=== PATIENT | female | born 1950 | race Caucasian/White ===

== ENCOUNTER → 2016-07-01 | Outpatient (CLI) | payer BC ==
[~2016-07-01] MED LIST: ADD/10 PO; ALBINS/ NEB; ALBU1AER9 INH; AMIT25TA9 PO; AMPH20TA2 PO; BUPRTAB51 PO; CALCTAB7 PO; CHOL100010 PO; CHOL100027 PO; FISHOIL PO; FLNIN NAE; FLUT0.15 NAE; FLUT110A INH; FLUV100T2 PO; FLVHFA44 INH; HYDC25 PO; HYDR12.55 PO; LANS30CA41 PO; LORA-741 PO; LORA10TA5 PO; LOSA50TA54 PO; MONT1TAB3 PO; MULT-506 PO; NAPR1TAB9 PO; OMEG10007 PO; PROAIR INH; RISP0.5T9 PO; SENN-61 PO; TEMA15CA4 PO; TRAM-10 PO
--- NOTE | 2016-07-01 12:17 | DIAGNOSTIC IMAGING REPORT ---
THORACIC SPINE 3 VIEWS ROUTINE CLINICAL HISTORY: Dorsalgia. COMPARISON STUDY: Thoracic spine CT July 14, 2011. FINDINGS: There is an old moderate compression fracture of T12. Mild shaped scoliosis of the thoracic spine is unchanged. Minimal multilevel degenerative disc disease is present. A hiatal hernia is again noted. IMPRESSION: 1. Old moderate T12 compression fracture. No acute thoracic spine fracture. 2. No change in mild S-shaped scoliosis of the thoracic spine. 3. Minimal multilevel degenerative disc disease. Electronically signed by: Pepe Montoya M.D. 07/01/2016 12:15 PM Dictated Date/Time: 07/01/2016 12:07 PM
--- NOTE | 2016-07-01 12:19 | DIAGNOSTIC IMAGING REPORT ---
L-SPINE MIN 4 VIEWS ROUTINE CLINICAL HISTORY: Back pain. COMPARISON: Lumbar spine CT July 14, 2011. FINDINGS: Alignment of the lumbar spine is anatomic. No acute lumbar spine fracture is present. There is an old moderate T12 compression fracture. Mild multilevel degenerative disc disease and facet arthrosis is present. IMPRESSION: 1. No acute lumbar spine fracture or subluxation. 2. Old moderate T12 compression fracture. 3. Mild degenerative disc disease and mild to moderate multilevel facet arthrosis. Electronically signed by: Pepe Montoya M.D. 07/01/2016 12:17 PM Dictated Date/Time: 07/01/2016 12:16 PM
== END | disposition home or self-care (01) ==
LOC: C.RAD1850 11:05
PROVIDERS: ATTEND Family Medicine
DX: M54.6 Pain in thoracic spine (principal); M54.5 Low back pain

== ENCOUNTER → 2016-07-01 | Outpatient (CLI) | payer BC ==
[~2016-07-01] MED LIST changes: +OPTIRAY 320 IV PRN
--- NOTE | 2016-07-01 16:19 | DIAGNOSTIC IMAGING REPORT ---
CT ANGIOGRAM OF THE CHEST CLINICAL HISTORY: Chest pain, shortness of breath, positive d-dimer COMPARISON STUDY: Chest x-ray dated 06/26/2012, CT scan dated 03/18/2011 TECHNIQUE: Following the IV administration of 88 mL of Optiray-320, CT angiogram of the thorax was performed from the thoracic inlet to the lung bases utilizing the pulmonary embolus protocol. Images are reviewed in the axial, sagittal, and coronal planes. IV contrast was administered without complication. MIP imaging was performed. CT DOSE: 406.88 mGycm FINDINGS: There is a moderate hiatal hernia. This has a para esophageal component. There is a small fat-containing right-sided Bochdalek hernia. No pathologically enlarged axillary mediastinal or hilar lymph nodes were visualized. There was no evidence of thoracic aortic dilatation. There were no pulmonary artery filling defects to indicate acute pulmonary embolism. No pleural effusions are visualized. There is mild respiratory motion artifact. There is no focal pulmonary consolidation. There is evidence for pulmonary emphysema. There is scattered tiny calcified granulomas. IMPRESSION: 1. No CT evidence of acute pulmonary embolism 2. Moderate hiatal hernia with a para esophageal component 3. No evidence of focal pulmonary consolidation 4. Mild emphysema. Electronically signed by: Bryan Ambrocio M.D. 07/01/2016 4:17 PM Dictated Date/Time: 07/01/2016 4:12 PM
== END | disposition home or self-care (01) ==
LOC: C.CTS 15:09
PROVIDERS: ATTEND Family Medicine
DX: M54.9 Dorsalgia, unspecified (principal); K44.9 Diaphragmatic hernia without obstruction or gangrene; J43.9 Emphysema, unspecified; M54.6 Pain in thoracic spine; M54.5 Low back pain

== ENCOUNTER → 2016-08-19 | Outpatient (CLI) | payer BC ==
[~2016-08-19] MED LIST changes: -OPTIRAY 320 IV PRN
--- NOTE | 2016-08-19 12:03 | DIAGNOSTIC IMAGING REPORT ---
CHEST 2 VIEWS ROUTINE CLINICAL HISTORY: Cough and shortness of breath COMPARISON STUDY: Chest CT July 01, 2016. FINDINGS: Lung volumes are mildly diminished. There is no pneumothorax or pleural effusion. A hiatal hernia is again noted. Cardiomediastinal silhouette is stable. There is no evidence for pulmonary edema. Mild bibasilar opacities are noted, including right infrahilar opacity IMPRESSION: 1. Diminished lung lungs with bibasilar opacities, including right infrahilar opacity. This may reflect pneumonia or atelectasis. Radiographic follow up is recommended. 2. No evidence of pulmonary edema. Electronically signed by: Pepe Montoya M.D. 08/19/2016 12:02 PM Dictated Date/Time: 08/19/2016 11:58 AM
== END | disposition home or self-care (01) ==
LOC: C.RAD1850 11:30
PROVIDERS: ATTEND Family Medicine
DX: J45.901 Unspecified asthma with (acute) exacerbation (principal); R91.8 Other nonspecific abnormal finding of lung field

== ENCOUNTER → 2016-11-25 | Outpatient (CLI) | payer BC ==
--- NOTE | 2016-11-25 15:05 | DIAGNOSTIC IMAGING REPORT ---
CHEST 2 VIEWS ROUTINE CLINICAL HISTORY: R93.8 ABNORMAL CHEST X-RAY COMPARISON STUDY: No previous studies for comparison. FINDINGS: The cardiac and mediastinal contours remain stable. There is decreased prominence of the previously described right infrahilar opacity. There is no lobar consolidation. There are no pleural effusions.[ IMPRESSION: Minimal decrease in the prominence the nonspecific right infrahilar opacity. No evidence of lobar consolidation. No evidence of failure. Electronically signed by: Bryan Ambrocio M.D. 11/25/2016 3:04 PM Dictated Date/Time: 11/25/2016 3:01 PM
== END | disposition home or self-care (01) ==
LOC: C.RAD1850 14:48
PROVIDERS: ATTEND Family Medicine
DX: R93.8 Abnormal findings on diagnostic imaging of other specified body structures (principal)

== ENCOUNTER 2017-03-11 14:58 | Emergency (ER) | payer BC ==
[~2017-03-11] VITALS: Ht 160 cm; Wt 73.8 kg
[~2017-03-11 14:58] MED LIST changes: -ALBINS/ NEB; -AMIT25TA9 PO; -AMPH20TA2 PO; -BUPRTAB51 PO; -CALCTAB7 PO; -CHOL100027 PO; -FLUT0.15 NAE; -FLUV100T2 PO; -FLVHFA44 INH; -HYDR12.55 PO; -LANS30CA41 PO; -LORA-741 PO; -LORA10TA5 PO; -LOSA50TA54 PO; -MONT1TAB3 PO; -MULT-506 PO; -NAPR1TAB9 PO; -OMEG10007 PO; -PROAIR INH; -SENN-61 PO; -TEMA15CA4 PO; -TRAM-10 PO
--- NOTE | 2017-03-11 14:58 | EMERGENCY ROOM VISIT NOTE ---
History Report prepared by Rika: Myke Red Under the Supervision of: Dr. Antwan Jewell D.O. First contact with patient: 14:56 Stated Complaint: CHEST PAIN History of Present Illness The patient is a 66 year old female who presents to the Emergency Room per EMS with complaints of persistent chest pain that started a couple days ago. The patient was in her doctor's office prior to arrival. She says that her chest pain has been a tightness, and radiates into her back. The patient says that the pain is worsened with movement and breathing. She adds that she has been feeling short of breath. Per EMS, the patient was given Nitro and 325 mg Aspirin. She was tachycardic prior to arrival. The patient has also had episodes of diaphoresis with the chest tightness. The patient denies any fevers , cough, abdominal pain, or swelling or pain in her legs. The patient notes that she takes a nebulizer, Advair, albuterol, as well as hypertension medications. She says that she has not been taking her inhalers as much as she should. The patient is an ex-smoker. She notes no history of blood clots in her legs or lungs. The patient adds that she has never had a stress test. Source of History: patient, EMS Onset: A couple days ago Position: chest Quality: other (tightness) Timing: other (persistent) Modifying Factors (Worsening): breathing, movement Associated Symptoms: + diaphoresis, + SOB, No fevers, No cough, No abdominal pain Note: Associated symptoms: Denies leg pain or leg swelling. Review of Systems See HPI for pertinent positives & negatives. A total of 10 systems reviewed and were otherwise negative. Past Medical & Surgical Medical Problems: (1) Adenomatous polyp of colon (2) Adjustment disorder with depressed mood (3) Allergic rhinitis (4) Anemia (5) ATTN DEFIC NONHYPERACT (6) Benign hypertension (7) s/p colonic polypectomies (8) s/p D&C (9) s/p nasal surgery- excision chondroma (10) s/p shoulder surgery Family History Cancer Diabetes mellitus Heart disease Hypertension Kidney disease Social History Smoking Status: Former Smoker Marital Status: Housing Status: lives with family Occupation Status: retired Current/Historical Medications Scheduled Albuterol Sulf (Proventil 0.083% 2.5MG/3ML), 1 DOSE NEB BID Amitriptyline Hcl (Elavil), 25 MG PO HS Amphetamine-Dextroamphetamine 20MG (Adderall 20MG), 20 MG PO DAILY Bupropion (Wellbutrin-Xl), 300 MG PO QAM Calcium Carbonate-Vitamin D W/ (Caltrate 600 Plus), 1 TAB PO DAILY Cholecalciferol (Vitamin D 1000 Unit), 1,000 INTER.UNIT PO DAILY Fluticasone Propionate (Flovent Hfa), 2 PUFFS INH BID Fluvoxamine Maleate (Luvox), 200 MG PO HS Hydrochlorothiazide (Hydrochlorothiazide), 1 TAB PO DAILY Lansoprazole (Prevacid), 30 MG PO DAILY Loratadine (Claritin), 10 MG PO DAILY Losartan Potassium (Cozaar), 50 MG PO DAILY Montelukast Sodium (Singulair), 10 MG PO DAILY Multivitamin (Multivitamin), 1 TAB PO DAILY Senna (Senokot), 1 TAB PO HS Temazepam (Restoril), 15-30 MG PO HS [Proair], 2 PUFF INH Q4 Scheduled PRN Lorazepam (Ativan), 0.5-1 MG PO HS PRN for Sleep Naproxen (Aleve), 440 MG PO DAILY PRN for Pain or Fever Allergies Coded Allergies: Penicillins (Verified Allergy, Unknown, 07/25/09) Physical Exam Vital Signs Date Time Temp Pulse Resp B/P (MAP) Pulse Ox O2 Delivery O2 Flow Rate FiO2 03/11/17 17:00 106 20 188/108 93 Room Air 03/11/17 15:13 104 03/11/17 15:10 98 Room Air 03/11/17 15:10 36.7 106 26 185/99 95 Room Air 03/11/17 15:10 95 Room Air 03/11/17 15:10 95 Physical Exam GENERAL: Patient is awake, alert, very anxious and uncomfortable appearing. EYES: The conjunctivae are clear. The pupils are round and reactive. EARS, NOSE, MOUTH AND THROAT: The nose is without any evidence of any deformity. Mucous membranes are moist tongue is midline NECK: The neck is nontender and supple. RESPIRATORY: Splinting and shallow respirations noted. There was no tachypnea appreciated. CARDIOVASCULAR: Regular rate and rhythm noted there no murmurs rubs or gallops normal S1 normal S2 GASTROINTESTINAL: The abdomen is soft. Bowel sounds are present in all quadrants. Abdomen is nontender MUSCULOSKELETAL/EXTREMITIES: There is no evidence of gross deformity full range of motion is noted in the hips and shoulders SKIN: Skin was cool and diaphoretic. There was no calf tenderness or pedal edema noted. NEUROLOGIC: Patient is awake alert and oriented x3. Medical Decision & Procedures ER Provider Diagnostic Interpretation: X-ray results as stated below per interpretation by me and the radiologist. CHEST ONE VIEW PORTABLE CLINICAL HISTORY: Respiratory distress COMPARISON STUDY: 11/25/2016 FINDINGS: The heart is normal in size. There is no failure. There is no focal pulmonary consolidation. There are no pleural effusions.[ IMPRESSION: AP portable study. No active disease in the chest. Electronically signed by: Bryan Ambrocio M.D. 03/11/2017 3:32 PM Dictated Date/Time: 03/11/2017 3:31 PM Laboratory Results 03/11/17 15:15 Red Blood Count 3.75, Mean Corpuscular Volume 86.9, Mean Corpuscular Hemoglobin 29.6, Mean Corpuscular Hemoglobin Concent 34.0, Mean Platelet Volume 9.8, Neutrophils (%) (Auto) 69.9, Lymphocytes (%) (Auto) 17.8, Monocytes (%) (Auto) 10.0, Eosinophils (%) (Auto) 1.5, Basophils (%) (Auto) 0.6, Neutrophils # (Auto ) 6.03, Lymphocytes # (Auto) 1.54, Monocytes # (Auto) 0.86, Eosinophils # (Auto ) 0.13, Basophils # (Auto) 0.05 03/11/17 15:15 Test 03/11/17 15:15 03/11/17 15:25 White Blood Count 8.63 K/uL (4.8-10.8) Red Blood Count 3.75 M/uL (4.2-5.4) Hemoglobin 11.1 g/dL (12.0-16.0) Hematocrit 32.6 % (37-47) Mean Corpuscular Volume 86.9 fL (80-100) Mean Corpuscular Hemoglobin 29.6 pg (25-34) Mean Corpuscular Hemoglobin Concent 34.0 g/dl (32-36) Platelet Count 333 K/uL (130-400) Mean Platelet Volume 9.8 fL (7.4-10.4) Neutrophils (%) (Auto) 69.9 % Lymphocytes (%) (Auto) 17.8 % Monocytes (%) (Auto) 10.0 % Eosinophils (%) (Auto) 1.5 % Basophils (%) (Auto) 0.6 % Neutrophils # (Auto) 6.03 K/uL (1.4-6.5) Lymphocytes # (Auto) 1.54 K/uL (1.2-3.4) Monocytes # (Auto) 0.86 K/uL (0.11-0.59) Eosinophils # (Auto) 0.13 K/uL (0-0.5) Basophils # (Auto) 0.05 K/uL (0-0.2) RDW Standard Deviation 45.0 fL (36.4-46.3) RDW Coefficient of Variation 14.3 % (11.5-14.5) Immature Granulocyte % (Auto) 0.2 % Immature Granulocyte # (Auto) 0.02 K/uL (0.00-0.02) Prothrombin Time 10.0 SECONDS (9.0-12.0) Prothromb Time International Ratio 0.9 (0.9-1.1) Activated Partial Thromboplast Time 25.0 SECONDS (21.0-31.0) Partial Thromboplastin Ratio 1.0 Anion Gap 12.0 mmol/L (3-11) Est Creatinine Clear Calc Drug Dose 57.9 ml/min Estimated GFR () 75.2 Estimated GFR (Non- 64.9 BUN/Creatinine Ratio 14.7 (10-20) Calcium Level 9.6 mg/dl (8.5-10.1) Total Bilirubin 0.2 mg/dl (0.2-1) Aspartate Amino Transf (AST/SGOT) 26 U/L (15-37) Alanine Aminotransferase (ALT/SGPT) 30 U/L (12-78) Alkaline Phosphatase 74 U/L (45-117) Total Creatine Kinase 102 U/L (26-192) Creatine Kinase MB 1.3 ng/ml (0.5-3.6) Creatine Kinase MB Ratio 1.3 (0-3.0) Troponin I < 0.015 ng/ml (0-0.045) Total Protein 7.4 gm/dl (6.4-8.2) Albumin 3.5 gm/dl (3.4-5.0) Globulin 3.9 gm/dl (2.5-4.0) Albumin/Globulin Ratio 0.9 (0.9-2) Bedside D-Dimer 315 ng/mlFEU (0-450) Laboratory results per my review. Medications Administered Medications (Trade) Dose Ordered Sig/Sofiya Route Start Time Stop Time Status Last Admin Dose Admin Sodium Chloride 1,000 ml @ 999 mls/hr Q1H1M STAT IV 03/11/17 15:03 03/11/17 16:03 DC 03/11/17 15:03 999 MLS/HR Ondansetron HCl (Zofran Odt) 4 mg ONE ONCE PO 03/11/17 15:15 03/11/17 15:16 DC 03/11/17 15:23 4 MG Morphine Sulfate (MoRPHine SULFATE INJ) 4 mg Q15M PRN IV 03/11/17 15:15 03/25/17 15:14 03/11/17 15:23 4 MG ECG Indication: chest pain Rate (beats per minute): 104 Rhythm: sinus tachycardia Findings: no ectopy, other (no acute ST segment abnormalities) Change: no significant change (from earlier tracing and 06/26/12) ED Course 1458: The patient was evaluated in room A10. A complete history and physical examination were performed. 1503: Ordered NSS 1000 ml @ 999 mls/hr IV. 1515: Ordered Morphine Sulfate Inj 4 mg IV PRN, Zofran ODT 4 mg PO. 1645: I reevaluated the patient and she is resting. The patient verbally expressed understanding and agreement with the treatment plan. The patient will be evaluated for further treatment. 1648: I discussed the patient with Dr. Gaudencio Brooks [facility] cement tile maker. He will evaluate the patient for further treatment. 1800: I was notified that the patient will be discharged. The patient verbally expressed understanding and agreement of the treatment plan. Medical Decision Differential diagnosis: Etiologies such as cardiac ischemia, aortic dissection, pulmonary embolism, pneumonia, pneumothorax, musculoskeletal, infections, pericarditis, myocarditis , esophageal rupture, gastrointestinal, as well as others were entertained. Nursing notes reviewed. Additional history is obtained from the prehospital personnel. The patient's office visit notes were also reviewed. The patient is a 66-year-old female who presented to the emergency department for an evaluation of chest pain. The patient's pain was mostly lower chest and was worsened with deep inspiration and palpation. The patient arrived at the emergency department for a cardiac evaluation after being seen by her primary care physician's office. The patient was diaphoretic but she was given aspirin and nitroglycerin prior to arrival. The patient was reevaluated multiple times. She was treated with IV fluids in the emergency department. She was also given IV pain medication and IV antiemetics. On subsequent reevaluation she was feeling much better. I discussed the patient's laboratory and radiographic studies with her. I also discussed her case with the on-call [facility] hospitalist. They've agreed to evaluate the patient in emergency apartment for further management and disposition. I discussed the limitations of the emergency department workup for chest pain with the patient. Medication Reconcilliation Current Medication List: was personally reviewed by me Blood Pressure Screening Patient's blood pressure: Elevated blood pressure Blood pressure disposition: Elevated BP felt to be situational Consults Time Called: 1644 Consulting Physician: Dr. Gaudencio TORRES cement tile maker Returned Call: 1648 I discussed the patient with Dr. Gaudencio TORRES cement tile maker. He will evaluate the patient for further treatment. Impression Primary Impression: Chest pain Scribe Attestation The scribe's documentation has been prepared under my direction and personally reviewed by me in its entirety. I confirm that the note above accurately reflects all work, treatment, procedures, and medical decision making performed by me. Departure Information Dispostion Home / Self-Care Referrals Mitchell Maza M.D. Forms Call Back Authorization, HOME CARE DOCUMENTATION FORM, IMPORTANT VISIT INFORMATION, Work Instructions Patient Instructions ED Chest Pain Atypical Unkn Cause, [facility] Additional Instructions Rest and avoid any strenuous activity. Continue all medications as prescribed. Follow-up with your family doctor soon as possible. I would recommend a stress test or other testing to further evaluate the cause her chest pain. Return to the emergency department immediately if symptoms change worsen or the need arises.
[2017-03-11] MEDS ORDERED: SODIUM CHLORIDE 0.9% 1000ML 1,000 ML IV STA (15:03)
[2017-03-11 15:10] VITALS: TEMP 36.7; O2SAT 95; Ht 160 cm; Wt 73.8 kg
[2017-03-11] MEDS ORDERED: ONDANSETRON 4MG OD TAB PO ONE (15:15)
[2017-03-11] MEDS ORDERED: MoRPHine SULFATE 4 MG/ML 1 ML CARP\\VIAL IV PRN (15:15)
--- NOTE | 2017-03-11 15:34 | DIAGNOSTIC IMAGING REPORT ---
CHEST ONE VIEW PORTABLE CLINICAL HISTORY: Respiratory distress COMPARISON STUDY: 11/25/2016 FINDINGS: The heart is normal in size. There is no failure. There is no focal pulmonary consolidation. There are no pleural effusions.[ IMPRESSION: AP portable study. No active disease in the chest. Electronically signed by: Bryan Ambrocio M.D. 03/11/2017 3:32 PM Dictated Date/Time: 03/11/2017 3:31 PM
[2017-03-11 15:35] LABS: BASO % 0.6 %; BASO ABS # 0.05 K/uL (0-0.2); COMPLETE YES; EOS % 1.5 %; HEMATOCRIT 32.6 % (37-47); IG% 0.2 %; LYMPH % 17.8 %; LYMPH ABS # 1.54 K/uL (1.2-3.4); MEAN CELL VOLUME 86.9 fL (80-100); MEAN CORPUSCULAR HEMOGLOBIN 29.6 pg (25-34); MEAN PLATELET VOLUME 9.8 fL (7.4-10.4); NEUT % 69.9 %; PLATELET COUNT 333 K/uL (130-400); RED BLOOD COUNT 3.75 M/uL (4.2-5.4); WHITE BLOOD COUNT 8.63 K/uL (4.8-10.8)
[2017-03-11 15:44] LABS: INR 0.9 (0.9-1.1)
[2017-03-11 15:54] LABS: ALT/SGPT 30 U/L (12-78); BLOOD UREA NITROGEN 14 mg/dl (7-18); BUN/CREATININE RATIO 14.7 (10-20); CALCIUM 9.6 mg/dl (8.5-10.1); CARBON DIOXIDE 25 mmol/L (21-32); CHLORIDE 103 mmol/L (98-107); CREATININE 0.92 mg/dl (0.60-1.20); GLUCOSE 92 mg/dl (70-99); POTASSIUM 3.9 mmol/L (3.5-5.1); SODIUM 140 mmol/L (136-145)
[2017-03-11 15:59] LABS: ALB/GLOB RATIO 0.9 (0.9-2); ALKALINE PHOSPHATASE 74 U/L (45-117); AST/SGOT 26 U/L (15-37); CKMB/CK RATIO 1.3 (0-3.0)
[2017-03-11] MEDS ORDERED: CHOL100027 PO (16:07)
[2017-03-11] MEDS ORDERED: FLUT0.15 NAE (16:07)
[2017-03-11] MEDS ORDERED: HYDR12.55 PO (16:07)
[2017-03-11] MEDS ORDERED: AMIT25TA9 PO (16:07)
[2017-03-11] MEDS ORDERED: TRAM-10 PO (16:07)
[2017-03-11] MEDS ORDERED: PROAIR INH (16:07)
[2017-03-11] MEDS ORDERED: SENN-61 PO (16:07)
[2017-03-11] MEDS ORDERED: FLVHFA44 INH (16:07)
[2017-03-11] MEDS ORDERED: OMEG10007 PO (16:07)
[2017-03-11] MEDS ORDERED: NAPR1TAB9 PO (16:23)
[2017-03-11] MEDS ORDERED: AMPH20TA2 PO (16:23)
[2017-03-11] MEDS ORDERED: ALBINS/ NEB (16:25)
--- NOTE | 2017-03-11 17:31 | History and Physical ---
History & Physical Date & Time of Service: Mar 11, 2017 at 17:16 Chief Complaint: Chest Pain Primary Care Physician: Mitchell Maza M.D. Past Medical/Surgical History Medical Problems: (1) Adenomatous polyp of colon Permanent Comment: s/p polypectomies Status: Chronic (2) Adjustment disorder with depressed mood Status: Chronic (3) Allergic rhinitis Status: Chronic (4) Anemia Status: Chronic (5) ATTN DEFIC NONHYPERACT Status: Chronic (6) Benign hypertension Status: Chronic (7) s/p colonic polypectomies Status: Chronic (8) s/p D&C Status: Chronic (9) s/p nasal surgery- excision chondroma Status: Chronic (10) s/p shoulder surgery Status: Chronic Family History Cancer Diabetes mellitus Heart disease Hypertension Kidney disease Father of CT at 63 Brother had CABG Mother had CAD, at 62 CT Social History Smoking Status: Former Smoker Marital Status: Occupational Status: retired Immunizations History of Influenza Vaccine: Yes Influenza Vaccine Date: Mar 14, 2011 History of Tetanus Vaccine?: Yes Tetanus Immunization Date: Jun 20, 2006 History of Pneumococcal: Unknown History of Hepatitis B Vaccine: Unknown Multi-Drug Resistant Organisms History of MDRO: No Allergies Coded Allergies: Penicillins (Verified Allergy, Unknown, 07/25/09) Home Medications Scheduled Albuterol Sulf (Proventil 0.083% 2.5MG/3ML), 1 DOSE NEB BID Amitriptyline Hcl (Elavil), 25 MG PO HS Amphetamine-Dextroamphetamine 20MG (Adderall 20MG), 20 MG PO DAILY Bupropion (Wellbutrin-Xl), 300 MG PO QAM Calcium Carbonate-Vitamin D W/ (Caltrate 600 Plus), 1 TAB PO DAILY Cholecalciferol (Vitamin D 1000 Unit), 1,000 INTER.UNIT PO DAILY Fluticasone Propionate (Flovent Hfa), 2 PUFFS INH BID Fluvoxamine Maleate (Luvox), 200 MG PO HS Hydrochlorothiazide (Hydrochlorothiazide), 1 TAB PO DAILY Lansoprazole (Prevacid), 30 MG PO DAILY Loratadine (Claritin), 10 MG PO DAILY Losartan Potassium (Cozaar), 50 MG PO DAILY Montelukast Sodium (Singulair), 10 MG PO DAILY Multivitamin (Multivitamin), 1 TAB PO DAILY Senna (Senokot), 1 TAB PO HS Temazepam (Restoril), 15-30 MG PO HS [Proair], 2 PUFF INH Q4 Scheduled PRN Lorazepam (Ativan), 0.5-1 MG PO HS PRN for Sleep Naproxen (Aleve), 440 MG PO DAILY PRN for Pain or Fever Review of Systems A 10 point review of systems was negative unless stated above. Physical Exam Vital Signs Date Time Temp Pulse Resp B/P (MAP) Pulse Ox O2 Delivery O2 Flow Rate FiO2 03/11/17 15:13 104 03/11/17 15:10 98 Room Air 03/11/17 15:10 36.7 106 26 185/99 95 Room Air 03/11/17 15:10 95 Room Air 03/11/17 15:10 95 Diagnostics Laboratory Results Results Past 24 Hours Test 03/11/17 15:15 03/11/17 15:25 Range/Units White Blood Count 8.63 4.8-10.8 K/uL Red Blood Count 3.75 4.2-5.4 M/uL Hemoglobin 11.1 12.0-16.0 g/dL Hematocrit 32.6 37-47 % Mean Corpuscular Volume 86.9 80-100 fL Mean Corpuscular Hemoglobin 29.6 25-34 pg Mean Corpuscular Hemoglobin Concent 34.0 32-36 g/dl Platelet Count 333 130-400 K/uL Mean Platelet Volume 9.8 7.4-10.4 fL Neutrophils (%) (Auto) 69.9 % Lymphocytes (%) (Auto) 17.8 % Monocytes (%) (Auto) 10.0 % Eosinophils (%) (Auto) 1.5 % Basophils (%) (Auto) 0.6 % Neutrophils # (Auto) 6.03 1.4-6.5 K/uL Lymphocytes # (Auto) 1.54 1.2-3.4 K/uL Monocytes # (Auto) 0.86 0.11-0.59 K/uL Eosinophils # (Auto) 0.13 0-0.5 K/uL Basophils # (Auto) 0.05 0-0.2 K/uL RDW Standard Deviation 45.0 36.4-46.3 fL RDW Coefficient of Variation 14.3 11.5-14.5 % Immature Granulocyte % (Auto) 0.2 % Immature Granulocyte # (Auto) 0.02 0.00-0.02 K/uL Prothrombin Time 10.0 9.0-12.0 SECONDS Prothromb Time International Ratio 0.9 0.9-1.1 Activated Partial Thromboplast Time 25.0 21.0-31.0 SECONDS Partial Thromboplastin Ratio 1.0 Sodium Level 140 136-145 mmol/L Potassium Level 3.9 3.5-5.1 mmol/L Chloride Level 103 98-107 mmol/L Carbon Dioxide Level 25 21-32 mmol/L Anion Gap 12.0 3-11 mmol/L Blood Urea Nitrogen 14 7-18 mg/dl Creatinine 0.92 0.60-1.20 mg/dl Est Creatinine Clear Calc Drug Dose 57.9 ml/min Estimated GFR () 75.2 Estimated GFR (Non- 64.9 BUN/Creatinine Ratio 14.7 10-20 Random Glucose 92 70-99 mg/dl Calcium Level 9.6 8.5-10.1 mg/dl Total Bilirubin 0.2 0.2-1 mg/dl Aspartate Amino Transf (AST/SGOT) 26 15-37 U/L Alanine Aminotransferase (ALT/SGPT) 30 12-78 U/L Alkaline Phosphatase 74 45-117 U/L Total Creatine Kinase 102 26-192 U/L Creatine Kinase MB 1.3 0.5-3.6 ng/ml Creatine Kinase MB Ratio 1.3 0-3.0 Troponin I < 0.015 0-0.045 ng/ml Total Protein 7.4 6.4-8.2 gm/dl Albumin 3.5 3.4-5.0 gm/dl Globulin 3.9 2.5-4.0 gm/dl Albumin/Globulin Ratio 0.9 0.9-2 Bedside D-Dimer 315 0-450 ng/mlFEU
[2017-03-11] MEDS ORDERED: MONT1TAB3 PO (18:05)
[2017-03-11] MEDS ORDERED: LORA10TA5 PO (18:05)
[2017-03-11] MEDS ORDERED: CALCTAB7 PO (18:05)
--- NOTE | 2017-03-11 18:10 | Medical Consult ---
Consultation Date of Consultation: Mar 11, 2017. Attending Physician: Dr. Jorge Ratliff Reason for Consultation: Chest pain History of Present Illness The patient presents with chest tightness. The pain has been "off and on" for the past 2 days. The pain localizes to under the ribcages bilaterally. The pain radiates to the jaw and shoulders though she notes having chronic shoulder pain. The pain is described as tightness / "grabbing" pain rated 7/10 under the ribcage. The pain worsens with movement, particularly going from lying to sitting. The pain is stated to be worse with walking and improves with rest after immediately. She notes shortness of breath with exertion for the past 6 months. She states she is unable to do housework now without getting short of breath. She has a history of COPD but is not O2 dependent. She denies wheezing at night. No fevers, chills. She states that she gets diaphoretic intermittently for many years, she cannot time with anything. Appetite has been poor for the past 2 days. No nausea, vomiting or abdominal pain. No diarrhea. She has a history of constipation at baseline which is unchanged. Given pain, seen in [facility] today and was referred to the ED for further evaluation. EKG showed sinus tachycardia. Lying in bed she denies having chest pain currently. She wants to go home. She state "I thought this was more of a chest cold" She is an ex-smoker. Currently drinks alcohol 1 unit per evening (glass of wine) Lives with , who helps with home ADLs No previous history of cardiac disease. Past Medical/Surgical History Past Medical History - HTN - ?COPD? patient unclear - History of Tobacco abuse - Depression - Anxiety Past Surgical History - Hysterectomy - Right wrist surgery - B/L shoulder surgery Family History Cancer Diabetes mellitus Heart disease Hypertension Kidney disease Father of SD at 63 Brother had CABG Mother had CAD, at 62 SD Social History Smoking Status: Former Smoker Smokeless Tobacco Use: No Alcohol Use: occasionally Drug Use: none Marital Status: Housing Status: lives with family Occupation Status: retired Allergies Coded Allergies: Penicillins (Verified Allergy, Unknown, 07/25/09) Home Medications Reported Home Medications Medications Dose Route/Sig Max Daily Dose Days Date Category Proventil 0.083% 2.5MG/3ML (Albuterol Sulf) 2.5 Mg/3 Ml Nebu 1 Dose NEB BID 03/11/17 Reported Aleve (Naproxen) 220 Mg Tab 440 Mg PO DAILY PRN 03/11/17 Reported Adderall 20MG (Amphetamine-Dextroamphetamine 20MG) 1 Tab Tab 20 Mg PO DAILY 03/11/17 Reported Vitamin D 1000 Unit (Cholecalciferol) 1,000 Unit Cap 1,000 Inter.unit PO DAILY 03/11/17 Reported [Proair] 2 Puff INH Q4 03/11/17 Reported Senokot (Senna) 8.6 Mg Tab 1 Tab PO HS 03/11/17 Reported Elavil (Amitriptyline Hcl) 25 Mg Tab 25 Mg PO HS 03/11/17 Reported Flovent Hfa (Fluticasone Propionate) 120 Puffs/5280 Mcg Aero 2 Puffs INH BID 30 03/11/17 Reported Hydrochlorothiazide 12.5 Mg Tab 1 Tab PO DAILY 90 03/11/17 Reported Prevacid (Lansoprazole) 30 Mg Cap 30 Mg PO DAILY 09/03/13 Reported Cozaar (Losartan Potassium) 50 Mg Tab 50 Mg PO DAILY 09/03/13 Reported Ativan (Lorazepam) 0.5 Mg Tab 0.5-1 Mg PO HS PRN 09/03/13 Reported Luvox (Fluvoxamine Maleate) 100 Mg Tab 200 Mg PO HS 09/03/13 Reported Restoril (Temazepam) 15 Mg Cap 15-30 Mg PO HS 09/03/13 Reported Claritin (Loratadine) 10 Mg Tab 10 Mg PO DAILY 06/26/12 Reported Singulair (Montelukast Sodium) 10 Mg Tab 10 Mg PO DAILY 06/26/12 Reported Caltrate 600 Plus (Calcium Carbonate-Vitamin D W/) 1 Tab Tab 1 Tab PO DAILY 06/26/12 Reported Multivitamin (Multivitamins) Tab 1 Tab PO DAILY 03/18/11 Reported Wellbutrin-Xl (Bupropion HCl) 300 Mg Tabcr 300 Mg PO QAM 03/18/11 Reported Current Inpatient Medications Current Inpatient Medications Medications (Trade) Dose Ordered Sig/Sofiya Route Start Time Stop Time Status Last Admin Dose Admin Morphine Sulfate (MoRPHine SULFATE INJ) 4 mg Q15M PRN IV 03/11/17 15:15 03/25/17 15:14 03/11/17 15:23 4 MG Review of Systems A 10 point review of systems was negative unless stated above in the HPI Eyes: No worsening of vision, No redness, No discharge ENT: No nasal symptoms, No sore throat, No tinnitus Respiratory: No hemoptysis Cardiovascular: No orthopnea, No claudication, No palpitations Abdomen: + constipation (baseline), No pain, No nausea, No vomiting, No diarrhea Genitourinary - Female: No dysuria, No urinary frequency, No urinary urgency Neurologic: No weakness, No numbness/tingling, No vertigo Hematologic / Lymphatic: No abnormal bleeding/bruising, No clotting problems, No swollen lymph nodes Integumentary: No rash, No new/changing skin lesions, No color change Physical Exam Date Time Temp Pulse Resp B/P (MAP) Pulse Ox O2 Delivery O2 Flow Rate FiO2 03/11/17 17:00 106 20 188/108 93 Room Air 03/11/17 15:13 104 03/11/17 15:10 98 Room Air 03/11/17 15:10 36.7 106 26 185/99 95 Room Air 03/11/17 15:10 95 Room Air 03/11/17 15:10 95 General Appearance: WD/WN, no apparent distress, + mild distress, + pertinent finding (diaphoretic) Head: normocephalic, atraumatic Eyes: normal inspection, EOMI ENT: hearing grossly normal, pharynx normal Neck: supple, no adenopathy, no JVD Respiratory/Chest: + wheezing (mild bilateral expiratory wheezing), + pertinent finding (chest wall tenderness bilaterally in lower rib cage; patient states it is the pain she presents with; patient notes pain when going to seated position; no pain at rest) Cardiovascular: regular rate, rhythm, no gallop, no murmur Abdomen/GI: normal bowel sounds, non tender, soft Back: no CVA tenderness, no muscle spasm Extremities/Musculoskelatal: no calf tenderness, no pedal edema Neurologic/Psych: alert, normal mood/affect, oriented x 3 Skin: normal color, warm/dry, no rash Laboratory Results Last 24 Hours Test 03/11/17 15:15 03/11/17 15:25 White Blood Count 8.63 K/uL Red Blood Count 3.75 M/uL Hemoglobin 11.1 g/dL Hematocrit 32.6 % Mean Corpuscular Volume 86.9 fL Mean Corpuscular Hemoglobin 29.6 pg Mean Corpuscular Hemoglobin Concent 34.0 g/dl Platelet Count 333 K/uL Mean Platelet Volume 9.8 fL Neutrophils (%) (Auto) 69.9 % Lymphocytes (%) (Auto) 17.8 % Monocytes (%) (Auto) 10.0 % Eosinophils (%) (Auto) 1.5 % Basophils (%) (Auto) 0.6 % Neutrophils # (Auto) 6.03 K/uL Lymphocytes # (Auto) 1.54 K/uL Monocytes # (Auto) 0.86 K/uL Eosinophils # (Auto) 0.13 K/uL Basophils # (Auto) 0.05 K/uL RDW Standard Deviation 45.0 fL RDW Coefficient of Variation 14.3 % Immature Granulocyte % (Auto) 0.2 % Immature Granulocyte # (Auto) 0.02 K/uL Prothrombin Time 10.0 SECONDS Prothromb Time International Ratio 0.9 Activated Partial Thromboplast Time 25.0 SECONDS Partial Thromboplastin Ratio 1.0 Sodium Level 140 mmol/L Potassium Level 3.9 mmol/L Chloride Level 103 mmol/L Carbon Dioxide Level 25 mmol/L Anion Gap 12.0 mmol/L Blood Urea Nitrogen 14 mg/dl Creatinine 0.92 mg/dl Est Creatinine Clear Calc Drug Dose 57.9 ml/min Estimated GFR () 75.2 Estimated GFR (Non- 64.9 BUN/Creatinine Ratio 14.7 Random Glucose 92 mg/dl Calcium Level 9.6 mg/dl Total Bilirubin 0.2 mg/dl Aspartate Amino Transf (AST/SGOT) 26 U/L Alanine Aminotransferase (ALT/SGPT) 30 U/L Alkaline Phosphatase 74 U/L Total Creatine Kinase 102 U/L Creatine Kinase MB 1.3 ng/ml Creatine Kinase MB Ratio 1.3 Troponin I < 0.015 ng/ml Total Protein 7.4 gm/dl Albumin 3.5 gm/dl Globulin 3.9 gm/dl Albumin/Globulin Ratio 0.9 Bedside D-Dimer 315 ng/mlFEU Assessment & Plan 66 year old female with history of 2 days chest pain. Troponin was negative in the ED and there were no acute changes on EKG. History does suggest this is exertional but primarily musculoskeletal rather than cardiac, particular as her pain is reproduced when she goes to seated position, and engaging abdominal/intercostal muscles Based on clinical examination, the patient has clearly reproducible chest wall tenderness as well as mild bilateral wheezing. Fortunately, she is not oxygen dependent at this time. Based on findings, this appears to be a bronchitis, rather on the spectrum of acute coronary syndrome. Certainly she does have risk factors for CAD would benefit from outpatient evaluation. Our recommendations are as follows: - Discharge home, follow-up with PCP early next week (patient states she already has appointment) - Tylenol and/or Motrin PRN for pain - Mucinex for improved airway clearance - Robitussin as needed - Advised patient to use home inhalers, nebulizers more frequently as bronchitis resolves to prevent exacerbation of reactive airway disease. - Outpatient stress testing per primary care provider The patient is agreeable to this plan and verbalized understanding. I agree with resident assessment and plan and have seen and examined pt myself resting comfortably in bed tachycardia on monitor labs reviewed trops WNL ekg no ischemic changes noted pain is on both flanks, likely musculoskeletal can DC home, take nebulizer PRN will need stress ECHO as outpatient
[2017-03-11 18:30] VITALS: BP 176/103; PULSE 110; O2SAT 97
[2017-03-11] MEDS ORDERED: MULT-506 PO (19:31)
[2017-03-11] MEDS ORDERED: BUPRTAB51 PO (19:31)
[2017-03-11] MEDS ORDERED: FLUV100T2 PO (20:56)
[2017-03-11] MEDS ORDERED: LORA-741 PO (20:56)
[2017-03-11] MEDS ORDERED: LOSA50TA54 PO (20:56)
[2017-03-11] MEDS ORDERED: LANS30CA41 PO (20:56)
[2017-03-11] MEDS ORDERED: TEMA15CA4 PO (20:56)
== END 2017-03-11 18:33 | disposition home or self-care (01) ==
LOC: EDBD 14:58 → C.EDA 14:59
DX: R07.9 Chest pain, unspecified (principal); I10 Essential (primary) hypertension; F98.8 Other specified behavioral and emotional disorders with onset usually occurring in childhood and adolescence; Z87.891 Personal history of nicotine dependence; Z98.890 Other specified postprocedural states; Z83.3 Family history of diabetes mellitus; Z82.49 Family history of ischemic heart disease and other diseases of the circulatory system; Z79.899 Other long term (current) drug therapy; F32.9 Major depressive disorder, single episode, unspecified; Z90.710 Acquired absence of both cervix and uterus

== ENCOUNTER → 2017-05-14 | Outpatient (CLI) | payer BC ==
[~2017-05-14] MED LIST changes: -ADD/10 PO; +ALBINS/ NEB; -ALBU1AER9 INH; +AMIT25TA9 PO; +AMPH20TA2 PO; +BUPRTAB51 PO; +CALCTAB7 PO; -CHOL100010 PO; +CHOL100027 PO; -FISHOIL PO; -FLNIN NAE; -FLUT110A INH; +FLUV100T2 PO; +FLVHFA44 INH; -HYDC25 PO; +HYDR12.55 PO; +LANS30CA41 PO; +LORA-741 PO; +LORA10TA5 PO; +LOSA50TA54 PO; +MONT1TAB3 PO; +MULT-506 PO; +NAPR1TAB9 PO; +PROAIR INH; -RISP0.5T9 PO; +SENN-61 PO; +TEMA15CA4 PO
--- NOTE | 2017-05-14 12:13 | DIAGNOSTIC IMAGING REPORT ---
CHEST 2 VIEWS ROUTINE CLINICAL HISTORY: ASTHMA EXACERBATION COMPARISON STUDY: Chest radiograph March 11, 2017. FINDINGS: Lung volumes are normal. No pneumothorax or pleural effusion is present. There is no evidence of pulmonary edema. Cardiac size is normal. Note is made of a moderate sized hiatal hernia. Compression deformity at the thoracolumbar junction is incidentally noted. IMPRESSION: No acute cardiopulmonary findings. Electronically signed by: Pepe Montoya M.D. 05/14/2017 12:11 PM Dictated Date/Time: 05/14/2017 12:10 PM
== END | disposition home or self-care (01) ==
LOC: C.RAD 10:35
PROVIDERS: ATTEND Family Medicine
DX: J45.901 Unspecified asthma with (acute) exacerbation (principal)

== ENCOUNTER → 2017-06-15 | Outpatient (CLI) | payer BC ==
[~2017-06-15] MED LIST changes: +ALBU18002 INH; +CALCTAB5 PO; +FERR1TAB23 PO; +FLUT1INH INH; +FLUV100T12 PO; +GABA-113 PO; +HYDR-5688 PO; +LANS30CA12 PO; -LORA10TA5 PO; +LORA10TA51 PO; +LORA10TA6 PO; +LOSA50TA6 PO; +MISCTAB78 PO; +TRAZ100T29 PO
--- NOTE | 2017-06-15 16:47 | DIAGNOSTIC IMAGING REPORT ---
CHEST 2 VIEWS ROUTINE CLINICAL HISTORY: COUGH COMPARISON STUDY: Chest radiograph May 14, 2017. FINDINGS: Lung volumes are at the upper limits of normal. A compression deformity at the thoracolumbar junction is unchanged. There is no consolidation to suggest pneumonia. Cardiomediastinal silhouette is stable. IMPRESSION: No acute cardiopulmonary findings. Electronically signed by: Pepe Montoya M.D. 06/15/2017 4:46 PM Dictated Date/Time: 06/15/2017 4:45 PM
--- NOTE | 2017-06-15 16:49 | DIAGNOSTIC IMAGING REPORT ---
PARANASAL SINUSES 4 VIEWS CLINICAL HISTORY: Cough. FINDINGS: 4 views of the paranasal sinuses are obtained. No prior studies are available for comparison at the time of dictation. There is no radiographic evidence of paranasal sinus disease. The bony orbits are intact as visualized. The imaged calvarium appears maintained. The mastoid air cells appear clear. IMPRESSION: There is no radiographic evidence of paranasal sinus disease. Electronically signed by: Raul Carter M.D. 06/15/2017 4:48 PM Dictated Date/Time: 06/15/2017 4:47 PM
== END | disposition home or self-care (01) ==
LOC: C.RAD1850 16:15
PROVIDERS: ATTEND Physician Assistant
DX: R05 Cough (principal)

== ENCOUNTER → 2017-07-08 | Outpatient (CLI) | payer BC | END | disposition home or self-care (01) | LOC: C.CTS 13:40 | DX: J32.9 Chronic sinusitis, unspecified (principal) ==

== ENCOUNTER → 2017-07-14 | Day surgery (SDC) | payer BC ==
--- NOTE | 2017-07-13 11:58 | History and Physical: Surg Cnt ---
History & Physical Date Jul 13, 2017. Chief Complaint sinus headaches History of Present Illness The patient is a 66 year old female with complaints of persistent pain left cheek, chronic sinusitis Past Medical/Surgical History Medical Problems: (1) Adenomatous polyp of colon (2) Adjustment disorder with depressed mood (3) Allergic rhinitis (4) Anemia (5) ATTN DEFIC NONHYPERACT (6) Benign hypertension (7) s/p colonic polypectomies (8) s/p D&C (9) s/p nasal surgery- excision chondroma (10) s/p shoulder surgery Additional History Hepatic Disease: No Endocrine Disorder: No Kidney Disease: No Hypertension: Yes Heart Disease: No Bleeding Tendencies: No Infectious Diseases: No Allergies Coded Allergies: Penicillins (Verified Allergy, Unknown, 07/25/09) Home Medications Scheduled Albuterol Sulf (Proventil 0.083% 2.5MG/3ML), 1 DOSE NEB BID Amitriptyline Hcl (Elavil), 25 MG PO HS Amphetamine-Dextroamphetamine 20MG (Adderall 20MG), 20 MG PO DAILY Bupropion (Wellbutrin-Xl), 300 MG PO QAM Calcium Carbonate-Vitamin D W/ (Caltrate 600 Plus), 1 TAB PO DAILY Cholecalciferol (Vitamin D 1000 Unit), 1,000 INTER.UNIT PO DAILY Fluticasone Propionate (Flovent Hfa), 2 PUFFS INH BID Fluvoxamine Maleate (Luvox), 200 MG PO HS Hydrochlorothiazide (Hydrochlorothiazide), 1 TAB PO DAILY Lansoprazole (Prevacid), 30 MG PO DAILY Loratadine (Claritin), 10 MG PO DAILY Losartan Potassium (Cozaar), 50 MG PO DAILY Montelukast Sodium (Singulair), 10 MG PO DAILY Multivitamin (Multivitamin), 1 TAB PO DAILY Senna (Senokot), 1 TAB PO HS Temazepam (Restoril), 15-30 MG PO HS [Proair], 2 PUFF INH Q4 Scheduled PRN Lorazepam (Ativan), 0.5-1 MG PO HS PRN for Sleep Naproxen (Aleve), 440 MG PO DAILY PRN for Pain or Fever Physical Examination Skin: warm/dry, no rash Eyes: normal inspection, EOMI, sclerae normal ENT: normal ENT inspection, pharynx normal Head: normocephalic, atraumatic Neck: supple, no adenopathy, trachea midline Respiratory/Chest: lungs clear, normal breath sounds, no respiratory distress Cardiovascular: regular rate, rhythm, no edema, no murmur Abdomen / GI: normal bowel sounds, non tender Back: normal inspection Extremities: normal inspection, normal range of motion Neurologic/Psych: no motor/sensory deficits, alert, normal reflexes, oriented x 3 Diagnosis chronic sinusitis Plan of Treatment endoscopic sinus surgery
[2017-07-13 13:41] VITALS: Ht 158.8 cm; Wt 63.6 kg
[~2017-07-14] VITALS: Ht 158.8 cm; Wt 63.6 kg
[~2017-07-14] MED LIST changes: -AMIT25TA9 PO; +ATROPINE SULFATE 0.1 MG/ML 5ML SYR IV PRN; +BACITRACIN OINT 15 GM TUBE ONE; -BUPRTAB51 PO; -CALCTAB7 PO; +CEFAZOLIN 1000MG IV PUSH 5 ML IV SCH; -CHOL100027 PO; +DEXAMETHASONE SOD INJ 4 MG/ML VIAL ONE; +EpHEDrine SULFATE INJ 50 MG/ML AMP IV PRN; +EpHEDrine SULFATE INJ 50 MG/ML AMP ONE; +EpINEphrine INJ 1MG/ML AMP 1 MG/ML AMP ONE; +FENTANYL CITRATE INJ 50 MCG/1 ML 2 ML VIAL IV PRN; +FENTANYL CITRATE INJ 50 MCG/1 ML 2 ML VIAL ONE; -FLUV100T2 PO; -FLVHFA44 INH; +GELATIN SPONGE 12-7MM ONE; +HYDROCODONE/ACETAMOPHEN 5/325MG TAB PO PRN; +HYDROmorphone INJ 0.5 MG/0.5 ML SYR IV PRN; +LACTATED RINGER'S 1000ML 1,000 ML IV SCH; -LANS30CA41 PO; +LIDO 2%/EPINEPHRINE 1:100000 20 ML VIAL INFIL ONE; +LIDOCAINE 4% MPF SOAK 5 ML = 1 DOSE TOP ONE; +LIDOCAINE HCL 2% 2 ML VIAL (20MG/ML) ONE; -LORA-741 PO; -LORA10TA6 PO; -LOSA50TA54 PO; +MIDAZOLAM HCL 1 MG/ML 2ML VIAL ONE; -MULT-506 PO; -NAPR1TAB9 PO; +ONDANSETRON INJ 2 MG/ML 2 ML VIAL IV PRN; +ONDANSETRON INJ 2 MG/ML 2 ML VIAL ONE; -PROAIR INH; +PROMETHAZINE HCL INJ 12.5 MG in SODIUM CHLORIDE 0.9% 50ML 50 ML IV PRN; +PROPOFOL IV EMULSION 10 MG/ML 20 ML VIAL IV ONE; -SENN-61 PO; +SODIUM CHLORIDE 0.9% 1000ML 1,000 ML IV SCH; +SODIUM CHLORIDE 0.9% INJ 10 ML VIAL ONE; -TEMA15CA4 PO
--- NOTE | 2017-07-14 06:47 | History & Physical Bridge Note ---
H&P Re-Evaluation Bridge Note: I have examined the patient, reviewed the History & Physical and in the interval since the performance of the History & Physical I have noted the following changes of clinical significance: No changes noted
--- NOTE | 2017-07-14 08:02 | Discharge Instructions-SurgCtr ---
Discharge Instructions Date of Service Jul 14, 2017. Visit Reason for Visit: Chronic Sinusitis Discharge Discharge Diagnosis / Problem: same Discharge Goals Goal(s): Improve disease control Activity Recommendations Activity Limitations: resume your previous activity Anesthesia . Post Anesthesia Instructions: If you have had General Anesthesia or IV Sedation: * Do not drive today. * Resume driving when surgeon permits. * Do not make important decisions or sign legal documents today. * Call surgeon for: 1. Temperature elevations greater than 101 degrees F. 2. Uncontrollable pain. 3. Excessive bleeding. 4. Persistent nausea and vomiting. 5. Medication intolerance (nausea, vomiting or rash). * For nausea and vomiting use only clear liquids such as: tea, soda, bouillon until nausea subsides, then gradually increase diet as tolerated. * If you have any concerns or questions, call your surgeon's office. If physician is unavailable and it is an emergency, call 911 or go to the nearest emergency room. . Instructions / Follow-Up Instructions / Follow-Up ACTIVITY RECOMMENDATIONS: * Being up and around is good, but no strenuous activity, heavy lifting or physical exertion for one week. * Keep your head elevated 30 degrees when lying down or sleeping. * Do not blow your nose for 48 hours, sniff back instead. * Avoid hot showers. OVER THE COUNTER MEDICATIONS: * You may use Tylenol * Avoid aspirin or aspirin containing products, e.g. as they may increase bleeding. SPECIAL CARE INSTRUCTIONS: * Expect to have bloody drainage from your nose and/or down your throat for one to three days. Change drip pad as needed. * Begin irrigating your nose with saline solution today, at least six to ten times per day and sniff back to help remove old clots or crust. * You may experience nasal and facial congestion, pain and pressure, this is normal. * Please call with any significant and/or progressive pain, redness, swelling around the eyes, visual changes, fever of 101.5 degrees F, active bleeding or any problems or concerns. * If active bleeding occurs, spray the nose three times at one minute intervals with Afrin spray and call or cell phone: . If unable to reach the doctor, go to the nearest Emergency Department. Special Diet: * Avoid extremely hot fluids. FOLLOW UP VISIT: Follow-up Visit with Dr. Keita If not already scheduled, please call to schedule. Diet Recommendations Home Diet: no limitations Pending Studies Studies pending at discharge: no Medical Emergencies . Who to Call and When: Medical Emergencies: If at any time you feel your situation is an emergency, please call 911 immediately. . Non-Emergent Contact Non-Emergency issues call your: Primary Care Provider . . "Provider Documentation" section prepared by Jada Keita. . [place] Drug Monitoring Program Search Results: no issues identified
--- NOTE | 2017-07-14 09:38 | [facility] Post Operative Brief Note ---
Immediate Operative Summary Operative Date Jul 14, 2017. Pre-Operative Diagnosis Chronic Sinusitis Post-Operative Diagnosis same as preop Procedure(s) Performed Endoscopic Sinus Surgery, Right and Left Frontal, Right and Left Maxillary, Total Ethmoidectomies Surgeon Dr. Keita Portable Router Operator Surgeon(s) none Estimated Blood Loss 25ML Findings Consistent with Post-Op Diagnosis Specimens NONE PER SURGEON Drains None Anesthesia Type General Complication(s) none Disposition Accompanied Pt To Recover: no Disposition: Recovery Room / PACU
[2017-07-14 10:37] VITALS: TEMP 37
--- NOTE | 2017-07-14 10:37 | OPERATIVE REPORT ---
DATE OF OPERATION: 07/14/2017 PREOPERATIVE DIAGNOSIS: Chronic sinusitis. POSTOPERATIVE DIAGNOSIS: Same. PROCEDURES: Right and left frontal, right and left total ethmoid and right and left maxillary sinus antrostomy. SURGEON: Dr. Keita. ANESTHESIA: General LMA. COMPLICATIONS: None. BLOOD LOSS: 25 mL. HISTORY OF PRESENT ILLNESS: A 66-year-old lady with significant recurrent chronic sinusitis, persistent bilateral frontal, bilateral ethmoid and left maxillary pain and desires definitive treatment. DESCRIPTION OF PROCEDURE: The patient was brought to the operating room and placed in the supine position. General anesthesia was induced using LMA, prepped and draped and the nose was decongested using topical cottonoids with a solution of 4 mL of 4% Xylocaine mixed with 1 mL of epinephrine. Injection of 2% Xylocaine with 1:100,000 strength epinephrine was also used. The 248 SolidState device was calibrated and used for the entire procedure. The left maxillary sinus was cannulated with guidewire and dilated using the 6-mm balloon and irrigated clean with 40 mL of saline. The right maxillary sinus could not be cannulated initially. The left frontal sinus was cannulated with guidewire with Brain[employer] computer guidance and dilated using the 6-mm balloon. The guidewire was left in place as a marker. The frontal sinusotomy was performed using the shaver coupled with BrainLAB device, removing the anterior wall and then the posterior wall of the agger nasi cell following the guidewire superiorly, leaving the mucosa and the nasofrontal duct intact. At this point, total ethmoidectomy was performed opening up the bullae ethmoidalis, going through the ground lamella into the posterior ethmoid air cells, delineating the posterior most ethmoid air cell and the skull base superiorly and the lamina papyracea laterally and then following these structures anteriorly, exonerating all the posterior and then all the anterior ethmoid air cells, which were filled with polypoid mucosa and then exonerating these air cells up to the previously dilated nasofrontal duct. The nasofrontal duct was then redilated with the 6-mm balloon and the balloon was withdrawn. The right frontal sinusotomy, total ethmoidectomy and maxillary sinus antrostomy were performed in a similar manner. However, the right maxillary sinus had to be found using the seeker and then dilated using the 6-mm balloon and then further opened up using the shaver to a natural maxillary antrostomy opening by removing the portion of the uncinate process and then the posterior border at the anterior wall of the bullae ethmoidalis. Polypoid mucosa blocked both nasofrontal ducts requiring to be opened with the 6 mm. balloon.The left nasofrontal duct was very angulated laterally and then superiorly and was also dilated with the 6 mm. balloon to open the tight opening. Contour stents were placed. The patient tolerated the procedure well and was taken to the recovery area in satisfactory condition. I attest to the content of the Intraoperative Record and any orders documented therein. Any exceptions are noted below. MTDD
[2017-07-14 10:42] VITALS: BP 117/60; PULSE 75; O2SAT 94
--- NOTE | 2017-07-14 11:14 | Anesthesia Progress Nt - [facility] ---
Anesthesia Post Op Note Date & Time Jul 14, 2017 at 11:13 Vital Signs Pain Intensity: 5.0 Vital Signs Past 12 Hours Date Time Temp Pulse Resp B/P (MAP) Pulse Ox O2 Delivery O2 Flow Rate FiO2 07/14/17 10:42 75 16 117/60 (79) 94 Room Air 07/14/17 10:37 37 07/14/17 10:36 109/59 (80) 07/14/17 10:35 74 18 93 07/14/17 10:35 74 18 07/14/17 10:31 113/58 (81) 07/14/17 10:30 73 16 07/14/17 10:30 72 16 93 07/14/17 10:26 116/75 (80) 07/14/17 10:25 73 15 92 07/14/17 10:25 74 15 07/14/17 10:21 120/66 (99) 07/14/17 10:20 72 20 99 07/14/17 10:20 72 20 07/14/17 10:16 116/53 (87) 07/14/17 10:15 74 15 98 07/14/17 10:15 74 15 07/14/17 10:11 122/62 (92) 07/14/17 10:10 76 14 96 07/14/17 10:10 Room Air 07/14/17 10:10 76 14 07/14/17 10:06 123/55 (85) 07/14/17 10:05 75 20 07/14/17 10:05 75 20 95 07/14/17 09:39 36 72 16 125/72 100 Diffusion Mask 4 07/14/17 06:45 36.4 71 18 113/74 (87) 94 Room Air Notes Mental Status: alert / awake / arousable, participated in evaluation Pt Amnestic to Procedure: Yes Nausea / Vomiting: adequately controlled Pain: adequately controlled Airway Patency, RR, SpO2: stable & adequate BP & HR: stable & adequate Hydration State: stable & adequate Anesthetic Complications: no major complications apparent
== END | disposition home or self-care (01) ==
LOC: X.SURG 06:38
PROVIDERS: ATTEND Otolaryngology
DX: J32.9 Chronic sinusitis, unspecified (principal); J44.9 Chronic obstructive pulmonary disease, unspecified; J45.909 Unspecified asthma, uncomplicated; I10 Essential (primary) hypertension; F41.9 Anxiety disorder, unspecified; Z88.0 Allergy status to penicillin; M19.90 Unspecified osteoarthritis, unspecified site; Z98.890 Other specified postprocedural states; Z79.899 Other long term (current) drug therapy; Z90.710 Acquired absence of both cervix and uterus; Z87.891 Personal history of nicotine dependence

== ENCOUNTER → 2017-08-22 | Outpatient (CLI) | payer BC ==
[~2017-08-22] MED LIST changes: -ATROPINE SULFATE 0.1 MG/ML 5ML SYR IV PRN; -BACITRACIN OINT 15 GM TUBE ONE; -CEFAZOLIN 1000MG IV PUSH 5 ML IV SCH; -DEXAMETHASONE SOD INJ 4 MG/ML VIAL ONE; -EpHEDrine SULFATE INJ 50 MG/ML AMP IV PRN; -EpHEDrine SULFATE INJ 50 MG/ML AMP ONE; -EpINEphrine INJ 1MG/ML AMP 1 MG/ML AMP ONE; -FENTANYL CITRATE INJ 50 MCG/1 ML 2 ML VIAL IV PRN; -FENTANYL CITRATE INJ 50 MCG/1 ML 2 ML VIAL ONE; -GELATIN SPONGE 12-7MM ONE; -HYDROCODONE/ACETAMOPHEN 5/325MG TAB PO PRN; -HYDROmorphone INJ 0.5 MG/0.5 ML SYR IV PRN; -LACTATED RINGER'S 1000ML 1,000 ML IV SCH; -LIDO 2%/EPINEPHRINE 1:100000 20 ML VIAL INFIL ONE; -LIDOCAINE 4% MPF SOAK 5 ML = 1 DOSE TOP ONE; -LIDOCAINE HCL 2% 2 ML VIAL (20MG/ML) ONE; -MIDAZOLAM HCL 1 MG/ML 2ML VIAL ONE; -ONDANSETRON INJ 2 MG/ML 2 ML VIAL IV PRN; -ONDANSETRON INJ 2 MG/ML 2 ML VIAL ONE; -PROMETHAZINE HCL INJ 12.5 MG in SODIUM CHLORIDE 0.9% 50ML 50 ML IV PRN; -PROPOFOL IV EMULSION 10 MG/ML 20 ML VIAL IV ONE; -SODIUM CHLORIDE 0.9% 1000ML 1,000 ML IV SCH; -SODIUM CHLORIDE 0.9% INJ 10 ML VIAL ONE
--- NOTE | 2017-08-22 15:06 | DIAGNOSTIC IMAGING REPORT ---
CT LUNG SCREENING, LOW DOSE WITH COMPUTER-AIDED DETECTION (CAD) CLINICAL HISTORY: 67 years-old Female presenting with lung cancer screening, smoker, smoking cessation and 2007. CT DOSE (mGy.cm): The estimated cumulative dose is 74.44 mGy.cm. TECHNIQUE: Low-dose helical CT was acquired without intravenous contrast from lung apices to bases and reconstructed at 2.5 mm every 2 mm. Computer-Aided detection (CAD) was utilized for this study. A dose lowering technique was used consistent with the principles of ALARA (as low as reasonably achievable). COMPARISON: CTA from 07/01/2016. FINDINGS: Service Aide topogram: Unremarkable. On soft tissue windows, normal thyroid and thoracic inlet. Scattered subcentimeter mediastinal lymph nodes, nonspecific. Evaluation of the hector limited without intravenous contrast. Atherosclerosis of the aorta. Normal heart size. Minimal coronary artery calcification. No pericardial or pleural effusion. Moderate hiatal hernia. Fat-containing right Bochdalek hernia. On lung windows, trace apical emphysema. Dependent changes likely atelectasis. No other focal infiltrate or nodule. Central airways patent. On bone windows, mild osteopenia. Anterior wedging deformity of T12. CAD FINDINGS: Overall Lung RADS Category: 1 Lung RADS Management Recommendation: Continue annual lung cancer screening. Lung RADS Follow Up Date: 2018-08-22 Lung RADS Nodule ID: IMPRESSION: 1. No focal nodule or infiltrate. No acute intrathoracic pathology. Continue annual lung cancer screening. 2. Mild osteopenia with anterior wedging deformity of T12, consistent with age-indeterminate compression fracture. Electronically signed by: Dima Benavidez M.D. 08/22/2017 3:05 PM Dictated Date/Time: 08/22/2017 2:40 PM
== END | disposition home or self-care (01) ==
LOC: C.CTS 13:44
PROVIDERS: ATTEND Family Medicine
DX: Z12.2 Encounter for screening for malignant neoplasm of respiratory organs (principal)

== ENCOUNTER 2022-03-19 11:39 | Inpatient (IN) ==
[2022-03-19] MEDS ORDERED: dexAMETHasone**PF** 10 MG/ML VIAL IV ONE (12:32)
[2022-03-19] MEDS ORDERED: ALBUTEROL HFA 8 GM INHALER INH ONE (12:34)
--- NOTE | 2022-03-19 12:36 | Emergency Department Note ---
History of Present Illness General Chief complaint: Flu Like Symptoms Stated complaint: COVID POSITIVE Time Seen by Provider: 03/19/22 12:21 Source: patient History of Present Illness Provider complaint: Flulike symptoms Onset (ago): day(s) 9 Location: chest Pain Consistency: + constant Maximum Pain Intensity: 5 Quality: + other (Productive cough with yellow sputum) Relieved By: + none Associated symptoms: + cough, + malaise and + shortness of breath; no chest pain, no fever/chills or no nausea/vomiting This is a 71-year-old female with history of COPD sent here from [facility] for evaluation of dyspnea and flulike symptoms. She did test positive for COVID-19. She has been ill for 9 days with a productive cough. She has had body aches and fatigue as well. She is short of breath and was told that at her doctor's office her lungs are very tight. She denies any chest pain but does state that she feels some tightness in her chest similar to when her COPD acts up. She has had no recorded fevers. She denies any loss of taste or smell or diarrhea. She does not use oxygen at home. She quit smoking years ago. She denies any leg swelling or pain. She did return from [place] [employer] recently where she believes that she contracted COVID-19. She also states that she has some pressure in her sinuses and has a lot of congestion. Home Medications Medication Instructions Recorded Confirmed Type albuterol sulfate 2.5 mg/3 mL 2.5 mg inhalation Q4H PRN SOB 02/12/19 03/19/22 History (0.083 %) solution for nebulization albuterol sulfate 90 mcg/actuation 2 puffs inhalation Q6H PRN SOB 02/12/19 History aerosol inhaler (ProAir HFA) amlodipine 5 mg tablet 10 mg PO QAM 02/12/19 03/19/22 History ferrous sulfate 325 mg (65 mg 325 mg PO QAM 02/12/19 03/19/22 History iron) tablet loratadine 10 mg tablet 10 mg PO QAM PRN Allergy Symptoms 02/12/19 03/19/22 History losartan 100 mg tablet 100 mg PO QAM 02/12/19 03/19/22 History montelukast 10 mg tablet 10 mg PO QAM 02/12/19 03/19/22 History multivitamin (Daily Multi-Vitamin 1 tab PO QAM 02/12/19 03/19/22 History tablet) pantoprazole 40 mg tablet,delayed 40 mg PO QAM 02/12/19 03/19/22 History release (Protonix) latanoprost 0.005 % eye drops 1 drp ophthalmic (eye) PM 07/18/19 03/19/22 History azelastine 137 mcg (0.1 %) nasal 2 spray intranasal BID PRN 04/08/21 02/16/22 History spray aerosol Congestion fluticasone propionate 50 2 sprays intranasal DAILY PRN 04/08/21 02/16/22 History mcg/actuation nasal Congestion spray,suspension (Allergy Relief (fluticasone)) guanfacine 1 mg tablet 1 mg PO BID 04/08/21 03/19/22 History aripiprazole 2 mg tablet (Abilify) 1 mg PO QAM 11/27/21 03/19/22 History ropinirole 0.25 mg tablet 0.25 mg PO HS 11/27/21 03/19/22 History fluticasone furoate 200 1 inh inhalation DAILY #60 ea 12/04/21 03/19/22 Rx mcg-vilanterol 25 mcg/dose inhalation powder (Breo Ellipta) tiotropium bromide 18 mcg capsule 1 cap inhalation DAILY #1 inh 12/04/21 03/19/22 Rx with inhalation device (Spiriva with HandiHaler) atorvastatin 20 mg tablet 20 mg PO DAILY 01/07/22 03/19/22 History cholecalciferol (vitamin D3) 50 50 mcg PO DAILY 01/07/22 02/16/22 History mcg (2,000 unit) capsule pyridoxine (vitamin B6) 100 mg 100 mg PO DAILY 01/07/22 03/19/22 History tablet naltrexone 50 mg tablet 50 mg PO DAILY 03/19/22 03/19/22 History venlafaxine 75 mg capsule,extended 75 mg PO DAILY 03/19/22 03/19/22 History release 24 hr Allergies Allergy/AdvReac Type Severity Reaction Status Date / Time Penicillins Allergy Severe Swelling Verified 02/16/22 12:58 of Lip/Tongue/Throat Past Med/Surg History Medical History Abdominal pain ADD (attention deficit disorder) Asthma uses PRN neb daily; rarely uses PRN inh Chronic obstructive pulmonary disease COPD (chronic obstructive pulmonary disease) Deaf Left Depression Dyspnea on exertion GERD (gastroesophageal reflux disease) Glaucoma 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 Herniated cervical disc Hiatal hernia History of colitis History of colon polyps History of tobacco abuse Hypertension Lower back pain Mood disorder Osteoarthritis Sensorineural hearing loss (SNHL) of both ears Surgical History History of cataract surgery History of colonoscopy History of esophagogastroduodenoscopy (EGD) History of repair of left rotator cuff History of sinus surgery balloon sinuplasty History of tonsillectomy History of total abdominal hysterectomy and bilateral salpingo-oophorectomy Status post proximal row carpectomy of wrist Rt Family History Sister Sinusitis Cancer Hypertension Father Cancer Aunt Diabetes Brother Coronary heart disease Allergies Sinusitis Stroke Diabetes Other No family history of adverse response to anesthesia Social History Smoking Status: Never smoker Tobacco Type: Cigarettes Age Started Using Tobacco: 16; Years Smoked: 42; Cigarettes Per Day: 40; Number of Years Since Quit: 12; Second Hand Exposure: No; Hx Alcohol Use: Yes Alcohol type: beer, wine and hard liquor Hx Substance Use: No Preferred Language: Arabic Communication Ability: Effective Maritime Guard Required: No Beliefs That Will Affect Care: None Current Living Situation: Spouse current occupational status: retired 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 and A total of 10 systems reviewed and were otherwise negative Physical Exam Vital Signs Vital Signs - 24 hr 03/19/22 11:54 03/19/22 13:00 03/19/22 13:43 Temperature 36.8 C Temperature Source Temporal Artery Scan Pulse Rate 81 86 Pulse Rate [Apical] 86 Respiratory Rate 18 20 Blood Pressure 123/80 Blood Pressure [Left Arm] 116/64 Blood Pressure Mean 94 Blood Pressure Mean [Left Arm] 81 Pulse Oximetry 99 94 95 Oxygen Delivery Method Room Air Nasal Cannula Nasal Cannula Oxygen Flow Rate 2 2 Sepsis Recent Fever Within 48 Hours No Sepsis New/Unexplained Change in Mental Status No Sepsis Action Taken by Nursing No Action Required Constitutional: Vital signs reviewed. Eyes: Pupils are equal round reactive to light. Conjunctiva are noninjected. ENT: Pharynx is clear without erythema or exudate. Mucous membranes are moist. Neck supple without meningeal signs. Respiratory: Scattered wheezing bilaterally. Air entry is good bilaterally. Breath sounds are equal bilaterally. Cardiovascular: Regular rate and rhythm. No rubs or gallops. GI: Soft, nondistended and nontender. Bowel sounds are present. Musculoskeletal: No peripheral edema. No lower extremity tenderness. Integumentary: No cyanosis. or jaundice. Neurological: The patient is awake and alert. No focal deficits. Psychiatric: Anxious. Course Administered Medications Discontinued Medications Albuterol (Albuterol Hfa 8 Gm Inhaler) 6 puffs INH NOW ONE Stop: 03/19/22 12:35 Last Admin: 03/19/22 13:23 Dose: 6 puffs Documented By: ML Dexamethasone Sodium Phosphate (DexamethasonePf 10 Mg/Ml Vial) 6 mg IV NOW ONE Stop: 03/19/22 12:33 Last Admin: 03/19/22 13:23 Dose: 6 mg Documented By: ML Medical Decision Making Differential Diagnosis COVID-19, pneumonia, COPD exacerbation, hypoxia, sinusitis Medical Records Attestation: I reviewed the patient's medical records. I did perform a limited focused review of portions of the patient's old chart on the electronic medical record. The patient has had no recent pertinent visits to this hospital. Home Medications Current Medication List: was personally reviewed by me Laboratory Data Attestation: I reviewed the patient's lab results. Result diagrams: 03/19/22 13:19 03/19/22 13:19 Lab Results 03/19/22 03/19/22 03/19/22 Range/Units 13:19 13:19 13:19 WBC 18.04 H (4.8-10.8) K/ul RBC 4.25 (3.93-5.22) M/uL Hgb 14.0 (12.0-16.0) g/dl Hct 40.3 (34.1-44.9) % MCV 94.8 (80.0-100.0) fL MCH 32.9 (25.0-34.0) pg MCHC 34.7 (32.0-36.0) g/dL RDW Std Deviation 43.4 (36.4-46.3) fL RDW Coeff of Delmer 12.5 (11.5-14.5) % Plt Count 617 H (130-400) K/uL MPV 10.1 (9.4-12.3) fL Immature Gran % (Auto) 1.5 % Neut % (Auto) 88.4 % Lymph % (Auto) 5.4 % Dewitt % (Auto) 4.3 % Eos % (Auto) 0.1 % Baso % (Auto) 0.3 % Neut # (Auto) 15.96 H (1.4-6.5) K/uL Lymph # (Auto) 0.97 L (1.2-3.4) K/uL Dewitt # (Auto) 0.77 (0.24-0.82) K/uL Eos # (Auto) 0.01 (0-0.50) K/uL Baso # (Auto) 0.06 (0-0.2) K/uL Immature Gran # (Auto) 0.27 H (0.00-0.02) K/uL Sodium 134 L (136-145) mmol/L Potassium 4.8 (3.5-5.1) mmol/L Chloride 95 L (98-107) mmol/L Carbon Dioxide 25 (21-32) mmol/L Anion Gap 14 H (3-11) BUN 18 (6-23) mg/dl Creatinine 1.32 H (0.6-1.2) mg/dl Est Cr Clr Drug Dosing 34.4 ml/min Est GFR ( Amer) 46.9 ml/min Est GFR (Non-Af Amer) 40.5 ml/min BUN/Creatinine Ratio 13.6 (10-20) Glucose 88 (70-99(Fasting)) mg/dl Calcium 9.9 (8.5-10.1) mg/dl Total Bilirubin 0.3 (0.2-1.0) mg/dl AST 29 (13-39) U/L ALT 26 (7-52) U/L Alkaline Phosphatase 121 H (34-104) U/L Troponin I High Sens 12.7 (0-14) pg/ml Total Protein 8.0 (6.0-8.3) gm/dl Albumin 3.6 (3.4-5.0) gm/dl Globulin 4.4 H (2.5-4.0) gm/dl Albumin/Globulin Ratio 0.8 L (0.9-2) Procalcitonin 2.58 H (0-0.5) ng/ml Imaging Data Radiologist's Impression: Chest X-Ray 03/19/22 12:32 XR chest 1V portable CLINICAL HISTORY: Dyspnea/covid eval for pna TECHNIQUE: Single frontal radiograph of the chest was obtained. Comparison: Comparison is made to chest radiograph 10/30/[address] chest 04/24/2021 FINDINGS: No lines and tubes are seen. The cardiomediastinal silhouette is normal. New airspace opacities are in the right lower lobe and left lower lung. No evidence of pleural effusion or pneumothorax. Partial visualization of a hiatal hernia. IMPRESSION: Interval development of right greater than left airspace opacities compatible with pneumonia, with or without superimposed atelectasis/aspiration. ACT 112: Negative or not required by law. Electronically signed by: Alf Benedict M.D. 03/19/2022 1:24 PM ECG Data Attestation: I personally reviewed and interpreted this ECG as follows: Indication: + SOB/dyspnea Rate (beats per minute): 80 Rhythm: + normal sinus ECG [place]: + Normal ECG ST segments: no ST elevation ECG Findings: no PVCs MDM Narrative I did evaluate the patient as noted above. This patient has developed COVID symptoms for the past 9 days and tested positive today at [facility]. She was sent here due to significant shortness of breath. On exam she has good air entry bilaterally. She has some scattered wheezing. Her O2 saturation is 88% on room air and so I did place her on supplemental oxygen via nasal cannula at 2 L. She did feel much better after this. IV access was established. I did treat her with Decadron 6 mg IV. She was given 6 puffs of an albuterol MDI. I did not give her a nebulizer to avoid aerosolization of the COVID virus. She was placed in a negative pressure room and isolated. I did place an order for continuous cardiac monitoring. The monitor showed normal sinus rhythm at a rate of 80 bpm. I did order and personally review the patient's 12-lead EKG as described above. She has no acute ischemic changes. I did order and personally reviewed the images of the patient's chest x-ray as described above. She appears to have a multifocal pneumonia. COVID testing is positive prior to arrival. I did order and review the patient's blood work as noted in the electronic medical record. CBC demonstrated an elevated white count of 18,000. Platelet count is 617. She is not anemic. CMP is remarkable for sodium 134, chloride of 95 and a creatinine of 1.32. High-sensitivity troponin is negative. I did discuss the test results with the patient. I did discuss the case with Dr. Monroy of medicine and deferred further treatment to him. I did discuss the case with the transplant case manager. Impression & Plan Hypoxemia, Pneumonia due to 2019 novel coronavirus, Elevated serum creatinine Discharge Plan Visit Data Chief Complaint: Flu Like Symptoms Stated Complaint: COVID POSITIVE ED Provider: Jose Martin Kat Discharge Problem: Hypoxemia, Pneumonia due to 2019 novel coronavirus, Elevated serum creatinine Patient Disposition: Admitted As Inpatient Discharge Instructions Interventions: ED Discharge Assessment Last Done: 03/19/22 16:48
--- NOTE | 2022-03-19 13:26 | XRay Report ---
XR chest 1V portable CLINICAL HISTORY: Dyspnea/covid eval for pna TECHNIQUE: Single frontal radiograph of the chest was obtained. Comparison: Comparison is made to chest radiograph 10/30/[address] chest 04/24/2021 FINDINGS: No lines and tubes are seen. The cardiomediastinal silhouette is normal. New airspace opacities are i n the right lower lobe and left lower lung. No evidence of pleural effusion or pneumothorax. Partial visualization of a hiatal hernia. IMPRESSION: Interval development of right greater than left airspace opacities compatible with pneumonia, with or without superimposed atelectasis/aspiration. ACT 112: Negative or not required by law. Electronically signed by: Alf Benedict M.D. 03/19/2022 1:24 PM
[2022-03-19 13:41] LABS: Basophils # (auto) 0.06 K/uL (0-0.2); Basophils % (auto) 0.3 %; Eosinophils # (auto) 0.01 K/uL (0-0.50); Eosinophils % (auto) 0.1 %; Hematocrit (blood only) 40.3 % (34.1-44.9); Immature Granulocytes # (auto) 0.27 K/uL (0.00-0.02); Immature Granulocytes % (auto) 1.5 %; Lymphocytes # (auto) 0.97 K/uL (1.2-3.4); Lymphocytes % (auto) 5.4 %; Mean Corpuscular Hemoglobin 32.9 pg (25.0-34.0); Mean Corpuscular Hgb Conc 34.7 g/dL (32.0-36.0); Mean Corpuscular Volume 94.8 fL (80.0-100.0); Mean Platelet Volume 10.1 fL (9.4-12.3); Monocytes # (auto) 0.77 K/uL (0.24-0.82); Monocytes % (auto) 4.3 %; Neutrophils # (auto) 15.96 K/uL (1.4-6.5); Neutrophils % (auto) 88.4 %; Platelet Count 617 K/uL (130-400); RDW Coefficient of Variation 12.5 % (11.5-14.5); RDW Standard Deviation 43.4 fL (36.4-46.3); Red Blood Count 4.25 M/uL (3.93-5.22); White Blood Count 18.04 K/ul (4.8-10.8)
[2022-03-19 14:07] LABS: Troponin I High Sensitivity 12.7 pg/ml (0-14)
[2022-03-19 14:08] LABS: Albumin Globulin Ratio 0.8 (0.9-2); Albumin Level 3.6 gm/dl (3.4-5.0); BUN Creatinine Ratio 13.6 (10-20); Bilirubin,Total 0.3 mg/dl (0.2-1.0); Calcium 9.9 mg/dl (8.5-10.1); Creatinine Clr Calc Pharmacy 34.4 ml/min; Est GFR (African American) 46.9 ml/min; Est GFR (Non-African American) 40.5 ml/min; Globulin 4.4 gm/dl (2.5-4.0); Potassium 4.8 mmol/L (3.5-5.1)
--- NOTE | 2022-03-19 15:05 | History & Physical Report ---
Date of Service March 19, 2022 Assessment & Plan (1) COVID-19: Plan: Day 9 of illness on admission Vaccinated and boosted (last dose in October) Remdesivir 200mg IV today then 100mg IV daily for 4 days Dexamethasone 6mg IV Encourage prone sleeping (2) Bacterial pneumonia: Plan: Increased WBC and procalcitonin concerning for secondary bacterial pneumonia Levaquin 750mg IV daily (3) Hypoxemia: Plan: Aim O2 sats > 94% (4) GERD (gastroesophageal reflux disease): Plan: Continue pantoprazole 40mg PO daily (5) COPD (chronic obstructive pulmonary disease): Plan: No exacerbation suspect based on exam Use albuterol inhalers as needed Continue Breo Ellipta and Spirva (substitute per hospital formulary) (6) ADD (attention deficit disorder): Plan: Continue guanfacine 1mg PO BID (7) Depression: Plan: Continue her usual medications with aripiprazole and venlafaxine (8) Hypertension: Plan: Hold losartan given mild WAYNE. Hold amlodipine pending blood pressures overnight (9) History of alcohol use disorder: Plan: Continue naltrexone 50mg PO daily Plan VTE Prophylaxis - Lovenox 40mg SQ daily Diet - regular Disposition - admit to med/surg Admission and Anticipated Discharge Date Admission Date: March 09, 2022 History of Present Illness Chief Complaint: Flu-like symptoms Primary Care Provider: Mitchell Maza Shira Lenz is a 71 year old female who presents to the ER with flu-like symptoms. She reports ongoing symptoms for 9 days mainly with cough and shortness of breath but also mild sinus pain intermitently. She is having chest pain with coughing only. She had diarrhea but that has now resolved. No abdominal pain or loss of taste or smell. Her appetite has significantly been reduced and reports only eating half a bowel of soup in the last 3-4 days. She has not taken her usual medications this morning other than her Breo Ellipta. She was seen by the [facility] office today and was tested for HILDA-COV-2 which was positive and given her hypoxia she was sent to the ER for ongoing management. She called her PCP office today as she was unable to catch her breath this morning. Her inhaler for COPD hasn't helped significantly. She reports cold sweats this morning but no objective fever. Vaccinated for COVID-19 and x3 boosted - last booster in October. Never had COVID-19 previously. She reports probably catching COVID-19 on a recent trip to [place]. She just got back Tuesday night and ws in [facility] from -12 March. Allergies Allergy/AdvReac Type Severity Reaction Status Date / Time Penicillins Allergy Severe Swelling Verified 02/16/22 12:58 of Lip/Tongue/Throat Home Medications Medication Instructions Recorded Confirmed Type albuterol sulfate 2.5 mg/3 mL 2.5 mg inhalation Q4H PRN SOB 02/12/19 03/19/22 History (0.083 %) solution for nebulization albuterol sulfate 90 mcg/actuation 2 puffs inhalation Q6H PRN SOB 02/12/19 03/19/22 History aerosol inhaler (ProAir HFA) amlodipine 5 mg tablet 10 mg PO QAM 02/12/19 03/19/22 History ferrous sulfate 325 mg (65 mg 325 mg PO QAM 02/12/19 03/19/22 History iron) tablet loratadine 10 mg tablet 10 mg PO QAM PRN Allergy Symptoms 02/12/19 03/19/22 History losartan 100 mg tablet 100 mg PO QAM 02/12/19 03/19/22 History montelukast 10 mg tablet 10 mg PO QAM 02/12/19 03/19/22 History multivitamin (Daily Multi-Vitamin 1 tab PO QAM 02/12/19 03/19/22 History tablet) pantoprazole 40 mg tablet,delayed 40 mg PO QAM 02/12/19 03/19/22 History release (Protonix) latanoprost 0.005 % eye drops 1 drp ophthalmic (eye) PM 07/18/19 03/19/22 History azelastine 137 mcg (0.1 %) nasal 2 spray intranasal BID PRN 04/08/21 02/16/22 History spray aerosol Congestion fluticasone propionate 50 2 sprays intranasal DAILY PRN 04/08/21 02/16/22 History mcg/actuation nasal Congestion spray,suspension (Allergy Relief (fluticasone)) guanfacine 1 mg tablet 1 mg PO BID 04/08/21 03/19/22 History aripiprazole 2 mg tablet (Abilify) 1 mg PO QAM 11/27/21 03/19/22 History ropinirole 0.25 mg tablet 0.25 mg PO HS 11/27/21 03/19/22 History fluticasone furoate 200 1 inh inhalation DAILY #60 ea 12/04/21 03/19/22 Rx mcg-vilanterol 25 mcg/dose inhalation powder (Breo Ellipta) tiotropium bromide 18 mcg capsule 1 cap inhalation DAILY #1 inh 12/04/21 03/19/22 Rx with inhalation device (Spiriva with HandiHaler) atorvastatin 20 mg tablet 20 mg PO DAILY 01/07/22 03/19/22 History cholecalciferol (vitamin D3) 50 50 mcg PO DAILY 01/07/22 02/16/22 History mcg (2,000 unit) capsule pyridoxine (vitamin B6) 100 mg 100 mg PO DAILY 01/07/22 03/19/22 History tablet mirtazapine 15 mg tablet 15 mg HS 03/19/22 03/19/22 History naltrexone 50 mg tablet 50 mg PO DAILY 03/19/22 03/19/22 History venlafaxine 75 mg capsule,extended 75 mg PO DAILY 03/19/22 03/19/22 History release 24 hr Past Med/Surg History Medical History (Updated 03/20/22 @ 09:12 by Monroe Monroy MD) Abdominal pain ADD (attention deficit disorder) Asthma uses PRN neb daily; rarely uses PRN inh Chronic obstructive pulmonary disease COPD (chronic obstructive pulmonary disease) Deaf Left Depression Dyspnea on exertion GERD (gastroesophageal reflux disease) Glaucoma 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 Herniated cervical disc Hiatal hernia History of colitis History of colon polyps History of tobacco abuse Hypertension Lower back pain Mood disorder Osteoarthritis Sensorineural hearing loss (SNHL) of both ears Surgical History History of cataract surgery History of colonoscopy History of esophagogastroduodenoscopy (EGD) History of repair of left rotator cuff History of sinus surgery balloon sinuplasty History of tonsillectomy History of total abdominal hysterectomy and bilateral salpingo-oophorectomy Status post proximal row carpectomy of wrist Rt Family History Sister Sinusitis Cancer Hypertension Father Cancer Aunt Diabetes Brother Coronary heart disease Allergies Sinusitis Stroke Diabetes Other No family history of adverse response to anesthesia Social History Smoking Status: Former smoker Tobacco Type: Cigarettes Age Started Using Tobacco: 16; Years Smoked: 42; Cigarettes Per Day: 40; Smoking End Date: 2006; Number of Years Since Quit: 12; Second Hand Exposure: No; Do You Dip or Chew Tobacco: No; Hx Alcohol Use: Yes Alcohol type: beer, wine and hard liquor Hx Substance Use: No Preferred Language: Ivorian Communication Ability: Impaired Communication Ability Comment: pt is deaf in left ear, hearing aid in right Maintenance Department Manager Required: No Beliefs That Will Affect Care: None Current Living Situation: Spouse current occupational status: retired 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 [employer] Other Information That Helps Us Care for You: No Feels Safe at Home: Yes Safety Concerns: Feels Safe At This Time Assistive Devices: Denture - Upper, Glasses and Hearing Aid - Right Assistive Devices Comment: denture at home Review of Systems Review of Systems: All systems reviewed & are unremarkable except as noted in HPI & below Physical Exam Constitutional: WD/WN, vitals as above Eyes: PERRL, conjunctivae normal, anicteric sclerae ENMT: external ear and nose normal, oropharynx normal Neck: trachea midline, no thyromegaly Respiratory: normal respiratory effort, lungs clear to auscultation Cardiovascular: RRR, no murmur, no edema Gastrointestinal (Abdomen): normal bowel sounds, soft, nontender, no hepatosplenomegaly Musculoskeletal: no cyanosis or clubbing, extremities motor strength 5/5 Skin: no rashes, warm and dry Neurologic: moves all extremities and awake; not confused Psychiatric: A+Ox3, euthymic affect Genitourinary: no CVA tenderness Results & Data Results & Data ([facility]) Vital Signs (Past 12 Hours) Vital Signs Temp Pulse Pulse Resp BP BP Pulse Ox 03/19/22 13:43 86 20 116/64 95 03/19/22 13:00 86 94 03/19/22 11:54 36.8 C 81 18 123/80 99 O2 Del Method O2 Flow Rate 03/19/22 13:43 Nasal Cannula 2 03/19/22 13:00 Nasal Cannula 2 03/19/22 11:54 Room Air Laboratory Results Abnormal lab results 03/19/22 03/19/22 Range/Units 13:19 13:19 WBC 18.04 H (4.8-10.8) K/ul Plt Count 617 H (130-400) K/uL Neut # (Auto) 15.96 H (1.4-6.5) K/uL Lymph # (Auto) 0.97 L (1.2-3.4) K/uL Immature Gran # (Auto) 0.27 H (0.00-0.02) K/uL Sodium 134 L (136-145) mmol/L Chloride 95 L (98-107) mmol/L Anion Gap 14 H (3-11) Creatinine 1.32 H (0.6-1.2) mg/dl Alkaline Phosphatase 121 H (34-104) U/L Globulin 4.4 H (2.5-4.0) gm/dl Albumin/Globulin Ratio 0.8 L (0.9-2) Diagnostic Findings XR chest 1V portable CLINICAL HISTORY: Dyspnea/covid eval for pna TECHNIQUE: Single frontal radiograph of the chest was obtained. Comparison: Comparison is made to chest radiograph 10/30/[address] chest 04/24/2021 FINDINGS: No lines and tubes are seen. The cardiomediastinal silhouette is normal. New airspace opacities are in the right lower lobe and left lower lung. No evidence of pleural effusion or pneumothorax. Partial visualization of a hiatal hernia. IMPRESSION: Interval development of right greater than left airspace opacities compatible with pneumonia, with or without superimposed atelectasis/aspiration. Medications Administered ER Medications Given: Dexamethasone 6mg IV Albuterol 6 puffs INH ECG Indication: SOB/dyspnea Rate (beats per minute): 80 Rhythm: normal sinus Findings: + PVC; no acute ischemic change Comparison ECG Date: from (May 06, 2020) Change: no significant change Code Status & VTE Plan Code Status Full VTE Prophylaxis Plan VTE Prophylaxis will be ordered: Yes PG Care Time/CCT Total # of Minutes Spent Total Time Spent with Patient: Total time spent is greater than 50% in coordination of care (as documented) at patient's floor/unit and/or counseling patient: Coding Level of Care Code 24070 Initial Inpt Care Lvl 3 Diagnoses COVID-19 U07.1 Bacterial pneumonia J15.9 Hypoxemia R09.02 GERD (gastroesophageal reflux disease) K21.9 COPD (chronic obstructive pulmonary disease) J44.9 ADD (attention deficit disorder) F98.8 Depression F32.9 Hypertension I10 History of alcohol use disorder Z87.897
[2022-03-19] MEDS ORDERED: ONDANSETRON INJ 2 MG/ML 2 ML VIAL IV PRN (16:45)
[2022-03-19] MEDS ORDERED: ALUMINUM/MAGNESIUM SUSP 30 ML UDC PO PRN (16:45)
[2022-03-19] MEDS ORDERED: ALBUTEROL HFA 8 GM INHALER INH PRN (16:45)
[2022-03-19] MEDS ORDERED: REMDESIVIR 200 MG in SODIUM CHLORIDE 0.9% 210 ML IV STA (16:50)
[2022-03-19] MEDS ORDERED: AZITHROMYCIN 500 MG in DEXTROSE 5% 250 ML IV SCH (18:09)
[2022-03-19] MEDS ORDERED: cefTRIAXone SODIUM 2,000 MG in DEXTROSE 5% 50 ML IV SCH (18:15)
[2022-03-19] MEDS ORDERED: SODIUM CHLORIDE 0.9% 1000ML 1,000 ML IV SCH (20:45)
[2022-03-19] MEDS: rOPINIRole HCL 0.25 MG TABLET PO SCH (21:29)
[2022-03-19] MEDS: guanFACINE HCL 1 MG TAB PO SCH (21:29)
[2022-03-19] MEDS: LATANOPROST 0.005% OP SOLN 2.5 ML BTL OP SCH (21:30)
[2022-03-19] MEDS: levoFLOXacin/D5W 750 MG/150 ML BAG IV SCH (21:37)
[2022-03-19] MEDS: ENOXAPARIN INJ 40 MG/0.4 ML SYR SQ SCH (21:38)
--- NOTE | 2022-03-19 22:30 | Electrocardiogram Report ---
Test Reason : Blood Pressure : / mmHG Vent. Rate : 080 BPM Atrial Rate : 080 BPM P-R Int : 178 ms QRS Dur : 068 ms QT Int : 380 ms P-R-T Axes : 062 013 040 degrees QTc Int : 438 ms Poor data quality, interpretation may be adversely affected Normal sinus rhythm Normal ECG When compared with ECG of 06-MAY-2020 16:55, Premature ventricular complexes are no longer Present Confirmed by Jan Sethi ([id number]) on 03/19/2022 10:29:47 PM Referred By: Confirmed By:Jan Sethi
[2022-03-19] MEDS: MIRTAZAPINE TAB 15 MG TAB PO SCH (22:47)
[2022-03-20] MEDS: ACETAMINOPHEN 325 MG TAB PO PRN (03:22)
[2022-03-20] MEDS ORDERED: guaiFENesin 600 MG TABCR PO ONE (03:29)
[2022-03-20 06:24] LABS: Basophils # (auto) 0.03 K/uL (0-0.2); Basophils % (auto) 0.2 %; Hematocrit (blood only) 32.3 % (34.1-44.9); Hemoglobin 11.3 g/dl (12.0-16.0); Immature Granulocytes # (auto) 0.26 K/uL (0.00-0.02); Immature Granulocytes % (auto) 1.6 %; Lymphocytes # (auto) 1.08 K/uL (1.2-3.4); Lymphocytes % (auto) 6.7 %; Mean Corpuscular Hemoglobin 33.4 pg (25.0-34.0); Mean Corpuscular Volume 95.6 fL (80.0-100.0); Mean Platelet Volume 9.7 fL (9.4-12.3); Monocytes # (auto) 0.88 K/uL (0.24-0.82); Monocytes % (auto) 5.5 %; Neutrophils # (auto) 13.76 K/uL (1.4-6.5); Platelet Count 549 K/uL (130-400); RDW Coefficient of Variation 12.4 % (11.5-14.5); RDW Standard Deviation 43.8 fL (36.4-46.3); Red Blood Count 3.38 M/uL (3.93-5.22); White Blood Count 16.01 K/ul (4.8-10.8)
[2022-03-20 07:11] LABS: Albumin Globulin Ratio 0.8 (0.9-2); BUN Creatinine Ratio 21.6 (10-20); Bilirubin,Total 0.2 mg/dl (0.2-1.0); Calcium 8.5 mg/dl (8.5-10.1); Creatinine Clr Calc Pharmacy 44.5 ml/min; Est GFR (African American) 64.1 ml/min; Est GFR (Non-African American) 55.3 ml/min; Globulin 3.8 gm/dl (2.5-4.0); Potassium 4.5 mmol/L (3.5-5.1); Total Protein 6.8 gm/dl (6.0-8.3)
[2022-03-20] MEDS ORDERED: BENZONATATE 100 MG CAPSULE PO SCH (09:00)
[2022-03-20] MEDS: FERROUS SULFATE 325 MG TAB PO SCH (09:13)
[2022-03-20] MEDS: NALTREXONE HCL 50 MG TAB PO SCH (09:13)
[2022-03-20] MEDS: guanFACINE HCL 1 MG TAB PO SCH ×2 (09:13→20:04)
[2022-03-20] MEDS: ATORVASTATIN 20 MG TAB PO SCH (09:14)
[2022-03-20] MEDS: VENLAFAXINE HCL XR 75 MG CAPXR PO SCH (09:14)
[2022-03-20] MEDS: ARIPIprazole 1 MG/ML ORAL SOLN 150 ML BTL PO SCH (09:14)
[2022-03-20] MEDS: MONTELUKAST SODIUM 10 MG TABLET PO SCH (09:14)
[2022-03-20] MEDS: PYRIDOXINE HCL 50 MG TAB PO SCH (09:14)
[2022-03-20] MEDS: UMECLIDINIUM BROMIDE 62.5MCG/BLISTER 7 PUFFS/INHALER INH SCH (09:15)
[2022-03-20] MEDS: PANTOprazole 40 MG TAB PO SCH (09:15)
[2022-03-20] MEDS: MULTIVITAMIN TAB PO SCH (09:15)
[2022-03-20] MEDS: dexAMETHasone 6 MG in SYRINGE 0 ML IV SCH (09:15)
[2022-03-20] MEDS: FLUTICASONE/VILANTEROL 200/25MCG 14 PUFFS/INHALER INH SCH (09:16)
[2022-03-20] MEDS: REMDESIVIR 100 MG in SODIUM CHLORIDE 0.9% 230 ML IV SCH (19:58)
[2022-03-20] MEDS: ENOXAPARIN INJ 40 MG/0.4 ML SYR SQ SCH (20:03)
[2022-03-20] MEDS: MIRTAZAPINE TAB 15 MG TAB PO SCH (20:04)
[2022-03-20] MEDS: guaiFENesin 600 MG TABCR PO SCH (20:04)
[2022-03-20] MEDS: LATANOPROST 0.005% OP SOLN 2.5 ML BTL OP SCH (20:06)
[2022-03-20] MEDS: rOPINIRole HCL 0.25 MG TABLET PO SCH (20:06)
[2022-03-21 05:50] LABS: Hematocrit (blood only) 37.1 % (34.1-44.9); Hemoglobin 12.4 g/dl (12.0-16.0); Mean Corpuscular Hemoglobin 32.8 pg (25.0-34.0); Mean Corpuscular Hgb Conc 33.4 g/dL (32.0-36.0); Mean Corpuscular Volume 98.1 fL (80.0-100.0); Mean Platelet Volume 9.6 fL (9.4-12.3); Platelet Count 713 K/uL (130-400); RDW Coefficient of Variation 12.4 % (11.5-14.5); RDW Standard Deviation 44.4 fL (36.4-46.3); Red Blood Count 3.78 M/uL (3.93-5.22); White Blood Count 13.26 K/ul (4.8-10.8)
[2022-03-21 06:11] LABS: Albumin Globulin Ratio 0.8 (0.9-2); Albumin Level 3.3 gm/dl (3.4-5.0); BUN Creatinine Ratio 21.2 (10-20); Bilirubin,Total 0.2 mg/dl (0.2-1.0); Calcium 8.9 mg/dl (8.5-10.1); Creatinine Clr Calc Pharmacy 45.9 ml/min; Est GFR (African American) 66.4 ml/min; Est GFR (Non-African American) 57.3 ml/min; Potassium 4.2 mmol/L (3.5-5.1); Total Protein 7.3 gm/dl (6.0-8.3)
[2022-03-21 06:39] LABS: Basophils # (auto) 0.03 K/uL (0-0.2); Basophils % (auto) 0.2 %; Echinocytes 1+; Immature Granulocytes % (auto) 1.5 %; Lymphocytes # (auto) 1.82 K/uL (1.2-3.4); Lymphocytes % (auto) 13.7 %; Monocytes # (auto) 0.69 K/uL (0.24-0.82); Monocytes % (auto) 5.2 %; Neutrophils # (auto) 10.52 K/uL (1.4-6.5); Neutrophils % (auto) 79.4 %; Target Cells 1+
[2022-03-21] MEDS: ACETAMINOPHEN 325 MG TAB PO PRN (09:17)
[2022-03-21] MEDS: ARIPIprazole 1 MG/ML ORAL SOLN 150 ML BTL PO SCH (09:18)
[2022-03-21] MEDS: DEXTROMETHORPHAN POLYMR COMPLX 30 MG/5 ML UDP PO PRN ×2 (09:18→21:12)
[2022-03-21] MEDS: PYRIDOXINE HCL 50 MG TAB PO SCH (09:19)
[2022-03-21] MEDS: FERROUS SULFATE 325 MG TAB PO SCH (09:19)
[2022-03-21] MEDS: ATORVASTATIN 20 MG TAB PO SCH (09:19)
[2022-03-21] MEDS: dexAMETHasone 6 MG in SYRINGE 0 ML IV SCH (09:19)
[2022-03-21] MEDS: MONTELUKAST SODIUM 10 MG TABLET PO SCH (09:19)
[2022-03-21] MEDS: MULTIVITAMIN TAB PO SCH (09:20)
[2022-03-21] MEDS: NALTREXONE HCL 50 MG TAB PO SCH (09:20)
[2022-03-21] MEDS: PANTOprazole 40 MG TAB PO SCH (09:20)
[2022-03-21] MEDS: VENLAFAXINE HCL XR 75 MG CAPXR PO SCH (09:20)
[2022-03-21] MEDS: guanFACINE HCL 1 MG TAB PO SCH ×2 (09:21→20:04)
[2022-03-21] MEDS: UMECLIDINIUM BROMIDE 62.5MCG/BLISTER 7 PUFFS/INHALER INH SCH (09:21)
[2022-03-21] MEDS: guaiFENesin 600 MG TABCR PO SCH ×2 (09:21→20:04)
[2022-03-21] MEDS: FLUTICASONE/VILANTEROL 200/25MCG 14 PUFFS/INHALER INH SCH (09:22)
--- NOTE | 2022-03-21 17:21 | Hospitalist Progress Note ---
Date of Service March 20, 2022 Assessment & Plan (1) COVID-19: Plan: Day 9 of illness on admission Vaccinated and boosted (last dose in October) Remdesivir 200mg IV then 100mg IV daily for 4 days Dexamethasone 6mg IV - continue for total course of 10 days Encourage prone sleeping Incentive spirometer, flutter valve Guaifenesin 600mg PO BID Dextromethorphan for cough suppressant as needed (2) Bacterial pneumonia: Plan: Increased WBC and procalcitonin concerning for secondary bacterial pneumonia Levaquin 750mg IV daily (3) Hypoxemia: Plan: Aim O2 sats > 94% (4) GERD (gastroesophageal reflux disease): Plan: Continue pantoprazole 40mg PO daily (5) COPD (chronic obstructive pulmonary disease): Plan: No exacerbation suspect based on exam Use albuterol inhalers as needed Continue Breo Ellipta and Spiriva (substitute per hospital formulary) (6) ADD (attention deficit disorder): Plan: Continue guanfacine 1mg PO BID (7) Depression: Plan: Continue her usual medications with aripiprazole and venlafaxine (8) Hypertension: Plan: Hold losartan given mild WAYNE. Continue to hold amlodipine due to low normal blood pressures (9) History of alcohol use disorder: Plan: Continue naltrexone 50mg PO daily Plan VTE Prophylaxis - Lovenox 40mg SQ daily Diet - regular Disposition - continued admission to med/surg due to hypoxia, PT/OT evals Admission and Anticipated Discharge Date Admission Date: March 19, 2022 Subjective Improved shortness of breath overnight. Continuing to have significant cough however. Making slow improvements. No fever or chills. Chest pain only while coughing. Significantly improved appetite and ate the whole of her supper. Review of Systems Review of Systems: All systems reviewed & are unremarkable except as noted in Subjective Physical Exam Constitutional: WD/WN, vitals as above Respiratory: normal respiratory effort, lungs clear to auscultation Cardiovascular: RRR, no murmur, no edema Gastrointestinal (Abdomen): normal bowel sounds, soft, nontender, no hepatosplenomegaly Musculoskeletal: no cyanosis or clubbing, extremities motor strength 5/5 Skin: no rashes, warm and dry Neurologic: moves all extremities and awake; not confused Psychiatric: A+Ox3, euthymic affect Results & Data Results & Data ([facility]) Vital Signs (Past 12 Hours) Vital Signs Temp Pulse Resp BP Pulse Ox O2 Del Method O2 Flow Rate 03/21/22 16:25 94 Nasal Cannula 3 03/21/22 15:02 36.3 C L 87 16 133/84 96 Nasal Cannula 4 03/21/22 07:05 Nasal Cannula 4 03/21/22 07:02 36.6 C 88 16 128/83 97 Nasal Cannula 4 PG Care Time/CCT Total # of Minutes Spent Total Time Spent with Patient: Total time spent is greater than 50% in coordination of care (as documented) at patient's floor/unit and/or counseling patient: Coding Level of Care Code 69463 Subseq Hosp Care Lvl 2 Diagnoses COVID-19 U07.1 Bacterial pneumonia J15.9 Hypoxemia R09.02 GERD (gastroesophageal reflux disease) K21.9 COPD (chronic obstructive pulmonary disease) J44.9 ADD (attention deficit disorder) F98.8 Depression F32.9 Hypertension I10 History of alcohol use disorder Z87.898
--- NOTE | 2022-03-21 17:22 | Hospitalist Progress Note ---
Date of Service March 21, 2022 Assessment & Plan (1) COVID-19: Plan: Day 9 of illness on admission Vaccinated and boosted (last dose in October) Remdesivir 200mg IV then 100mg IV daily for 4 days Dexamethasone 6mg IV - continue for total course of 10 days Encourage prone sleeping Incentive spirometer, flutter valve Guaifenesin 600mg PO BID Dextromethorphan for cough suppressant as needed (2) Bacterial pneumonia: Plan: Increased WBC and procalcitonin concerning for secondary bacterial pneumonia Continue Levaquin 750mg IV daily although penicillin allergy questionable (3) Hypoxemia: Plan: Aim O2 sats > 94% (4) GERD (gastroesophageal reflux disease): Plan: Continue pantoprazole 40mg PO daily (5) COPD (chronic obstructive pulmonary disease): Plan: No exacerbation suspect based on exam Use albuterol inhalers as needed Continue Breo Ellipta and Spiriva (substitute per hospital formulary) (6) ADD (attention deficit disorder): Plan: Continue guanfacine 1mg PO BID (7) Depression: Plan: Continue her usual medications with aripiprazole and venlafaxine (8) Hypertension: Plan: Hold losartan given mild WAYNE. Continue to hold amlodipine due to low normal blood pressures (9) History of alcohol use disorder: Plan: Continue naltrexone 50mg PO daily Plan VTE Prophylaxis - Lovenox 40mg SQ daily Diet - regular Disposition - continued admission to med/surg due to hypoxia, PT/OT evals Admission and Anticipated Discharge Date Admission Date: March 19, 2022 Subjective Slowly improving shortness of breath but still with a significant cough. Eating and drinking well. No diarrhea. Review of Systems Review of Systems: All systems reviewed & are unremarkable except as noted in Subjective Physical Exam Constitutional: WD/WN, vitals as above ENMT: external ear and nose normal, oropharynx normal Neck: trachea midline, no thyromegaly Respiratory: normal respiratory effort, lungs clear to auscultation Cardiovascular: RRR, no murmur, no edema Gastrointestinal (Abdomen): normal bowel sounds, soft, nontender, no hepatosplenomegaly Musculoskeletal: no cyanosis or clubbing, extremities motor strength 5/5 Skin: no rashes, warm and dry Neurologic: moves all extremities and awake; not confused Psychiatric: A+Ox3, euthymic affect Results & Data Results & Data ([facility]) Vital Signs (Past 12 Hours) Vital Signs Temp Pulse Resp BP Pulse Ox O2 Del Method O2 Flow Rate 03/21/22 16:25 94 Nasal Cannula 3 03/21/22 15:02 36.3 C L 87 16 133/84 96 Nasal Cannula 4 03/21/22 07:05 Nasal Cannula 4 03/21/22 07:02 36.6 C 88 16 128/83 97 Nasal Cannula 4 PG Care Time/CCT Total # of Minutes Spent Total Time Spent with Patient: Total time spent is greater than 50% in coordination of care (as documented) at patient's floor/unit and/or counseling patient: Coding Level of Care Code 55725 Subseq Hosp Care Lvl 2 Diagnoses COVID-19 U07.1 Bacterial pneumonia J15.9 Hypoxemia R09.02 GERD (gastroesophageal reflux disease) K21.9 COPD (chronic obstructive pulmonary disease) J44.9 ADD (attention deficit disorder) F98.8 Depression F32.9 Hypertension I10 History of alcohol use disorder Z87.898
[2022-03-21] MEDS: REMDESIVIR 100 MG in SODIUM CHLORIDE 0.9% 230 ML IV SCH (19:54)
[2022-03-21] MEDS: rOPINIRole HCL 0.25 MG TABLET PO SCH (20:04)
[2022-03-21] MEDS: MIRTAZAPINE TAB 15 MG TAB PO SCH (20:04)
[2022-03-21] MEDS: ENOXAPARIN INJ 40 MG/0.4 ML SYR SQ SCH (20:05)
[2022-03-21] MEDS: LATANOPROST 0.005% OP SOLN 2.5 ML BTL OP SCH (20:05)
[2022-03-21] MEDS: levoFLOXacin/D5W 750 MG/150 ML BAG IV SCH (21:12)
[2022-03-22 06:29] LABS: Basophils # (auto) 0.02 K/uL (0-0.2); Basophils % (auto) 0.2 %; Eosinophils # (auto) 0.01 K/uL (0-0.50); Eosinophils % (auto) 0.1 %; Hematocrit (blood only) 35.5 % (34.1-44.9); Hemoglobin 12.1 g/dl (12.0-16.0); Immature Granulocytes # (auto) 0.16 K/uL (0.00-0.02); Immature Granulocytes % (auto) 1.6 %; Lymphocytes # (auto) 1.63 K/uL (1.2-3.4); Lymphocytes % (auto) 16.4 %; Mean Corpuscular Hemoglobin 32.8 pg (25.0-34.0); Mean Corpuscular Hgb Conc 34.1 g/dL (32.0-36.0); Mean Corpuscular Volume 96.2 fL (80.0-100.0); Mean Platelet Volume 9.5 fL (9.4-12.3); Monocytes # (auto) 0.81 K/uL (0.24-0.82); Monocytes % (auto) 8.2 %; Neutrophils % (auto) 73.5 %; Platelet Count 684 K/uL (130-400); RDW Coefficient of Variation 12.6 % (11.5-14.5); RDW Standard Deviation 44.4 fL (36.4-46.3); Red Blood Count 3.69 M/uL (3.93-5.22); White Blood Count 9.93 K/ul (4.8-10.8)
[2022-03-22 06:58] LABS: Albumin Globulin Ratio 0.8 (0.9-2); Albumin Level 3.2 gm/dl (3.4-5.0); BUN Creatinine Ratio 23.7 (10-20); Bilirubin,Total 0.2 mg/dl (0.2-1.0); Calcium 8.9 mg/dl (8.5-10.1); Creatinine Clr Calc Pharmacy 46.8 ml/min; Est GFR (African American) 68.1 ml/min; Est GFR (Non-African American) 58.8 ml/min; Potassium 4.1 mmol/L (3.5-5.1); Total Protein 7.2 gm/dl (6.0-8.3)
[2022-03-22] MEDS: UMECLIDINIUM BROMIDE 62.5MCG/BLISTER 7 PUFFS/INHALER INH SCH (08:42)
[2022-03-22] MEDS: FLUTICASONE/VILANTEROL 200/25MCG 14 PUFFS/INHALER INH SCH (08:42)
[2022-03-22] MEDS: guaiFENesin 600 MG TABCR PO SCH ×2 (08:43→20:39)
[2022-03-22] MEDS: ARIPIprazole 1 MG/ML ORAL SOLN 150 ML BTL PO SCH (08:43)
[2022-03-22] MEDS: dexAMETHasone 6 MG in SYRINGE 0 ML IV SCH (08:43)
[2022-03-22] MEDS: guanFACINE HCL 1 MG TAB PO SCH ×2 (08:43→20:40)
[2022-03-22] MEDS: PANTOprazole 40 MG TAB PO SCH (08:44)
[2022-03-22] MEDS: PYRIDOXINE HCL 50 MG TAB PO SCH (08:44)
[2022-03-22] MEDS: FERROUS SULFATE 325 MG TAB PO SCH (08:44)
[2022-03-22] MEDS: ATORVASTATIN 20 MG TAB PO SCH (08:44)
[2022-03-22] MEDS: MONTELUKAST SODIUM 10 MG TABLET PO SCH (08:44)
[2022-03-22] MEDS: VENLAFAXINE HCL XR 75 MG CAPXR PO SCH (08:44)
[2022-03-22] MEDS: NALTREXONE HCL 50 MG TAB PO SCH (08:44)
[2022-03-22] MEDS: MULTIVITAMIN TAB PO SCH (08:45)
[2022-03-22] MEDS: REMDESIVIR 100 MG in SODIUM CHLORIDE 0.9% 230 ML IV SCH (20:33)
[2022-03-22] MEDS: ENOXAPARIN INJ 40 MG/0.4 ML SYR SQ SCH (20:37)
--- NOTE | 2022-03-22 20:37 | Hospitalist Progress Note ---
Date of Service March 22, 2022 Assessment & Plan (1) COVID-19: Plan: Day 9 of illness on admission Vaccinated and boosted (last dose in October) Remdesivir 200mg IV then 100mg IV daily for 4 days - does not need to finish this prior to discharge Dexamethasone 6mg IV - continue for total course of 10 days Encourage prone sleeping Incentive spirometer, flutter valve Guaifenesin 600mg PO BID Dextromethorphan for cough suppressant as needed (2) Bacterial pneumonia: Plan: Increased WBC and procalcitonin concerning for secondary bacterial pneumonia. Both improving on antibiotics Continue Levaquin 750mg switched to PO q2d due to renal function. Plan to finish 7 day course (3) Hypoxemia: Plan: Aim O2 sats > 94% (4) GERD (gastroesophageal reflux disease): Plan: Continue pantoprazole 40mg PO daily (5) COPD (chronic obstructive pulmonary disease): Plan: No exacerbation suspect based on exam Use albuterol inhalers as needed Continue Breo Ellipta and Spiriva (substitute per hospital formulary) (6) ADD (attention deficit disorder): Plan: Continue guanfacine 1mg PO BID (7) Depression: Plan: Continue her usual medications with aripiprazole and venlafaxine (8) Hypertension: Plan: Can restart losartan 100mg QAM tomorrow but continue to hold amlodipine (9) History of alcohol use disorder: Plan: Continue naltrexone 50mg PO daily Plan VTE Prophylaxis - Lovenox 40mg SQ daily Diet - regular Disposition - continued admission to med/surg due to hypoxia, PT/OT evals Admission and Anticipated Discharge Date Admission Date: March 19, 2022 Subjective Eating and drinking well. Still with significant cough but much better than on admission. Much less short of breath. O2 sats have improved to 96% on 2LPM O2. Review of Systems Review of Systems: All systems reviewed & are unremarkable except as noted in Subjective Physical Exam Constitutional: WD/WN, vitals as above ENMT: external ear and nose normal, oropharynx normal Neck: trachea midline, no thyromegaly Respiratory: normal respiratory effort, lungs clear to auscultation Cardiovascular: RRR, no murmur, no edema Gastrointestinal (Abdomen): normal bowel sounds, soft, nontender, no hepatosplenomegaly Musculoskeletal: no cyanosis or clubbing, extremities motor strength 5/5 Skin: no rashes, warm and dry Neurologic: moves all extremities and awake; not confused Psychiatric: A+Ox3, euthymic affect Results & Data Results & Data ([facility]) Vital Signs (Past 12 Hours) Vital Signs Temp Pulse Resp BP Pulse Ox O2 Del Method O2 Flow Rate 03/22/22 20:31 36.7 C 94 H 18 147/84 H 96 Nasal Cannula 2 03/22/22 16:00 Nasal Cannula 2 03/22/22 15:58 36.4 C L 89 16 164/90 H 97 Nasal Cannula 3 03/22/22 08:55 Nasal Cannula 3 PG Care Time/CCT Total # of Minutes Spent Total Time Spent with Patient: Total time spent is greater than 50% in coordination of care (as documented) at patient's floor/unit and/or counseling patient: Coding Level of Care Code 49935 Subseq Hosp Care Lvl 2 Diagnoses COVID-19 U07.1 Bacterial pneumonia J15.9 Hypoxemia R09.02 GERD (gastroesophageal reflux disease) K21.9 COPD (chronic obstructive pulmonary disease) J44.9 ADD (attention deficit disorder) F98.8 Depression F32.9 Hypertension I10 History of alcohol use disorder Z87.898
[2022-03-22] MEDS: MIRTAZAPINE TAB 15 MG TAB PO SCH (20:40)
[2022-03-22] MEDS: rOPINIRole HCL 0.25 MG TABLET PO SCH (20:40)
[2022-03-22] MEDS: LATANOPROST 0.005% OP SOLN 2.5 ML BTL OP SCH (20:41)
[2022-03-23 06:54] LABS: BUN Creatinine Ratio 25.9 (10-20); Bilirubin,Total 0.3 mg/dl (0.2-1.0); Calcium 8.9 mg/dl (8.5-10.1); Creatinine Clr Calc Pharmacy 56.1 ml/min; Est GFR (African American) 84.7 ml/min; Est GFR (Non-African American) 73.1 ml/min; Globulin 3.1 gm/dl (2.5-4.0); Total Protein 6.1 gm/dl (6.0-8.3)
[2022-03-23] MEDS: amLODIPine BESYLATE 5 MG TAB PO SCH (10:28)
[2022-03-23] MEDS: ARIPIprazole 1 MG/ML ORAL SOLN 150 ML BTL PO SCH (10:29)
[2022-03-23] MEDS: dexAMETHasone 6 MG in SYRINGE 0 ML IV SCH (10:30)
[2022-03-23] MEDS: ATORVASTATIN 20 MG TAB PO SCH (10:30)
[2022-03-23] MEDS: FERROUS SULFATE 325 MG TAB PO SCH (10:31)
[2022-03-23] MEDS: FLUTICASONE/VILANTEROL 200/25MCG 14 PUFFS/INHALER INH SCH (10:31)
[2022-03-23] MEDS: guaiFENesin 600 MG TABCR PO SCH ×2 (10:32→20:33)
[2022-03-23] MEDS: guanFACINE HCL 1 MG TAB PO SCH ×2 (10:32→20:33)
[2022-03-23] MEDS: levoFLOXacin 750 MG TAB PO SCH (10:33)
[2022-03-23] MEDS: LOSARTAN POTASSIUM 50 MG TAB PO SCH (10:33)
[2022-03-23] MEDS: NALTREXONE HCL 50 MG TAB PO SCH (10:34)
[2022-03-23] MEDS: MULTIVITAMIN TAB PO SCH (10:34)
[2022-03-23] MEDS: MONTELUKAST SODIUM 10 MG TABLET PO SCH (10:34)
[2022-03-23] MEDS: PYRIDOXINE HCL 50 MG TAB PO SCH (10:35)
[2022-03-23] MEDS: PANTOprazole 40 MG TAB PO SCH (10:35)
[2022-03-23] MEDS: VENLAFAXINE HCL XR 75 MG CAPXR PO SCH (10:36)
[2022-03-23] MEDS: UMECLIDINIUM BROMIDE 62.5MCG/BLISTER 7 PUFFS/INHALER INH SCH (10:36)
--- NOTE | 2022-03-23 10:36 | XRay Report ---
XR chest 1V portable HISTORY: Serial XR, hypoxia/tachy COMPARISON: Chest 03/19/2022. FINDINGS: No pneumothorax. The heart is top normal in size. There is a moderate hiatus hernia. Left b asilar linear densities favor subsegmental atelectasis. There are patchy airspace opacities within th e right lung, unchanged. Suspect trace bilateral pleural effusions. IMPRESSION: Patchy right lung airspace opacities likely representing a pneumonia. This is similar to the prior st y. ACT 112: Negative or not required by law. Electronically signed by: Yuriy Quijano M.D. 03/23/2022 10:35 AM
[2022-03-23 11:30] LABS: Base Excess ABG -1.7 mEq/L (-9-1.8); HCO3 ABG 22 mmol/L (19-24); Oxygen Saturation ABG 96.6 % (90-95); PCO2 ABG 33 mmHg (35-46); PO2 ABG 76 mmHg (80-95); pH ABG 7.43 (7.35-7.45)
[2022-03-23 11:36] LABS: Allen Test Pos (Pos)
[2022-03-23] MEDS: DEXTROMETHORPHAN POLYMR COMPLX 30 MG/5 ML UDP PO PRN ×2 (11:51→20:35)
--- NOTE | 2022-03-23 15:04 | Hospitalist Progress Note ---
Date of Service March 23, 2022 Assessment & Plan (1) COVID-19: Plan: Day 9 of illness on admission Vaccinated and boosted (last dose in October) Remdesivir 200mg IV then 100mg IV daily for 4 days - does not need to finish this prior to discharge Dexamethasone 6mg IV - continue for total course of 10 days Encourage prone sleeping Incentive spirometer, flutter valve Guaifenesin 600mg PO BID Dextromethorphan for cough suppressant as needed 03/23: Patient tachypneic, tachycardic and looking more ill but nontoxic. ABG without acid-base disturbance, but with hypoxemia despite oxygen, increased slightly. Somewhat improved on recheck, but given rash and will order CRP for trending and observe overnight. If continuing to worsen in late phase COVID increased dexamethasone to 10 mg versus twice daily Is continued on Lovenox DVT prophylaxis (2) Bacterial pneumonia: Plan: Increased WBC and procalcitonin concerning for secondary bacterial pneumonia. Both improving on antibiotics Continue Levaquin 750mg switched to PO q2d due to renal function. Plan to finish 7 day course (3) Hypoxemia: Plan: Aim O2 sats > 94% (4) GERD (gastroesophageal reflux disease): Plan: Continue pantoprazole 40mg PO daily (5) COPD (chronic obstructive pulmonary disease): Plan: No exacerbation suspect based on exam Use albuterol inhalers as needed Continue Breo Ellipta and Spiriva (substitute per hospital formulary) (6) ADD (attention deficit disorder): Plan: Continue guanfacine 1mg PO BID (7) Depression: Plan: Continue her usual medications with aripiprazole and venlafaxine (8) Hypertension: Plan: Losartan restarted, amlodipine restarted. Continue. (9) History of alcohol use disorder: Plan: Continue naltrexone 50mg PO daily Plan VTE Prophylaxis - Lovenox 40mg SQ daily Diet - regular Disposition - continued admission to med/surg due to hypoxia, PT/OT evals Admission and Anticipated Discharge Date Admission Date: March 19, 2022 Subjective Continues to feel poorly today. Overnight tachycardic, tachypneic. Feels tired, although at afternoon reassessment feels a little bit better than in the morning. Jber a little chilly overnight, no shaking chills/rigors. Continues to have a cough Review of Systems Review of Systems: All systems reviewed & are unremarkable except as noted in Subjective Physical Exam Physical Exam: General: A&Ox3. Cooperative. Appears ill but nontoxic HEENT: Atraumatic, normocephalic.Patient/hearing grossly intact Pulm: Diminished but grossly clear without wheezes/rales. Symmetrical chest rise. No increase in work of breathing. No respiratory distress. Cardiac: RRR, -mrg. Radial pulses intact and symmetrical. Abdominal: Nontender, nondistended, soft. BS present. Results & Data Results & Data ([facility]) Vital Signs (Past 12 Hours) Vital Signs Temp Pulse Pulse Pulse Pulse Pulse Pulse 03/23/22 10:41 03/23/22 08:10 90 103 H 116 H 94 H 83 03/23/22 08:05 36.4 C L 82 Resp Resp Resp Resp Resp Resp BP 03/23/22 10:41 03/23/22 08:10 20 24 26 H 24 20 03/23/22 08:05 16 149/85 H Pulse Ox Pulse Ox Pulse Ox Pulse Ox Pulse Ox Pulse Ox O2 Del Method 03/23/22 10:41 Nasal Cannula 03/23/22 08:10 91 90 87 L 92 87 L 03/23/22 08:05 94 Nasal Cannula O2 Flow Rate O2 Flow Rate O2 Flow Rate O2 Flow Rate O2 Flow Rate 03/23/22 10:41 2 03/23/22 08:10 1 2 1 2 03/23/22 08:05 2 PG Care Time/CCT Total # of Minutes Spent Total Time Spent with Patient: Total time spent is greater than 50% in coordination of care (as documented) at patient's floor/unit and/or counseling patient: Coding Level of Care Code 42767 Subseq Hosp Care Lvl 2 Diagnoses COVID-19 U07.1 Bacterial pneumonia J15.9 Hypoxemia R09.02 GERD (gastroesophageal reflux disease) K21.9 COPD (chronic obstructive pulmonary disease) J44.9 ADD (attention deficit disorder) F98.8 Depression F32.9 Hypertension I10 History of alcohol use disorder Z87.898
[2022-03-23] MEDS: REMDESIVIR 100 MG in SODIUM CHLORIDE 0.9% 230 ML IV SCH (20:27)
[2022-03-23] MEDS: ENOXAPARIN INJ 40 MG/0.4 ML SYR SQ SCH (20:31)
[2022-03-23] MEDS: rOPINIRole HCL 0.25 MG TABLET PO SCH (20:32)
[2022-03-23] MEDS: MIRTAZAPINE TAB 15 MG TAB PO SCH (20:32)
[2022-03-23] MEDS: LATANOPROST 0.005% OP SOLN 2.5 ML BTL OP SCH (20:34)
[2022-03-23] MEDS ORDERED: levoFLOXacin 750 MG TAB PO SCH (21:00)
[2022-03-24 07:29] LABS: BUN Creatinine Ratio 23.8 (10-20); Bilirubin,Total 0.3 mg/dl (0.2-1.0); C Reactive Protein 3.09 mg/dl (0-0.5); Calcium 8.7 mg/dl (8.5-10.1); Creatinine Clr Calc Pharmacy 56.8 ml/min; Est GFR (Non-African American) 74.2 ml/min; Globulin 2.9 gm/dl (2.5-4.0); Potassium 3.9 mmol/L (3.5-5.1); Total Protein 5.9 gm/dl (6.0-8.3)
--- NOTE | 2022-03-24 08:47 | Hospitalist Progress Note ---
Date of Service March 24, 2022 Assessment & Plan (1) COVID-19: Plan: Day 9 of illness on admission Vaccinated and boosted (last dose in October) Remdesivir completed Dexamethasone 6mg IV - Encourage prone sleeping Incentive spirometer, flutter valve Guaifenesin 600mg PO BID Dextromethorphan for cough suppressant as needed Is continued on Lovenox DVT prophylaxis (2) Bacterial pneumonia: Plan: Increased WBC and procalcitonin concerning for secondary bacterial pneumonia. Both improving on antibiotics Continue Levaquin 750mg switched to PO q2d due to renal function. finished course (3) Hypoxemia: Plan: Aim O2 sats > 94% (4) GERD (gastroesophageal reflux disease): Plan: Continue pantoprazole 40mg PO daily (5) COPD (chronic obstructive pulmonary disease): Plan: No exacerbation suspect based on exam Use albuterol inhalers as needed Continue Breo Ellipta and Spiriva (substitute per hospital formulary) (6) ADD (attention deficit disorder): Plan: Continue guanfacine 1mg PO BID (7) Depression: Plan: Continue her usual medications with aripiprazole and venlafaxine (8) Hypertension: Plan: Losartan restarted, amlodipine restarted. Continue. (9) History of alcohol use disorder: Plan: Continue naltrexone 50mg PO daily Plan VTE Prophylaxis - Lovenox 40mg SQ daily Diet - regular favorable PT/OT evals to go home Admission and Anticipated Discharge Date Admission Date: March 19, 2022 Subjective pt feels improved on low levels of oxygen, completed remdesivir, still on dexamethasone Review of Systems Review of Systems: Mild distress and fatigue no headache, no visual changes no speech or swallowing issues no chest pain, pressure or palpitations still some mild shortness of breath, non productive cough no abdominal pain, nausea or vomiting, diarrhea or constipation no dysuria, hematuria or frequency no focal joint pain or swelling no back pain, CVA tenderness or radicular pain no bruising, bleeding or rashes no focal signs of weakness or numbness or altered sensation no complaints of anxiety or depression.. Physical Exam Physical Exam: The patient appeared well nourished and normally developed. Vital signs as documented. Head exam is normocephalic atraumatic Neck is without JVD, thyromegaly, or carotid bruits. Lungs are coarse b/l Cardiac exam, Rhythm is regular.. No murmurs, rubs or gallops. Abdominal exam reveals normal bowel sounds, soft non tender, no masses Extremities are nonedematous and both pedal pulses are present Neurologic exam is alert and oriented, no focal loss of strength or sensation Skin is without bruises or rashes Psychologically is without concerns for anxiety or depression.. Results & Data Results & Data ([facility]) Vital Signs (Past 12 Hours) Vital Signs Temp Pulse Resp BP Pulse Ox O2 Del Method O2 Flow Rate 03/24/22 08:19 97.3 F L 98 H 18 146/81 H 93 Nasal Cannula 2 PG Care Time/CCT Total # of Minutes Spent Total Time Spent with Patient: Total time spent is greater than 50% in coordination of care (as documented) at patient's floor/unit and/or counseling patient: Coding Level of Care Code 27243 Subseq Hosp Care Lvl 2 Diagnoses COVID-19 U07.1 Bacterial pneumonia J15.9 Hypoxemia R09.02 GERD (gastroesophageal reflux disease) K21.9 COPD (chronic obstructive pulmonary disease) J44.9 ADD (attention deficit disorder) F98.8 Depression F32.9 Hypertension I10 History of alcohol use disorder Z87.898
[2022-03-24] MEDS: ARIPIprazole 1 MG/ML ORAL SOLN 150 ML BTL PO SCH (09:52)
[2022-03-24] MEDS: ATORVASTATIN 20 MG TAB PO SCH (09:53)
[2022-03-24] MEDS: FLUTICASONE/VILANTEROL 200/25MCG 14 PUFFS/INHALER INH SCH (09:53)
[2022-03-24] MEDS: guaiFENesin 600 MG TABCR PO SCH ×2 (09:54→20:33)
[2022-03-24] MEDS: FERROUS SULFATE 325 MG TAB PO SCH (09:54)
[2022-03-24] MEDS: guanFACINE HCL 1 MG TAB PO SCH ×2 (09:54→20:32)
[2022-03-24] MEDS: LOSARTAN POTASSIUM 50 MG TAB PO SCH (09:55)
[2022-03-24] MEDS: levoFLOXacin 750 MG TAB PO SCH (09:55)
[2022-03-24] MEDS: MONTELUKAST SODIUM 10 MG TABLET PO SCH (09:55)
[2022-03-24] MEDS: MULTIVITAMIN TAB PO SCH (09:56)
[2022-03-24] MEDS: NALTREXONE HCL 50 MG TAB PO SCH (09:56)
[2022-03-24] MEDS: PYRIDOXINE HCL 50 MG TAB PO SCH (09:57)
[2022-03-24] MEDS: VENLAFAXINE HCL XR 75 MG CAPXR PO SCH (09:57)
[2022-03-24] MEDS: PANTOprazole 40 MG TAB PO SCH (09:57)
[2022-03-24] MEDS: UMECLIDINIUM BROMIDE 62.5MCG/BLISTER 7 PUFFS/INHALER INH SCH (09:57)
[2022-03-24] MEDS: amLODIPine BESYLATE 5 MG TAB PO SCH (11:29)
[2022-03-24] MEDS: dexAMETHasone 6 MG in SYRINGE 0 ML IV SCH (11:30)
[2022-03-24] MEDS: DEXTROMETHORPHAN POLYMR COMPLX 30 MG/5 ML UDP PO PRN ×2 (11:30→20:35)
[2022-03-24] MEDS: ENOXAPARIN INJ 40 MG/0.4 ML SYR SQ SCH (20:30)
[2022-03-24] MEDS: MIRTAZAPINE TAB 15 MG TAB PO SCH (20:32)
[2022-03-24] MEDS: rOPINIRole HCL 0.25 MG TABLET PO SCH (20:32)
[2022-03-24] MEDS: LATANOPROST 0.005% OP SOLN 2.5 ML BTL OP SCH (20:34)
[2022-03-25] MEDS: amLODIPine BESYLATE 5 MG TAB PO SCH (09:09)
[2022-03-25] MEDS: ATORVASTATIN 20 MG TAB PO SCH (09:10)
[2022-03-25] MEDS: ARIPIprazole 1 MG/ML ORAL SOLN 150 ML BTL PO SCH (09:10)
[2022-03-25] MEDS: dexAMETHasone 6 MG in SYRINGE 0 ML IV SCH (09:10)
[2022-03-25] MEDS: FLUTICASONE/VILANTEROL 200/25MCG 14 PUFFS/INHALER INH SCH (09:11)
[2022-03-25] MEDS: FERROUS SULFATE 325 MG TAB PO SCH (09:11)
[2022-03-25] MEDS: guanFACINE HCL 1 MG TAB PO SCH (09:12)
[2022-03-25] MEDS: guaiFENesin 600 MG TABCR PO SCH (09:12)
[2022-03-25] MEDS: LOSARTAN POTASSIUM 50 MG TAB PO SCH (09:12)
[2022-03-25] MEDS: MONTELUKAST SODIUM 10 MG TABLET PO SCH (09:13)
[2022-03-25] MEDS: MULTIVITAMIN TAB PO SCH (09:13)
[2022-03-25] MEDS: PYRIDOXINE HCL 50 MG TAB PO SCH (09:14)
[2022-03-25] MEDS: PANTOprazole 40 MG TAB PO SCH (09:14)
[2022-03-25] MEDS: NALTREXONE HCL 50 MG TAB PO SCH (09:14)
[2022-03-25] MEDS: VENLAFAXINE HCL XR 75 MG CAPXR PO SCH (09:15)
[2022-03-25] MEDS: UMECLIDINIUM BROMIDE 62.5MCG/BLISTER 7 PUFFS/INHALER INH SCH (09:15)
[2022-03-25] MEDS: DEXTROMETHORPHAN POLYMR COMPLX 30 MG/5 ML UDP PO PRN (09:18)
--- NOTE | 2022-03-25 19:08 | Discharge Summary ---
Date of Service March 25, 2022 Admission HPI Per Admitting Provider Shira Lenz is a 71 year old female who presents to the ER with flu-like symptoms. She reports ongoing symptoms for 9 days mainly with cough and shortness of breath but also mild sinus pain intermitently. She is having chest pain with coughing only. She had diarrhea but that has now resolved. No abdominal pain or loss of taste or smell. Her appetite has significantly been reduced and reports only eating half a bowel of soup in the last 3-4 days. She has not taken her usual medications this morning other than her Breo Ellipta. She was seen by the [facility] office today and was tested for HILDA-COV-2 which was positive and given her hypoxia she was sent to the ER for ongoing management. She called her PCP office today as she was unable to catch her breath this morning. Her inhaler for COPD hasn't helped significantly. She reports cold sweats this morning but no objective fever. Vaccinated for COVID-19 and x3 boosted - last booster in October. Never had COVID-19 previously. She reports probably catching COVID-19 on a recent trip to [place]. She just got back Tuesday night and ws in [facility] from -12 March. Principal Diagnosis covid pneumonia Discharge Exam Patient is stable for discharge she is hypoxic on ambulation requiring low amounts of oxygen this was arranged for her to be supported at home prior to discharge respiratory status was stable Discharge Data Allergies Allergy/AdvReac Type Severity Reaction Status Date / Time Penicillins Allergy Severe Swelling Verified 02/16/22 12:58 of Lip/Tongue/Throat Consultations 03/19/22 14:14 ED Decision to Admit Stat Hospital Course (1) COVID-19: Day 9 of illness on admission Vaccinated and boosted (last dose in October) Remdesivir completed Dexamethasone 6mg IV -will be on home Decadron p.o. to complete her 10-day course oxygen arranged for ambulation Encourage prone sleeping Incentive spirometer, flutter valve Guaifenesin 600mg PO BID Dextromethorphan for cough suppressant as needed Is continued on Lovenox DVT prophylaxis (2) Bacterial pneumonia: Increased WBC and procalcitonin concerning for secondary bacterial pneumonia. Both improving on antibiotics Continue Levaquin 750mg switched to PO q2d due to renal function. Completed course while in hospital (3) Hypoxemia: Needed 2 L with ambulation (4) GERD (gastroesophageal reflux disease): Continue pantoprazole 40mg PO daily (5) COPD (chronic obstructive pulmonary disease): No exacerbation suspect based on exam Use albuterol inhalers as needed Continue Breo Ellipta and Spiriva (substitute per hospital formulary) (6) ADD (attention deficit disorder): Continue guanfacine 1mg PO BID (7) Depression: Continue her usual medications with aripiprazole and venlafaxine (8) Hypertension: Losartan restarted, amlodipine restarted. Continue. (9) History of alcohol use disorder: Continue naltrexone 50mg PO daily Total Time Total Time Spent Total Time Spent (In Minutes): It required less than 30 minutes to prepare this patient for discharge Discharge Plan Discharge Items Patient Disposition: Home - Self-Care Reason For Visit: COVID-19 PNA, HYPOXIA Discharge Diagnosis: covid pneumonia hypoxia Activity: Per Instructions section Activity Comment: slowly increase activity Non-emergency contact: Primary Care Provider Call non-emergency contact if: your symptoms worsen Follow-up/Referrals: Mitchell Maza [Primary Care Provider] - 04/02/22 9:50 am Diet: Regular Addtl Attending Provider Instructions: You have been diagnosed with covid infection, it would be recommended that you quarantine yourself for 10 days from your first test or first symptoms, and if at the 10th day you have no symptoms the you can come off quarantine but use common sense precautions. Quarantine means attempting to stay away from people who have not had an active covid infection in the past, and if you have to be around others to wear a mask even if you are indoors, do not share a room to sleep in with others until you are out of quarantine. If you still have symptoms at the 10th day, continue to quarantine until you are symptom free for 48 hours Pending Studies at Discharge: No Stand-Alone Forms: My [place], Smoking Cessation Medications and DC Order Prescriptions: New dexamethasone [Decadron] 6 mg tablet 6 mg PO DAILY Qty: 5 0RF Continued albuterol sulfate 2.5 mg /3 mL (0.083 %) solution for nebulization 2.5 mg INH Q4H PRN (Reason: SOB) amlodipine 5 mg tablet 10 mg PO QAM ferrous sulfate 325 mg (65 mg iron) tablet 325 mg PO QAM loratadine 10 mg tablet 10 mg PO QAM PRN (Reason: Allergy Symptoms) losartan 100 mg tablet 100 mg PO QAM montelukast 10 mg tablet 10 mg PO QAM multivitamin [Daily Multi-Vitamin] tablet 1 tab PO QAM albuterol sulfate [ProAir HFA] 90 mcg/actuation HFA aerosol inhaler 2 puffs INH Q6H PRN (Reason: SOB) pantoprazole [Protonix] 40 mg tablet,delayed release (DR/EC) 40 mg PO QAM ropinirole 0.25 mg tablet 0.25 mg PO HS aripiprazole [Abilify] 2 mg tablet 1 mg PO QAM fluticasone furoate-vilanterol [Breo Ellipta] 200-25 mcg/dose blister with device 1 inh inhalation DAILY Qty: 60 2RF Spiriva with HandiHaler 18 mcg capsule, w/inhalation device 1 cap inhalation DAILY Qty: 1 2RF Rx Instructions: puncture 1 cap using device; one dose = 2 inhalations atorvastatin 20 mg tablet 20 mg PO DAILY cholecalciferol (vitamin D3) 50 mcg (2,000 unit) capsule 50 mcg PO DAILY pyridoxine (vitamin B6) 100 mg tablet 100 mg PO DAILY latanoprost 0.005 % Drops 1 drp OPHTHALMIC (EYE) PM guanfacine 1 mg Tablet 1 mg PO BID azelastine 137 mcg (0.1 %) aerosol,spray 2 spray INTNAS BID PRN (Reason: Congestion) fluticasone propionate [Allergy Relief (fluticasone)] 50 mcg/actuation spray,suspension 2 sprays INTNAS DAILY PRN (Reason: Congestion) venlafaxine 75 mg capsule,extended release 24hr 75 mg PO DAILY naltrexone 50 mg tablet 50 mg PO DAILY mirtazapine 15 mg tablet 15 mg HS Discharge Orders: Discharge Order (Routine); Ordered 03/25/22 Ordered By: Jose Martin Jordan/Other Patient Handouts: Preventing Pneumonia, Infec Common Resp Prevention Admission Data Admit Date/Time: 03/19/22 14:45 Attending Provider: Jose Martin Packer Admit Provider: Monroe Monroy Primary Care Provider: Mitchell Maza Other Providers: Monroe Monroy Other Interventions: Discharge Summary Assessment (RN) Last Done: 03/25/22 09:34 Coding Level of Care Code D/C DAY MANAGEMENT <30 MINS Diagnoses COVID-19 U07.1 Bacterial pneumonia J15.9 Hypoxemia R09.02 GERD (gastroesophageal reflux disease) K21.9 COPD (chronic obstructive pulmonary disease) J44.9 ADD (attention deficit disorder) F98.8 Depression F32.9 Hypertension I10 History of alcohol use disorder Z87.891
== END 2022-03-25 10:17 | disposition home or self-care (01) | DRG 177 ==
LOC: ED 11:39 → EDINP 14:45 → SUATTDRO 14:45 → 3E 16:48

== ENCOUNTER 2024-09-05 11:23 | Inpatient (IN) ==
--- NOTE | 2024-09-05 12:20 | Emergency Department Note ---
Impression & Plan Acute hyponatremia, Acute kidney injury superimposed on CKD, Hypothyroidism ED Provider Note NAME: KYLAH GALEAS AGE: 74 SEX: F : 1950 ARRIVES VIA: Walk-In INFORMANT: Patient, ED PROVIDER(S): Nito Greenberg MD CHIEF COMPLAINT: Low sodium, outpatient referral MEDICAL DECISION MAKING: Patient presents due to concern for hyponatremia. IV was established and blood work was obtained. Blood work shows white count of 12 hemoglobin of 10. Platelet count is unremarkable. Acute hyponatremia noted with a sodium of 120. Urine and serum osmolality ordered in addition to urine electrolytes. Magnesium slightly low at 1.6. No fluids given at this time. TSH is high and free T4 is low. I did speak with the on-call hospitalist service Dr. Schilling and the patient was admitted to the medicine service. I did inform the patient the findings and recommendations she and are comfortable current plan of care. Discussion w/ other healthcare providers: Dr. Schilling inpatient medicine service Prior /Outside records reviewed: None Differential diagnosis: Infection, dehydration, metabolic abnormality, hypo/hyperglycemia, electrolyte imbalance, anemia, UTI, pneumonia, thyroid dysfunction among others were considered. Diagnostics, as interpreted by me: ECG: Normal sinus rhythm, rate of 95, normal axis no ST elevations. Cardiac monitoring: An order was placed for continuous cardiac monitoring. The monitor shows a rate of 89 with sinus rhythm. Patient was placed on pulse oximetry Medical decision rules: None Imaging studies: I informally interpreted the patient's chest x-ray does not show obvious pneumonia or pneumothorax with formal report to follow. HPI: Patient presents due to concern for low sodium. The patient reports that she had some outpatient blood work that was completed yesterday through her PCP Dr. Abdalla. Patient states that she was having it completed for routine reasons but was told that she had low sodium was referred here for further evaluation treatment. Patient is not been drinking as much fluids but denies any specific overhydration with water alone. Patient denies any falls or trauma. No chest pains or shortness of breath. The patient does wear chronic 2 L of oxygen nasal cannula at all times. Patient does not think that she takes any diuretics. Patient does have a history of thyroid dysfunction patient denies any salt restriction. Patient denies any leg swelling. PAST MEDICAL HISTORY: See Below PAST SURGICAL HISTORY: See Below SOCIAL HISTORY: See Below HOME MEDICATIONS: See Below ALLERGIES: See Below VITALS: See Below PHYSICAL EXAMINATION: GENERAL: NAD, non-toxic. Hard of hearing. Nasal cannula in place. EYE EXAM: Normal conjunctiva. PERRL, no anisocoria and EOM's grossly intact w/o pain. OROPHARYNX: Moist mucus membranes, edentulous. NECK: Trachea midline, no stridor. Supple, no nuchal rigidity, no adenopathy, non-tender. No signs of meningismus. FROM of the neck with good chin to chest and neck extension. LUNGS: Clear to auscultation. Normal chest wall mechanics. HEART: NSR, no MRG. ABDOMEN: Abdomen soft, non-tender, no masses, no rebound or guarding. BACK: No CVA TTP. SKIN: No rashes and no bruising. UPPER EXTREMITIES: Upper extremities are grossly normal. LOWER EXTREMITIES: Grossly normal, no edema. NEURO EXAM: A&O x3, cranial nerves II-XII grossly intact, normal speech, moves all 4 extremities. Past Med/Surg History Problem List (Updated 09/06/24 @ 11:41 by Nito Greenberg MD) Hypothyroidism (Acute) Acute kidney injury superimposed on CKD (Acute) Acute hyponatremia (Acute) Hyponatremia Hand arthritis Prurigo nodularis History of alcohol use disorder Depression GERD (gastroesophageal reflux disease) COPD (chronic obstructive pulmonary disease) ADD (attention deficit disorder) Bacterial pneumonia Hypoxemia (Acute) Pneumonia due to 2019 novel coronavirus (Acute) Elevated serum creatinine (Acute) COVID-19 Chronic kidney disease, stage III (moderate) Vitamin D deficiency Chronic kidney disease History of tobacco abuse Chronic obstructive pulmonary disease Dyspnea on exertion Encounter for pre-operative examination Abdominal pain (Acute 03/17/11) Abdominal wound dehiscence (Acute) Acute low back pain (Acute 03/17/11) Adenomatous polyp of colon (Chronic Unknown) "s/p polypectomies " Adjustment disorder with depressed mood (Chronic Unknown) Allergic rhinitis (Chronic Unknown) Anemia (Chronic Unknown) Hyperproteinemia (Acute 03/19/11) Mass of thoracic structure (Acute 03/18/11) "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 " On 03/19/11 08:31 Jonny Cervantes wrote "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 " Encounter for pre-operative examination Mixed conductive and sensorineural hearing loss of right ear with restricted hearing of left ear Sinusitis Eustachian tube dysfunction Hypertension Sensorineural hearing loss (SNHL) of both ears Medical History Abdominal pain Glaucoma Mood disorder Herniated cervical disc Osteoarthritis Hiatal hernia History of colon polyps History of colitis 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 Deaf Left Asthma uses PRN neb daily; rarely uses PRN inh Lower back pain Surgical History History of cataract surgery History of tonsillectomy History of total abdominal hysterectomy and bilateral salpingo-oophorectomy Status post proximal row carpectomy of wrist Rt History of repair of left rotator cuff History of esophagogastroduodenoscopy (EGD) History of colonoscopy History of sinus surgery balloon sinuplasty Family History Sister Sinusitis Cancer Hypertension Father Cancer Aunt Diabetes Brother Coronary heart disease Allergies Sinusitis Stroke Diabetes Other No family history of adverse response to anesthesia Social History Smoking Status: Former smoker Tobacco Type: Declines Age Started Using Tobacco: 16; Cigarettes Per Day: 40; Second Hand Exposure: No; Do You Dip or Chew Tobacco: No; Tobacco Cessation Education Requested by Patient: No Hx Alcohol Use: Yes Alcohol type: wine Hx Substance Use: No Preferred Language: Ukrainian Communication Ability: Effective Communication Ability Comment: pt is deaf in left ear, hearing aid in right Keyboarding Teacher Required: No Beliefs That Will Affect Care: None Current Living Situation: Spouse current occupational status: retired 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 [employer] Other Information That Helps Us Care for You: No Feels Safe at Home: Yes Safety Concerns: Feels Safe At This Time Assistive Devices: Oxygen - Continuous and Walker Allergies Allergies Allergy/AdvReac Type Severity Reaction Status Date / Time Penicillins Allergy Severe Swelling Verified 08/16/24 10:33 of Lip/Tongue/Throat Home Meds Home Medications Medication Instructions Recorded Confirmed montelukast 10 mg tablet 10 mg PO QAM 02/12/19 09/05/24 pantoprazole 40 mg tablet,delayed 40 mg PO QAM 02/12/19 09/05/24 release (Protonix) aripiprazole 2 mg tablet (Abilify) 1 mg PO QAM 11/27/21 09/05/24 atorvastatin 20 mg tablet 20 mg PO HS 01/07/22 09/05/24 mirtazapine 15 mg tablet 15 mg PO QPM 03/19/22 09/05/24 albuterol sulfate 2.5 mg/3 mL See Rx Instructions .Route 09/05/24 09/05/24 (0.083 %) solution for nebulization .COMPLEX PRN Wheezing/SOB amlodipine 10 mg tablet 10 mg PO QAM 09/05/24 09/05/24 ammonium lactate 12 % topical cream 1 applic topical BID 09/05/24 09/05/24 fluticasone furoate 200 1 inh inhalation QAM 09/05/24 09/05/24 mcg-vilanterol 25 mcg/dose inhalation powder (Breo Ellipta) gabapentin 300 mg capsule 300 mg PO BID 09/05/24 09/05/24 hydrochlorothiazide 12.5 mg tablet 12.5 mg PO QAM 09/05/24 09/05/24 hydroxyzine HCl 25 mg tablet 25 mg PO HS PRN Itching 09/05/24 09/05/24 latanoprost 0.005 % eye drops 1 drp OPB HS 09/05/24 09/05/24 levothyroxine 88 mcg tablet 88 mcg PO DAILYBB 09/05/24 09/05/24 losartan 100 mg tablet 100 mg PO QAM 09/05/24 09/05/24 magnesium oxide 400 mg (241.3 mg 400 mg PO BID 09/05/24 09/05/24 magnesium) tablet tiotropium bromide 18 mcg capsule 1 cap inhalation [facility] 09/05/24 09/05/24 with inhalation device (Spiriva with HandiHaler) venlafaxine 150 mg 150 mg PO QAM 09/05/24 09/05/24 capsule,extended release 24 hr Results & Data (ED) Vital Signs Vital Signs - 24 hr 09/05/24 11:50 09/05/24 11:54 09/05/24 11:57 Pulse Rate 90 Pulse Rate [Apical] 91 H Pulse Rate from SpO2 Sensor 90 Pulse Rhythm Pulse Rhythm [Apical] Regular Pulse Strength [Apical] Normal Respiratory Rate 24 24 Respiratory Effort / Characteristics Non-Labored Spontaneous Respiratory Depth Normal Respiratory Pattern Regular Blood Pressure 148/86 H Blood Pressure [Left Arm] 148/86 H Blood Pressure Mean 115 Blood Pressure Mean [Left Arm] 106 Blood Pressure Position [Left Arm] Semi-fowlers Pulse Oximetry 96 96 Oxygen Delivery Method Nasal Cannula Oxygen Flow Rate 2 09/05/24 11:58 09/05/24 12:00 09/05/24 12:03 Pulse Rate 105 H 91 H Pulse Rate [Apical] Pulse Rate from SpO2 Sensor 91 H Pulse Rhythm Pulse Rhythm [Apical] Pulse Strength [Apical] Respiratory Rate 24 Respiratory Effort / Characteristics Respiratory Depth Respiratory Pattern Blood Pressure 146/82 H Blood Pressure [Left Arm] Blood Pressure Mean 89 Blood Pressure Mean [Left Arm] Blood Pressure Position [Left Arm] Pulse Oximetry 95 Oxygen Delivery Method Nasal Cannula Oxygen Flow Rate 2 09/05/24 12:19 09/05/24 12:30 09/05/24 12:45 Pulse Rate 91 H 93 H Pulse Rate [Apical] Pulse Rate from SpO2 Sensor 95 H Pulse Rhythm Regular Pulse Rhythm [Apical] Pulse Strength [Apical] Respiratory Rate 24 26 H Respiratory Effort / Characteristics Respiratory Depth Respiratory Pattern Blood Pressure 144/86 H Blood Pressure [Left Arm] Blood Pressure Mean 100 Blood Pressure Mean [Left Arm] Blood Pressure Position [Left Arm] Pulse Oximetry 96 96 Oxygen Delivery Method Nasal Cannula Nasal Cannula Oxygen Flow Rate 2 2 09/05/24 13:00 09/05/24 13:33 09/05/24 14:00 Pulse Rate 92 H 94 H 95 H Pulse Rate [Apical] Pulse Rate from SpO2 Sensor 92 H 96 H 94 H Pulse Rhythm Pulse Rhythm [Apical] Pulse Strength [Apical] Respiratory Rate 22 22 22 Respiratory Effort / Characteristics Respiratory Depth Respiratory Pattern Blood Pressure 159/94 H 163/79 H 152/79 H Blood Pressure [Left Arm] Blood Pressure Mean 115 107 103 Blood Pressure Mean [Left Arm] Blood Pressure Position [Left Arm] Pulse Oximetry 96 96 96 Oxygen Delivery Method Nasal Cannula Nasal Cannula Nasal Cannula Oxygen Flow Rate 2 2 2 09/05/24 14:45 09/05/24 14:51 09/05/24 15:00 Pulse Rate 96 H 95 H Pulse Rate [Apical] 95 H Pulse Rate from SpO2 Sensor 96 H Pulse Rhythm Pulse Rhythm [Apical] Pulse Strength [Apical] Respiratory Rate 26 H 24 18 Respiratory Effort / Characteristics Respiratory Depth Respiratory Pattern Blood Pressure 146/72 H Blood Pressure [Left Arm] 137/74 Blood Pressure Mean 96 Blood Pressure Mean [Left Arm] 95 Blood Pressure Position [Left Arm] Pulse Oximetry 96 96 97 Oxygen Delivery Method Nasal Cannula Nasal Cannula Oxygen Flow Rate 2 2 Home Medications Current Medication List: was personally reviewed by me Laboratory Data Attestation: I reviewed the patient's lab results. 09/05/24 11:52 09/06/24 07:51 Lab Results 09/05/24 09/05/24 Range/Units 11:52 14:25 WBC 12.17 H (4.8-10.8) K/ul RBC 3.26 L (4.20-5.40) M/uL Hgb 10.7 L (12.0-16.0) g/dl Hct 29.9 L (37.0-47.0) % MCV 91.7 (80.0-100.0) fL MCH 32.8 (25.0-34.0) pg MCHC 35.8 (32.0-36.0) g/dL RDW Std Deviation 43.4 (36.4-46.3) fL RDW Coeff of [place] 13.0 (11.5-14.5) % Plt Count 292 (130-400) K/uL MPV 10.3 (9.4-12.4) fL Immature Gran % (Auto) 0.4 % Neut % (Auto) 69.1 % Lymph % (Auto) 8.8 % [place] % (Auto) 9.7 % Eos % (Auto) 10.8 % Baso % (Auto) 1.2 % Neut # (Auto) 8.42 H (1.40-6.50) K/uL Lymph # (Auto) 1.07 L (1.20-3.40) K/uL [place] # (Auto) 1.18 H (0.11-0.59) K/uL Eos # (Auto) 1.31 H (0.00-0.50) K/uL Baso # (Auto) 0.14 (0.00-0.20) K/uL Immature Gran # (Auto) 0.05 (0.01-0.20) K/uL Sodium 120 L (136-145) mmol/L Potassium 4.5 (3.5-5.1) mmol/L Chloride 81 L (98-107) mmol/L Carbon Dioxide 27 (21-32) mmol/L Anion Gap 12 H (3-11) BUN 14 (6-23) mg/dl Creatinine 1.41 H (0.6-1.2) mg/dl Est Cr Clr Drug Dosing 34.4 ml/min eGFR 39.14 BUN/Creatinine Ratio 9.9 L (10-20) Glucose 96 (70-99(Fasting)) mg/dl Osmolality 254 L (280-300) mOsm/kg Calcium 9.8 (8.6-10.3) mg/dl Magnesium 1.6 L (1.7-2.4) mg/dl Total Bilirubin 0.5 (0.2-1.0) mg/dl AST 79 H (13-39) U/L ALT 32 (7-52) U/L Alkaline Phosphatase 115 H (34-104) U/L Troponin I High Sens 11.4 (0-14) pg/ml Total Protein 7.5 (6.0-8.3) gm/dl Albumin 4.2 (3.4-5.0) gm/dl Globulin 3.3 (2.5-4.0) gm/dl Albumin/Globulin Ratio 1.3 (0.9-2) TSH 44.582 H (0.300-4.500) uIu/ml Free T4 0.47 L (0.61-1.60) ng/dl Urine Color Yellow Urine Appearance Clear (Clear) Urine pH 5.5 (4.5-7.5) Ur Specific [place] 1.006 (1.000-1.030) Urine Protein Negative (Negative) Urine Glucose (UA) Negative (Negative) Urine Ketones Negative (Negative) Urine Blood Negative (Negative) Urine Nitrite Negative (Negative) Urine Bilirubin Negative (Negative) Urine Urobilinogen Negative (Negative) Ur Leukocyte Esterase Negative (Negative) Urine Osmolality 136 L (500-800) mOsm/kg Ur Random Sodium 13 mmol/L Administered Medications Amlodipine Besylate (Amlodipine Besylate 5 Mg Tab) 10 mg PO [facility] Stop: 10/06/24 08:59 Last Admin: 09/06/24 09:00 Dose: 10 mg Documented By: KAYLA Aripiprazole (Aripiprazole 2 Mg Tab) 1 mg PO [facility] Stop: 10/06/24 08:59 Last Admin: 09/06/24 08:58 Dose: 1 mg Documented By: KAYLA Atorvastatin Calcium (Atorvastatin 20 Mg Tab) 20 mg PO HS [facility] Stop: 10/05/24 20:59 Last Admin: 09/05/24 21:19 Dose: 20 mg Documented By: HO Enoxaparin Sodium (Enoxaparin Inj 40 Mg/0.4 Ml Syr) 40 mg SQ Q24H [facility]OM Stop: 10/05/24 20:59 Last Admin: 09/05/24 21:20 Dose: 40 mg Documented By: HO Fluticasone/Vilanterol (Fluticasone/Vilanterol 200/25mcg 14 Puffs/Inhaler) 1 puffs INH QAM [facility] Stop: 10/06/24 08:59 Last Admin: 09/06/24 09:01 Dose: 1 puffs Documented By: KAYLA Gabapentin (Gabapentin 300 Mg Cap) 300 mg PO BID [facility] Stop: 10/05/24 20:59 Last Admin: 09/06/24 09:00 Dose: 300 mg Documented By: Admin: 09/05/24 21:19 Dose: 300 mg Documented By: HO Magnesium Sulfate/Dextrose (Magnesium Sulfate / D5w) 1 gm in 100 mls @ 50 mls/hr IV Q2H [facility]OM Stop: 09/06/24 12:44 Last Admin: 09/06/24 11:15 Dose: 50 mls/hr Documented By: Infusion: 09/06/24 11:03 Dose: Infused Documented By: Admin: 09/06/24 09:03 Dose: 50 mls/hr Documented By: KAYLA Lactic Acid (Ammonium Lactate 12% Lotion 225 Gm Btl) 1 gm EXT BID [facility]OM Stop: 10/05/24 20:59 Last Admin: 09/06/24 09:01 Dose: 1 gm Documented By: Admin: 09/05/24 21:20 Dose: 1 gm Documented By: HO Latanoprost (Latanoprost 0.005% Op Soln 2.5 Ml Btl) 1 drops OPB [facility] Stop: 10/05/24 20:59 Last Admin: 09/05/24 21:19 Dose: 1 drops Documented By: HO Levothyroxine Sodium (Levothyroxine Sodium 88 Mcg Tablet) 88 mcg PO DAILYBB [facility] Stop: 10/06/24 06:29 Last Admin: 09/06/24 05:57 Dose: 88 mcg Documented By: HO Losartan Potassium (Losartan Potassium 50 Mg Tab) 100 mg PO QAM [facility] Stop: 10/06/24 08:59 Last Admin: 09/06/24 09:00 Dose: 100 mg Documented By: KAYLA Magnesium Oxide (Magnesium Oxide 400 Mg Tab) 400 mg PO BID [facility] Stop: 10/05/24 20:59 Last Admin: 09/06/24 09:00 Dose: 400 mg Documented By: Admin: 09/05/24 21:19 Dose: 400 mg Documented By: HO Mirtazapine (Mirtazapine Tab 15 Mg Tab) 15 mg PO QPM [facility] Stop: 10/05/24 20:59 Last Admin: 09/05/24 21:19 Dose: 15 mg Documented By: HO Montelukast Sodium (Montelukast Sodium 10 Mg Tablet) 10 mg PO QAM [facility] Stop: 10/06/24 08:59 Last Admin: 09/06/24 09:00 Dose: 10 mg Documented By: KAYLA [facility]oprazole S[facility] ([facility]oprazole 40 Mg Tab) [facility] Stop: 10/06/24 08:59 Last Admin: 09/06/24 09:00 Dose: 40 mg Documented By: KAYLA Umeclidinium [place] (Umeclidinium [place] 62.5mcg/Blister 7 Puffs/Inhaler) 1 puffs INH DAILY [facility] Stop: 10/06/24 08:59 Last Admin: 09/06/24 09:02 Dose: 1 puffs Documented By: KAYLA Venlafaxine HCl (Venlafaxine Hcl Xr 150 Mg Capxr) [facility] Stop: 10/06/24 08:59 Last Admin: 09/06/24 09:02 Dose: 150 mg Documented By: KAYLA Discontinued Medications Sodium Chloride (Nss) 500 mls @ 999 mls/hr IV .Q31M ONE Stop: 09/05/24 15:49 Last Infusion: 09/05/24 16:06 Dose: Infused Documented By: Admin: 09/05/24 15:35 Dose: 999 mls/hr Documented By: ROSEANNE Imaging Data Radiologist's Impression: Chest X-Ray 09/05/24 12:13 XR chest 1V portable CLINICAL HISTORY: weakness COMPARISON STUDY: 07/24/2044 FINDINGS: Stable small hiatal hernia. Stable mild cardiomegaly without pulmonary vascular congestion. No effusion, consolidation, or pneumothorax. IMPRESSION: No acute findings. ACT 112: Negative or not required by law. Electronically signed by: Ruiz Vidales M.D. 09/05/2024 12:43 PM Discharge Plan Visit Data Chief Complaint: Abnormal Labs/Diagnostic Testing Stated Complaint: ABN SODIUM LEVELS ED Provider: Nito Greenberg Discharge Problem: Acute hyponatremia, Acute kidney injury superimposed on CKD, Hypothyroidism Patient Disposition: Admitted As Inpatient Discharge Instructions Interventions: ED Discharge Assessment Last Done: 09/05/24 19:29 Discharge Problem: Hypothyroidism Qualifiers: Hypothyroidism type: unspecified Qualified Code(s): E03.9 - Hypothyroidism, unspecified
[2024-09-05 12:37] LABS: Basophils # (auto) 0.14 K/uL (0.00-0.20); Basophils % (auto) 1.2 %; Eosinophils # (auto) 1.31 K/uL (0.00-0.50); Eosinophils % (auto) 10.8 %; Hematocrit (blood only) 29.9 % (37.0-47.0); Hemoglobin 10.7 g/dl (12.0-16.0); Immature Granulocytes # (auto) 0.05 K/uL (0.01-0.20); Immature Granulocytes % (auto) 0.4 %; Lymphocytes # (auto) 1.07 K/uL (1.20-3.40); Lymphocytes % (auto) 8.8 %; Mean Corpuscular Hemoglobin 32.8 pg (25.0-34.0); Mean Corpuscular Hgb Conc 35.8 g/dL (32.0-36.0); Mean Corpuscular Volume 91.7 fL (80.0-100.0); Mean Platelet Volume 10.3 fL (9.4-12.4); Monocytes # (auto) 1.18 K/uL (0.11-0.59); Monocytes % (auto) 9.7 %; Neutrophils # (auto) 8.42 K/uL (1.40-6.50); Neutrophils % (auto) 69.1 %; Platelet Count 292 K/uL (130-400); RDW Standard Deviation 43.4 fL (36.4-46.3); Red Blood Count 3.26 M/uL (4.20-5.40); White Blood Count 12.17 K/ul (4.8-10.8)
--- NOTE | 2024-09-05 12:44 | XRay Report ---
XR chest 1V portable CLINICAL HISTORY: weakness COMPARISON STUDY: 07/24/2044 FINDINGS: Stable small hiatal hernia. Stable mild cardiomegaly without pulmonary vascular congestion. No effusion, consolidation, or pneumothorax. IMPRESSION: No acute findings. ACT 112: Negative or not required by law. Electronically signed by: Ruiz Vidales M.D. 09/05/2024 12:43 PM
[2024-09-05 12:53] LABS: Albumin Globulin Ratio 1.3 (0.9-2); Albumin Level 4.2 gm/dl (3.4-5.0); BUN Creatinine Ratio 9.9 (10-20); Bilirubin,Total 0.5 mg/dl (0.2-1.0); Calcium 9.8 mg/dl (8.6-10.3); Creatinine Clr Calc Pharmacy 34.4 ml/min; Globulin 3.3 gm/dl (2.5-4.0); Magnesium 1.6 mg/dl (1.7-2.4); Potassium 4.5 mmol/L (3.5-5.1); Total Protein 7.5 gm/dl (6.0-8.3)
[2024-09-05 12:57] LABS: Troponin I High Sensitivity 11.4 pg/ml (0-14)
[2024-09-05 13:42] LABS: T4 Free Thyroxine 0.47 ng/dl (0.61-1.60)
--- NOTE | 2024-09-05 14:26 | History & Physical Report ---
Date of Service September 05, 2024 Assessment & Plan (1) Hyponatremia: (2) COPD (chronic obstructive pulmonary disease): (3) Chronic kidney disease, stage III (moderate): (4) Mood disorder: Plan 74 y/o with COPD, hypothyroidism on replacement, mood disorder on several medications who was sent in by PCP for abnormal labs Hyponatremia - moderately severe but asymptomatic or minimally symptomatic. Previous sodiums on old labs I reviewed have been mostly normal. may be mildly hypovolemic based on increased creatinine on her chemistry panel. She was started on low-dose hydrochlorothiazide 3 to 4 weeks ago which I think is the culprit -urine Na was only minimally elevated at 13 despite hydrochlorothiazide, I think SIADH is unlikely, urine is dilute based on osmolality of 136. Serum osm's only slightly lower than the normal range at 254. -TSH elevated, See below - stop hydrochlorothiazide - trial 500 mL IV saline, repeat chemistry panel starting at 6 PM and serially q4 and in AM, 24-hour correction goal is less than 128 WAYNE on CKD-3. Cr baseline 0.9-->1.4. BUN not elevated - suspect volume depletion - fluids as above, a.m. BMP - try to continue losartan stop if creatinine continues to rise Hypothyroidism -continue levothyroxine - TSH 44, fT4 only mildly low - she and her state that she is compliant and although dosing times are very irregular she is taking it on an empty stomach - obtained further history about what the recent dose adjustment was and then determine whether further dose changes necessary, continue current dose of 88 mcg daily for now right ptosis, facial asymmetry, rightward tongue deviation - I do not suspect this is acute based on physical exam it looks like she could have had a previous stroke. She denies known history of CVA or Ceballos's palsy. I reviewed the previous imaging in [facility] and there is no recent neuroimaging. She had a MRI of brain in 2018 which showed small vessel disease - consider head CT COPD home O2 2L, not in exacerbation elevated kappa light chains, multiple hematologic abnormalities including eosinophilia, leukocytosis and anemiafollowed by Dr. Costello, reviewed clinic note from 01/2024. 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 Lac-Hydrin was recently started which I continued hypertension/hldcontinue amlodipine, ARB, statin Mood disorder - continue aripiprazole, mirtazapine, venlafaxine, as needed hydroxyzine DVT prophylaxisenoxaparin I updated her at bedside she states she wants to be full code History of Present Illness Chief Complaint: Sent in by doctor for abnormal labs Primary Care Provider: Mitchell Maza 74 y/o with CKD stage 3, COPD on home O2 2L, chronic pruritic dermatitis and intermittent nausea who was sent in by primary care after routine labs yesterday came back with sodium of 120. She seems to be more or less asymptomatic. [place] weaker several days, no vomiting/diarrhea, no f/c/s, no falls, no headache, no confusion. I obtained additional history from her at baseline who is very attentive and can give more detailed information Takes levothyroxine - timing is inconsistent but she does take daily, doesn't eat breakfast so is getting it on empty stomach. Has been having dose adjustments for this as outpatient. Does take mirtazapine, venlafaxine, aripiprazole for mood. Her reports she was started on HCTZ within the past month - confirmed 12.5 mg daily dose based on review of outpatient pharm database ED labs notable for Cr is increased compared to baseline. Allergies Allergy/AdvReac Type Severity Reaction Status Date / Time Penicillins Allergy Severe Swelling Verified 08/16/24 10:33 of Lip/Tongue/Throat Home Medications Medication Instructions Recorded Confirmed Type montelukast 10 mg tablet 10 mg PO QAM 02/12/19 09/05/24 History pantoprazole 40 mg tablet,delayed 40 mg PO QAM 02/12/19 09/05/24 History release (Protonix) aripiprazole 2 mg tablet (Abilify) 1 mg PO QAM 11/27/21 09/05/24 History atorvastatin 20 mg tablet 20 mg PO HS 01/07/22 09/05/24 History mirtazapine 15 mg tablet 15 mg PO QPM 03/19/22 09/05/24 History albuterol sulfate 2.5 mg/3 mL See Rx Instructions .Route 09/05/24 09/05/24 History (0.083 %) solution for nebulization .COMPLEX PRN Wheezing/SOB amlodipine 10 mg tablet 10 mg PO QAM 09/05/24 09/05/24 History ammonium lactate 12 % topical cream 1 applic topical BID 09/05/24 09/05/24 History fluticasone furoate 200 1 inh inhalation QAM 09/05/24 09/05/24 History mcg-vilanterol 25 mcg/dose inhalation powder (Breo Ellipta) gabapentin 300 mg capsule 300 mg PO BID 09/05/24 09/05/24 History hydrochlorothiazide 12.5 mg tablet 12.5 mg PO QAM 09/05/24 09/05/24 History hydroxyzine HCl 25 mg tablet 25 mg PO HS PRN Itching 09/05/24 09/05/24 History latanoprost 0.005 % eye drops 1 drp OPB HS 09/05/24 09/05/24 History levothyroxine 88 mcg tablet 88 mcg PO DAILYBB 09/05/24 09/05/24 History losartan 100 mg tablet 100 mg PO QAM 09/05/24 09/05/24 History magnesium oxide 400 mg (241.3 mg 400 mg PO BID 09/05/24 09/05/24 History magnesium) tablet tiotropium bromide 18 mcg capsule 1 cap inhalation QAM 09/05/24 09/05/24 History with inhalation device (Spiriva with HandiHaler) venlafaxine 150 mg 150 mg PO QAM 09/05/24 09/05/24 History capsule,extended release 24 hr Past Med/Surg History Problem List Hyponatremia Hand arthritis Prurigo nodularis History of alcohol use disorder Depression GERD (gastroesophageal reflux disease) COPD (chronic obstructive pulmonary disease) ADD (attention deficit disorder) Bacterial pneumonia Hypoxemia (Acute) Pneumonia due to 2019 novel coronavirus (Acute) Elevated serum creatinine (Acute) COVID-19 Chronic kidney disease, stage III (moderate) Vitamin D deficiency Chronic kidney disease History of tobacco abuse Chronic obstructive pulmonary disease Dyspnea on exertion Encounter for pre-operative examination Abdominal pain (Acute 03/17/11) Abdominal wound dehiscence (Acute) Acute low back pain (Acute 03/17/11) Adenomatous polyp of colon (Chronic Unknown) "s/p polypectomies " Adjustment disorder with depressed mood (Chronic Unknown) Allergic rhinitis (Chronic Unknown) Anemia (Chronic Unknown) Hyperproteinemia (Acute 03/19/11) Mass of thoracic structure (Acute 03/18/11) "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 " On 03/19/11 08:31 Jonny Kae Billy wrote "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 " Encounter for pre-operative examination Mixed conductive and sensorineural hearing loss of right ear with restricted hearing of left ear Sinusitis Eustachian tube dysfunction Hypertension Sensorineural hearing loss (SNHL) of both ears Medical History Abdominal pain Glaucoma Mood disorder Herniated cervical disc Osteoarthritis Hiatal hernia History of colon polyps History of colitis 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 Deaf Left Asthma uses PRN neb daily; rarely uses PRN inh Lower back pain Surgical History History of cataract surgery History of tonsillectomy History of total abdominal hysterectomy and bilateral salpingo-oophorectomy Status post proximal row carpectomy of wrist Rt History of repair of left rotator cuff History of esophagogastroduodenoscopy (EGD) History of colonoscopy History of sinus surgery balloon sinuplasty Family History Sister Sinusitis Cancer Hypertension Father Cancer Aunt Diabetes Brother Coronary heart disease Allergies Sinusitis Stroke Diabetes Other No family history of adverse response to anesthesia Social History Smoking Status: Former smoker Tobacco Type: Cigarettes Age Started Using Tobacco: 16; Cigarettes Per Day: 40; Second Hand Exposure: No; Do You Dip or Chew Tobacco: No; Hx Alcohol Use: Yes Alcohol type: beer, wine and hard liquor Hx Substance Use: No Preferred Language: Khmer Communication Ability: Effective Communication Ability Comment: pt is deaf in left ear, hearing aid in right [employer] Required: No Beliefs That Will Affect Care: None Current Living Situation: Spouse current occupational status: retired 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 [place] Feels Safe at Home: Yes Assistive Devices: None Review of Systems Review of Systems: All systems reviewed & are unremarkable except as noted in HPI & below Physical Exam Physical Exam: PHYSICAL EXAMINATION Last 24h vital signs reviewed, see documentation in flowsheet General: comfortable appearing, no distress HEENT: Normocephalic, atraumatic, pupils round and equal, sclerae anicteric, no conjunctival injection, moist mucus membranes Lungs: Normal respiratory effort. Clear to auscultation bilaterally. No RRW Heart: Regular rate and rhythm, no murmurs. No JVD Abdomen: Soft, nontender, nondistended. Bowel sounds present. Extremities: Warm, dry, well-perfused. No extremity edema. Neuro: Alert and oriented x 4, her face is asymmetric and I presume this is chronic however cannot completely confirm whether he noticed that before, she does have mild ptosis on the right, right nasolabial folds are more prominent than on the left, tongue mildly deviates to the right. There is no kelvin paresis. neurological exam is an otherwise unremarkable including 4+/5 upper extremity and lower extremity strength throughout bilaterally, no pronator drift, normal speech, PERRL, EOMI, [id number] Psych: Normal affect and behavior Results & Data Results & Data Vital Signs (Past 12 Hours) Vital Signs Temp Pulse Pulse Resp BP BP Pulse Ox 09/05/24 13:33 94 H 22 163/79 H 96 09/05/24 13:00 92 H 22 159/94 H 96 09/05/24 12:45 93 H 26 H 96 09/05/24 12:30 144/86 H 09/05/24 12:19 91 H 24 96 09/05/24 12:03 91 H 24 95 09/05/24 12:00 146/82 H 09/05/24 11:58 105 H 09/05/24 11:57 90 24 96 09/05/24 11:54 91 H 24 148/86 H 96 09/05/24 11:50 148/86 H 09/05/24 11:37 36.4 C L 94 H 20 125/67 95 O2 Del Method O2 Flow Rate 09/05/24 13:33 Nasal Cannula 2 09/05/24 13:00 Nasal Cannula 2 09/05/24 12:45 Nasal Cannula 2 09/05/24 12:30 09/05/24 12:19 Nasal Cannula 2 09/05/24 12:03 Nasal Cannula 2 09/05/24 12:00 09/05/24 11:58 09/05/24 11:57 09/05/24 11:54 Nasal Cannula 2 09/05/24 11:50 09/05/24 11:37 Nasal Cannula 2 Laboratory Results 09/05/24 Range/Units 11:52 WBC 12.17 H (4.8-10.8) K/ul RBC 3.26 L (4.20-5.40) M/uL Hgb 10.7 L (12.0-16.0) g/dl Hct 29.9 L (37.0-47.0) % MCV 91.7 (80.0-100.0) fL MCH 32.8 (25.0-34.0) pg MCHC 35.8 (32.0-36.0) g/dL RDW Std Deviation 43.4 (36.4-46.3) fL RDW Coeff of [place] 13.0 (11.5-14.5) % Plt Count 292 (130-400) K/uL MPV 10.3 (9.4-12.4) fL Immature Gran % (Auto) 0.4 % Neut % (Auto) 69.1 % Lymph % (Auto) 8.8 % [place] % (Auto) 9.7 % Eos % (Auto) 10.8 % Baso % (Auto) 1.2 % Neut # (Auto) 8.42 H (1.40-6.50) K/uL Lymph # (Auto) 1.07 L (1.20-3.40) K/uL [place] # (Auto) 1.18 H (0.11-0.59) K/uL Eos # (Auto) 1.31 H (0.00-0.50) K/uL Baso # (Auto) 0.14 (0.00-0.20) K/uL Immature Gran # (Auto) 0.05 (0.01-0.20) K/uL Sodium 120 L (136-145) mmol/L Potassium 4.5 (3.5-5.1) mmol/L Chloride 81 L (98-107) mmol/L Carbon Dioxide 27 (21-32) mmol/L Anion Gap 12 H (3-11) BUN 14 (6-23) mg/dl Creatinine 1.41 H (0.6-1.2) mg/dl Est Cr Clr Drug Dosing 34.4 ml/min eGFR 39.14 BUN/Creatinine Ratio 9.9 L (10-20) Glucose 96 (70-99(Fasting)) mg/dl Osmolality 254 L (280-300) mOsm/kg Calcium 9.8 (8.6-10.3) mg/dl Magnesium 1.6 L (1.7-2.4) mg/dl Total Bilirubin 0.5 (0.2-1.0) mg/dl AST 79 H (13-39) U/L ALT 32 (7-52) U/L Alkaline Phosphatase 115 H (34-104) U/L Troponin I High Sens 11.4 (0-14) pg/ml Total Protein 7.5 (6.0-8.3) gm/dl Albumin 4.2 (3.4-5.0) gm/dl Globulin 3.3 (2.5-4.0) gm/dl Albumin/Globulin Ratio 1.3 (0.9-2) TSH 44.582 H (0.300-4.500) uIu/ml Free T4 0.47 L (0.61-1.60) ng/dl Diagnostic Findings 09/05/24 Range/Units 11:52 WBC 12.17 H (4.8-10.8) K/ul RBC 3.26 L (4.20-5.40) M/uL Hgb 10.7 L (12.0-16.0) g/dl Hct 29.9 L (37.0-47.0) % MCV 91.7 (80.0-100.0) fL MCH 32.8 (25.0-34.0) pg MCHC 35.8 (32.0-36.0) g/dL RDW Std Deviation 43.4 (36.4-46.3) fL RDW Coeff of Delmer 13.0 (11.5-14.5) % Plt Count 292 (130-400) K/uL MPV 10.3 (9.4-12.4) fL Immature Gran % (Auto) 0.4 % Neut % (Auto) 69.1 % Lymph % (Auto) 8.8 % [place] % (Auto) 9.7 % Eos % (Auto) 10.8 % Baso % (Auto) 1.2 % Neut # (Auto) 8.42 H (1.40-6.50) K/uL Lymph # (Auto) 1.07 L (1.20-3.40) K/uL [place] # (Auto) 1.18 H (0.11-0.59) K/uL Eos # (Auto) 1.31 H (0.00-0.50) K/uL Baso # (Auto) 0.14 (0.00-0.20) K/uL Immature Gran # (Auto) 0.05 (0.01-0.20) K/uL Sodium 120 L (136-145) mmol/L Potassium 4.5 (3.5-5.1) mmol/L Chloride 81 L (98-107) mmol/L Carbon Dioxide 27 (21-32) mmol/L Anion Gap 12 H (3-11) BUN 14 (6-23) mg/dl Creatinine 1.41 H (0.6-1.2) mg/dl Est Cr Clr Drug Dosing 34.4 ml/min eGFR 39.14 BUN/Creatinine Ratio 9.9 L (10-20) Glucose 96 (70-99(Fasting)) mg/dl Osmolality 254 L (280-300) mOsm/kg Calcium 9.8 (8.6-10.3) mg/dl Magnesium 1.6 L (1.7-2.4) mg/dl Total Bilirubin 0.5 (0.2-1.0) mg/dl AST 79 H (13-39) U/L ALT 32 (7-52) U/L Alkaline Phosphatase 115 H (34-104) U/L Troponin I High Sens 11.4 (0-14) pg/ml Total Protein 7.5 (6.0-8.3) gm/dl Albumin 4.2 (3.4-5.0) gm/dl Globulin 3.3 (2.5-4.0) gm/dl Albumin/Globulin Ratio 1.3 (0.9-2) TSH 44.582 H (0.300-4.500) uIu/ml Free T4 0.47 L (0.61-1.60) ng/dl Chest X-Ray 09/05/24 12:13 XR chest 1V portable CLINICAL HISTORY: weakness COMPARISON STUDY: 07/24/2044 FINDINGS: Stable small hiatal hernia. Stable mild cardiomegaly without pulmonary vascular congestion. No effusion, consolidation, or pneumothorax. IMPRESSION: No acute findings. ACT 112: Negative or not required by law. Electronically signed by: Ruiz Vidales M.D. 09/05/2024 12:43 PM PG Care Time/CCT Total # of Minutes Spent Total Time Spent with Patient: Total time spent is greater than 50% in coordination of care (as documented) at patient's floor/unit and/or counseling patient: Coding Level of Care Code 29209 INT INP/OBS CARE 3/75MIN Diagnoses Hyponatremia E87.1 COPD (chronic obstructive pulmonary disease) J44.9 Chronic kidney disease, stage III (moderate) N18.30 Mood disorder F39
[2024-09-05 14:54] LABS: Appearance Urine Clear (Clear); Bilirubin Urine Negative (Negative); Blood Urine Negative (Negative); Color Urine Yellow; Glucose Urine UA Negative (Negative); Ketones Urine Negative (Negative); Leukocyte Esterase Urine Negative (Negative); Nitrite Urine Negative (Negative); Protein Urine Negative (Negative); Specific Gravity Urine 1.006 (1.000-1.030); Urobilinogen Urine Negative (Negative); pH Urine 5.5 (4.5-7.5)
[2024-09-05] MEDS: SODIUM CHLORIDE 0.9% 500 ML IV ONE (15:35)
--- NOTE | 2024-09-05 18:06 | Electrocardiogram Report ---
Test Reason : Blood Pressure : */* mmHG Vent. Rate : 95 BPM Atrial Rate : 95 BPM P-R Int : 204 ms QRS Dur : 74 ms QT Int : 360 ms P-R-T Axes : 39 26 37 degrees QTcB Int : 452 ms Normal sinus rhythm Low voltage QRS Borderline ECG When compared with ECG of 19-Mar-2022 13:11, Nonspecific T wave abnormality now evident in Anterior leads Confirmed by Artemio Boswell ([id number]) on 09/05/2024 6:06:22 PM Referred By: Mitchell Maza Confirmed By: Artemio Boswell
[2024-09-05 18:08] LABS: BUN Creatinine Ratio 11.6 (10-20); Calcium 9.3 mg/dl (8.6-10.3); Creatinine Clr Calc Pharmacy 40.1 ml/min; Potassium 4.2 mmol/L (3.5-5.1)
[2024-09-05] MEDS ORDERED: ALUMINUM/MAGNESIUM SUSP 30 ML UDC PO PRN (20:06)
[2024-09-05] MEDS ORDERED: MAGNESIUM HYDROXIDE SUSP 30 ML UDC PO PRN (20:06)
[2024-09-05] MEDS ORDERED: ACETAMINOPHEN 325 MG TAB PO PRN (20:06)
[2024-09-05] MEDS ORDERED: POLYETHYLENE (MIRALAX) 17 GM PACK PO PRN (20:06)
[2024-09-05] MEDS ORDERED: MELATONIN 3 MG TAB PO PRN (20:06)
[2024-09-05] MEDS ORDERED: ONDANSETRON INJ 2 MG/ML 2 ML VIAL IV PRN (20:06)
[2024-09-05] MEDS ORDERED: hydrOXYzine HCl 25 MG TAB PO PRN (20:06)
[2024-09-05] MEDS: ATORVASTATIN 20 MG TAB PO SCH (21:19)
[2024-09-05] MEDS: MAGNESIUM OXIDE 400 MG TAB PO SCH (21:19)
[2024-09-05] MEDS: LATANOPROST 0.005% OP SOLN 2.5 ML BTL OPB SCH (21:19)
[2024-09-05] MEDS: MIRTAZAPINE TAB 15 MG TAB PO SCH (21:19)
[2024-09-05] MEDS: GABAPENTIN 300 MG CAP PO SCH (21:19)
[2024-09-05] MEDS: ENOXAPARIN INJ 40 MG/0.4 ML SYR SQ SCH (21:20)
[2024-09-05] MEDS: AMMONIUM LACTATE 12% LOTION 225 GM BTL EXT SCH (21:20)
[2024-09-05 23:19] LABS: BUN Creatinine Ratio 13.2 (10-20); Calcium 9.1 mg/dl (8.6-10.3); Creatinine Clr Calc Pharmacy 42.1 ml/min; Potassium 4.2 mmol/L (3.5-5.1)
[2024-09-06] MEDS: LEVOTHYROXINE SODIUM 88 MCG TABLET PO SCH (05:57)
[2024-09-06] MEDS: ARIPiprazole 2 MG TAB PO SCH (08:58)
[2024-09-06 08:59] LABS: BUN Creatinine Ratio 12.3 (10-20); Calcium 9.1 mg/dl (8.6-10.3); Creatinine Clr Calc Pharmacy 42.1 ml/min; Potassium 4.1 mmol/L (3.5-5.1)
[2024-09-06] MEDS: MONTELUKAST SODIUM 10 MG TABLET PO SCH (09:00)
[2024-09-06] MEDS: amLODIPine BESYLATE 5 MG TAB PO SCH (09:00)
[2024-09-06] MEDS: PANTOprazole 40 MG TAB PO SCH (09:00)
[2024-09-06] MEDS: LOSARTAN POTASSIUM 50 MG TAB PO SCH (09:00)
[2024-09-06] MEDS: FLUTICASONE/VILANTEROL 200/25MCG 14 PUFFS/INHALER INH SCH (09:01)
[2024-09-06] MEDS: VENLAFAXINE HCL XR 150 MG CAPXR PO SCH (09:02)
[2024-09-06] MEDS: UMECLIDINIUM BROMIDE 62.5MCG/BLISTER 7 PUFFS/INHALER INH SCH (09:02)
[2024-09-06] MEDS: MAGNESIUM SULFATE / D5W 1 GM/100 ML BAG IV SCH (09:03)
[2024-09-06 15:25] LABS: BUN Creatinine Ratio 10.9 (10-20); Calcium 9.2 mg/dl (8.6-10.3); Creatinine Clr Calc Pharmacy 32.7 ml/min; Potassium 4.5 mmol/L (3.5-5.1)
[2024-09-06] MEDS: SODIUM CHLORIDE 0.9% 500 ML IV ONE (15:56)
[2024-09-06] MEDS: PNEUMOCOCCAL VACCINE (PCV20) 20-VAL CONJ-DIP CRM/PF 0.5 ML SYR IM ONE (17:55)
--- NOTE | 2024-09-06 18:17 | Hospitalist Progress Note ---
Date of Service September 06, 2024 Assessment & Plan (1) Hyponatremia: (2) COPD (chronic obstructive pulmonary disease): (3) Chronic kidney disease, stage III (moderate): (4) Mood disorder: Plan 74 y/o with COPD, hypothyroidism on replacement, mood disorder on several medications who was sent in by PCP for abnormal labs Hyponatremia - moderately severe but asymptomatic or minimally symptomatic. Previous sodiums on old labs I reviewed have been mostly normal. may be mildly hypovolemic based on increased creatinine on her chemistry panel. She was started on low-dose hydrochlorothiazide 3 to 4 weeks ago which I think is the culprit -urine Na was only minimally elevated at 13 despite hydrochlorothiazide, I think SIADH is unlikely, urine is dilute based on osmolality of 136. Serum osm's only slightly lower than the normal range at 254. -TSH elevated, See below - stop hydrochlorothiazide - following serial sodium checks today. improved from 120 on admission to 24h goal of 127 midday then back to 125. Ordered NS 500 mL bolus. In upper 120s shes out of risk of ODS. BMP in AM WAYNE on CKD-3. Cr baseline 0.9-->1.4. BUN not elevated - suspect volume depletion - Cr remains elevated at 1.47. AM BMP - try to continue losartan stop if creatinine continues to rise Hypothyroidism -continue levothyroxine - TSH 44, fT4 only mildly low - she and her state that she is compliant and although dosing times are very irregular she is taking it on an empty stomach - obtained further history about what the recent dose adjustment was and then determine whether further dose changes necessary, continue current dose of 88 mcg daily for now facial asymmetry still present but less prominent. suspect this is her baseline COPD with chronic hypoxic respiratory failure - home O2 2L, not in exacerbation elevated kappa light chains, multiple hematologic abnormalities including eosinophilia, leukocytosis and anemiafollowed by Dr. Costello, reviewed clinic note from 01/2024. 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 Leukocytosis of 12K is probably related to this rather than infection. diffuse chronic pruritic rash especially arms and legs not on trunk, some on hips and buttocksher reports that this has been evaluated by dermatology and has been biopsied. Lac-Hydrin was recently started which I continued hypertension/hldcontinue amlodipine, ARB, statin Mood disorder - continue aripiprazole, mirtazapine, venlafaxine, as needed hydroxyzine DVT prophylaxisenoxaparin I updated her at bedside 09/05 she states she wants to be full code hopefully home tomorrow AM if appropriate improvement in Na, with follow up labs by PCP Admission and Anticipated Discharge Date Admission Date: September 05, 2024 Subjective Shira is feeling fine no weakness or nausea. Eating well. Looks forward to home soon Physical Exam 2 Physical Exam: PHYSICAL EXAMINATION Last 24h vital signs reviewed, see documentation in flowsheet General: comfortable appearing, no distress, awake sitting in bed HEENT: Normocephalic, atraumatic, pupils round and equal, sclerae anicteric, no conjunctival injection, moist mucus membranes Lungs: Normal respiratory effort. Clear to auscultation bilaterally. No RRW Heart: Regular rate and rhythm, no murmurs. No JVD Abdomen: Soft, nontender, nondistended. Bowel sounds present. Extremities: Warm, dry, well-perfused. No extremity edema. Neuro: Alert and oriented x 4, her facial asymmetry is less prominent today though still present suspect this is baseline Psych: Normal affect and behavior Results & Data Results & Data Vital Signs (Past 12 Hours) Vital Signs Temp Pulse Resp BP Pulse Ox O2 Del Method O2 Flow Rate 09/06/24 14:56 36.5 C 86 16 110/70 91 Nasal Cannula 2 09/06/24 09:00 Nasal Cannula 2 09/06/24 07:28 36.7 C 91 H 19 132/76 95 Nasal Cannula Laboratory Results 09/05/24 11:52 09/06/24 14:19 PG Care Time/CCT Total # of Minutes Spent Total Time Spent with Patient: Total time spent is greater than 50% in coordination of care (as documented) at patient's floor/unit and/or counseling patient: Coding Level of Care Code 89966 SUB INP/OBS CARE 50MIN Diagnoses Hyponatremia E87.1 COPD (chronic obstructive pulmonary disease) J44.9 Chronic kidney disease, stage III (moderate) N18.30 Mood disorder F39
[2024-09-06] MEDS ORDERED: ALBUTEROL 0.083% NEBU SOLN 3 ML VIAL NEB PRN (19:49)
[2024-09-06] MEDS: ALBUTEROL 0.083% NEBU SOLN 3 ML VIAL NEB PRN (20:24)
[2024-09-07 07:38] VITALS: BP 115/71; PULSE 87; RESP 17; TEMP 98.8; O2SAT 92
[2024-09-07 08:23] LABS: BUN Creatinine Ratio 10.5 (10-20); Calcium 8.8 mg/dl (8.6-10.3); Creatinine Clr Calc Pharmacy 31.4 ml/min
--- NOTE | 2024-09-07 17:53 | Discharge Summary ---
Discharge Summary Date of Service September 07, 2024 Principal Dx & Hospital Course #1 = Principal Diagnosis (1) Hyponatremia: (2) COPD (chronic obstructive pulmonary disease): (3) Chronic kidney disease, stage III (moderate): (4) Mood disorder: Plan 74 y/o with COPD, hypothyroidism on replacement, mood disorder on several medications who was sent in by PCP for abnormal labs - sodium of 120 Hyponatremia - moderately severe but asymptomatic or minimally symptomatic. Previous sodiums on old labs I reviewed have been mostly normal. may be mildly hypovolemic based on increased creatinine on her chemistry panel. She was st arted on low-dose hydrochlorothiazide 3 to 4 weeks ago which I think is the culprit -urine Na was only minimally elevated at 13 despite hydrochlorothiazide, I think SIADH is unlikely, urine is dilute based on osmolality of 136. Serum osm's only slightly lower than the normal range at 254. -TSH elevated, See below - stopped hydrochlorothiazide - gave IV NS total of 1L throughout the hospital course - sodium slowly improved at appropriate slow rate - 131 this AM. ok for discharge, liberal salt diet this , recommended protein supplement, has follow up with PCP Tuesday - repeat BMP at that time WAYNE on CKD-3. Cr baseline 0.9-->1.4, 1.53. BUN not elevated - hold losartan, can be resumed by PCP when renal function improved Hypothyroidism -continue levothyroxine - TSH 44, fT4 only mildly low - she and her state that she is compliant and although dosing times are very irregular she is taking it on an empty stomach - she and her report dose changes as an outpatient recently, continue current dose of 88 mcg daily for now and follow up in primary care facial asymmetry still present but less prominent. suspect this is her baseline COPD with chronic hypoxic respiratory failure - home O2 2L, not in exacerbation elevated kappa light chains, multiple hematologic abnormalities including eosinophilia, leukocytosis and anemiafollowed by Dr. Costello, reviewed clinic note from 01/2024. 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 Leukocytosis of 12K is probably related to this rather than infection. diffuse chronic pruritic rash especially arms and legs not on trunk, some on hips and buttocksher reports that this has been evaluated by dermat ology and has been biopsied. Lac-Hydrin was recently started which I continued hypertension/hldcontinue amlodipine, ARB held, statin Mood disorder - continue aripiprazole, mirtazapine, venlafaxine, as needed hydroxyzine Notes For Next Care Provider Please check BMP for sodium, creatinine on follow up Resume losartan once creatinine improved TSH was elevated at 44 with normal fT4 - she reports recent dose changes - left on current dose, please assess whether dose increase needed at follow up Medication Changes From Visit losartan held HCTZ stopped Admission HPI Per Admitting Provider 74 y/o with CKD stage 3, COPD on home O2 2L, chronic pruritic dermatitis and intermittent nausea who was sent in by primary care after routine labs yesterday came back with sodium of 120. She seems to be more or less asymptomatic. Fries weaker several days, no vomiting/diarrhea, no f/c/s, no falls, no headache, no confusion. I obtained additional history from her at baseline who is very attentive and can give more detailed information Takes levothyroxine - timing is inconsistent but she does take daily, doesn't eat breakfast so is getting it on empty stomach. Has been having dose adjustments for this as outpatient. Does take mirtazapine, venlafaxine, aripiprazole for mood. Her reports she was started on HCTZ within the past month - confirmed 12.5 mg daily dose based on review of outpatient pharm database ED labs notable for Cr is increased compared to baseline. Discharge Exam PHYSICAL EXAMINATION Last 24h vital signs reviewed, see documentation in flowsheet General: comfortable appearing, no distress, awake sitting in bed HEENT: Normocephalic, atraumatic, pupils round and equal, sclerae anicteric, no conjunctival injection, moist mucus membranes Lungs: Normal respiratory effort. Heart: deferred Abdomen: ND. Extremities: Warm, dry, well-perfused. No extremity edema. Neuro: Alert and oriented x 4, her facial asymmetry is less prominent today though still present suspect this is baseline Psych: Normal affect and behavior Discharge Plan Discharge Items Patient Disposition: Home - Self-Care Reason For Visit: HYPONATREMIA Discharge Diagnosis: hyponatremia Activity: Resume your previous activity Non-emergency contact: Primary Care Provider Call non-emergency contact if: you have any medication questions and your symptoms worsen Follow-up/Referrals: Mitchell Maza [Primary Care Provider] - 09/11/24 10:00 am (Please arrive 15 minutes early for appointment) Diet: Regular Addtl Attending Provider Instructions: You were treated for hyponatremia (low blood sodium) - this was related to HCTZ (hydrochlorothiazide) and you may have been mildly dehydrated Sodium has improved to a safe range at this time Stop taking HCTZ Hold losartan until you follow up with labs - your primary care doctor can restart it next week if your kidney function is stable Eat a liberal amount of salt this week Follow up in primary care - you should have a blood chemistry panel early next week to check on your sodium level Symptoms of low sodium can include malaise, nausea, confusion Taking a protein supplement every day will be good for you and will also help keep your sodium level normal - you could drink a high protein boost or ensure daily or another type of protein shake or bar It was a pleasure taking care of you in the hospital, Ewa Acosta MD Pending Studies at Discharge: No Stand-Alone Forms: My [facility] [employer], Smoking Cessation Medications and DC Order Prescriptions: Continued montelukast 10 mg tablet 10 mg PO QAM pantoprazole [Protonix] 40 mg tablet,delayed release (DR/EC) 40 mg PO QAM aripiprazole [Abilify] 2 mg tablet 1 mg PO QAM atorvastatin 20 mg tablet 20 mg PO HS mirtazapine 15 mg tablet 15 mg PO QPM latanoprost 0.005 % drops 1 drp OPB HS albuterol sulfate 2.5 mg /3 mL (0.083 %) solution for nebulization See Rx Instructions .ROUTE .COMPLEX PRN (Reason: Wheezing/SOB) Rx Instructions: INHALE 1 VIAL 3ML VIA NEBULIZER EVERY 6 HOURS NEEDED FOR WHEEZING. USE 1 VIAL EVERY 1 HOUR FOR 2 TO 3 DOSES, THEN USE EVERY 2 TO 4 HOUR venlafaxine 150 mg capsule,extended release 24hr 150 mg PO QAM levothyroxine 88 mcg tablet 88 mcg PO DAILYBB magnesium oxide 400 mg (241.3 mg magnesium) tablet 400 mg PO BID amlodipine 10 mg tablet 10 mg PO QAM gabapentin 300 mg capsule 300 mg PO BID hydroxyzine HCl 25 mg tablet 25 mg PO HS PRN (Reason: Itching) ammonium lactate 12 % cream 1 applic topical BID tiotropium bromide [Spiriva with HandiHaler] 18 mcg capsule, w/inhalation device 1 cap inhalation QAM Rx Instructions: puncture 1 cap using device; one dose = 2 inhalations fluticasone furoate-vilanterol [Breo Ellipta] 200-25 mcg/dose blister with device 1 inh inhalation QAM Held losartan 100 mg tablet 100 mg PO QAM Hold Instructions: Resume on 09/14/24. resume when ok'd by your PCP Discontinued hydrochlorothiazide 12.5 mg tablet 12.5 mg PO QAM Discharge Orders: Discharge Order (Routine); Ordered 09/07/24 Ordered By: Ewa Jordan/Other Patient Handouts: Hyponatremia Dc Admission Data Admit Date/Time: 09/05/24 15:30 Attending Provider: Ewa Acosta Admit Provider: Ewa Acosta Primary Care Provider: Mitchell Maza Other Providers: Ewa Acosta Other Interventions: Discharge Summary Assessment (RN) Last Done: 09/07/24 11:36 Hospital Stay Data Consultations 09/05/24 13:48 ED Decision to Admit Stat Pending Results Patient Have Any Pending Studies at Discharge: No Discharge Instructions Given to Patient (Per Discharging Provider) You were treated for hyponatremia (low blood sodium) - this was related to HCTZ (hydrochlorothiazide) and you may have been mildly dehydrated Sodium has improved to a safe range at this time Stop taking HCTZ Hold losartan until you follow up with labs - your primary care doctor can restart it next week if your kidney function is stable Eat a liberal amount of salt this week Follow up in primary care - you should have a blood chemistry panel early next week to check on your sodium level Symptoms of low sodium can include malaise, nausea, confusion Taking a protein supplement every day will be good for you and will also help keep your sodium level normal - you could drink a high protein boost or ensure daily or another type of protein shake or bar It was a pleasure taking care of you in the hospital, Ewa Acosta MD Total Time Total Time Spent Total Time Spent (In Minutes): I personally spent: 40 minutes today on clinical care activities including: reviewing chart notes and vital signs reviewing labs examining and counseling the patient writing orders writing prescriptions, discharge instructions documentation Coding Level of Care Code 15220 INP/OBS DISCH >30 MIN Diagnoses Hyponatremia E87.1 COPD (chronic obstructive pulmonary disease) J44.9 Chronic kidney disease, stage III (moderate) N18.30 Mood disorder F39
== END 2024-09-07 15:51 | disposition home or self-care (01) | DRG 641 ==
LOC: ED 11:23 → 3N 15:30

== ENCOUNTER 2024-10-31 15:40 | Inpatient (IN) ==
--- NOTE | 2024-10-31 16:09 | Emergency Department Note ---
Impression & Plan Complete heart block, COPD (chronic obstructive pulmonary disease), Symptomatic bradycardia, Acute hypoxemic respiratory failure, Acute hyponatremia ED Provider Note NAME: KYLAH GALEAS AGE: 74 SEX: F : 1950 ARRIVES VIA: Ambulance INFORMANT: Patient, ED PROVIDER(S): Nito Greenberg MD CHIEF COMPLAINT: Syncope MEDICAL DECISION MAKING: Patient presents due to concern for syncope. The patient is lethargic at the bedside. EKG initially did show QT prolongation. The patient is taking multiple QT prolongation drugs so patient was ordered IV fluids as well as magnesium. DuoNeb treatment ordered in addition to BiPAP as the patient does appear to be mildly somnolent although she will open eyes to voice and also does have significant difficulties with hearing which might also may be contributory. IV was established and blood work was obtained. Repeat review on monitor was concerned that the patient may be in heart block. Repeat EKG was obtained and sent to Dr. Lewis who agrees. Pacer pads were placed. Blood work also concerning for significant hyponatremia. Patient's sodium of 111. The patient was ordered 100 mL of 3% hypertonic to be given. Upon subsequent reassessment patient did have hypotension and the patient was ordered dopamine infusion. I did message Dr. Boswell who would be available tomorrow morning for possible pacemaker placement. I also did speak with Dr. Shah the patient financial services coordinator who stated that if the patient did not respond well to dopamine that he could place a transvenous pacemaker. I did speak with the ship worker Dr. Trujillo as well as Kunal Tolentino to make them aware. Patient will be admitted to the intensive care unit. Upon subsequent reassessment the patient did appear improved. Critical Care: I have personally spent 125 minutes of critical care time in direct management of this patient. This includes bedside care, interpretation of diagnostic studies, and testing, discussion with consultants, patient, and family members, and other require inpatient management activities. This 125 minutes is in excess of all separately billable procedures. Discussion w/ other healthcare providers: Dr. Lewis cardiology Dr. Boswell cardiology Dr. Trujillo ship worker LUZ MARINA [facility] Dr. Shah interventional cardiology Prior /Outside records reviewed: None Differential diagnosis: Vasovagal event, dehydration, infection, hypoglycemia, electrolyte abnormalities, arrhythmia, pulmonary embolism, seizure among others were considered. Diagnostics, as interpreted by me: ECG: Possible junctional bradycardia versus heart block with ventricular rate of 44, normal QRS, normal axis no ST elevations. Cardiac monitoring: An order was placed for continuous cardiac monitoring. The monitor shows a rate of 45 with possible heart block rhythm. Patient was placed on pulse oximetry Medical decision rules: None Imaging studies: I informally interpreted the patient's chest x-ray with bilateral pleural effusionswith formal report to follow. HPI: Patient presents due to concern for syncope. The patient's states that she was up and about they were walking and then felt as if she needed to turn back but upon doing so the patient got very tired and passed out. The patient states that she had a "controlled collapse." He essentially lowered her down. No head strike no seizure-like activity. The patient does have a known history of COPD and states that she has been on home oxygen 2 L at all times ever since she was discharged home after having a COVID illness several years ago. Patient without chest pain or shortness of breath. Very hard of hearing. Patient did drink some wine around noon. She does not wear CPAP. Patient with a known history of COPD and asthma was concerned that maybe she was wheezing. No reported urinary symptoms nausea vomiting or diarrhea. PAST MEDICAL HISTORY: See Below PAST SURGICAL HISTORY: See Below SOCIAL HISTORY: See Below HOME MEDICATIONS: See Below ALLERGIES: See Below VITALS: See Below PHYSICAL EXAMINATION: GENERAL: Mildly ill in appearance, somnolent. Nasal cannula as well as oxy mask in place. Opens eyes to voice. EYE EXAM: Normal conjunctiva. PERRL, no anisocoria and EOM's grossly intact w/o pain. OROPHARYNX: Moist mucus membranes, grossly normal dentition. NECK: Trachea midline, no stridor. LUNGS: Diminished breath sounds throughout. Normal chest wall mechanics. HEART: NSR, no MRG. ABDOMEN: Abdomen soft, non-tender, no masses, no rebound or guarding. BACK: No CVA TTP. SKIN: No rashes and no bruising. UPPER EXTREMITIES: Upper extremities are grossly normal. LOWER EXTREMITIES: Grossly normal, no edema. NEURO EXAM: Opens eyes to voice, follows commands, no obvious facial asymmetry, normal speech, moves all 4 extremities. Past Med/Surg History Problem List (Updated 10/31/24 @ 23:53 by Nito Greenberg MD) Acute hyponatremia (Acute) Acute hypoxemic respiratory failure (Acute) Symptomatic bradycardia (Acute) Complete heart block (Acute) Hypothyroidism (Acute) Acute kidney injury superimposed on CKD (Acute) Acute hyponatremia (Acute) Hand arthritis Prurigo nodularis History of alcohol use disorder Depression GERD (gastroesophageal reflux disease) COPD (chronic obstructive pulmonary disease) ADD (attention deficit disorder) Bacterial pneumonia Hypoxemia (Acute) Pneumonia due to 2019 novel coronavirus (Acute) Elevated serum creatinine (Acute) COVID-19 Chronic kidney disease, stage III (moderate) Vitamin D deficiency Chronic kidney disease History of tobacco abuse Chronic obstructive pulmonary disease (Acute) Dyspnea on exertion Encounter for pre-operative examination Abdominal pain (Acute 03/17/11) Abdominal wound dehiscence (Acute) Acute low back pain (Acute 03/17/11) Adenomatous polyp of colon (Chronic Unknown) "s/p polypectomies " Adjustment disorder with depressed mood (Chronic Unknown) Allergic rhinitis (Chronic Unknown) Anemia (Chronic Unknown) Hyperproteinemia (Acute 03/19/11) Mass of thoracic structure (Acute 03/18/11) "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 " On 03/19/11 08:31 Jonny Cervantes wrote "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 " Encounter for pre-operative examination Mixed conductive and sensorineural hearing loss of right ear with restricted hearing of left ear Sinusitis Eustachian tube dysfunction Hypertension Sensorineural hearing loss (SNHL) of both ears Medical History Abdominal pain Glaucoma Mood disorder Herniated cervical disc Osteoarthritis Hiatal hernia History of colon polyps History of colitis 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 Deaf Left Asthma uses PRN neb daily; rarely uses PRN inh Lower back pain Surgical History History of cataract surgery History of tonsillectomy History of total abdominal hysterectomy and bilateral salpingo-oophorectomy Status post proximal row carpectomy of wrist Rt History of repair of left rotator cuff History of esophagogastroduodenoscopy (EGD) History of colonoscopy History of sinus surgery balloon sinuplasty Family History Sister Sinusitis Cancer Hypertension Father Cancer Aunt Diabetes Brother Coronary heart disease Allergies Sinusitis Stroke Diabetes Other No family history of adverse response to anesthesia Social History Smoking Status: Former smoker Tobacco Type: Cigarettes Age Started Using Tobacco: 16; Cigarettes Per Day: 40; Smoking End Date: 2006; Second Hand Exposure: No; Do You Dip or Chew Tobacco: No; Hx Alcohol Use: Yes Alcohol type: wine Hx Substance Use: No Preferred Language: Azeri Communication Ability: Effective Communication Ability Comment: pt is deaf in left ear, hearing aid in right Bell Maker Required: No Beliefs That Will Affect Care: None Current Living Situation: Spouse current occupational status: retired 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 [employer] Other Information That Helps Us Care for You: No Feels Safe at Home: Yes Safety Concerns: Feels Safe At This Time Assistive Devices: Oxygen - Continuous Allergies Allergies Allergy/AdvReac Type Severity Reaction Status Date / Time Penicillins Allergy Severe Swelling Verified 10/31/24 17:40 of Lip/Tongue/Throat hydrochlorothiazide AdvReac Intermediate hyponatremia Verified 10/31/24 17:40 sodium 120 Home Meds Home Medications Medication Instructions Recorded Confirmed montelukast 10 mg tablet 10 mg PO QAM 02/12/19 10/31/24 pantoprazole 40 mg tablet,delayed 40 mg PO QAM 02/12/19 10/31/24 release (Protonix) aripiprazole 2 mg tablet (Abilify) 1 mg PO QAM 11/27/21 10/31/24 atorvastatin 20 mg tablet 20 mg PO HS 01/07/22 10/31/24 mirtazapine 15 mg tablet 15 mg PO QPM 03/19/22 10/31/24 albuterol sulfate 2.5 mg/3 mL 2.5 mg inhalation DIRECTED PRN 09/05/24 10/31/24 (0.083 %) solution for nebulization Wheezing/SOB amlodipine 10 mg tablet 10 mg PO QAM 09/05/24 10/31/24 ammonium lactate 12 % topical cream 1 applic topical BID 09/05/24 10/31/24 fluticasone furoate 200 1 inh inhalation QAM 09/05/24 10/31/24 mcg-vilanterol 25 mcg/dose inhalation powder (Breo Ellipta) gabapentin 300 mg capsule 300 mg PO BID 09/05/24 10/31/24 hydroxyzine HCl 25 mg tablet 25 mg PO HS PRN Itching 09/05/24 10/31/24 latanoprost 0.005 % eye drops 1 drp OPB HS 09/05/24 10/31/24 losartan 100 mg tablet 100 mg PO QAM 09/05/24 10/31/24 magnesium oxide 400 mg (241.3 mg 400 mg PO BID 09/05/24 10/31/24 magnesium) tablet tiotropium bromide 18 mcg capsule 1 cap inhalation [facility] 09/05/24 10/31/24 with inhalation device (Spiriva with HandiHaler) venlafaxine 150 mg 150 mg PO [facility] 09/05/24 10/31/24 capsule,extended release 24 hr levothyroxine 100 mcg tablet 100 mcg PO DAILYBB 10/31/24 10/31/24 ropinirole 0.25 mg tablet 0.25 mg PO 10/31/24 10/31/24 Results & Data (ED) Vital Signs Vital Signs - 24 hr 10/31/24 15:34 10/31/24 15:34 10/31/24 15:34 Pulse Rate 58 L Pulse Rate [Apical] Pulse Rate [Right Brachial] 58 L Pulse Rhythm Regular Pulse Rhythm [Apical] Pulse Rhythm [Right Brachial] Regular Pulse Strength Normal Pulse Strength [Apical] Pulse Strength [Right Brachial] Normal Respiratory Rate 24 24 Respiratory Effort / Characteristics Labored Labored Respiratory Depth Normal Normal Respiratory Pattern Regular Blood Pressure 120/78 Blood Pressure [Right Arm] 120/78 Blood Pressure Mean 92 Blood Pressure Mean [Right Arm] 92 Blood Pressure Position Lying Blood Pressure Position [Right Arm] Lying Pulse Oximetry 95 95 Oxygen Delivery Method Oxymask Oxymask Oxymask Oxygen Flow Rate 4 4 4 Fraction of Inspired Oxygen Sepsis Recent Fever Within 48 Hours No Sepsis New/Unexplained Change in Mental Status N/A Sepsis Action Taken by Nursing No Action Required Oxygen Flow Rate - Titration Pulse Oximetry Post Tiitration 10/31/24 16:09 10/31/24 16:48 10/31/24 16:57 Pulse Rate 42 L 41 L Pulse Rate [Apical] Pulse Rate [Right Brachial] Pulse Rhythm Pulse Rhythm [Apical] Pulse Rhythm [Right Brachial] Pulse Strength Pulse Strength [Apical] Pulse Strength [Right Brachial] Respiratory Rate 21 Respiratory Effort / Characteristics Non-Labored Spontaneous Respiratory Depth Normal Respiratory Pattern Regular Blood Pressure Blood Pressure [Right Arm] Blood Pressure Mean Blood Pressure Mean [Right Arm] Blood Pressure Position Blood Pressure Position [Right Arm] Pulse Oximetry 95 93 Oxygen Delivery Method Oxymask Oxygen Flow Rate 4 Fraction of Inspired Oxygen 30 Sepsis Recent Fever Within 48 Hours Sepsis New/Unexplained Change in Mental Status Sepsis Action Taken by Nursing Oxygen Flow Rate - Titration Pulse Oximetry Post Tiitration 10/31/24 17:00 10/31/24 17:36 10/31/24 17:53 Pulse Rate Pulse Rate [Apical] 41 L 39 L 39 L Pulse Rate [Right Brachial] Pulse Rhythm Pulse Rhythm [Apical] Regular Pulse Rhythm [Right Brachial] Pulse Strength Pulse Strength [Apical] Normal Pulse Strength [Right Brachial] Respiratory Rate 26 H 22 17 Respiratory Effort / Characteristics Non-Labored Spontaneous Spontaneous Respiratory Depth Normal Respiratory Pattern Blood Pressure Blood Pressure [Right Arm] 121/80 107/41 L Blood Pressure Mean Blood Pressure Mean [Right Arm] 93 63 Blood Pressure Position Blood Pressure Position [Right Arm] Sitting Pulse Oximetry 92 91 91 Oxygen Delivery Method BiPAP BiPAP BiPAP Oxygen Flow Rate Fraction of Inspired Oxygen 30 Sepsis Recent Fever Within 48 Hours Sepsis New/Unexplained Change in Mental Status Sepsis Action Taken by Nursing Oxygen Flow Rate - Titration Pulse Oximetry Post Tiitration 10/31/24 18:06 Pulse Rate Pulse Rate [Apical] Pulse Rate [Right Brachial] Pulse Rhythm Pulse Rhythm [Apical] Pulse Rhythm [Right Brachial] Pulse Strength Pulse Strength [Apical] Pulse Strength [Right Brachial] Respiratory Rate Respiratory Effort / Characteristics Respiratory Depth Respiratory Pattern Blood Pressure Blood Pressure [Right Arm] Blood Pressure Mean Blood Pressure Mean [Right Arm] Blood Pressure Position Blood Pressure Position [Right Arm] Pulse Oximetry 91 Oxygen Delivery Method BiPAP Oxygen Flow Rate Fraction of Inspired Oxygen Sepsis Recent Fever Within 48 Hours Sepsis New/Unexplained Change in Mental Status Sepsis Action Taken by Nursing Oxygen Flow Rate - Titration 6 Pulse Oximetry Post Tiitration 94 Home Medications Current Medication List: was personally reviewed by me Laboratory Data Attestation: I reviewed the patient's lab results. 10/31/24 20:01 10/31/24 22:21 Lab Results 10/31/24 10/31/24 10/31/24 Range/Units 15:54 17:00 17:01 WBC 17.05 H (4.8-10.8) K/ul RBC 2.87 L (4.20-5.40) M/uL Hgb 9.6 L (12.0-16.0) g/dl Hct 26.7 L (37.0-47.0) % MCV 93.0 (80.0-100.0) fL MCH 33.4 (25.0-34.0) pg MCHC 36.0 (32.0-36.0) g/dL RDW Std Deviation 50.4 H (36.4-46.3) fL RDW Coeff of Delmer 14.8 H (11.5-14.5) % Plt Count 287 (130-400) K/uL MPV 11.7 (9.4-12.4) fL Immature Gran % (Auto) 1.2 % Neut % (Auto) 76.9 % Lymph % (Auto) 7.3 % [place] % (Auto) 12.8 % Eos % (Auto) 1.4 % Baso % (Auto) 0.4 % Neut # (Auto) 13.11 H (1.40-6.50) K/uL Lymph # (Auto) 1.25 (1.20-3.40) K/uL [place] # (Auto) 2.18 H (0.11-0.59) K/uL Eos # (Auto) 0.24 (0.00-0.50) K/uL Baso # (Auto) 0.06 (0.00-0.20) K/uL Immature Gran # (Auto) 0.21 H (0.01-0.20) K/uL PT Cancelled 11.4 INR Cancelled 1.1 APTT Cancelled 30 PTT Ratio Cancelled 1.1 VBG pH 7.29 L (7.36-7.41) VBG pCO2 45 (38-50) mmHg VBG pO2 39 mmHg VBG HCO3 22 mmol/L VBG O2 Saturation < 60.0 % VBG Base Excess -5.0 mEq/L Sodium Cancelled 111 L* Potassium Cancelled 5.7 H Chloride Cancelled 79 L Carbon Dioxide Cancelled 22 Anion Gap Cancelled 10 BUN Cancelled 20 Creatinine Cancelled 1.61 H Est Cr Clr Drug Dosing Cancelled 32.1 eGFR Cancelled 33.38 BUN/Creatinine Ratio Cancelled 12.4 Glucose Cancelled 136 H Osmolality 244 L (280-300) mOsm/kg Calcium Cancelled 8.6 Phosphorus Cancelled 5.0 H Magnesium Cancelled 2.3 Total Bilirubin Cancelled 0.6 AST Cancelled 81 H ALT Cancelled 38 Alkaline Phosphatase Cancelled 126 H Troponin I High Sens 26.5 H (0-14) pg/ml Total Protein Cancelled 6.8 Albumin Cancelled 3.4 Globulin Cancelled 3.4 Albumin/Globulin Ratio Cancelled 1.0 TSH 45.357 H (0.300-4.500) uIu/ml Free T4 0.41 L (0.61-1.60) ng/dl Ethyl Alcohol mg/dL < 10.0 (<10.0) mg/dl 10/31/24 Range/Units 18:28 WBC (4.8-10.8) K/ul RBC (4.20-5.40) M/uL Hgb (12.0-16.0) g/dl Hct (37.0-47.0) % MCV (80.0-100.0) fL MCH (25.0-34.0) pg MCHC (32.0-36.0) g/dL RDW Std Deviation (36.4-46.3) fL RDW Coeff of Delmer (11.5-14.5) % Plt Count (130-400) K/uL MPV (9.4-12.4) fL Immature Gran % (Auto) % Neut % (Auto) % Lymph % (Auto) % [place] % (Auto) % Eos % (Auto) % Baso % (Auto) % Neut # (Auto) (1.40-6.50) K/uL Lymph # (Auto) (1.20-3.40) K/uL [place] # (Auto) (0.11-0.59) K/uL Eos # (Auto) (0.00-0.50) K/uL Baso # (Auto) (0.00-0.20) K/uL Immature Gran # (Auto) (0.01-0.20) K/uL PT INR APTT PTT Ratio VBG pH (7.36-7.41) VBG pCO2 (38-50) mmHg VBG pO2 mmHg VBG HCO3 mmol/L VBG O2 Saturation % VBG Base Excess mEq/L Sodium 113 L* Potassium 5.8 H Chloride 82 L Carbon Dioxide 21 Anion Gap 10 BUN 21 Creatinine 1.50 H Est Cr Clr Drug Dosing 34.5 eGFR 36.34 BUN/Creatinine Ratio 14.0 Glucose 153 H Osmolality (280-300) mOsm/kg Calcium 8.4 L Phosphorus Magnesium Total Bilirubin AST ALT Alkaline Phosphatase Troponin I High Sens 29.1 H (0-14) pg/ml Total Protein Albumin Globulin Albumin/Globulin Ratio TSH (0.300-4.500) uIu/ml Free T4 (0.61-1.60) ng/dl Ethyl Alcohol mg/dL (<10.0) mg/dl Administered Medications Heparin Sodium (Porcine) (Heparin Sod 5,000 Unit/0.5 Ml Vial) 5,000 units SQ Q12 THOM Stop: 11/30/24 20:59 Last Admin: 10/31/24 23:19 Dose: 5,000 units Documented By: JOSELITO Dopamine HCl/Dextrose (Dopamine / D5w) 400 mg in 250 mls @ 20.453 mls/hr IV .[id number] [facility]; Protocol Stop: 11/30/24 18:14 Last Titration: 10/31/24 22:00 Dose: Infused Documented By: Titration: 10/31/24 20:30 Dose: 6 mcg/kg/min, 20.5 mls/hr Documented By: Admin: 10/31/24 18:14 Dose: 2.5 mcg/kg/min, 8.5 mls/hr Documented By: TALAT Co-signed By: JAZW Ceftriaxone Sodium (Rocephin) 2,000 mg in 50 mls @ 100 mls/hr IV Q24H [facility]; Protocol Stop: 11/05/24 19:59 Last Admin: 10/31/24 23:19 Dose: 100 mls/hr Documented By: JOSELITO Pantoprazole Sodium (Protonix) 40 mg in 10 mls @ 5 mls/min IV BID [facility] Stop: 11/30/24 21:44 Last Admin: 10/31/24 23:20 Dose: 5 mls/min Documented By: JOSELITO Latanoprost (Latanoprost 0.005% Op Soln 2.5 Ml Btl) 1 drops OPB HS THOM Stop: 11/30/24 20:59 Last Admin: 10/31/24 23:20 Dose: 1 drops Documented By: JOSELITO Miscellaneous (Icu Protocol For Hyperglycemia) 1 each N/A ACHS [facility] Stop: 11/02/24 20:59 Last Admin: 10/31/24 23:09 Dose: Not Given Documented By: TLM Discontinued Medications Albuterol (Albut/Ipratrop 3mg/0.5mg Neb 3 Ml Vial) 3 ml NEB NOW STA; Protocol Stop: 10/31/24 16:38 Last Admin: 10/31/24 16:57 Dose: 3 ml Documented By: FUAD Fentanyl Citrate (Fentanyl Citrate Pf 100 Mcg/2 Ml Vial) Confirm Administered Dose 100 mcg .ROUTE .STK-MED ONE Stop: 10/31/24 20:41 Last Increment: 10/31/24 21:41 Dose: 25 mcg Documented By: NANDO Heparin Sodium (Porcine) (Heparin (Porcine) 1000 Unit/Ml 10 Ml (Production Broacher Use Only)) Confirm Administered Dose 10,000 units .ROUTE .STK-MED ONE Stop: 10/31/24 20:41 Last Admin: 10/31/24 21:28 Dose: Not Given Documented By: NANDO Heparin Sodium/Sodium Chloride (Heparin In Nss Infusion 1000 Unit/500 Ml (2 U/Ml) Bag) Confirm Administered Dose 3,000 units IV .STK-MED ONE Stop: 10/31/24 20:41 Last Admin: 10/31/24 21:27 Dose: Not Given Documented By: NANDO Sodium Chloride (Nss) 500 mls @ 999 mls/hr IV .Q31M [facility] Stop: 10/31/24 16:45 Last Infusion: 10/31/24 17:41 Dose: Infused Documented By: Admin: 10/31/24 16:36 Dose: 999 mls/hr Documented By: KAMALJIT Magnesium Sulfate/Dextrose (Magnesium Sulfate / D5w) 1 gm in 100 mls @ 100 mls/hr IV Q1H [facility] Stop: 10/31/24 18:10 Last Infusion: 10/31/24 18:42 Dose: Infused Documented By: Admin: 10/31/24 17:42 Dose: 100 mls/hr Documented By: Infusion: 10/31/24 17:41 Dose: Infused Documented By: Admin: 10/31/24 16:36 Dose: 100 mls/hr Documented By: KAMALJIT Sodium Chloride (Hypertonic Saline 3%) 100 mls @ 600 mls/hr IV .Q10M ONE; Protocol Stop: 10/31/24 17:50 Last Infusion: 10/31/24 18:19 Dose: Infused Documented By: TNK Co-signed By: KAMALJIT Admin: 10/31/24 17:55 Dose: 600 mls/hr Documented By: TNK Co-signed By: YANELY Levothyroxine Sodium 200 mcg/ (Syringe) 10 mls @ 2 mls/min IV NOW ONE; Protocol Stop: 10/31/24 20:04 Last Admin: 10/31/24 20:29 Dose: 2 mls/min Documented By: TLConstantine Hydrocortisone Sodium (Succinate 100 mg/ Syringe) 2 mls @ 4 mls/min IV NOW STA Stop: 10/31/24 19:58 Last Admin: 10/31/24 20:30 Dose: 4 mls/min Documented By: JOSELITO Sodium Chloride (Hypertonic Saline 3%) 100 mls @ 600 mls/hr IV .Q10M ONE; Protocol Stop: 10/31/24 23:02 Last Infusion: 10/31/24 23:25 Dose: Infused Documented By: TLM Co-signed By: CLAIR Admin: 10/31/24 23:13 Dose: 600 mls/hr Documented By: TLM Co-signed By: CLAIR Iodixanol (Iodixanol (Visipaque) 320 Mg/Ml 100ml) Confirm Administered Dose 1 ml IV .STK-MED ONE Stop: 10/31/24 20:42 Last Admin: 10/31/24 21:42 Dose: Not Given Documented By: AAF Ioversol (Optiray 350) Confirm Administered Dose 1 ml .ROUTE .STK-MED ONE Stop: 10/31/24 20:42 Last Admin: 10/31/24 21:42 Dose: Not Given Documented By: AAF Midazolam HCl (Midazolam Hcl 1 Mg/Ml 2ml Vial) Confirm Administered Dose 2 mg .ROUTE .STK-MED ONE Stop: 10/31/24 20:41 Last Increment: 10/31/24 21:42 Dose: 1 mg Documented By: AAF Nicardipine HCl (Nicardipine 2,000 Mcg/20 Ml Syr) Confirm Administered Dose 2,000 mcg .ROUTE .STK-MED ONE Stop: 10/31/24 20:42 Last Admin: 10/31/24 21:27 Dose: Not Given Documented By: AAF Nitroglycerin/Dextrose (Nitroglycerin/D5w 100mcg/Ml 20ml Syr) Confirm Administered Dose 2,000 mcg .ROUTE .STK-MED ONE Stop: 10/31/24 20:42 Last Admin: 10/31/24 21:27 Dose: Not Given Documented By: AAF Imaging Data Radiologist's Impression: Chest X-Ray 10/31/24 16:09 INDICATION: Syncope TECHNIQUE: Frontal radiograph of the chest. COMPARISON: Radiograph from 09/05/2024. FINDINGS: Cardiomegaly. Mild pulmonary vascular congestion. Small bilateral pleural effusions. No infiltrate or pneumothorax. No acute osseous abnormality evident. IMPRESSION: Mild pulmonary vascular congestion. Small bilateral pleural effusions. Electronically signed by Jeovany Mcconnell 10-31-2024 5:08 PM Discharge Plan Visit Data Chief Complaint: Syncope Stated Complaint: SYNCOPE ED Provider: Nito Greenberg Discharge Problem: Complete heart block, COPD (chronic obstructive pulmonary disease), Symptomatic bradycardia, Acute hypoxemic respiratory failure, Acute hyponatremia Patient Disposition: Admitted As Inpatient Condition: Critical Discharge Instructions Interventions: ED Discharge Assessment Last Done: 10/31/24 19:13 Discharge Problem: COPD (chronic obstructive pulmonary disease) Qualifiers: COPD type: unspecified COPD Qualified Code(s): J44.9 - Chronic obstructive pulmonary disease, unspecified
[2024-10-31 16:22] LABS: Basophils # (auto) 0.06 K/uL (0.00-0.20); Basophils % (auto) 0.4 %; Eosinophils # (auto) 0.24 K/uL (0.00-0.50); Eosinophils % (auto) 1.4 %; Hematocrit (blood only) 26.7 % (37.0-47.0); Hemoglobin 9.6 g/dl (12.0-16.0); Immature Granulocytes # (auto) 0.21 K/uL (0.01-0.20); Immature Granulocytes % (auto) 1.2 %; Lymphocytes # (auto) 1.25 K/uL (1.20-3.40); Lymphocytes % (auto) 7.3 %; Mean Corpuscular Hemoglobin 33.4 pg (25.0-34.0); Mean Platelet Volume 11.7 fL (9.4-12.4); Monocytes # (auto) 2.18 K/uL (0.11-0.59); Monocytes % (auto) 12.8 %; Neutrophils # (auto) 13.11 K/uL (1.40-6.50); Neutrophils % (auto) 76.9 %; Platelet Count 287 K/uL (130-400); RDW Coefficient of Variation 14.8 % (11.5-14.5); RDW Standard Deviation 50.4 fL (36.4-46.3); Red Blood Count 2.87 M/uL (4.20-5.40); White Blood Count 17.05 K/ul (4.8-10.8)
[2024-10-31] MEDS: MAGNESIUM SULFATE / D5W 1 GM/100 ML BAG IV SCH (16:36)
[2024-10-31] MEDS: SODIUM CHLORIDE 0.9% 500 ML IV SCH (16:36)
[2024-10-31 16:49] LABS: Troponin I High Sensitivity 26.5 pg/ml (0-14)
[2024-10-31] MEDS: ALBUT/IPRATROP 3MG/0.5MG NEB 3 ML VIAL NEB STA (16:57)
--- NOTE | 2024-10-31 17:09 | XRay Report ---
INDICATION: Syncope TECHNIQUE: Frontal radiograph of the chest. COMPARISON: Radiograph from 09/05/2024. FINDINGS: Cardiomegaly. Mild pulmonary vascular congestion. Small bilateral pleural effusions. No infiltrate or pneumothorax. No acute osseous abnormality evident. IMPRESSION: Mild pulmonary vascular congestion. Small bilateral pleural effusions. Electronically signed by Jeovany Mcconnell 10-31-2024 5:08 PM
[2024-10-31 17:11] LABS: HCO3 VBG 22 mmol/L; Oxygen Saturation VBG < 60.0 %; PCO2 VBG 45 mmHg (38-50); PO2 VBG 39 mmHg; pH VBG 7.29 (7.36-7.41)
[2024-10-31] MEDS ORDERED: STAT IV/IM STA ×2 (17:41→22:53)
[2024-10-31 17:45] LABS: Albumin Level 3.4 gm/dl (3.4-5.0); BUN Creatinine Ratio 12.4 (10-20); Bilirubin,Total 0.6 mg/dl (0.2-1.0); Calcium 8.6 mg/dl (8.6-10.3); Creatinine Clr Calc Pharmacy 32.1 ml/min; Globulin 3.4 gm/dl (2.5-4.0); Magnesium 2.3 mg/dl (1.7-2.4); Potassium 5.7 mmol/L (3.5-5.1); Total Protein 6.8 gm/dl (6.0-8.3)
[2024-10-31 17:46] LABS: Thyroid Stimulating Hormone 45.357 uIu/ml (0.300-4.500)
[2024-10-31] MEDS: SODIUM CHLORIDE 3 % 100 ML IV ONE ×2 (17:55→23:13)
[2024-10-31 17:56] LABS: INR 1.1 (0.9-1.1); Partial Thromboplastin Ratio 1.1; Partial Thromboplastin Time 30 Seconds (21-31); Prothrombin Time 11.4 Seconds (9.0-12.0)
[2024-10-31] MEDS ORDERED: STAT IV Infusion **Titration per Protocol STA (18:06)
[2024-10-31] MEDS: DOPamine / D5W 400 MG/250 ML BAG IV SCH (18:14)
--- NOTE | 2024-10-31 18:19 | History & Physical Report ---
Date of Service October 31, 2024 Assessment & Plan (1) Acute hyponatremia: (2) Complete heart block: (3) Acute kidney injury superimposed on CKD: (4) Hypothyroidism: (5) COPD (chronic obstructive pulmonary disease): Plan 74-year-old woman with severe COPD history of hyponatremia hypothyroidism which is undertreated and depression on several medications who was admitted with severe hyponatremia and third-degree heart block with bradycardia Presentation does make me wonder if she is taking her medications appropriately (did she actually stop the HCTZ and is she actually taking her levothyroxine) # severe hyponatremiacritical level of 111 at risk for seizure and cerebral edema. Given 100 mL 3% saline in the ED, repeat stat serum sodium continue with 100 mL 3% saline as needed up to 300 mL to raise serum sodium by 4-6 mEq -serial Na checks ordered q2h at this time -watch for autodiuresis which can cause rapid overcorrection - has andrews monitor UOP -urine and serum OSM, urine sodium -AM cortisol -held venlafaxine and aripiprazole -admission to ICU -discussed with conveyor monitor # third degree heart block with bradycardia and evidence of hypoperfusion - lethargy, hypotension, poor peripheral perfusion # minimal troponin elevation related to myocardial demand ischemia from hypotension and heart block # prolonged QT -dopamine drip started, BP now in 160s -pacer pads on patient, developer programmer -ED physician spoke with Dr. Shah who is online community manager tonight and can come in if TVP necessary -consult Dr. Boswell / EP tomorrow -correct electrolyte disturbances. Mild hyperkalemia should improve with better perfusion, repeat BMP tonight. Empiric IVmag given in ED but mag level normal # consider infection - -UA still pending -consider pneumonia -procalcitonin pending # hypoxia - currently 2-4L with crackles on exam acute pulmonary edema underlying severe COPD not in exacerbation -pulmonary edema should improve with better perfusion / heart rate and BP. Avoiding lasix with severe hyponatremia -Bipap as needed # hypothyroidism - has had increasing doses of levothyroxine as outpatient currently 100 mcg however TSH remains 45. Consider replacement with IV levothyroxine, T4 pending -AM cortisol # acute metabolic encephalopathy - due to hypotension/hypoperfusion and severe hyponatremia -monitor mental status -held hydroxyzine, gabapentin # Severe COPD -sat goal 88-92%, not hypercarbic on vbg -continue control inhalers and prn duonebs DVT ppx - SQ heparin Full code Updated her at bedside Shira is critically ill with life threatening conditions at high risk of morbidity and mortality. I spent 45 minutes critical care time reviewing history, physical exam, labs, studies, discussions with ED physician and diet consultant, writing orders, following up lab results. History of Present Illness Chief Complaint: syncopal episode, confusion Primary Care Provider: Mitchell Maza 74-year-old woman who I know from admission 6 weeks ago for hyponatremia who was brought in after syncopal episode today. She is encephalopathic and unable to provide any history. Her at the bedside provides history. She was getting up to walk around today when she had a syncopal episode, he was able to catch her so she did not fall any later on the ground. She was awake fairly quickly but confused. On arrival to the ED she was found to be severely bradycardic with heart rate around 40 and third-degree heart block. sodium was 111. about a month and a half ago she was admitted with moderateSevere asymptomatic hyponatremia with sodium of 120. She had been taking hydrochlorothiazide and this was discontinued. After that sodium came up nicely over a few days to Low 130s. She was instructed to stop hydrochlorothiazide follow normal sodium diet, add protein supplement and not to over drink fluids, She had short-term follow-up with primary care to have a sodium recheck.. I did not check urine sodium at that time because she was already on a thiazide diuretic and it would have been inaccurate. She had been recently diagnosed with hypothyroidism, TSH was 45 however her thyroid dose had just been increased as an outpatient a few days before admission so that same dose was continued. She is on several psychiatric medications which could Affect her sodium including aripiprazole and venlafaxine. Her reports that she takes the medications she is supposed to take daily although he does not monitor them and does not seem to know any details. he says she has not had any medication changes other than she was seen in the ED late September and sent home with prednisone for COPD exacerbation, sodium was 133 on 10/16. CTA chest at that time was negative for PE or any pulmonary infiltrates. He thinks her breathing may have been slightly more labored than normal this week. She had not had any fevers she did not complain of chest pain she did not have any urinary symptoms like dysuria. Allergies Allergy/AdvReac Type Severity Reaction Status Date / Time Penicillins Allergy Severe Swelling Verified 10/31/24 17:40 of Lip/Tongue/Throat hydrochlorothiazide AdvReac Intermediate hyponatremia Verified 10/31/24 17:40 sodium 120 Home Medications Medication Instructions Recorded Confirmed Type montelukast 10 mg tablet 10 mg PO QAM 02/12/19 10/31/24 History pantoprazole 40 mg tablet,delayed 40 mg PO QAM 02/12/19 10/31/24 History release (Protonix) aripiprazole 2 mg tablet (Abilify) 1 mg PO QAM 11/27/21 10/31/24 History atorvastatin 20 mg tablet 20 mg PO HS 01/07/22 10/31/24 History mirtazapine 15 mg tablet 15 mg PO QPM 03/19/22 10/31/24 History albuterol sulfate 2.5 mg/3 mL 2.5 mg inhalation DIRECTED PRN 09/05/24 10/31/24 History (0.083 %) solution for nebulization Wheezing/SOB amlodipine 10 mg tablet 10 mg PO QAM 09/05/24 10/31/24 History ammonium lactate 12 % topical cream 1 applic topical BID 09/05/24 10/31/24 History fluticasone furoate 200 1 inh inhalation QA 09/05/24 10/31/24 History mcg-vilanterol 25 mcg/dose inhalation powder (Breo Ellipta) gabapentin 300 mg capsule 300 mg PO BID 09/05/24 10/31/24 History hydroxyzine HCl 25 mg tablet 25 mg PO HS PRN Itching 09/05/24 10/31/24 History latanoprost 0.005 % eye drops 1 drp OPB HS 09/05/24 10/31/24 History losartan 100 mg tablet 100 mg PO QAM 09/05/24 10/31/24 History magnesium oxide 400 mg (241.3 mg 400 mg PO BID 09/05/24 10/31/24 History magnesium) tablet tiotropium bromide 18 mcg capsule 1 cap inhalation QAM 09/05/24 10/31/24 History with inhalation device (Spiriva with HandiHaler) venlafaxine 150 mg 150 mg PO QAM 09/05/24 10/31/24 History capsule,extended release 24 hr levothyroxine 100 mcg tablet 100 mcg PO DAILYBB 10/31/24 10/31/24 History ropinirole 0.25 mg tablet 0.25 mg PO HS 10/31/24 10/31/24 History Past Med/Surg History Problem List (Updated 10/31/24 @ 18:49 by Ewa Acosta MD) Complete heart block Hypothyroidism (Acute) Acute kidney injury superimposed on CKD (Acute) Acute hyponatremia (Acute) Hand arthritis Prurigo nodularis History of alcohol use disorder Depression GERD (gastroesophageal reflux disease) COPD (chronic obstructive pulmonary disease) ADD (attention deficit disorder) Bacterial pneumonia Hypoxemia (Acute) Pneumonia due to 2019 novel coronavirus (Acute) Elevated serum creatinine (Acute) COVID-19 Chronic kidney disease, stage III (moderate) Vitamin D deficiency Chronic kidney disease History of tobacco abuse Chronic obstructive pulmonary disease Dyspnea on exertion Encounter for pre-operative examination Abdominal pain (Acute 03/17/11) Abdominal wound dehiscence (Acute) Acute low back pain (Acute 03/17/11) Adenomatous polyp of colon (Chronic Unknown) "s/p polypectomies " Adjustment disorder with depressed mood (Chronic Unknown) Allergic rhinitis (Chronic Unknown) Anemia (Chronic Unknown) Hyperproteinemia (Acute 03/19/11) Mass of thoracic structure (Acute 03/18/11) "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 " On 03/19/11 08:31 Jonny Cervantes wrote "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 " Encounter for pre-operative examination Mixed conductive and sensorineural hearing loss of right ear with restricted hearing of left ear Sinusitis Eustachian tube dysfunction Hypertension Sensorineural hearing loss (SNHL) of both ears Medical History Abdominal pain Glaucoma Mood disorder Herniated cervical disc Osteoarthritis Hiatal hernia History of colon polyps History of colitis 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 Deaf Left Asthma uses PRN neb daily; rarely uses PRN inh Lower back pain Surgical History History of cataract surgery History of tonsillectomy History of total abdominal hysterectomy and bilateral salpingo-oophorectomy Status post proximal row carpectomy of wrist Rt History of repair of left rotator cuff History of esophagogastroduodenoscopy (EGD) History of colonoscopy History of sinus surgery balloon sinuplasty Family History Sister Sinusitis Cancer Hypertension Father Cancer Aunt Diabetes Brother Coronary heart disease Allergies Sinusitis Stroke Diabetes Other No family history of adverse response to anesthesia Social History Smoking Status: Former smoker Tobacco Type: Cigarettes Age Started Using Tobacco: 16; Cigarettes Per Day: 40; Second Hand Exposure: No; Do You Dip or Chew Tobacco: No; Hx Alcohol Use: Yes Alcohol type: wine Hx Substance Use: No Preferred Language: Portuguese Communication Ability: Effective Communication Ability Comment: pt is deaf in left ear, hearing aid in right Stapler Machine Required: No Beliefs That Will Affect Care: None Current Living Situation: Spouse current occupational status: retired current occupation: Former [employer]ORY [employer]ICK[employer] at [employer] Feels Safe at Home: Yes Assistive Devices: Oxygen - Continuous and Walker Review of Systems Review of Systems: Unobtainable due to cognitive status Physical Exam Physical Exam: PHYSICAL EXAMINATION Last 24h vital signs reviewed, see documentation in flowsheet General: ill-appearing, pale and lethargic HEENT: Normocephalic, atraumatic, pupils round and equal, right eyelid droop but can open itsclerae anicteric, no conjunctival injection, drymucus membranes Lungs: increased work of breathing posterior crackles bilaterally no wheezing Heart: bradycardic no murmur no JVD Abdomen: Soft, nontender, nondistended. Extremities: hands and feet are cool with some acrocyanosis, mild right pedal edema Neuro: lethargic but arousable, nods yes no to a few questions but not verbalizing, face is asymmetric but that is baseline noted on previous admission, moves 4 extremities spontaneously Psych: unable to assess Results & Data Results & Data Vital Signs (Past 12 Hours) Vital Signs Pulse Pulse Pulse Resp BP BP Pulse Ox 10/31/24 17:53 39 L 17 107/41 L 91 10/31/24 17:36 39 L 22 121/80 91 10/31/24 17:00 41 L 26 H 92 10/31/24 16:57 41 L 21 93 10/31/24 16:48 42 L 10/31/24 16:09 95 05/14/25 15:34 58 L 24 120/78 95 10/31/24 15:34 10/31/24 15:34 58 L 24 120/78 95 O2 Del Method O2 Flow Rate FiO2 10/31/24 17:53 BiPAP 10/31/24 17:36 BiPAP 10/31/24 17:00 BiPAP 30 10/31/24 16:57 30 10/31/24 16:48 10/31/24 16:09 Oxymask 4 10/31/24 15:34 Oxymask 4 10/31/24 15:34 Oxymask 4 10/31/24 15:34 Oxymask 4 Laboratory Results sodium is 111, potassium 5.7, creatinine elevated above her baseline at 1.6 Hemoglobin is 9.6 down from her baseline of 11, white blood count is elevated at 17 Coags are pending VBG 7.29/45 Troponin minimally elevated at 26 TSH still at 45 T4 pending Magnesium was normal Diagnostic Findings Personally reviewed her chest x-ray film shows low lung volumes probable pulmonary edema bibasilar atelectasis or consolidation possibly bilateral effusions PG Care Time/CCT Total # of Minutes Spent Total Time Spent with Patient: Total time spent is greater than 50% in coordination of care (as documented) at patient's floor/unit and/or counseling patient: Coding Level of Care Code None Diagnoses Acute hyponatremia E87.1 Complete heart block I44.2 Acute kidney injury superimposed on CKD N17.9; N18.9 Hypothyroidism E03.9 Hypothyroidism type: unspecified COPD (chronic obstructive pulmonary disease) J44.9 Time Spent (min) 45 Comment see E&M note. [id number] (4) Hypothyroidism Hypothyroidism type: unspecified Qualified Code(s): E03.9 - Hypothyroidism, unspecified
[2024-10-31 18:53] LABS: T4 Free Thyroxine 0.41 ng/dl (0.61-1.60)
[2024-10-31 19:13] LABS: Calcium 8.4 mg/dl (8.6-10.3); Creatinine Clr Calc Pharmacy 34.5 ml/min; Potassium 5.8 mmol/L (3.5-5.1); Troponin I High Sensitivity 29.1 pg/ml (0-14)
[2024-10-31] MEDS ORDERED: HYDROCORTISONE SOD SUCCINATE 100 MG/2 ML VIAL IV STA (19:52)
[2024-10-31 20:02] LABS: iSTAT Allen Test Pass; iSTAT Art Bld Gas pCO2 Correct 45 mmHg (35-46); iSTAT Art Bld Gas pH Corrected 7.235 (7.35-7.45); iSTAT Arterial Blood Gas HCO3 19 meg/L (19-24); iSTAT Arterial Blood Gas pCO2 45 mmHg (35-46); iSTAT Arterial Blood Gas pH 7.24 (7.35-7.45); iSTAT Arterial Blood Gas pO2 75 mmHg (80-95); iSTAT Arterial Blood Gas pO2 C 75; iSTAT Carbon Dioxide 20 mmol/L (24-31); iSTAT FiO2 60 %; iSTAT Hematocrit 31 % (37-47); iSTAT Hemoglobin 10.5 g/dl (12.0-16.0); iSTAT Sample Type Arterial; iSTAT Site R Radial; iSTAT Sodium 110 mmol/L (135-144); iSTAT SpO2 92
--- NOTE | 2024-10-31 20:28 | Critical Care Consultation ---
Date of Consultation October 31, 2024 Assessment & Plan (1) Symptomatic bradycardia: (2) Complete heart block: (3) Hypothyroidism: (4) Acute kidney injury superimposed on CKD: (5) Acute hyponatremia: (6) COPD (chronic obstructive pulmonary disease): Plan Reason Critically Ill: Severe hyponatremia in setting of symptomatic bradycardia complicated by severe hyponatremia, elevated TSH, and end stage COPD. Neuro - Encephalopathy- Metabolic, Hx: Anxiety/Depression CAM ICU: + - Metbolic encephalopathy- multifactorial at this time to include: severe hyponatremia, myxedema coma, hypoperfusion from symptomatic bradycardia, and metabolic acidosis - Continue supportive care - Without focal weakness, vision abnormality, or facial droop- doubt CVA at this time - See hyponatremia section in renals for treatment Cardiac - Symptomatic bradycardia- CHB, Shock- multifactorial (cardiogenic vs. distributive or combination), - Patient with symptomatic bradycardia without evidence of ischemia on ECG - Causes at this time remain multifactorial- - BRASH Syndrome- possible with ARB- mild acidosis, and WAYNE II, mild hyperkalemia- will hold ARB- Correct mild hyperkalemia - Electrolyte disturbances- hyponatremia, Hyperkalemia- As above- correct hyperkalemia, correct hyponatremia- consider providing calcium replacement - Myxedema Coma/Decompensated Hypothyroidism- as she is now with bradycardia, encephalopathy, severe hyponatremia- will treat with 100mg of Hydrocortisone and 200 mcg of Synthroid IV now- This could have been triggered by medical non-compliance, hyponatremia, or possible infectious etiology. - As she is with very poor reserve and symptomatic at this time- she is going for emergent TVP- appreciate Dr. Heck's assistance and rapid evaluation. - If further shock remains with adequate HR - add Levophed Respiratory - Hypoxic respiratory failure acute on chronic, end stage COPD - As she was not overtly hypercarbic on ABG- doubt this represents a true COPD exacerbation, however chronic disease exacerbated by bradycardia and low output - Hopeful that correcting her chronotropic response will improve her CO and assist with her ventilation/oxygenation - HFNC with CPAP or BiPAP support as able- if continues to fail with hypoxia or hypercarbia will need to consider intubation- Patient has very high likelihood of failing extubation from mechanical ventilation - Continue her FERN, LABA/LAMA GI - No acute needs RENAL/LYTES - Metabolic Acidosis, Severe Hyponatremia, GRIS II on CKD III - Correct acidosis- metabolic acidosis most likely complicated by perfusion and lactic acidosis, she is without gap - Vasopressors if needed - Hypoosmolar hyponatremia- difficult to ascertain cause at this time as diuretic therapy is questionable as well as saline administration in ER- Provide 3% saline q4 hours at 100-150 ml bolus with goal of 115-117 mmol/L in 24 hours. 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 histocytosis ID - Can't exclude sepsis as a cause- source not identified at this time - will send blood and urine culture- although received Rocephin prior to both cultures being sent - Leukocytosis, Elevated PCT, elevated lactate, bradycardia, tachypnea - CXR is without acute process - Continue Rocephin- pending MRSA LINES/IV ACCESS - PIV, Andrews, RIGHT IJ cordis with TVP Continue use of these lines DVT PROPHYLAXIS - SCDS, Heparin 5000 units subq q12 DISPO: ICU until hemodynamics and electrolyte derangements are stable I have personally spent 60 minutes of critical care time in the direct management of this patient. This is a life/limb threatening event. This includes time spent evaluating patient, direct bedside care, chart review, placing orders, interpretation of diagnostic studies, discussion with consultants, patient, and family members, as well as other required patient management activities. This time is exclusive of all separately billable procedures, and separate from and in addition to any other critical care service time. Thank you for allowing us to participate in the care of this patient. Please refer to my attending physician's documentation for any further recommendations. History of Present Illness Reason for Consultation: symptomatic bradycardia Requesting Physician: Ewa Acosta MD Attending Physician: Ewa Acosta MD History of Present Illness 74 YOF that presented to the ER following a syncopal episode today. She was noted to be somnolent/lethargic on arrival as well as bradycardic to the 30s. Routine labs performed revealed a severely low sodium and TSH of 44 with relatively low T4. She was recently admitted in August for what appears same laboratory abnormalities. In the ER the case was discussed with interventional cardiology probation and patrol agent Dr. Wilson, she was initiated on Dopamine infusion that was increased from 2mcg/kg/min to 6mcg/kg/min on arrival to the ICU. She was given 100 ml of 3% saline. Workup for possible sepsis was also started with cultures and broad spectrum antibiotics. Patient arrived to the ICU with increased work of breathing and hypoxia, transitioned to HFNC with improvment in oxygenation and work of breathing, she was cool and wet to her extremities and dusky in appearance. There was no real change to her HR with the increase in Dopamine, however we did get increase in her BP from 110s- 140s. Based on her appearance and relatively no response to chronotropics, interventional cardiology Dr. Wilson was notified to re-evaluate for emergent TVP placement. We are hopeful that this will increase her perfusion, decrease her work of breathing as she has very high likelihood of failing extubation detention. Chronic problems: COPD on oxygen at home, hypothyroidism, CKD, anemia, HTN, HFpEF, eosinophilic rash, CODE: FULL Allergies Allergy/AdvReac Type Severity Reaction Status Date / Time Penicillins Allergy Severe Swelling Verified 10/31/24 17:40 of Lip/Tongue/Throat hydrochlorothiazide AdvReac Intermediate hyponatremia Verified 10/31/24 17:40 sodium 120 Home Medications Medication Instructions Recorded Confirmed Type montelukast 10 mg tablet 10 mg PO QAM 02/12/19 10/31/24 History pantoprazole 40 mg tablet,delayed 40 mg PO QAM 02/12/19 10/31/24 History release (Protonix) aripiprazole 2 mg tablet (Abilify) 1 mg PO QAM 11/27/21 10/31/24 History atorvastatin 20 mg tablet 20 mg PO HS 01/07/22 10/31/24 History mirtazapine 15 mg tablet 15 mg PO QPM 03/19/22 10/31/24 History albuterol sulfate 2.5 mg/3 mL 2.5 mg inhalation DIRECTED PRN 09/05/24 10/31/24 History (0.083 %) solution for nebulization Wheezing/SOB amlodipine 10 mg tablet 10 mg PO QAM 09/05/24 10/31/24 History ammonium lactate 12 % topical cream 1 applic topical BID 09/05/24 10/31/24 History fluticasone furoate 200 1 inh inhalation QAM 09/05/24 10/31/24 History mcg-vilanterol 25 mcg/dose inhalation powder (Breo Ellipta) gabapentin 300 mg capsule 300 mg PO BID 09/05/24 10/31/24 History hydroxyzine HCl 25 mg tablet 25 mg PO HS PRN Itching 09/05/24 10/31/24 History latanoprost 0.005 % eye drops 1 drp OPB HS 09/05/24 10/31/24 History losartan 100 mg tablet 100 mg PO QAM 09/05/24 10/31/24 History magnesium oxide 400 mg (241.3 mg 400 mg PO BID 09/05/24 10/31/24 History magnesium) tablet tiotropium bromide 18 mcg capsule 1 cap inhalation QA 09/05/24 10/31/24 History with inhalation device (Spiriva with HandiHaler) venlafaxine 150 mg 150 mg PO QAM 09/05/24 10/31/24 History capsule,extended release 24 hr levothyroxine 100 mcg tablet 100 mcg PO DAILYBB 10/31/24 10/31/24 History ropinirole 0.25 mg tablet 0.25 mg PO HS 10/31/24 10/31/24 History Patient History Medical History Abdominal pain Glaucoma Mood disorder Herniated cervical disc Osteoarthritis Hiatal hernia History of colon polyps History of colitis 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 Deaf Left Asthma uses PRN neb daily; rarely uses PRN inh Lower back pain Surgical History History of cataract surgery History of tonsillectomy History of total abdominal hysterectomy and bilateral salpingo-oophorectomy Status post proximal row carpectomy of wrist Rt History of repair of left rotator cuff History of esophagogastroduodenoscopy (EGD) History of colonoscopy History of sinus surgery balloon sinuplasty Family History Sister Sinusitis Cancer Hypertension Father Cancer Aunt Diabetes Brother Coronary heart disease Allergies Sinusitis Stroke Diabetes Other No family history of adverse response to anesthesia Social History Smoking Status: Former smoker Tobacco Type: Cigarettes Age Started Using Tobacco: 16; Cigarettes Per Day: 40; Smoking End Date: 2006; Second Hand Exposure: No; Do You Dip or Chew Tobacco: No; Hx Alcohol Use: Yes Alcohol type: wine Hx Substance Use: No Preferred Language: Mozambican Communication Ability: Effective Communication Ability Comment: pt is deaf in left ear, hearing aid in right Farm Operations Technical Director Required: No Beliefs That Will Affect Care: None Current Living Situation: Spouse current occupational status: retired 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 [employer] Other Information That Helps Us Care for You: No Feels Safe at Home: Yes Safety Concerns: Feels Safe At This Time Assistive Devices: Oxygen - Continuous Review of Systems Review of Systems: unable to perform secondary to encephalopathy Physical Exam Physical Exam: PHYSICAL EXAM: General: Lethargic and confused Head: Normocephalic, atraumatic ENT: PERRLA EOMI, no pharyngeal exudate, mucous membranes moist Neuro: AAO x 2, speech confused and slow, moves all extremities, and follows most commands Chest: equal rise and fall of the chest, use of abdominal muscles for breathing, scattered crackels throughout with expiratory wheeze Cardiac: bradycardic- CHB 30s, skin cool and wet, pulses weak 1+, S1S2 no murmur GI: NABS x 4 quadrants, soft, : Andrews to gravity Results & Data Results & Data Vital Signs (Past 12 Hours) Vital Signs Pulse Pulse Pulse Resp BP BP Pulse Ox 10/31/24 19:00 41 L 18 93 10/31/24 18:06 91 10/31/24 17:53 39 L 17 107/41 L 91 10/31/24 17:36 39 L 22 121/80 91 10/31/24 17:00 41 L 26 H 92 10/31/24 16:57 41 L 21 93 10/31/24 16:48 42 L 10/31/24 16:09 95 10/31/24 15:34 58 L 24 120/78 95 10/31/24 15:34 10/31/24 15:34 58 L 24 120/78 95 O2 Del Method O2 Flow Rate FiO2 10/31/24 19:00 Oxymask 10/31/24 18:06 BiPAP 10/31/24 17:53 BiPAP 10/31/24 17:36 BiPAP 10/31/24 17:00 BiPAP 30 10/31/24 16:57 30 10/31/24 16:48 10/31/24 16:09 Oxymask 4 10/31/24 15:34 Oxymask 4 10/31/24 15:34 Oxymask 4 10/31/24 15:34 Oxymask 4 Laboratory Results Abnormal lab results 10/31/24 10/31/24 10/31/24 Range/Units 15:54 17:00 17:01 WBC 17.05 H (4.8-10.8) K/ul RBC 2.87 L (4.20-5.40) M/uL Hgb 9.6 L (12.0-16.0) g/dl POC Hgb (12.0-16.0) g/dl Hct 26.7 L (37.0-47.0) % POC Hct (37-47) % RDW Std Deviation 50.4 H (36.4-46.3) fL RDW Coeff of Delmer 14.8 H (11.5-14.5) % Neut # (Auto) 13.11 H (1.40-6.50) K/uL Hinds # (Auto) 2.18 H (0.11-0.59) K/uL Immature Gran # (Auto) 0.21 H (0.01-0.20) K/uL POC pH (7.35-7.45) POC pO2 (80-95) mmHg POC Total CO2 (24-31) mmol/L ABG pH (Temp Correct) (7.35-7.45) VBG pH 7.29 L (7.36-7.41) POC Sodium (135-144) mmol/L Sodium 111 L* (136-145) mmol/L POC Potassium (3.3-5.0) mmol/L Potassium 5.7 H (3.5-5.1) mmol/L Chloride 79 L (98-107) mmol/L Creatinine 1.61 H (0.6-1.2) mg/dl Glucose 136 H (70-99(Fasting)) mg/dl Osmolality 244 L (280-300) mOsm/kg Lactate (0.4-2.0) mmol/L Calcium (8.6-10.3) mg/dl Phosphorus 5.0 H (2.5-4.9) mg/dl AST 81 H (13-39) U/L Alkaline Phosphatase 126 H (34-104) U/L Troponin I High Sens 26.5 H (0-14) pg/ml Procalcitonin (0-0.5) ng/ml TSH 45.357 H (0.300-4.500) uIu/ml Free T4 0.41 L (0.61-1.60) ng/dl 10/31/24 10/31/24 10/31/24 Range/Units 18:28 19:50 20:01 WBC 18.66 H (4.8-10.8) K/ul RBC 2.92 L (4.20-5.40) M/uL Hgb 9.6 L (12.0-16.0) g/dl POC Hgb 10.5 L (12.0-16.0) g/dl Hct 27.6 L (37.0-47.0) % POC Hct 31 L (37-47) % RDW Std Deviation 51.7 H (36.4-46.3) fL RDW Coeff of Delmer 14.8 H (11.5-14.5) % Neut # (Auto) (1.40-6.50) K/uL Hinds # (Auto) (0.11-0.59) K/uL Immature Gran # (Auto) (0.01-0.20) K/uL POC pH 7.24 L (7.35-7.45) POC pO2 75 L (80-95) mmHg POC Total CO2 20 L (24-31) mmol/L ABG pH (Temp Correct) 7.235 L (7.35-7.45) VBG pH (7.36-7.41) POC Sodium 110 L* (135-144) mmol/L Sodium 113 L* (136-145) mmol/L POC Potassium 6.0 H (3.3-5.0) mmol/L Potassium 5.8 H (3.5-5.1) mmol/L Chloride 82 L (98-107) mmol/L Creatinine 1.50 H (0.6-1.2) mg/dl Glucose 153 H (70-99(Fasting)) mg/dl Osmolality (280-300) mOsm/kg Lactate (0.4-2.0) mmol/L Calcium 8.4 L (8.6-10.3) mg/dl Phosphorus (2.5-4.9) mg/dl AST (13-39) U/L Alkaline Phosphatase (34-104) U/L Troponin I High Sens 29.1 H 29.0 H (0-14) pg/ml Procalcitonin 0.91 H (0-0.5) ng/ml TSH (0.300-4.500) uIu/ml Free T4 (0.61-1.60) ng/dl 10/31/24 Range/Units 20:15 WBC (4.8-10.8) K/ul RBC (4.20-5.40) M/uL Hgb (12.0-16.0) g/dl POC Hgb (12.0-16.0) g/dl Hct (37.0-47.0) % POC Hct (37-47) % RDW Std Deviation (36.4-46.3) fL RDW Coeff of Delmer (11.5-14.5) % Neut # (Auto) (1.40-6.50) K/uL Hinds # (Auto) (0.11-0.59) K/uL Immature Gran # (Auto) (0.01-0.20) K/uL POC pH (7.35-7.45) POC pO2 (80-95) mmHg POC Total CO2 (24-31) mmol/L ABG pH (Temp Correct) (7.35-7.45) VBG pH (7.36-7.41) POC Sodium (135-144) mmol/L Sodium (136-145) mmol/L POC Potassium (3.3-5.0) mmol/L Potassium (3.5-5.1) mmol/L Chloride (98-107) mmol/L Creatinine (0.6-1.2) mg/dl Glucose (70-99(Fasting)) mg/dl Osmolality (280-300) mOsm/kg Lactate 4.7 H* (0.4-2.0) mmol/L Calcium (8.6-10.3) mg/dl Phosphorus (2.5-4.9) mg/dl AST (13-39) U/L Alkaline Phosphatase (34-104) U/L Troponin I High Sens (0-14) pg/ml Procalcitonin (0-0.5) ng/ml TSH (0.300-4.500) uIu/ml Free T4 (0.61-1.60) ng/dl Diagnostic Findings Chest X-Ray 10/31/24 16:09 INDICATION: Syncope TECHNIQUE: Frontal radiograph of the chest. COMPARISON: Radiograph from 09/05/2024. FINDINGS: Cardiomegaly. Mild pulmonary vascular congestion. Small bilateral pleural effusions. No infiltrate or pneumothorax. No acute osseous abnormality evident. IMPRESSION: Mild pulmonary vascular congestion. Small bilateral pleural effusions. Electronically signed by Jeovany Mcconnell 10-31-2024 5:08 PM Medications Administered Home Medications montelukast 10 mg tablet 10 mg PO QAM 02/12/19 [History Confirmed 10/31/24] pantoprazole 40 mg tablet,delayed release (Protonix) 40 mg PO QAM 02/12/19 [History Confirmed 10/31/24] aripiprazole 2 mg tablet (Abilify) 1 mg PO QAM 11/27/21 [History Confirmed 10/31/24] atorvastatin 20 mg tablet 20 mg PO HS 01/07/22 [History Confirmed 10/31/24] mirtazapine 15 mg tablet 15 mg PO QPM 03/19/22 [History Confirmed 10/31/24] albuterol sulfate 2.5 mg/3 mL (0.083 %) solution for nebulization 2.5 mg inhalation DIRECTED PRN Wheezing/SOB 09/05/24 [History Confirmed 10/31/24] amlodipine 10 mg tablet 10 mg PO QAM 09/05/24 [History Confirmed 10/31/24] ammonium lactate 12 % topical cream 1 applic topical BID 09/05/24 [History Confirmed 10/31/24] fluticasone furoate 200 mcg-vilanterol 25 mcg/dose inhalation powder (Breo Ellipta) 1 inh inhalation QAM 09/05/24 [History Confirmed 10/31/24] gabapentin 300 mg capsule 300 mg PO BID 09/05/24 [History Confirmed 10/31/24] hydroxyzine HCl 25 mg tablet 25 mg PO HS PRN Itching 09/05/24 [History Confirmed 10/31/24] latanoprost 0.005 % eye drops 1 drp OPB HS 09/05/24 [History Confirmed 10/31/24] losartan 100 mg tablet 100 mg PO QAM 09/05/24 [History Confirmed 10/31/24] magnesium oxide 400 mg (241.3 mg magnesium) tablet 400 mg PO BID 09/05/24 [History Confirmed 10/31/24] tiotropium bromide 18 mcg capsule with inhalation device (Spiriva with HandiHaler) 1 cap inhalation QAM 09/05/24 [History Confirmed 10/31/24] venlafaxine 150 mg capsule,extended release 24 hr 150 mg PO QAM 09/05/24 [History Confirmed 10/31/24] levothyroxine 100 mcg tablet 100 mcg PO DAILYBB 10/31/24 [History Confirmed 10/31/24] ropinirole 0.25 mg tablet 0.25 mg PO HS 10/31/24 [History Confirmed 10/31/24] Active Medications Albuterol (Albut/Ipratrop 3mg/0.5mg Neb 3 Ml Vial) 3 ml INH Q4H PRN PRN Reason: Dyspnea Stop: 11/30/24 19:51 Fluticasone/Vilanterol (Fluticasone/Vilanterol 200/25mcg 14 Puffs/Inhaler) 1 puffs INH QAM THOM Stop: 12/01/24 08:59 Heparin Sodium (Porcine) (Heparin Sod 5,000 Unit/0.5 Ml Vial) 5,000 units SQ Q12 THOM Stop: 11/30/24 20:59 Dopamine HCl/Dextrose (Dopamine / D5w) 400 mg in 250 mls @ 20.453 mls/hr IV .[id number] THOM; Protocol Stop: 11/30/24 18:14 Last Titration: 10/31/24 20:30 Dose: 6 mcg/kg/min, 20.5 mls/hr Ceftriaxone Sodium (Rocephin) 2,000 mg in 50 mls @ 100 mls/hr IV Q24H THOM; Protocol Stop: 11/05/24 19:59 Lactic Acid (Ammonium Lactate 12% Lotion 225 Gm Btl) 1 gm EXT BID THOM Stop: 12/01/24 08:59 Latanoprost (Latanoprost 0.005% Op Soln 2.5 Ml Btl) 1 drops OPB HS THOM Stop: 11/30/24 20:59 Miscellaneous (Icu Protocol For Hyperglycemia) 1 each N/A ACHS THOM Stop: 11/02/24 20:59 Pantoprazole Sodium (Pantoprazole 40 Mg Tab) 40 mg PO QAM THOM Stop: 12/01/24 08:59 Umeclidinium Harmony (Umeclidinium Harmony 62.5mcg/Blister 7 Puffs/Inhaler) 1 puffs INH QAM THOM Stop: 12/01/24 08:59 ECG Additional Comments: Junctional bradycardia Low voltage QRS Prolonged QT Abnormal ECG When compared with ECG [id number] 15:49,(unconfirmed) No significant change was found Coding Level of Care Code 56358 CRITICAL CARE 1ST 30-74M Diagnoses Symptomatic bradycardia R00.1 Complete heart block I44.2 Hypothyroidism E03.9 Hypothyroidism type: unspecified Acute kidney injury superimposed on CKD N17.9; N18.9 Acute hyponatremia E87.1 COPD (chronic obstructive pulmonary disease) J44.9 (3) Hypothyroidism Hypothyroidism type: unspecified Qualified Code(s): E03.9 - Hypothyroidism, unspecified
[2024-10-31] MEDS: LEVOTHYROXINE SODIUM 200 MCG in SYRINGE 0 ML IV ONE (20:29)
[2024-10-31 20:30] LABS: Hematocrit (blood only) 27.6 % (37.0-47.0); Hemoglobin 9.6 g/dl (12.0-16.0); Mean Corpuscular Hemoglobin 32.9 pg (25.0-34.0); Mean Corpuscular Hgb Conc 34.8 g/dL (32.0-36.0); Mean Corpuscular Volume 94.5 fL (80.0-100.0); Mean Platelet Volume 10.8 fL (9.4-12.4); Platelet Count 286 K/uL (130-400); RDW Coefficient of Variation 14.8 % (11.5-14.5); RDW Standard Deviation 51.7 fL (36.4-46.3); Red Blood Count 2.92 M/uL (4.20-5.40); White Blood Count 18.66 K/ul (4.8-10.8)
[2024-10-31] MEDS: HYDROCORTISONE SOD 100 MG in SYRINGE 0 ML IV STA (20:30)
[2024-10-31] MEDS ORDERED: Nursing to Pharmacy Communication SCH (20:45)
--- NOTE | 2024-10-31 21:14 | Pre Anesthesia Assessment ---
Date of Service October 31, 2024 Pre Sedation Assessment Vital Signs Pulse Pulse Pulse Resp BP BP Pulse Ox 10/31/24 19:00 41 L 18 93 10/31/24 18:06 91 10/31/24 17:53 39 L 17 107/41 L 91 10/31/24 17:36 39 L 22 121/80 91 10/31/24 17:00 41 L 26 H 92 10/31/24 16:57 41 L 21 93 10/31/24 16:48 42 L 10/31/24 16:09 95 10/31/24 15:34 58 L 24 120/78 95 10/31/24 15:34 10/31/24 15:34 58 L 24 120/78 95 O2 Del Method O2 Flow Rate FiO2 10/31/24 19:00 Oxymask 10/31/24 18:06 BiPAP 10/31/24 17:53 BiPAP 10/31/24 17:36 BiPAP 10/31/24 17:00 BiPAP 30 10/31/24 16:57 30 10/31/24 16:48 10/31/24 16:09 Oxymask 4 10/31/24 15:34 Oxymask 4 10/31/24 15:34 Oxymask 4 10/31/24 15:34 Oxymask 4 Cardiovascular Additional Comments: bradycardia Respiratory Additional Comments: respiratory distress on high flow Pre-Sedation Airway Assessment Smoking Status: Former smoker mallampati 4 ASA 4 Notes The planned sedation has been discussed with the patient. Informed Consent was obtained. I have identified the patient, determined the appropriateness of sedation and have assessed the patient immediately prior to the procedure. All medicine(s) and interventions are by my order.
[2024-10-31] MEDS: niCARdipine 2,000 MCG/20 ML SYR ONE (21:27)
[2024-10-31] MEDS: NITROGLYCERIN/D5W 100MCG/ML 20ML SYR ONE (21:27)
[2024-10-31] MEDS: HEPARIN (PORCINE) 1000 UNIT/ML 10 ML (CATH LAB USE ONLY) ONE (21:28)
[2024-10-31] MEDS: fentaNYL citrate PF 100 MCG/2 ML VIAL ONE (21:41)
[2024-10-31] MEDS: IODIXANOL (VISIPAQUE) 320 MG/ML 100ML IV ONE (21:42)
[2024-10-31] MEDS: OPTIRAY 350 ONE (21:42)
[2024-10-31] MEDS: MIDAZOLAM HCL 1 MG/ML 2ML VIAL ONE (21:42)
--- NOTE | 2024-10-31 21:42 | Post Anesthesia Assessment ---
Date of Service October 31, 2024 Post Sedation Assessment Vital Signs Temp Pulse Pulse Pulse Resp BP BP 10/31/24 21:30 28 H 10/31/24 20:00 36.2 C L 37 L 10/31/24 19:52 28 H 10/31/24 19:52 10/31/24 19:52 37 L 10/31/24 19:52 35.0 C L 37 L 28 H 10/31/24 19:00 41 L 18 10/31/24 18:06 10/31/24 17:53 39 L 17 107/41 L 10/31/24 17:36 39 L 22 121/80 10/31/24 17:00 41 L 26 H 10/31/24 16:57 41 L 21 10/31/24 16:48 42 L 10/31/24 16:09 10/31/24 15:34 58 L 24 120/78 10/31/24 15:34 10/31/24 15:34 58 L 24 120/78 Pulse Ox Pulse Ox O2 Del Method O2 Del Method O2 Flow Rate FiO2 10/31/24 21:30 93 High Flow Nasal Cannula 45 70 10/31/24 20:00 90 Oxymask 10 10/31/24 19:52 10/31/24 19:52 90 Oxymask 10/31/24 19:52 10/31/24 19:52 90 Oxymask 10 10/31/24 19:00 93 Oxymask 10/31/24 18:06 91 BiPAP 10/31/24 17:53 91 BiPAP 10/31/24 17:36 91 BiPAP 10/31/24 17:00 92 BiPAP 30 10/31/24 16:57 93 30 10/31/24 16:48 10/31/24 16:09 95 Oxymask 4 10/31/24 15:34 95 Oxymask 4 10/31/24 15:34 Oxymask 4 10/31/24 15:34 95 Oxymask 4 Recovery Score Activity: Moves 2 extremities Respiration: Dyspnea/Limited Breathing Circulation: +/-20% PreAnes Value Consciousness: Arouseable (by name) Oxygen Saturation: O2 needed for >90% Discharge Sedation Level of Care: Phase I Post Sedation Plan On clinical assessment, the patient appears to have tolerated the sedation without complications. Patient is recovering as anticipated. Patient will continue to be monitored by nursing and may be discharged when sedation discharge criteria are met per below protocol. Upon Completions of procedure up to 15 minutes continue every 5 minute vital signs and the P.A.R. score; then discharge to a Phase I or Fast Track to Phase II per the following guidelines: * Discharge Patient to appropriate Phase II area if PAR is 8 or greater or return to pre- procedure baseline. The post - procedure orders will be as directed. * If PAR score is less than 8 or not return to pre-procedure baseline then patient will follow Phase I monitoring till PAR is reached for Phase II. The Phase I may be done in procedure room or may call to secure a Phase I area. * If naloxone or flumazenil are used for reversal, hold in Phase I for continued monitoring from when last reversal dose was given for a minimum of 60 minutes or longer pending the nurse and/or physician discretion of patient condition before discharge to Phase II. Please call the Sedation Physician to re-evaluate and complete post-note for discharge to Phase II area. Do NOT discharge from procedure sedation or Phase 1 until post- sedation evaluation note is complete by procedure /sedation MD Sedation Discharge Instructions to be given to the patient at discharge to home. [facility] Procedure Codes (Charges) Indication for Procedure Indication for procedure: bradycardia, respiratory distress, 3rd degree AV block Sedation/Anesthesia Procedure 1: Sedation/Anesthesia: 18413 Mod Sedation by the same physician;Init15 Min Child Age 5 & Up Total Sedation Time (minutes): 23 Procedure 2: Sedation/Anesthesia: 30875 Mod Sedation by the same physician; Ea [id number] Minutes Total Sedation Time (minutes): 23
--- NOTE | 2024-10-31 21:52 | Cardiac Catheterization ---
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 Cardiac Status Clinical evaluation leading to the procedure CAD Presenation: No Sxs, No angina Diagnostic Physicians Name: Carlos Shah MD, PhD Closure Device Recommendations: Medical Therapy and/or Counseling and Management Recommendatons (Once metabolically stabilized if the patient continues with third-degree AV block then a permanent pacemaker should be considered.) Cardiac Cath Procedure Full Procedure Date October 31, 2024 Pre-Procedure Diagnosis Pre-Procedure Diagnosis: Arrhythmia (Third-degree AV block) AUC Score AUC Score: 09 Post-Procedure Diagnosis Post-Procedure Diagnosis: Cardiothoracic Finding (Successful TV PM. Paced rate 80 bpm) Procedure(s) Performed Procedure(s) Performed: Temporary Pacemaker and Ultrasound Guided Vascular Access Pv Design And Installation Technician Carlos Shah MD, PhD Estimated Blood Loss Estimated Blood Loss: 3 cc Medication(s) Medication(s): Fentanyl, Lidocaine 1% and Versed Summary of Findings Brief description: Patient was brought to the cardiac catheterization suite where she was shaved and prepped in a sterile fashion. Sedated using IV Versed and fentanyl. Soft tissues of the right neck were anesthetized using 2 mL of 1% Xylocaine. Using the ultrasound for guidance (image saved) and a micropuncture kit the right internal jugular artery was accessed. The micropuncture sheath was inserted and then a short 0.035 J-tip wire was advanced through the micropuncture sheath. The micropuncture sheath was then exchanged for a 7 [place] sheath. Through the sheath a temporary pacing lead was advanced with the balloon inflated and positioned in the RV against the septum. The balloon was deflated. Patient was paced at 80 bpm, 1 mA, and sensitivity of 2. The sheath was sutured in place. The sheath cover was locked in place. The patient was then returned to the ICU for further workup and management. This ended the case. Hemodynamics Rest Ao:: Not obtained Final Ao: Not obtained LV: Not obtained Recommendations Recommendations: Medical Therapy and/or Counseling and Management Recommendatons (Once metabolically stabilized if the patient continues with third-degree AV block then a permanent pacemaker should be considered.) Radiation Exposure (mGy) 297 mGy, fluoroscopy time 2.7 minutes Contrast (mls) None Anesthesia 1 mg Versed, 25 mcg fentanyl IV. Start time 2116, end time 2139 Procedural Complication(s) None Disposition ICU I attest to the content of the Intraoperative Record and any orders documented therein. Any exceptions are noted below. [facility] Card Cath Procedure Codes Therapeutic Services & Ancillary Procedure 1: Cardiovascular Tx and Anc Procedures: 76086 Ultrasonic Guidance Vascular Access Procedure 2: Cardiovascular Tx and Anc Procedures: 58227 Temp Pacer Insert Moderate Sedation Procedure 1: Sedation/Anesthesia: 49337 Mod Sedation by the same physician;Init15 Min Child Age 5 & Up (Initial 15 minutes, start time 2116) Procedure 2: Sedation/Anesthesia: 04925 Mod Sedation by the same physician; Ea [id number] Minutes (Additional 8 minutes, end time 2139) PG Care Time/CCT Total # of Minutes Spent Total Time Spent with Patient: Total time spent is greater than 50% in coordination of care (as documented) at patient's floor/unit and/or counseling patient:
[2024-10-31 22:52] LABS: Calcium 8.5 mg/dl (8.6-10.3); Potassium 5.9 mmol/L (3.5-5.1)
[2024-10-31 22:56] LABS: BUN Creatinine Ratio 12.8 (10-20); Creatinine Clr Calc Pharmacy 28.6 ml/min
[2024-10-31] MEDS: ICU Protocol for HYPERglycemia SCH (23:09)
[2024-10-31 23:18] LABS: Urine Chloride < 15 mmol/L; Urine Potassium 24.3 mmol/L; Urine Sodium < 10 mmol/L
[2024-10-31] MEDS: HEPARIN SOD 5,000 UNIT/0.5 ML VIAL SQ SCH (23:19)
[2024-10-31] MEDS: cefTRIAXone SODIUM 2,000 MG/50 ML BAG IV SCH (23:19)
[2024-10-31] MEDS: LATANOPROST 0.005% OP SOLN 2.5 ML BTL OPB SCH (23:20)
[2024-10-31] MEDS: PANTOprazole 40 MG/10 ML SYR IV SCH (23:20)
[2024-10-31 23:29] LABS: Appearance Urine Cloudy (Clear); Bacteria Urine Automated None Seen (None Seen); Bilirubin Urine Negative (Negative); Blood Urine 1+ (Negative); Cast Urine Automated >20 /lpf (0-2); Color Urine Yellow; Epithelial Cell Urine Auto 0-2 /hpf (0-2); Glucose Urine UA Negative (Negative); Hyaline Casts Urine Present /lpf (None Presnt); Ketones Urine Negative (Negative); Leukocyte Esterase Urine Negative (Negative); Nitrite Urine Negative (Negative); Protein Urine 1+ (Negative); RBC Urine Automated 0-2 /hpf (0-2); Specific Gravity Urine 1.011 (1.000-1.030); Urobilinogen Urine Negative (Negative); WBC Urine Automated 0-5 /hpf (0-5)
[2024-11-01] MEDS: ACETAMINOPHEN 1,000 MG/100 ML VIAL IV STA (01:38)
[2024-11-01] MEDS: LIDOCAINE 5% 1 PATCH TD STA (01:45)
[2024-11-01 03:04] LABS: BUN Creatinine Ratio 14.8 (10-20); Calcium 8.4 mg/dl (8.6-10.3); Creatinine Clr Calc Pharmacy 31.8 ml/min; Potassium 6.4 mmol/L (3.5-5.1); Troponin I High Sensitivity 54.9 pg/ml (0-14)
[2024-11-01] MEDS: DEXTROSE 50% 50 ML SYRINGE IV STA (03:24)
[2024-11-01] MEDS: INSULIN HUMAN REGULAR PER UNIT 10 UNITS in SYRINGE 9.9 ML IV ONE (03:29)
[2024-11-01] MEDS: CALCIUM GLUCONATE 1,000 MG/60 ML BAG IV STA (03:33)
[2024-11-01] MEDS: PATIROMER CALCIUM SORBITEX 8.4 GM PACK PO STA (03:33)
--- NOTE | 2024-11-01 04:03 | Communication Note ---
Date of Service: November 01, 2024 0350- Patient lost capture on TVP. HR dropped to 30s with subsequent decrease in SpO2 and increase in RR. Patient was turned on left side and MA increased until capture. Capture occurred at 2.5MA (increased from 1.0). Attempted to decrease Ma back and lost capture. Current settings of VVI 80bpm, MA 2.5, and sensitivity 2.0. Will leave at these settings as she had increase in her SPO2 and breathing efforts back to her baseline. Did update Dr. Heck with no further recommendations. - K level increased as well from 5.9-6.4- treatment already undertaken for this - PRODUCT ACCOUNTANT improved to 1.62 - NA level 113 stable increase - HCO3 improved to 23 - If she remains with hyperkalemia and hyponatremia this morning would need to kaliureses patient so would provide 100ml of 3% saline and 40mg IV Lasix Jeremy RAZA (ACN-)
[2024-11-01 05:05] LABS: Base Excess VBG -2.9 mEq/L; HCO3 VBG 22 mmol/L; Oxygen Saturation VBG 89.9 %; PCO2 VBG 38 mmHg (38-50); PO2 VBG 61 mmHg; pH VBG 7.37 (7.36-7.41)
[2024-11-01 05:11] LABS: Hematocrit (blood only) 26.1 % (37.0-47.0); Hemoglobin 9.3 g/dl (12.0-16.0); Mean Corpuscular Hgb Conc 35.6 g/dL (32.0-36.0); Mean Corpuscular Volume 92.6 fL (80.0-100.0); Mean Platelet Volume 10.7 fL (9.4-12.4); Platelet Count 249 K/uL (130-400); RDW Coefficient of Variation 14.6 % (11.5-14.5); RDW Standard Deviation 49.7 fL (36.4-46.3); Red Blood Count 2.82 M/uL (4.20-5.40)
[2024-11-01 05:36] LABS: BUN Creatinine Ratio 15.4 (10-20); Creatinine Clr Calc Pharmacy 30.5 ml/min; Potassium 6.2 mmol/L (3.5-5.1)
[2024-11-01] MEDS ORDERED: STAT IV/IM STA (05:37)
[2024-11-01] MEDS: SODIUM CHLORIDE 3 % 150 ML IV ONE (05:58)
[2024-11-01] MEDS ORDERED: LEVOTHYROXINE SODIUM 100 MCG TABLET PO SCH (06:30)
[2024-11-01] MEDS ORDERED: Nursing to Pharmacy Communication SCH (08:15)
--- NOTE | 2024-11-01 08:32 | Hospitalist Progress Note ---
Date of Service November 01, 2024 Assessment & Plan (1) Acute hyponatremia: (2) Complete heart block: (3) Acute kidney injury superimposed on CKD: (4) Hypothyroidism: (5) COPD (chronic obstructive pulmonary disease): Plan 74-year-old woman with severe COPD history of hyponatremia hypothyroidism which is undertreated and depression on several medications who was admitted with severe hyponatremia and third-degree heart block with bradycardia Presentation does make me wonder if she is taking her medications appropriately (did she actually stop the HCTZ and is she actually taking her levothyroxine) # severe hyponatremiacritical level of 111 at admission, treated with several 100 mL boluses 3% saline 113 in a.m., goal 114-117. up to 118 this afternoon, appropriate rate of correction thus far however if increasing more tonight we will need to slow down with D5 water boluses and DDAVP if necessary -serial Na checks -urine and serum OSM, urine sodium low at <10 not consistent with SIADH -held venlafaxine and aripiprazole # third degree heart block with bradycardia and evidence of hypoperfusion - lethargy, hypotension, poor peripheral perfusion # minimal troponin elevation related to myocardial demand ischemia from hypotension and heart block. Troponin 29-->54 # prolonged QT -dopamine drip started in ED -transvenous pacer evening of 10/[address] Shah. intermittently losing capture. Consulted EP Dr. Boswell - discussed with him intrinsic rate has improved as hyperkalemia has improved -correct electrolyte disturbances. Hyperkalemia - peak of 6.4 overnight, treated with bicarb dextrose insulin and Lasix this morning, Kayexalate, improved to 5.0 - consulted manager power, reviewed recs in Dr. Simpson's note #Acute hypoxic and hypercarbic respiratory failure #Severe underlying COPD -pulmonary edema should improve with better perfusion / heart rate and BP. -Bipap as needed -currently on steroids for endorine purposes -continue bronchodilators #WAYNE with hyperkalemia -ARB held -hyperkalemia treated see above -Cr improved from 1.8-->1.6-->1.4 with adequate UOP # consider infection - -UA not impressive, blood cultures after abx are pending -consider pneumonia -procalcitonin slightly elevated to 0.9 -cont CTX # hypothyroidism - has had increasing doses of levothyroxine as outpatient currently 100 mcg however TSH remains 45, T4 not improved low at 0.4 on admission possible myxedema -continue IV levothyroxine and IV hydrocortisone # acute metabolic encephalopathy - due to hypotension/hypoperfusion and severe hyponatremia, possible myxedema coma -monitor mental status - improving -held hydroxyzine, gabapentin history of eosinophilia, clonal eosinophil population has been followed by Dr. 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 - obtain records from [facility] DVT ppx - SQ heparin Full code Updated her at bedside 10/31 Remains critically ill in ICU Admission and Anticipated Discharge Date Admission Date: October 31, 2024 Subjective more dyspneic / hypoxic, no chest pain awake and mentating much better several episodes of losing capture for TVP last night has been fatally but did improve after turning up milliamps Physical Exam 2 Physical Exam: PHYSICAL EXAMINATION Last 24h vital signs reviewed, see documentation in flowsheet General: continues to be ill-appearing but much improved compared to yesterday color is much better and she is more alert HEENT: Normocephalic, atraumatic, pupils round and equal, moist mucous membranes Lungs: increased work of breathing clear anteriorly no wheezing Heart: regular no murmur no JVD. paced on monitor Abdomen: Soft, nontender, nondistended. Extremities: hands are now warm legs are also warm without mottling but feet remain cool pulses intact Neuro: awake and alert oriented to basic situation and verbal, face is asymmetric but that is baseline noted on previous admission, moves 4 extremities spontaneously Psych: calm, normal behavior Results & Data Results & Data Vital Signs (Past 12 Hours) Vital Signs Temp Pulse Pulse Pulse Resp BP Pulse Ox 11/01/24 08:03 80 25 H 90 11/01/24 08:00 163/61 H 11/01/24 07:54 69 25 H 92 11/01/24 07:53 80 11/01/24 07:37 60 25 H 91 11/01/24 07:30 155/69 H 11/01/24 07:27 60 21 91 11/01/24 07:09 64 23 89 L 11/01/24 07:01 144/68 H 11/01/24 06:54 46 L 25 H 90 11/01/24 06:48 80 31 H 92 11/01/24 06:00 80 16 145/65 H 92 11/01/24 05:00 80 23 142/64 H 90 11/01/24 04:30 22 159/62 H 91 11/01/24 04:00 80 11/01/24 04:00 80 25 H 142/72 H 91 11/01/24 03:54 80 22 92 11/01/24 03:30 80 26 H 140/65 92 11/01/24 03:14 80 20 93 11/01/24 03:05 36.8 C 26 H 94 11/01/24 02:01 80 23 139/76 93 11/01/24 01:30 80 23 155/75 H 93 11/01/24 01:09 80 28 H 154/69 H 91 11/01/24 00:49 80 23 167/89 H 91 11/01/24 00:30 80 25 H 145/72 H 91 11/01/24 00:16 36.3 C L 80 158/82 H 11/01/24 00:05 80 11/01/24 00:01 36.3 C L 80 20 177/75 H 93 11/01/24 00:00 80 10/31/24 23:45 36.3 C L 80 15 137/77 91 10/31/24 23:30 80 15 124/65 91 10/31/24 23:15 80 16 124/61 92 10/31/24 23:00 80 16 103/67 93 10/31/24 22:45 80 15 133/64 92 10/31/24 22:40 80 144/83 H 10/31/24 22:30 80 17 144/83 H 94 10/31/24 22:00 80 10/31/24 22:00 80 10/31/24 21:32 80 20 96 10/31/24 21:30 28 H 93 10/31/24 20:47 37 L 28 H 143/55 H 94 10/31/24 20:30 38 L 28 H 138/49 L 94 O2 Del Method O2 Flow Rate FiO2 11/01/24 08:03 High Flow Nasal Cannula 40 50 11/01/24 08:00 11/01/24 07:54 11/01/24 07:53 11/01/24 07:37 High Flow Nasal Cannula 40 50 11/01/24 07:30 11/01/24 07:27 11/01/24 07:09 High Flow Nasal Cannula 40 50 11/01/24 07:01 11/01/24 06:54 11/01/24 06:48 11/01/24 06:00 High Flow Nasal Cannula 40 50 11/01/24 05:00 High Flow Nasal Cannula 40 50 11/01/24 04:30 High Flow Nasal Cannula 40 50 11/01/24 04:00 11/01/24 04:00 High Flow Nasal Cannula 40 50 11/01/24 03:54 High Flow Nasal Cannula 40 50 11/01/24 03:30 High Flow Nasal Cannula 40 50 11/01/24 03:14 High Flow Nasal Cannula 40 50 11/01/24 03:05 High Flow Nasal Cannula 11/01/24 02:01 High Flow Nasal Cannula 40 50 11/01/24 01:30 High Flow Nasal Cannula 40 50 11/01/24 01:09 High Flow Nasal Cannula 40 50 11/01/24 00:49 High Flow Nasal Cannula 40 50 11/01/24 00:30 High Flow Nasal Cannula 40 50 11/01/24 00:16 11/01/24 00:05 11/01/24 00:01 High Flow Nasal Cannula 40 40 11/01/24 00:00 10/31/24 23:45 High Flow Nasal Cannula 40 40 10/31/24 23:30 High Flow Nasal Cannula 40 40 10/31/24 23:15 High Flow Nasal Cannula 40 40 10/31/24 23:00 High Flow Nasal Cannula 40 40 10/31/24 22:45 High Flow Nasal Cannula 40 40 10/31/24 22:40 10/31/24 22:30 High Flow Nasal Cannula 40 40 10/31/24 22:00 10/31/24 22:00 10/31/24 21:32 High Flow Nasal Cannula 40 40 10/31/24 21:30 High Flow Nasal Cannula 45 70 10/31/24 20:47 High Flow Nasal Cannula 45 70 10/31/24 20:30 High Flow Nasal Cannula 45 70 Laboratory Results 11/01/24 04:55 11/01/24 14:53 PG Care Time/CCT Total # of Minutes Spent Total Time Spent with Patient: Total time spent is greater than 50% in coordination of care (as documented) at patient's floor/unit and/or counseling patient: Coding Level of Care Code 23548 SUB INP/OBS CARE 3/50MIN Diagnoses Acute hyponatremia E87.1 Complete heart block I44.2 Acute kidney injury superimposed on CKD N17.9; N18.9 Hypothyroidism E03.9 Hypothyroidism type: unspecified COPD (chronic obstructive pulmonary disease) J44.9 (4) Hypothyroidism Hypothyroidism type: unspecified Qualified Code(s): E03.9 - Hypothyroidism, unspecified
[2024-11-01] MEDS: UMECLIDINIUM BROMIDE 62.5MCG/BLISTER 7 PUFFS/INHALER INH SCH (08:45)
[2024-11-01] MEDS: FLUTICASONE/VILANTEROL 200/25MCG 14 PUFFS/INHALER INH SCH (08:46)
[2024-11-01] MEDS: AMMONIUM LACTATE 12% LOTION 225 GM BTL EXT SCH (08:47)
[2024-11-01] MEDS: LEVOTHYROXINE SODIUM 100 MCG in SYRINGE 0 ML IV SCH (08:47)
[2024-11-01 08:57] LABS: BUN Creatinine Ratio 15.7 (10-20); Calcium 9.2 mg/dl (8.6-10.3); Potassium 6.4 mmol/L (3.5-5.1)
[2024-11-01] MEDS ORDERED: PANTOprazole 40 MG TAB PO SCH (09:00)
--- NOTE | 2024-11-01 09:29 | XRay Report ---
XR chest 1V portable CLINICAL HISTORY: lines COMPARISON STUDY: 10/31/2024 FINDINGS: There is an interval temporary pacer from a right IJ approach with the distal tip of the le ad overlying the left ventricle superiorly. There is stable cardiomegaly with pulmonary vascular judy estion. There is increased patchy opacity throughout the right lung and at the left lung base. Stable blunting of the costophrenic angles. No pneumothorax. IMPRESSION: 1. No pneumothorax. 2. CHF. 3. Increased pulmonary opacities could represent asymmetric pulmonary edema or pneumonia. 4. Stable small pleural effusions. ACT 112: Negative or not required by law. Electronically signed by: Ruiz Vidales M.D. 11/01/2024 9:28 AM
[2024-11-01] MEDS: FUROSEMIDE 40 MG/4 ML VIAL IV ONE (09:38)
[2024-11-01 09:49] LABS: Base Excess VBG -1.7 mEq/L; HCO3 VBG 23 mmol/L; Oxygen Saturation VBG 86.8 %; PCO2 VBG 38 mmHg (38-50); PO2 VBG 60 mmHg; pH VBG 7.39 (7.36-7.41)
--- NOTE | 2024-11-01 10:01 | Nephrology Consultation ---
Date of Consultation November 01, 2024 Assessment & Plan (1) Acute hyponatremia: (2) Symptomatic bradycardia: Plan 74-year-old female with baseline decent kidney function, baseline creatinine 1.0-1.1 mg/dl with prior repeated history of WAYNE, admitted after an episode of syncope and found to have symptomatic bradycardia, heart rate 37, WAYNE critical electrolyte abnormality and hypothyroidism. Creatinine was 1.6 mg/dl on admission, sodium 111 slowly improved 115 this morning after multiple doses of hypertonic saline. Potassium was 5.7 which worsened to 6.4 this morning. Had temporary pacemaker placed yesterday, heart rate improved. Kidney function staying relatively stable this morning. Had Temporary pacemaker placed yesterday. Potassium was 6.4 this morning, after the lab sodium bicarbonate, Lasix IV, insulin, D50 ordered. -- Agree with above management as sodium has been slowly improving, continue to monitor every 4 hours. --As kidney function staying relatively stable, vital sign improved and she is having decent urine output, hopefully potassium will start to improve with above measures. Thank you for allowing me to participate in your patient's care. It was a pleasure to see Shira History of Present Illness Reason for Consultation: WAYNE, Hyponatremia, Hyperkalemia Attending Physician: Ewa Acosta MD History of Present Illness Ms. Shira Lenz is a 74-year-old F with past medical history significant for hypertension, prior history of repeated episodes of acute kidney injury, hyponatremia, admitted to the hospital after a syncopal episode at home. Nephrology consult was requested for management of acute kidney injury and multiple critical electrolyte abnormality including acute hyponatremia, hyperkalemia. EMR records were reviewed in detail during patient's visit. Shira was brought to ER yesterday after she had a witnessed syncopal episode at home. In ER she was noted to be significantly bradycardic with heart rate 37. She was taken to [facility] and had a temporary transvenous catheter placed after she failed to respond to dopamine. Heart rate improved but still occasionally having issues with capturing the heart rate. Lab was also notable for critical hyponatremia, serum sodium was 111, potassium was 5.7. Creatinine was 1.6 with baseline creatinine around 1.0-1.1 although she previously had several episodes of WAYNE. Urinalysis with no significant proteinuria or hematuria. Prior renal imaging was otherwise unremarkable. She was given 3% saline x 3, last was given early this morning, serum sodium improved to 115 this morning. Urine osmolality was 204. During last admission in August 2024 when she was admitted for acute hyponatremia, serum sodium was 120s which eventually improved. Potassium has been worsening, last potassium was 6.4, yesterday she received 1 dose of Veltassa. After last labs she was started on IV bicarbonate, IV Lasix, regular insulin and D50. Creatinine staying relatively stable since admission and multiple check and last creatinine this morning was 1.7. Has history of hypothyroidism but unclear whether she has been taking her levothyroxine as on admission at TSH was 44 and T4 was low and she was started on IV levothyroxine. Hemoglobin was 9.3 with leukocytosis. Has history of severe COPD but no history of malignancy. She is currently on high flow nasal cannula oxygen, denies shortness of breath. Blood pressure staying relatively stable. Allergies Allergy/AdvReac Type Severity Reaction Status Date / Time Penicillins Allergy Severe Swelling Verified 10/31/24 17:40 of Lip/Tongue/Throat hydrochlorothiazide AdvReac Intermediate hyponatremia Verified 10/31/24 17:40 sodium 120 Home Medications Medication Instructions Recorded Confirmed Type montelukast 10 mg tablet 10 mg PO QAM 02/12/19 10/31/24 History pantoprazole 40 mg tablet,delayed 40 mg PO QAM 02/12/19 10/31/24 History release (Protonix) aripiprazole 2 mg tablet (Abilify) 1 mg PO QAM 11/27/21 10/31/24 History atorvastatin 20 mg tablet 20 mg PO HS 01/07/22 10/31/24 History mirtazapine 15 mg tablet 15 mg PO QPM 03/19/22 10/31/24 History albuterol sulfate 2.5 mg/3 mL 2.5 mg inhalation DIRECTED PRN 09/05/24 10/31/24 History (0.083 %) solution for nebulization Wheezing/SOB amlodipine 10 mg tablet 10 mg PO QAM 09/05/24 10/31/24 History ammonium lactate 12 % topical cream 1 applic topical BID 09/05/24 10/31/24 History fluticasone furoate 200 1 inh inhalation QAM 09/05/24 10/31/24 History mcg-vilanterol 25 mcg/dose inhalation powder (Breo Ellipta) gabapentin 300 mg capsule 300 mg PO BID 09/05/24 10/31/24 History hydroxyzine HCl 25 mg tablet 25 mg PO HS PRN Itching 09/05/24 10/31/24 History latanoprost 0.005 % eye drops 1 drp OPB HS 09/05/24 10/31/24 History losartan 100 mg tablet 100 mg PO QAM 09/05/24 10/31/24 History magnesium oxide 400 mg (241.3 mg 400 mg PO BID 09/05/24 10/31/24 History magnesium) tablet tiotropium bromide 18 mcg capsule 1 cap inhalation QAM 09/05/24 10/31/24 History with inhalation device (Spiriva with HandiHaler) venlafaxine 150 mg 150 mg PO QAM 09/05/24 10/31/24 History capsule,extended release 24 hr levothyroxine 100 mcg tablet 100 mcg PO DAILYBB 10/31/24 10/31/24 History ropinirole 0.25 mg tablet 0.25 mg PO HS 10/31/24 10/31/24 History Patient History Medical History Abdominal pain Glaucoma Mood disorder Herniated cervical disc Osteoarthritis Hiatal hernia History of colon polyps History of colitis 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 Deaf Left Asthma uses PRN neb daily; rarely uses PRN inh Lower back pain Surgical History History of cataract surgery History of tonsillectomy History of total abdominal hysterectomy and bilateral salpingo-oophorectomy Status post proximal row carpectomy of wrist Rt History of repair of left rotator cuff History of esophagogastroduodenoscopy (EGD) History of colonoscopy History of sinus surgery balloon sinuplasty Family History Sister Sinusitis Cancer Hypertension Father Cancer Aunt Diabetes Brother Coronary heart disease Allergies Sinusitis Stroke Diabetes Other No family history of adverse response to anesthesia Social History Smoking Status: Former smoker Tobacco Type: Cigarettes Age Started Using Tobacco: 16; Cigarettes Per Day: 40; Smoking End Date: 2006; Second Hand Exposure: No; Do You Dip or Chew Tobacco: No; Hx Alcohol Use: Yes Alcohol type: wine Hx Substance Use: No Preferred Language: Romanian Communication Ability: Effective Communication Ability Comment: pt is deaf in left ear, hearing aid in right Hops Farmworker Required: No Beliefs That Will Affect Care: None Current Living Situation: Spouse current occupational status: retired 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[employer] [place] Other Information That Helps Us Care for You: No Feels Safe at Home: Yes Safety Concerns: Feels Safe At This Time Assistive Devices: Oxygen - Continuous Review of Systems Review of Systems: All systems reviewed & are unremarkable except as noted in Subjective Physical Exam Constitutional: WD/WN, vitals as above no acute distress Eyes: + anicteric sclerae Neck: normal visual inspection Respiratory: no respiratory distress Auscultation: + diminished lung sounds Cardiovascular: Rate/Rhythm: regular rate and regular rhythm Heart Sounds: normal S1 and normal S2 Extremities: no edema Gastrointestinal (Abdomen): Inspection/Auscultation: abdomen normal to inspection Percussion/Palpation: abdomen soft; abdomen nontender Musculoskeletal: Extremities: extremities normal to inspection Skin: no rashes, warm and dry Neurologic: no focal motor deficits Psychiatric: Orientation: alert and oriented x 3 Affect: euthymic affect Results & Data Vital Signs (Past 12 Hours) Vital Signs Temp Pulse Pulse Pulse Resp BP Pulse Ox 11/01/24 08:30 149/62 H 11/01/24 08:28 11/01/24 08:21 80 29 H 90 11/01/24 08:16 142/83 H 11/01/24 08:16 142/83 H 11/01/24 08:15 80 28 H 90 11/01/24 08:03 80 25 H 90 11/01/24 08:00 163/61 H 11/01/24 07:54 69 25 H 92 11/01/24 07:53 80 11/01/24 07:37 60 25 H 91 11/01/24 07:30 155/69 H 11/01/24 07:27 60 21 91 11/01/24 07:09 64 23 89 L 11/01/24 07:01 144/68 H 11/01/24 06:54 46 L 25 H 90 11/01/24 06:48 80 31 H 92 11/01/24 06:00 80 16 145/65 H 92 11/01/24 05:00 80 23 142/64 H 90 11/01/24 04:30 22 159/62 H 91 11/01/24 04:00 80 11/01/24 04:00 80 25 H 142/72 H 91 11/01/24 03:54 80 22 92 11/01/24 03:30 80 26 H 140/65 92 11/01/24 03:14 80 20 93 11/01/24 03:05 36.8 C 26 H 94 11/01/24 02:01 80 23 139/76 93 11/01/24 01:30 80 23 155/75 H 93 11/01/24 01:09 80 28 H 154/69 H 91 11/01/24 00:49 80 23 167/89 H 91 11/01/24 00:30 80 25 H 145/72 H 91 11/01/24 00:16 36.3 C L 80 158/82 H 11/01/24 00:05 80 11/01/24 00:01 36.3 C L 80 20 177/75 H 93 11/01/24 00:00 80 10/31/24 23:45 36.3 C L 80 15 137/77 91 10/31/24 23:30 80 15 124/65 91 10/31/24 23:15 80 16 124/61 92 10/31/24 23:00 80 16 103/67 93 10/31/24 22:45 80 15 133/64 92 10/31/24 22:40 80 144/83 H 10/31/24 22:30 80 17 144/83 H 94 O2 Del Method O2 Flow Rate FiO2 11/01/24 08:30 11/01/24 08:28 High Flow Nasal Cannula 40 50 11/01/24 08:21 11/01/24 08:16 11/01/24 08:16 11/01/24 08:15 11/01/24 08:03 High Flow Nasal Cannula 40 50 11/01/24 08:00 11/01/24 07:54 11/01/24 07:53 11/01/24 07:37 High Flow Nasal Cannula 40 50 11/01/24 07:30 11/01/24 07:27 11/01/24 07:09 High Flow Nasal Cannula 40 50 11/01/24 07:01 11/01/24 06:54 11/01/24 06:48 11/01/24 06:00 High Flow Nasal Cannula 40 50 11/01/24 05:00 High Flow Nasal Cannula 40 50 11/01/24 04:30 High Flow Nasal Cannula 40 50 11/01/24 04:00 11/01/24 04:00 High Flow Nasal Cannula 40 50 11/01/24 03:54 High Flow Nasal Cannula 40 50 11/01/24 03:30 High Flow Nasal Cannula 40 50 11/01/24 03:14 High Flow Nasal Cannula 40 50 11/01/24 03:05 High Flow Nasal Cannula 11/01/24 02:01 High Flow Nasal Cannula 40 50 11/01/24 01:30 High Flow Nasal Cannula 40 50 11/01/24 01:09 High Flow Nasal Cannula 40 50 11/01/24 00:49 High Flow Nasal Cannula 40 50 11/01/24 00:30 High Flow Nasal Cannula 40 50 11/01/24 00:16 11/01/24 00:05 11/01/24 00:01 High Flow Nasal Cannula 40 40 11/01/24 00:00 10/31/24 23:45 High Flow Nasal Cannula 40 40 10/31/24 23:30 High Flow Nasal Cannula 40 40 10/31/24 23:15 High Flow Nasal Cannula 40 40 10/31/24 23:00 High Flow Nasal Cannula 40 40 10/31/24 22:45 High Flow Nasal Cannula 40 40 10/31/24 22:40 10/31/24 22:30 High Flow Nasal Cannula 40 40 PG Care Time/CCT Total # of Minutes Spent Total Time Spent with Patient: Total time spent is greater than 50% in coordination of care (as documented) at patient's floor/unit and/or counseling patient: Coding Level of Care Code 23383 INT INP/OBS CARE 3/75MIN Diagnoses Acute hyponatremia E87.1 Symptomatic bradycardia R00.1
--- NOTE | 2024-11-01 10:12 | Critical Care Progress Note ---
Date of Service November 01, 2024 Assessment & Plan (1) Symptomatic bradycardia: (2) Complete heart block: (3) Hypothyroidism: (4) Acute kidney injury superimposed on CKD: (5) Acute hyponatremia: (6) COPD (chronic obstructive pulmonary disease): Plan Reason Critically Ill: Severe hyponatremia in setting of symptomatic bradycardia complicated by severe hyponatremia, elevated TSH, and end stage COPD. Neuro - Encephalopathy- Metabolic, Hx: Anxiety/Depression CAM ICU: + - Metbolic encephalopathy- multifactorial at this time to include: severe hyponatremia, myxedema coma, hypoperfusion from symptomatic bradycardia, and metabolic acidosis - Moderate improvement Cardiac - Symptomatic bradycardia- CHB, Shock- multifactorial (cardiogenic vs. distributive or combination), - Patient with symptomatic bradycardia without evidence of ischemia on ECG - Causes at this time remain multifactorial- - BRASH Syndrome- possible with ARB- mild acidosis, and WAYNE II, mild hyperkalemia- will hold ARB- Correct mild hyperkalemia - Electrolyte disturbances- hyponatremia, Hyperkalemia- As above- correct hyperkalemia, correct hyponatremia- consider providing calcium replacement - Myxedema Coma/Decompensated Hypothyroidism- as she is now with bradycardia, encephalopathy, severe hyponatremia- - Continue hydrocortisone for additional 24 hours - Status post transvenous pacer increase milliamps from 3-5 and had improved capture - As of 1400 patient has had episodes of negative normal sinus rhythm with a rate greater than 80 Respiratory - Hypoxic respiratory failure acute on chronic, end stage COPD - As she was not overtly hypercarbic on ABG- doubt this represents a true COPD exacerbation, however chronic disease exacerbated by bradycardia and low output - Normal oxygen saturation goal would be 88 to 92% however hemodynamics have improved when greater than 92 goal oxygen saturation will be 92-96 - HFNC with CPAP or BiPAP support as able- if continues to fail with hypoxia or hypercarbia will need to consider intubation- Patient has very high likelihood of failing extubation from mechanical ventilation - Continue her FERN, LABA/LAMA - Will empirically treat for COPD exacerbation convert to prednisone tomorrow with taper GI -transition from Protonix to Pepcid as Protonix could be associated with hyponatremia RENAL/LYTES - Metabolic Acidosis, Severe Hyponatremia, GRIS II on CKD III - Metabolic acidosis resolved - Hypoosmolar hyponatremia-improving - If patient reaches 120 mEq sodium will initiate vasopressin therapy to limit further sodium increase today - Hyperkalemia-worsened at7 AM lab draw, consult nephrology and initiate bicarbonate and insulin therapy given dose of Lokelma awaiting patiromer to take full effect - Repeat potassium was 5.1: Will stop insulin dextrose and bicarb - No acute needs - Continue andrews catheter at this time ENDO - Decompensated hypothyroidism, DMII, -Additional 24 hours of hydrocortisone and continue 100 mcg IV Synthroid until able to adequately take p.o. 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 histocytosis ID - Can't exclude sepsis as a cause- source not identified at this time - will send blood and urine culture- although received Rocephin prior to both cultures being sent -Rocephin empiric for probable COPD exacerbation x 10 days - Attempt to obtain sputum culture and BioFire -Empiric treatment with doxycycline load 200 mg then 100 twice daily for 10 days or until Legionella antigen negative LINES/IV ACCESS - PIV, Andrews, RIGHT IJ cordis with TVP Continue use of these lines DVT PROPHYLAXIS - SCDS, Heparin 5000 units subq q12 DISPO: ICU until hemodynamics and electrolyte derangements are stable Admission and Anticipated Discharge Date Admission Date: October 31, 2024 Supervising Physician Co-Signing Physician Notes I have personally spent 80 minutes of critical care time in the direct management of this patient. This is a life/limb threatening event. This includes time spent evaluating patient, direct bedside care, chart review, placing orders, interpretation of diagnostic studies, discussion with consultants, patient, and/or family members regarding treatment decisions, as well as other required patient management activities. This time is exclusive of all separately billable procedures, and teaching time and separate from and in addition to any other critical care service time. Subjective Overnight patient required therapy for hyperkalemia. Occasionally lost capture which was related to patient movement. Since that time she has remained relatively stable. Slightly improved compared to yesterday needs reminders to minimize movement given need for transvenous pacemaker Physical Exam Physical Exam: General: Alert. Skin: Warm, improved compared to yesterday when bradycardic Head: Atraumatic Ears, nose, mouth and throat: airway patent Neck: Right IJ transvenous pacer present Cardiovascular: Normal peripheral perfusion Respiratory: no respiratory distress, pursed lip breathing: I suspect this is her baseline Gastrointestinal: Non distended Musculoskeletal: No deformity Results & Data Results & Data Vital Signs (Past 12 Hours) Vital Signs Temp Pulse Pulse Pulse Resp BP Pulse Ox 11/01/24 08:30 149/62 H 11/01/24 08:28 11/01/24 08:21 80 29 H 90 11/01/24 08:16 142/83 H 11/01/24 08:16 142/83 H 11/01/24 08:15 80 28 H 90 11/01/24 08:03 80 25 H 90 11/01/24 08:00 163/61 H 11/01/24 07:54 69 25 H 92 11/01/24 07:53 80 11/01/24 07:37 60 25 H 91 11/01/24 07:30 155/69 H 11/01/24 07:27 60 21 91 11/01/24 07:09 64 23 89 L 11/01/24 07:01 144/68 H 11/01/24 06:54 46 L 25 H 90 11/01/24 06:48 80 31 H 92 11/01/24 06:00 80 16 145/65 H 92 11/01/24 05:00 80 23 142/64 H 90 11/01/24 04:30 22 159/62 H 91 11/01/24 04:00 80 11/01/24 04:00 80 25 H 142/72 H 91 11/01/24 03:54 80 22 92 11/01/24 03:30 80 26 H 140/65 92 11/01/24 03:14 80 20 93 11/01/24 03:05 36.8 C 26 H 94 11/01/24 02:01 80 23 139/76 93 11/01/24 01:30 80 23 155/75 H 93 11/01/24 01:09 80 28 H 154/69 H 91 11/01/24 00:49 80 23 167/89 H 91 11/01/24 00:30 80 25 H 145/72 H 91 11/01/24 00:16 36.3 C L 80 158/82 H 11/01/24 00:05 80 11/01/24 00:01 36.3 C L 80 20 177/75 H 93 11/01/24 00:00 80 10/31/24 23:45 36.3 C L 80 15 137/77 91 10/31/24 23:30 80 15 124/65 91 10/31/24 23:15 80 16 124/61 92 10/31/24 23:00 80 16 103/67 93 10/31/24 22:45 80 15 133/64 92 10/31/24 22:40 80 144/83 H 10/31/24 22:30 80 17 144/83 H 94 O2 Del Method O2 Flow Rate FiO2 11/01/24 08:30 11/01/24 08:28 High Flow Nasal Cannula 40 50 11/01/24 08:21 11/01/24 08:16 11/01/24 08:16 11/01/24 08:15 11/01/24 08:03 High Flow Nasal Cannula 40 50 11/01/24 08:00 11/01/24 07:54 11/01/24 07:53 11/01/24 07:37 High Flow Nasal Cannula 40 50 11/01/24 07:30 11/01/24 07:27 11/01/24 07:09 High Flow Nasal Cannula 40 50 11/01/24 07:01 11/01/24 06:54 11/01/24 06:48 11/01/24 06:00 High Flow Nasal Cannula 40 50 11/01/24 05:00 High Flow Nasal Cannula 40 50 11/01/24 04:30 High Flow Nasal Cannula 40 50 11/01/24 04:00 11/01/24 04:00 High Flow Nasal Cannula 40 50 11/01/24 03:54 High Flow Nasal Cannula 40 50 11/01/24 03:30 High Flow Nasal Cannula 40 50 11/01/24 03:14 High Flow Nasal Cannula 40 50 11/01/24 03:05 High Flow Nasal Cannula 11/01/24 02:01 High Flow Nasal Cannula 40 50 11/01/24 01:30 High Flow Nasal Cannula 40 50 11/01/24 01:09 High Flow Nasal Cannula 40 50 11/01/24 00:49 High Flow Nasal Cannula 40 50 11/01/24 00:30 High Flow Nasal Cannula 40 50 11/01/24 00:16 11/01/24 00:05 11/01/24 00:01 High Flow Nasal Cannula 40 40 11/01/24 00:00 10/31/24 23:45 High Flow Nasal Cannula 40 40 10/31/24 23:30 High Flow Nasal Cannula 40 40 10/31/24 23:15 High Flow Nasal Cannula 40 40 10/31/24 23:00 High Flow Nasal Cannula 40 40 10/31/24 22:45 High Flow Nasal Cannula 40 40 10/31/24 22:40 10/31/24 22:30 High Flow Nasal Cannula 40 40 Critical Care Results & Data Vital Signs (Past 12 Hours) Vital Signs Temp Pulse Pulse Pulse Resp BP Pulse Ox 11/01/24 11:03 89 30 H 89 L 11/01/24 11:00 164/89 H 11/01/24 10:54 87 28 H 89 L 11/01/24 10:45 86 27 H 91 11/01/24 10:45 157/69 H 11/01/24 10:30 80 28 H 89 L 11/01/24 10:15 144/89 H 11/01/24 10:15 80 25 H 89 L 11/01/24 10:15 80 30 H 91 11/01/24 10:12 80 29 H 90 11/01/24 10:00 156/69 H 11/01/24 09:54 80 31 H 90 11/01/24 09:30 150/80 H 11/01/24 09:24 80 30 H 90 11/01/24 09:21 80 32 H 11/01/24 08:48 80 24 88 L 11/01/24 08:46 132/81 11/01/24 08:36 80 26 H 90 11/01/24 08:33 80 32 H 89 L 11/01/24 08:30 149/62 H 11/01/24 08:28 11/01/24 08:21 80 29 H 90 11/01/24 08:16 142/83 H 11/01/24 08:16 142/83 H 11/01/24 08:15 80 28 H 90 11/01/24 08:03 80 25 H 90 11/01/24 08:00 163/61 H 11/01/24 07:54 69 25 H 92 11/01/24 07:53 80 11/01/24 07:37 60 25 H 91 11/01/24 07:30 155/69 H 11/01/24 07:27 60 21 91 11/01/24 07:09 64 23 89 L 11/01/24 07:01 144/68 H 11/01/24 06:54 46 L 25 H 90 11/01/24 06:48 80 31 H 92 11/01/24 06:00 80 16 145/65 H 92 11/01/24 05:00 80 23 142/64 H 90 11/01/24 04:30 22 159/62 H 91 11/01/24 04:00 80 11/01/24 04:00 80 25 H 142/72 H 91 11/01/24 03:54 80 22 92 11/01/24 03:30 80 26 H 140/65 92 11/01/24 03:14 80 20 93 11/01/24 03:05 36.8 C 26 H 94 11/01/24 02:01 80 23 139/76 93 11/01/24 01:30 80 23 155/75 H 93 O2 Del Method O2 Flow Rate FiO2 11/01/24 11:03 High Flow Nasal Cannula 40 50 11/01/24 11:00 11/01/24 10:54 11/01/24 10:45 11/01/24 10:45 11/01/24 10:30 11/01/24 10:15 11/01/24 10:15 11/01/24 10:15 High Flow Nasal Cannula 40 50 11/01/24 10:12 11/01/24 10:00 11/01/24 09:54 11/01/24 09:30 11/01/24 09:24 11/01/24 09:21 11/01/24 08:48 11/01/24 08:46 11/01/24 08:36 11/01/24 08:33 11/01/24 08:30 11/01/24 08:28 High Flow Nasal Cannula 40 50 11/01/24 08:21 11/01/24 08:16 11/01/24 08:16 11/01/24 08:15 11/01/24 08:03 High Flow Nasal Cannula 40 50 11/01/24 08:00 11/01/24 07:54 11/01/24 07:53 11/01/24 07:37 High Flow Nasal Cannula 40 50 11/01/24 07:30 11/01/24 07:27 11/01/24 07:09 High Flow Nasal Cannula 40 50 11/01/24 07:01 11/01/24 06:54 11/01/24 06:48 11/01/24 06:00 High Flow Nasal Cannula 40 50 11/01/24 05:00 High Flow Nasal Cannula 40 50 11/01/24 04:30 High Flow Nasal Cannula 40 50 11/01/24 04:00 11/01/24 04:00 High Flow Nasal Cannula 40 50 11/01/24 03:54 High Flow Nasal Cannula 40 50 11/01/24 03:30 High Flow Nasal Cannula 40 50 11/01/24 03:14 High Flow Nasal Cannula 40 50 11/01/24 03:05 High Flow Nasal Cannula 11/01/24 02:01 High Flow Nasal Cannula 40 50 11/01/24 01:30 High Flow Nasal Cannula 40 50 Lab & Micro Results (Past 24 Hours) RBC 2.82 M/uL (4.20-5.40) L 11/01/24 WBC 19.20 K/ul (4.8-10.8) H 11/01/24 Hgb 9.3 g/dl (12.0-16.0) L 11/01/24 Hct 26.1 % (37.0-47.0) L 11/01/24 MCV 92.6 fL (80.0-100.0) 11/01/24 MCH 33.0 pg (25.0-34.0) 11/01/24 MCHC 35.6 g/dL (32.0-36.0) 11/01/24 RDW Standard Deviation 49.7 fL (36.4-46.3) H 11/01/24 RDW Coefficient of Variation 14.6 % (11.5-14.5) H 11/01/24 Plt Count 249 K/uL (130-400) 11/01/24 MPV 10.7 fL (9.4-12.4) 11/01/24 Neutrophils (%) (Auto) 76.9 % 10/31/24 Lymphocytes (%) (Auto) 7.3 % 10/31/24 Monocytes # (Auto) 2.18 K/uL (0.11-0.59) H 10/31/24 Eosinophils # (Auto) 0.24 K/uL (0.00-0.50) 10/31/24 Immature Granulocyte % (Auto) 1.2 % 10/31/24 Neutrophils # (Auto) 13.11 K/uL (1.40-6.50) H 10/31/24 Lymphocytes # (Auto) 1.25 K/uL (1.20-3.40) 10/31/24 Monocytes # (Auto) 2.18 K/uL (0.11-0.59) H 10/31/24 Eosinophils # (Auto) 0.24 K/uL (0.00-0.50) 10/31/24 Basophils # (Auto) 0.06 K/uL (0.00-0.20) 10/31/24 Immature Granulocyte # (Auto) 0.21 K/uL (0.01-0.20) H 10/31 Na 118 mmol/L (136-145) L* 11/01/24 K 5.1 mmol/L (3.5-5.1) 11/01/24 Cl 84 mmol/L (98-107) L 11/01/24 CO2 24 mmol/L (21-32) 11/01/24 Anion Gap 10 (3-11) 11/01/24 BUN 27 mg/dl (6-23) H 11/01/24 Creatinine 1.69 mg/dl (0.6-1.2) H 11/01/24 BUN/Creatinine Ratio 16.0 (10-20) 11/01/24 Glu 124 mg/dl (70-99(Fasting)) H 11/01/24 Ca 8.6 mg/dl (8.6-10.3) 11/01/24 Phosphorus Level 5.0 mg/dl (2.5-4.9) H 10/31/24 Total Bilirubin 0.6 mg/dl (0.2-1.0) 10/31/24 AST 81 U/L (13-39) H 10/31/24 ALT 38 U/L (7-52) 10/31/24 Alkaline Phosphatase 126 U/L (34-104) H 10/31/24 TP 6.8 gm/dl (6.0-8.3) 10/31/24 Albumin 3.4 gm/dl (3.4-5.0) 10/31/24 Globulin 3.4 gm/dl (2.5-4.0) 10/31/24 Albumin/Globulin Ratio 1.0 (0.9-2) 10/31/24 Mg 2.3 mg/dl (1.7-2.4) 10/31/24 17:00 Calcium Level 8.6 mg/dl (8.6-10.3) 11/01/24 11:46 Prothromb Time International Ratio 1.1 (0.9-1.1) 10/31/24 17:0 1 Venous Blood pH 7.39 (7.36-7.41) 11/01/24 09:34 Venous Blood Partial Pressure CO2 38 mmHg (38-50) 11/01/24 09:3 4 Venous Blood Partial Pressure O2 60 mmHg 11/01/24 09:34 Venous Blood HCO3 23 mmol/L 11/01/24 09:34 Venous Blood Base Excess -1.7 mEq/L 11/01/24 09:34 Venous Blood Oxygen Saturation 86.8 % 11/01/24 09:34 Jose Ramon Test Pass 10/31/24 19:50 Diagnostic Findings (Past 24 Hours) Chest X-Ray 10/31/24 16:09 INDICATION: Syncope TECHNIQUE: Frontal radiograph of the chest. COMPARISON: Radiograph from 09/05/2024. FINDINGS: Cardiomegaly. Mild pulmonary vascular congestion. Small bilateral pleural effusions. No infiltrate or pneumothorax. No acute osseous abnormality evident. IMPRESSION: Mild pulmonary vascular congestion. Small bilateral pleural effusions. Electronically signed by Jeovany Mcconnell 10-31-2024 5:08 PM Chest X-Ray 11/01/24 08:50 XR chest 1V portable CLINICAL HISTORY: lines COMPARISON STUDY: 10/31/2024 FINDINGS: There is an interval temporary pacer from a right IJ approach with the distal tip of the lead overlying the left ventricle superiorly. There is stable cardiomegaly with pulmonary vascular congestion. There is increased patchy opacity throughout the right lung and at the left lung base. Stable blunting of the costophrenic angles. No pneumothorax. IMPRESSION: 1. No pneumothorax. 2. CHF. 3. Increased pulmonary opacities could represent asymmetric pulmonary edema or pneumonia. 4. Stable small pleural effusions. ACT 112: Negative or not required by law. Electronically signed by: Ruiz Vidales M.D. 11/01/2024 9:28 AM I & O Totals 24 Hours 10/31/24 11/01/24 11/02/24 06:59 06:59 06:59 Intake Total 1310.017 / 1310.017 100 / 100 Output Total 650 / 650 210 / 210 Balance 660.017 / 660.017 -110 / -110 Cumulative 10/31/24 15:34 thru 11/01/24 12:56 Intake Total 1410.017 Output Total 860 Balance 550.017 RT Ventilator Mngmt (Last Documented) Ventilator Ordered Settings Respiratory Rate 30 11/01/24 11:03 Fraction of Inspired Oxygen 50 11/01/24 11:03 Ventilator - PT Measurements Respiratory Rate 30 End-Tidal CO2 27 Coding Level of Care Code 96656 CRITICAL CARE 1ST 30-74M Additional Critical Care Time Additional 30min Critical Care Time: Yes - 94971 Diagnoses Symptomatic bradycardia R00.1 Complete heart block I44.2 Hypothyroidism E03.9 Hypothyroidism type: unspecified Acute kidney injury superimposed on CKD N17.9; N18.9 Acute hyponatremia E87.1 COPD (chronic obstructive pulmonary disease) J44.9 Additional Codes Critical Care Time - Additional 30min Critical Care Time: Yes - [id number] ([id number]) (3) Hypothyroidism Hypothyroidism type: unspecified Qualified Code(s): E03.9 - Hypothyroidism, unspecified
[2024-11-01] MEDS: SODIUM BICARBONATE 8.4% 150 MEQ in DEXTROSE 5% 1,000 ML IV STA (10:21)
[2024-11-01] MEDS: DEXTROSE 50% 50 ML SYRINGE IV ONE (10:21)
[2024-11-01] MEDS: INSULIN HUMAN REGULAR PER UNIT 10 UNITS in SYRINGE 9.9 ML IV STA (10:21)
[2024-11-01] MEDS: DOXYCYCLINE HYCLATE 100 MG in D5W MINI-B (NOW) IV SCH (10:35)
[2024-11-01] MEDS: SODIUM ZIRCONIUM CYCLOSILICATE 10 GM PACKET PO STA (10:48)
[2024-11-01 12:23] LABS: Calcium 8.6 mg/dl (8.6-10.3); Creatinine Clr Calc Pharmacy 30.5 ml/min; Potassium 5.1 mmol/L (3.5-5.1)
[2024-11-01 12:25] LABS: Adenovirus PCR Not Detected (NotDetected); Bordetella parapertussis PCR Not Detected (NotDetected); Bordetella pertussis PCR Not Detected (NotDetected); Chlamydia pneumoniae PCR Not Detected (NotDetected); Coronavirus 229E PCR Not Detected (NotDetected); Coronavirus CoV-2 (COVID19)PCR Not Detected (NotDetected); Coronavirus HKU1 PCR Not Detected (NotDetected); Coronavirus NL63 PCR Not Detected (NotDetected); Coronavirus OC43PCR Not Detected (NotDetected); Human Metapneumovirus PCR Not Detected (NotDetected); Influenza A PCR Not Detected (NotDetected); Influenza B PCR Not Detected (NotDetected); Mycoplasma pneumoniae PCR Not Detected (NotDetected); Parainfluenza Virus 1 PCR Not Detected (NotDetected); Parainfluenza Virus 2 PCR Not Detected (NotDetected); Parainfluenza Virus 3 PCR Not Detected (NotDetected); Parainfluenza Virus 4 PCR Not Detected (NotDetected); Respiratory Syncytial VirusPCR Not Detected (NotDetected); Rhinovirus/Enterovirus PCR Not Detected (NotDetected)
[2024-11-01] MEDS: ICU Protocol for HYPERglycemia SCH (12:27)
[2024-11-01 12:29] LABS: Troponin I High Sensitivity 48.6 pg/ml (0-14)
[2024-11-01] MEDS: HYDROCORTISONE SOD 100 MG in SYRINGE 0 ML IV SCH (13:02)
[2024-11-01 15:32] LABS: BUN Creatinine Ratio 17.2 (10-20); Calcium 8.9 mg/dl (8.6-10.3); Creatinine Clr Calc Pharmacy 32.8 ml/min
--- NOTE | 2024-11-01 17:06 | Cardiology Consultation ---
Date of Consultation November 01, 2024 Assessment & Plan (1) Symptomatic bradycardia: (2) Complete heart block: Plan 1. Complete heart block and associated symptomatic bradycardia: At the time of the patient's last admission she had an EKG which demonstrated normal sinus rhythm and first-degree AV block. She has a narrow complex QRS. This was suggest that her current conduction problem is related to her metabolic abnormalities as suspected as her potassium improves we will see intact conduction. Will continue to monitor her on telemetry and consider removal of the temporary transvenous pacemaker when reliable conduction has returned. History of Present Illness Reason for Consultation: Bradycardia, heart block Requesting Physician: Dave Attending Physician: Ewa Acosta MD History of Present Illness The patient is a 74-year-old woman with an extensive medical history including recent admission for symptomatic hyponatremia, hypothyroidism and COPD, who was brought to the hospital by her after suffering a syncopal episode. According to the 2 days ago the patient was in her normal state of health but yesterday morning was somewhat more lethargic and confused. She suffered a witnessed syncopal episode when he was trying to help her ambulate. There is no notable injury at that time but based on her symptoms she was brought to the hospital for evaluation. She was found to be severely bradycardic with complete AV block. She was mildly hypotensive and started on pressor support. Laboratory abnormalities included hyperkalemia, severe hyponatremia and hypothyroidism. The patient's respiratory status and hemodynamics declined and she underwent placement of a transvenous pacemaker for rate support. This morning the patient was alert and able answer questions. She recognized her and was able to confirm some shortness of breath. She denied any significant chest discomfort. No sense of palpitation. She cannot relate the events of the day prior. Allergies Allergy/AdvReac Type Severity Reaction Status Date / Time Penicillins Allergy Severe Swelling Verified 10/31/24 17:40 of Lip/Tongue/Throat hydrochlorothiazide AdvReac Intermediate hyponatremia Verified 10/31/24 17:40 sodium 120 Home Medications Medication Instructions Recorded Confirmed Type montelukast 10 mg tablet 10 mg PO QAM 02/12/19 10/31/24 History pantoprazole 40 mg tablet,delayed 40 mg PO QAM 02/12/19 10/31/24 History release (Protonix) aripiprazole 2 mg tablet (Abilify) 1 mg PO QAM 11/27/21 10/31/24 History atorvastatin 20 mg tablet 20 mg PO HS 01/07/22 10/31/24 History mirtazapine 15 mg tablet 15 mg PO QPM 03/19/22 10/31/24 History albuterol sulfate 2.5 mg/3 mL 2.5 mg inhalation DIRECTED PRN 09/05/24 10/31/24 History (0.083 %) solution for nebulization Wheezing/SOB amlodipine 10 mg tablet 10 mg PO QAM 09/05/24 10/31/24 History ammonium lactate 12 % topical cream 1 applic topical BID 09/05/24 10/31/24 History fluticasone furoate 200 1 inh inhalation QAM 09/05/24 10/31/24 History mcg-vilanterol 25 mcg/dose inhalation powder (Breo Ellipta) gabapentin 300 mg capsule 300 mg PO BID 09/05/24 10/31/24 History hydroxyzine HCl 25 mg tablet 25 mg PO HS PRN Itching 09/05/24 10/31/24 History latanoprost 0.005 % eye drops 1 drp OPB HS 09/05/24 10/31/24 History losartan 100 mg tablet 100 mg PO QAM 09/05/24 10/31/24 History magnesium oxide 400 mg (241.3 mg 400 mg PO BID 09/05/24 10/31/24 History magnesium) tablet tiotropium bromide 18 mcg capsule 1 cap inhalation QA 09/05/24 10/31/24 History with inhalation device (Spiriva with HandiHaler) venlafaxine 150 mg 150 mg PO QAM 09/05/24 10/31/24 History capsule,extended release 24 hr levothyroxine 100 mcg tablet 100 mcg PO DAILYBB 10/31/24 10/31/24 History ropinirole 0.25 mg tablet 0.25 mg PO HS 10/31/24 10/31/24 History Patient History Medical History Abdominal pain Glaucoma Mood disorder Herniated cervical disc Osteoarthritis Hiatal hernia History of colon polyps History of colitis 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 Deaf Left Asthma uses PRN neb daily; rarely uses PRN inh Lower back pain Surgical History History of cataract surgery History of tonsillectomy History of total abdominal hysterectomy and bilateral salpingo-oophorectomy Status post proximal row carpectomy of wrist Rt History of repair of left rotator cuff History of esophagogastroduodenoscopy (EGD) History of colonoscopy History of sinus surgery balloon sinuplasty Family History Sister Sinusitis Cancer Hypertension Father Cancer Aunt Diabetes Brother Coronary heart disease Allergies Sinusitis Stroke Diabetes Other No family history of adverse response to anesthesia Social History Smoking Status: Former smoker Tobacco Type: Cigarettes Age Started Using Tobacco: 16; Cigarettes Per Day: 40; Smoking End Date: 2006; Second Hand Exposure: No; Do You Dip or Chew Tobacco: No; Hx Alcohol Use: Yes Alcohol type: wine Hx Substance Use: No Preferred Language: Amharic Communication Ability: Unable Communication Ability Comment: pt is deaf in left ear, hearing aid in right Hot Box Operator Required: No Beliefs That Will Affect Care: None Current Living Situation: Spouse current occupational status: retired 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 Some respiratory distress. Using supplemental oxygen via high flow nasal cannula. HEENT: Sclerae are anicteric. Pupils are equal and reactive to light and accommodation. Extraocular movements were intact. Neuro: Cranial nerves intact Neck: Transvenous pacemaker in the right internal jugular vein. Lungs: Tachypnea. Crackles in the bases bilaterally. Bronchial breath sounds without wheezing. Cardiac: The rhythm was regular. S1 and S2 were normal. There are no murmurs on examination. The PMI was not markedly displaced on palpation. Extremities: Patient has bilateral radial pulses that are equal in intensity. There is no evidence cyanosis or clubbing. There was no evidence of significant peripheral edema bilaterally. Skin: There are no rashes noted on examination today. Results & Data Vital Signs (Past 12 Hours) Vital Signs Pulse Pulse Pulse Resp BP Pulse Ox O2 Del Method 11/01/24 16:36 88 26 H 90 11/01/24 16:01 173/83 H 11/01/24 16:01 173/83 H 11/01/24 16:00 86 11/01/24 15:57 90 28 H 11/01/24 15:36 87 28 H 93 11/01/24 15:27 87 29 H 91 11/01/24 15:09 88 30 H 93 High Flow Nasal Cannula 11/01/24 15:03 87 24 90 11/01/24 15:00 167/81 H 11/01/24 14:57 40 L 18 11/01/24 14:39 87 28 H 93 11/01/24 14:31 152/76 H 11/01/24 14:30 85 29 H 90 11/01/24 14:00 106/78 11/01/24 14:00 106/78 11/01/24 14:00 86 33 H 91 High Flow Nasal Cannula 11/01/24 13:39 87 27 H 96 11/01/24 13:30 149/76 H 11/01/24 13:06 80 28 H 11/01/24 13:01 156/65 H 11/01/24 12:54 68 27 H 11/01/24 12:46 168/89 H 11/01/24 12:39 89 25 H 11/01/24 12:30 130/112 H 11/01/24 12:27 85 26 H 91 11/01/24 12:15 157/72 H 11/01/24 12:15 85 28 H 88 L 11/01/24 12:06 86 31 H 90 11/01/24 12:00 156/77 H 11/01/24 11:57 85 25 H 92 11/01/24 11:45 151/99 H 11/01/24 11:42 85 27 H 94 11/01/24 11:30 148/70 H 11/01/24 11:30 85 26 H 91 11/01/24 11:15 149/75 H 11/01/24 11:12 88 32 H 92 11/01/24 11:03 89 30 H 89 L High Flow Nasal Cannula 11/01/24 11:00 164/89 H 11/01/24 10:54 87 28 H 89 L 11/01/24 10:45 86 27 H 91 11/01/24 10:45 157/69 H 11/01/24 10:30 80 28 H 89 L 11/01/24 10:15 144/89 H 11/01/24 10:15 80 25 H 89 L 11/01/24 10:15 80 30 H 91 High Flow Nasal Cannula 11/01/24 10:12 80 29 H 90 11/01/24 10:00 156/69 H 11/01/24 09:54 80 31 H 90 11/01/24 09:30 150/80 H 11/01/24 09:24 80 30 H 90 11/01/24 09:21 80 32 H 11/01/24 08:48 80 24 88 L 11/01/24 08:46 132/81 11/01/24 08:36 80 26 H 90 11/01/24 08:33 80 32 H 89 L 11/01/24 08:30 149/62 H 11/01/24 08:28 High Flow Nasal Cannula 11/01/24 08:21 80 29 H 90 11/01/24 08:16 142/83 H 11/01/24 08:16 142/83 H 11/01/24 08:15 80 28 H 90 11/01/24 08:03 80 25 H 90 High Flow Nasal Cannula 11/01/24 08:00 163/61 H 11/01/24 07:54 69 25 H 92 11/01/24 07:53 80 11/01/24 07:37 60 25 H 91 High Flow Nasal Cannula 11/01/24 07:30 155/69 H 11/01/24 07:27 60 21 91 11/01/24 07:09 64 23 89 L High Flow Nasal Cannula 11/01/24 07:01 144/68 H 11/01/24 06:54 46 L 25 H 90 11/01/24 06:48 80 31 H 92 11/01/24 06:00 80 16 145/65 H 92 High Flow Nasal Cannula 11/01/24 05:00 80 23 142/64 H 90 High Flow Nasal Cannula O2 Flow Rate FiO2 11/01/24 16:36 40 70 11/01/24 16:01 11/01/24 16:01 11/01/24 16:00 11/01/24 15:57 11/01/24 15:36 11/01/24 15:27 11/01/24 15:09 50 70 11/01/24 15:03 11/01/24 15:00 11/01/24 14:57 11/01/24 14:39 11/01/24 14:31 11/01/24 14:30 40 70 11/01/24 14:00 11/01/24 14:00 11/01/24 14:00 60 11/01/24 13:39 11/01/24 13:30 11/01/24 13:06 11/01/24 13:01 11/01/24 12:54 11/01/24 12:46 11/01/24 12:39 11/01/24 12:30 11/01/24 12:27 11/01/24 12:15 11/01/24 12:15 11/01/24 12:06 11/01/24 12:00 11/01/24 11:57 11/01/24 11:45 11/01/24 11:42 11/01/24 11:30 11/01/24 11:30 11/01/24 11:15 11/01/24 11:12 11/01/24 11:03 40 50 11/01/24 11:00 11/01/24 10:54 11/01/24 10:45 11/01/24 10:45 11/01/24 10:30 11/01/24 10:15 11/01/24 10:15 11/01/24 10:15 40 50 11/01/24 10:12 11/01/24 10:00 11/01/24 09:54 11/01/24 09:30 11/01/24 09:24 11/01/24 09:21 11/01/24 08:48 11/01/24 08:46 11/01/24 08:36 11/01/24 08:33 11/01/24 08:30 11/01/24 08:28 40 50 11/01/24 08:21 11/01/24 08:16 11/01/24 08:16 11/01/24 08:15 11/01/24 08:03 40 50 11/01/24 08:00 11/01/24 07:54 11/01/24 07:53 11/01/24 07:37 40 50 11/01/24 07:30 11/01/24 07:27 11/01/24 07:09 40 50 11/01/24 07:01 11/01/24 06:54 11/01/24 06:48 11/01/24 06:00 40 50 11/01/24 05:00 40 50 Diagnostic Findings Abnormal Lab Results 10/31/24 10/31/24 10/31/24 15:54 17:00 17:01 WBC RBC Hgb POC Hgb Hct POC Hct MCV MCH MCHC RDW Std Deviation RDW Coeff of Delmer Plt Count MPV PT 11.4 INR 1.1 APTT 30 PTT Ratio 1.1 Specimen Type Sample Site POC pH POC pCO2 POC pO2 POC HCO3 POC Total CO2 POC Base Excess O2 Sat Pulse Oximetry ABG pH (Temp Correct) ABG pCO2 (Temp Corrct POC ABG pO2 at Pt Temp POC ABG O2 Sat Jose Ramon Test VBG pH 7.29 L VBG pCO2 45 VBG pO2 39 VBG HCO3 22 VBG O2 Saturation < 60.0 VBG Base Excess -5.0 O2 Delivery Device POC FiO2 POC Sodium Sodium 111 L* POC Potassium Potassium 5.7 H Chloride 79 L Carbon Dioxide 22 Anion Gap 10 BUN 20 Creatinine 1.61 H Est Cr Clr Drug Dosing 32.1 eGFR 33.38 BUN/Creatinine Ratio 12.4 Glucose 136 H POC Glucose Osmolality 244 L Lactate Calcium 8.6 Phosphorus 5.0 H Magnesium 2.3 Total Bilirubin 0.6 AST 81 H ALT 38 Alkaline Phosphatase 126 H Troponin I High Sens Total Protein 6.8 Albumin 3.4 Globulin 3.4 Albumin/Globulin Ratio 1.0 Procalcitonin TSH 45.357 H Free T4 0.41 L Urine Color Urine Appearance Urine pH Ur Specific [place] Urine Protein Urine Glucose (UA) Urine Ketones Urine Blood Urine Nitrite Urine Bilirubin Urine Urobilinogen Ur Leukocyte Esterase Urine WBC (Auto) Urine RBC (Auto) U Hyaline Cast (Auto) U Epithel Cells (Auto) Urine Bacteria (Auto) Hyaline Casts Urine Osmolality Urine Sodium Urine Potassium Urine Chloride Urine Comment Nasal Screen MRSA (PCR) Stool Occult Bld Scrn Ethyl Alcohol mg/dL < 10.0 Adenovirus (PCR) B. pertussis DNA (PCR) B.parapertussis DNA PCR C. pneumoniae DNA (PCR) Coronavirus OC43 (PCR) Coronavirus HKU1 (PCR) Coronavirus 229E (PCR) SARS-CoV-2 (PCR) Coronavirus NL63 (PCR) Human Metapneumovir PCR Influenza Type A (PCR) Influenza Type B (PCR) M. pneumoniae (PCR) Parainfluenza 1 (PCR) Parainfluenza 2 (PCR) Parainfluenza 3 (PCR) Parainfluenza 4 (PCR) RSV (PCR) Entero/Rhino (PCR) 10/31/24 10/31/24 10/31/24 18:28 19:50 20:01 WBC 18.66 H RBC 2.92 L Hgb 9.6 L POC Hgb 10.5 L Hct 27.6 L POC Hct 31 L MCV 94.5 MCH 32.9 MCHC 34.8 RDW Std Deviation 51.7 H RDW Coeff of Delmer 14.8 H Plt Count 286 MPV 10.8 PT INR APTT PTT Ratio Specimen Type Arterial Sample Site R Radial POC pH 7.24 L POC pCO2 45 POC pO2 75 L POC HCO3 19 POC Total CO2 20 L POC Base Excess -9.0 O2 Sat Pulse Oximetry 92 ABG pH (Temp Correct) 7.235 L ABG pCO2 (Temp Corrct 45 POC ABG pO2 at Pt Temp 75 POC ABG O2 Sat 92.0 Jose Ramon Test Pass VBG pH VBG pCO2 VBG pO2 VBG HCO3 VBG O2 Saturation VBG Base Excess O2 Delivery Device VentiMask POC FiO2 60 POC Sodium 110 L* Sodium 113 L* 112 L* POC Potassium 6.0 H Potassium 5.8 H Chloride 82 L Carbon Dioxide 21 Anion Gap 10 BUN 21 Creatinine 1.50 H Est Cr Clr Drug Dosing 34.5 eGFR 36.34 BUN/Creatinine Ratio 14.0 Glucose 153 H POC Glucose Osmolality Lactate Calcium 8.4 L Phosphorus Magnesium Total Bilirubin AST ALT Alkaline Phosphatase Troponin I High Sens 29.1 H 29.0 H Total Protein Albumin Globulin Albumin/Globulin Ratio Procalcitonin 0.91 H TSH Free T4 Urine Color Urine Appearance Urine pH Ur Specific [place] Urine Protein Urine Glucose (UA) Urine Ketones Urine Blood Urine Nitrite Urine Bilirubin Urine Urobilinogen Ur Leukocyte Esterase Urine WBC (Auto) Urine RBC (Auto) U Hyaline Cast (Auto) U Epithel Cells (Auto) Urine Bacteria (Auto) Hyaline Casts Urine Osmolality Urine Sodium Urine Potassium Urine Chloride Urine Comment Nasal Screen MRSA (PCR) Stool Occult Bld Scrn Ethyl Alcohol mg/dL Adenovirus (PCR) B. pertussis DNA (PCR) B.parapertussis DNA PCR C. pneumoniae DNA (PCR) Coronavirus OC43 (PCR) Coronavirus HKU1 (PCR) Coronavirus 229E (PCR) SARS-CoV-2 (PCR) Coronavirus NL63 (PCR) Human Metapneumovir PCR Influenza Type A (PCR) Influenza Type B (PCR) M. pneumoniae (PCR) Parainfluenza 1 (PCR) Parainfluenza 2 (PCR) Parainfluenza 3 (PCR) Parainfluenza 4 (PCR) RSV (PCR) Entero/Rhino (PCR) 10/31/24 10/31/24 10/31/24 20:15 22:21 22:30 WBC RBC Hgb POC Hgb Hct POC Hct MCV MCH MCHC RDW Std Deviation RDW Coeff of [place]mer Plt Count MPV PT INR APTT PTT Ratio Specimen Type Sample Site POC pH POC pCO2 POC pO2 POC HCO3 POC Total CO2 POC Base Excess O2 Sat Pulse Oximetry ABG pH (Temp Correct) ABG pCO2 (Temp Corrct POC ABG pO2 at Pt Temp POC ABG O2 Sat Jose Ramon Test VBG pH VBG pCO2 VBG pO2 VBG HCO3 VBG O2 Saturation VBG Base Excess O2 Delivery Device POC FiO2 POC Sodium Sodium 112 L* POC Potassium Potassium 5.9 H Chloride 81 L Carbon Dioxide 21 Anion Gap 10 BUN 23 Creatinine 1.80 H D Est Cr Clr Drug Dosing 28.6 eGFR 29.20 BUN/Creatinine Ratio 12.8 Glucose 181 H POC Glucose Osmolality Lactate 4.7 H* 2.6 H* Calcium 8.5 L Phosphorus Magnesium Total Bilirubin AST ALT Alkaline Phosphatase Troponin I High Sens Total Protein Albumin Globulin Albumin/Globulin Ratio Procalcitonin TSH Free T4 Urine Color Yellow Urine Appearance Cloudy A Urine pH 5.0 Ur Specific [place] 1.011 Urine Protein 1+ H Urine Glucose (UA) Negative Urine Ketones Negative Urine Blood 1+ H Urine Nitrite Negative Urine Bilirubin Negative Urine Urobilinogen Negative Ur Leukocyte Esterase Negative Urine WBC (Auto) 0-5 Urine RBC (Auto) 0-2 U Hyaline Cast (Auto) >20 H U Epithel Cells (Auto) 0-2 Urine Bacteria (Auto) None Seen Hyaline Casts Present A Urine Osmolality 204 L Urine Sodium < 10 Urine Potassium 24.3 Urine Chloride < 15 Urine Comment Nasal Screen MRSA (PCR) Stool Occult Bld Scrn Ethyl Alcohol mg/dL Adenovirus (PCR) B. pertussis DNA (PCR) B.parapertussis DNA PCR C. pneumoniae DNA (PCR) Coronavirus OC43 (PCR) Coronavirus HKU1 (PCR) Coronavirus 229E (PCR) SARS-CoV-2 (PCR) Coronavirus NL63 (PCR) Human Metapneumovir PCR Influenza Type A (PCR) Influenza Type B (PCR) M. pneumoniae (PCR) Parainfluenza 1 (PCR) Parainfluenza 2 (PCR) Parainfluenza 3 (PCR) Parainfluenza 4 (PCR) RSV (PCR) Entero/Rhino (PCR) 10/31/24 10/31/24 11/01/24 23:03 Unknown 02:21 WBC RBC Hgb POC Hgb Hct POC Hct MCV MCH MCHC RDW Std Deviation RDW Coeff of Delmer Plt Count MPV PT INR APTT PTT Ratio Specimen Type Sample Site POC pH POC pCO2 POC pO2 POC HCO3 POC Total CO2 POC Base Excess O2 Sat Pulse Oximetry ABG pH (Temp Correct) ABG pCO2 (Temp Corrct POC ABG pO2 at Pt Temp POC ABG O2 Sat Jose Ramon Test VBG pH VBG pCO2 VBG pO2 VBG HCO3 VBG O2 Saturation VBG Base Excess O2 Delivery Device POC FiO2 POC Sodium Sodium 113 L* POC Potassium Potassium 6.4 H* Chloride 82 L Carbon Dioxide 23 Anion Gap 8 BUN 24 H Creatinine 1.62 H Est Cr Clr Drug Dosing 31.8 eGFR 33.14 BUN/Creatinine Ratio 14.8 Glucose 140 H POC Glucose 177 H Osmolality Lactate Calcium 8.4 L Phosphorus Magnesium Total Bilirubin AST ALT Alkaline Phosphatase Troponin I High Sens 54.9 H* D Total Protein Albumin Globulin Albumin/Globulin Ratio Procalcitonin TSH Free T4 Urine Color Urine Appearance Urine pH Ur Specific [place] Urine Protein Urine Glucose (UA) Urine Ketones Urine Blood Urine Nitrite Urine Bilirubin Urine Urobilinogen Ur Leukocyte Esterase Urine WBC (Auto) Urine RBC (Auto) U Hyaline Cast (Auto) U Epithel Cells (Auto) Urine Bacteria (Auto) Hyaline Casts Urine Osmolality Urine Sodium Urine Potassium Urine Chloride Urine Comment Nasal Screen MRSA (PCR) Negative Stool Occult Bld Scrn Ethyl Alcohol mg/dL Adenovirus (PCR) B. pertussis DNA (PCR) B.parapertussis DNA PCR C. pneumoniae DNA (PCR) Coronavirus OC43 (PCR) Coronavirus HKU1 (PCR) Coronavirus 229E (PCR) SARS-CoV-2 (PCR) Coronavirus NL63 (PCR) Human Metapneumovir PCR Influenza Type A (PCR) Influenza Type B (PCR) M. pneumoniae (PCR) Parainfluenza 1 (PCR) Parainfluenza 2 (PCR) Parainfluenza 3 (PCR) Parainfluenza 4 (PCR) RSV (PCR) Entero/Rhino (PCR) 11/01/24 11/01/24 11/01/24 04:55 05:01 07:48 WBC 19.20 H RBC 2.82 L Hgb 9.3 L POC Hgb Hct 26.1 L POC Hct MCV 92.6 MCH 33.0 MCHC 35.6 RDW Std Deviation 49.7 H RDW Coeff of Delmer 14.6 H Plt Count 249 MPV 10.7 PT INR APTT PTT Ratio Specimen Type Sample Site POC pH POC pCO2 POC pO2 POC HCO3 POC Total CO2 POC Base Excess O2 Sat Pulse Oximetry ABG pH (Temp Correct) ABG pCO2 (Temp Corrct POC ABG pO2 at Pt Temp POC ABG O2 Sat Jose Ramon Test VBG pH 7.37 VBG pCO2 38 VBG pO2 61 VBG HCO3 22 VBG O2 Saturation 89.9 VBG Base Excess -2.9 O2 Delivery Device POC FiO2 POC Sodium Sodium 113 L* 115 L* POC Potassium Potassium 6.2 H* 6.4 H* Chloride 82 L 84 L Carbon Dioxide 20 L 22 Anion Gap 11 9 BUN 26 H 26 H Creatinine 1.69 H 1.66 H Est Cr Clr Drug Dosing 30.5 31.0 eGFR 31.50 32.18 BUN/Creatinine Ratio 15.4 15.7 Glucose 123 H 111 H POC Glucose Osmolality Lactate Calcium 9.0 9.2 Phosphorus Magnesium Total Bilirubin AST ALT Alkaline Phosphatase Troponin I High Sens Total Protein Albumin Globulin Albumin/Globulin Ratio Procalcitonin TSH Free T4 Urine Color Urine Appearance Urine pH Ur Specific [place] Urine Protein Urine Glucose (UA) Urine Ketones Urine Blood Urine Nitrite Urine Bilirubin Urine Urobilinogen Ur Leukocyte Esterase Urine WBC (Auto) Urine RBC (Auto) U Hyaline Cast (Auto) U Epithel Cells (Auto) Urine Bacteria (Auto) Hyaline Casts Urine Osmolality Urine Sodium Urine Potassium Urine Chloride Urine Comment Nasal Screen MRSA (PCR) Stool Occult Bld Scrn Ethyl Alcohol mg/dL Adenovirus (PCR) B. pertussis DNA (PCR) B.parapertussis DNA PCR C. pneumoniae DNA (PCR) Coronavirus OC43 (PCR) Coronavirus HKU1 (PCR) Coronavirus 229E (PCR) SARS-CoV-2 (PCR) Coronavirus NL63 (PCR) Human Metapneumovir PCR Influenza Type A (PCR) Influenza Type B (PCR) M. pneumoniae (PCR) Parainfluenza 1 (PCR) Parainfluenza 2 (PCR) Parainfluenza 3 (PCR) Parainfluenza 4 (PCR) RSV (PCR) Entero/Rhino (PCR) 11/01/24 11/01/24 11/01/24 09:34 09:39 10:13 WBC RBC Hgb POC Hgb Hct POC Hct MCV MCH MCHC RDW Std Deviation RDW Coeff of [place] Plt Count MPV PT INR APTT PTT Ratio Specimen Type Sample Site POC pH POC pCO2 POC pO2 POC HCO3 POC Total CO2 POC Base Excess O2 Sat Pulse Oximetry ABG pH (Temp Correct) ABG pCO2 (Temp Corrct POC ABG pO2 at Pt Temp POC ABG O2 Sat Jose Ramon Test VBG pH 7.39 VBG pCO2 38 VBG pO2 60 VBG HCO3 23 VBG O2 Saturation 86.8 VBG Base Excess -1.7 O2 Delivery Device POC FiO2 POC Sodium Sodium POC Potassium Potassium 6.0 H Chloride Carbon Dioxide Anion Gap BUN Creatinine Est Cr Clr Drug Dosing eGFR BUN/Creatinine Ratio Glucose POC Glucose 117 H Osmolality Lactate 1.3 Calcium Phosphorus Magnesium Total Bilirubin AST ALT Alkaline Phosphatase Troponin I High Sens Total Protein Albumin Globulin Albumin/Globulin Ratio Procalcitonin TSH Free T4 Urine Color Urine Appearance Urine pH Ur Specific [place] Urine Protein Urine Glucose (UA) Urine Ketones Urine Blood Urine Nitrite Urine Bilirubin Urine Urobilinogen Ur Leukocyte Esterase Urine WBC (Auto) Urine RBC (Auto) U Hyaline Cast (Auto) U Epithel Cells (Auto) Urine Bacteria (Auto) Hyaline Casts Urine Osmolality Urine Sodium Urine Potassium Urine Chloride Urine Comment Nasal Screen MRSA (PCR) Stool Occult Bld Scrn Ethyl Alcohol mg/dL Adenovirus (PCR) B. pertussis DNA (PCR) B.parapertussis DNA PCR C. pneumoniae DNA (PCR) Coronavirus OC43 (PCR) Coronavirus HKU1 (PCR) Coronavirus 229E (PCR) SARS-CoV-2 (PCR) Coronavirus NL63 (PCR) Human Metapneumovir PCR Influenza Type A (PCR) Influenza Type B (PCR) M. pneumoniae (PCR) Parainfluenza 1 (PCR) Parainfluenza 2 (PCR) Parainfluenza 3 (PCR) Parainfluenza 4 (PCR) RSV (PCR) Entero/Rhino (PCR) 11/01/24 11/01/24 11/01/24 11:06 11:20 11:46 WBC RBC Hgb POC Hgb Hct POC Hct MCV MCH MCHC RDW Std Deviation RDW Coeff of Delmer Plt Count MPV PT INR APTT PTT Ratio Specimen Type Sample Site POC pH POC pCO2 POC pO2 POC HCO3 POC Total CO2 POC Base Excess O2 Sat Pulse Oximetry ABG pH (Temp Correct) ABG pCO2 (Temp Corrct POC ABG pO2 at Pt Temp POC ABG O2 Sat Jose Ramon Test VBG pH VBG pCO2 VBG pO2 VBG HCO3 VBG O2 Saturation VBG Base Excess O2 Delivery Device POC FiO2 POC Sodium Sodium 118 L* POC Potassium Potassium 5.1 Chloride 84 L Carbon Dioxide 24 Anion Gap 10 BUN 27 H Creatinine 1.69 H Est Cr Clr Drug Dosing 30.5 eGFR 31.50 BUN/Creatinine Ratio 16.0 Glucose 124 H POC Glucose 162 H Osmolality Lactate Calcium 8.6 Phosphorus Magnesium Total Bilirubin AST ALT Alkaline Phosphatase Troponin I High Sens 48.6 H Total Protein Albumin Globulin Albumin/Globulin Ratio Procalcitonin TSH Free T4 Urine Color Urine Appearance Urine pH Ur Specific [place] Urine Protein Urine Glucose (UA) Urine Ketones Urine Blood Urine Nitrite Urine Bilirubin Urine Urobilinogen Ur Leukocyte Esterase Urine WBC (Auto) Urine RBC (Auto) U Hyaline Cast (Auto) U Epithel Cells (Auto) Urine Bacteria (Auto) Hyaline Casts Urine Osmolality Urine Sodium Urine Potassium Urine Chloride Urine Comment Nasal Screen MRSA (PCR) Stool Occult Bld Scrn Ethyl Alcohol mg/dL Adenovirus (PCR) Not Detected B. pertussis DNA (PCR) Not Detected B.parapertussis DNA PCR Not Detected C. pneumoniae DNA (PCR) Not Detected Coronavirus OC43 (PCR) Not Detected Coronavirus HKU1 (PCR) Not Detected Coronavirus 229E (PCR) Not Detected SARS-CoV-2 (PCR) Not Detected Coronavirus NL63 (PCR) Not Detected Human Metapneumovir PCR Not Detected Influenza Type A (PCR) Not Detected Influenza Type B (PCR) Not Detected M. pneumoniae (PCR) Not Detected Parainfluenza 1 (PCR) Not Detected Parainfluenza 2 (PCR) Not Detected Parainfluenza 3 (PCR) Not Detected Parainfluenza 4 (PCR) Not Detected RSV (PCR) Not Detected Entero/Rhino (PCR) Not Detected 11/01/24 11/01/24 11/01/24 12:45 14:06 14:53 WBC RBC Hgb POC Hgb Hct POC Hct MCV MCH MCHC RDW Std Deviation RDW Coeff of [place] Plt Count MPV PT INR APTT PTT Ratio Specimen Type Sample Site POC pH POC pCO2 POC pO2 POC HCO3 POC Total CO2 POC Base Excess O2 Sat Pulse Oximetry ABG pH (Temp Correct) ABG pCO2 (Temp Corrct POC ABG pO2 at Pt Temp POC ABG O2 Sat Jose Ramon Test VBG pH VBG pCO2 VBG pO2 VBG HCO3 VBG O2 Saturation VBG Base Excess O2 Delivery Device POC FiO2 POC Sodium Sodium 118 L* POC Potassium Potassium 5.0 Chloride 82 L Carbon Dioxide 27 Anion Gap 9 BUN 27 H Creatinine 1.57 H Est Cr Clr Drug Dosing 32.8 eGFR 34.41 BUN/Creatinine Ratio 17.2 Glucose 116 H POC Glucose 152 H 135 H Osmolality Lactate Calcium 8.9 Phosphorus Magnesium Total Bilirubin AST ALT Alkaline Phosphatase Troponin I High Sens Total Protein Albumin Globulin Albumin/Globulin Ratio Procalcitonin TSH Free T4 Urine Color Urine Appearance Urine pH Ur Specific [place] Urine Protein Urine Glucose (UA) Urine Ketones Urine Blood Urine Nitrite Urine Bilirubin Urine Urobilinogen Ur Leukocyte Esterase Urine WBC (Auto) Urine RBC (Auto) U Hyaline Cast (Auto) U Epithel Cells (Auto) Urine Bacteria (Auto) Hyaline Casts Urine Osmolality Urine Sodium Urine Potassium Urine Chloride Urine Comment Nasal Screen MRSA (PCR) Stool Occult Bld Scrn Ethyl Alcohol mg/dL Adenovirus (PCR) B. pertussis DNA (PCR) B.parapertussis DNA PCR C. pneumoniae DNA (PCR) Coronavirus OC43 (PCR) Coronavirus HKU1 (PCR) Coronavirus 229E (PCR) SARS-CoV-2 (PCR) Coronavirus NL63 (PCR) Human Metapneumovir PCR Influenza Type A (PCR) Influenza Type B (PCR) M. pneumoniae (PCR) Parainfluenza 1 (PCR) Parainfluenza 2 (PCR) Parainfluenza 3 (PCR) Parainfluenza 4 (PCR) RSV (PCR) Entero/Rhino (PCR) 11/01/24 16:30 WBC RBC Hgb POC Hgb Hct POC Hct MCV MCH MCHC RDW Std Deviation RDW Coeff of Delmer Plt Count MPV PT INR APTT PTT Ratio Specimen Type Sample Site POC pH POC pCO2 POC pO2 POC HCO3 POC Total CO2 POC Base Excess O2 Sat Pulse Oximetry ABG pH (Temp Correct) ABG pCO2 (Temp Corrct POC ABG pO2 at Pt Temp POC ABG O2 Sat [place] Test VBG pH VBG pCO2 VBG pO2 VBG HCO3 VBG O2 Saturation VBG Base Excess O2 Delivery Device POC FiO2 POC Sodium Sodium POC Potassium Potassium Chloride Carbon Dioxide Anion Gap BUN Creatinine Est Cr Clr Drug Dosing eGFR BUN/Creatinine Ratio Glucose POC Glucose Osmolality Lactate Calcium Phosphorus Magnesium Total Bilirubin AST ALT Alkaline Phosphatase Troponin I High Sens Total Protein Albumin Globulin Albumin/Globulin Ratio Procalcitonin TSH Free T4 Urine Color Urine Appearance Urine pH Ur Specific [place] Urine Protein Urine Glucose (UA) Urine Ketones Urine Blood Urine Nitrite Urine Bilirubin Urine Urobilinogen Ur Leukocyte Esterase Urine WBC (Auto) Urine RBC (Auto) U Hyaline Cast (Auto) U Epithel Cells (Auto) Urine Bacteria (Auto) Hyaline Casts Urine Osmolality Urine Sodium Urine Potassium Urine Chloride Urine Comment Nasal Screen MRSA (PCR) Stool Occult Bld Scrn Positive A Ethyl Alcohol mg/dL Adenovirus (PCR) B. pertussis DNA (PCR) B.parapertussis DNA PCR C. pneumoniae DNA (PCR) Coronavirus OC43 (PCR) Coronavirus HKU1 (PCR) Coronavirus 229E (PCR) SARS-CoV-2 (PCR) Coronavirus NL63 (PCR) Human Metapneumovir PCR Influenza Type A (PCR) Influenza Type B (PCR) M. pneumoniae (PCR) Parainfluenza 1 (PCR) Parainfluenza 2 (PCR) Parainfluenza 3 (PCR) Parainfluenza 4 (PCR) RSV (PCR) Entero/Rhino (PCR) PG Care Time/CCT Total # of Minutes Spent Total Time Spent with Patient: Total time spent is greater than 50% in coordination of care (as documented) at patient's floor/unit and/or counseling patient: Coding Level of Care Code 61994 INT INP/OBS CARE 3/75MIN Diagnoses Symptomatic bradycardia R00.1 Complete heart block I44.2
--- NOTE | 2024-11-01 17:12 | Electrocardiogram Report ---
Test Reason : Blood Pressure : */* mmHG Vent. Rate : 44 BPM Atrial Rate : * BPM P-R Int : * ms QRS Dur : 76 ms QT Int : 560 ms P-R-T Axes : * 32 48 degrees QTcB Int : 478 ms Sinus rhythm with complete heart block and Junctional bradycardia Low voltage QRS Abnormal ECG When compared with ECG of 05-Sep-2024 11:48, Junctional rhythm has replaced Sinus rhythm Vent. rate has decreased by 51 bpm Confirmed by Artemio Boswell ([id number]) on 11/01/2024 5:12:49 PM Referred By: REFERRED SELF Confirmed By: Artemio Boswell
--- NOTE | 2024-11-01 17:18 | Electrocardiogram Report ---
Test Reason : Blood Pressure : */* mmHG Vent. Rate : 67 BPM Atrial Rate : 43 BPM P-R Int : * ms QRS Dur : 116 ms QT Int : 450 ms P-R-T Axes : * 103 -47 degrees QTcB Int : 475 ms Ventricular-paced rhythm with occasional non-capture Abnormal ECG When compared with ECG of 31-Oct-2024 22:01, (unconfirmed) Electronic ventricular pacemaker has replaced Wide QRS rhythm Confirmed by Artemio Boswell ([id number]) on 11/01/2024 5:18:17 PM Referred By: REFERRED SELF Confirmed By: Artemio Boswell
--- NOTE | 2024-11-01 17:23 | Electrocardiogram Report ---
Test Reason : Blood Pressure : */* mmHG Vent. Rate : 80 BPM Atrial Rate : 82 BPM P-R Int : * ms QRS Dur : 152 ms QT Int : 470 ms P-R-T Axes : * 92 40 degrees QTcB Int : 542 ms Sinus rhythm with A-V dissociation and V-pacing Abnormal ECG When compared with ECG of 31-Oct-2024 15:49, (unconfirmed) Vent. rate has increased by 36 bpm Confirmed by Artemio Boswell ([id number]) on 11/01/2024 5:22:50 PM Referred By: REFERRED SELF Confirmed By: Artemio Boswell
[2024-11-01] MEDS: DOXYCYCLINE HYCLATE 100 MG in D5W MINI-B 100 ML (Q12H) IV SCH (20:30)
[2024-11-01 20:58] LABS: BUN Creatinine Ratio 17.6 (10-20); Calcium 8.6 mg/dl (8.6-10.3); Creatinine Clr Calc Pharmacy 33.7 ml/min; Troponin I High Sensitivity 38.2 pg/ml (0-14)
[2024-11-01] MEDS: rOPINIRole HCL 0.25 MG TABLET PO SCH (21:30)
--- NOTE | 2024-11-01 23:12 | Communication Note ---
Date of Service: November 01, 2024 Patient with 2 episodes of nonsustained bradycardia. HR 30s. Became hypertensive. Episodes thankfully self-terminating, TVP not capturing with 5mA and position changes. If recurs and sustained, will attempt higher mA until capture successful. Dr. Trujillo was notified by me. Coding Level of Care Code None
[2024-11-02 01:24] LABS: BUN Creatinine Ratio 19.5 (10-20); Calcium 9.1 mg/dl (8.6-10.3); Creatinine Clr Calc Pharmacy 33.5 ml/min
[2024-11-02 04:46] LABS: Mean Corpuscular Hemoglobin 33.6 pg (25.0-34.0); Mean Corpuscular Hgb Conc 35.7 g/dL (32.0-36.0); Mean Platelet Volume 10.2 fL (9.4-12.4); Platelet Count 230 K/uL (130-400); RDW Coefficient of Variation 15.2 % (11.5-14.5); Red Blood Count 2.98 M/uL (4.20-5.40); White Blood Count 16.95 K/ul (4.8-10.8)
[2024-11-02 05:02] LABS: BUN Creatinine Ratio 19.7 (10-20); Calcium 9.2 mg/dl (8.6-10.3); Creatinine Clr Calc Pharmacy 32.8 ml/min; Magnesium 2.3 mg/dl (1.7-2.4); Phosphorus 5.6 mg/dl (2.5-4.9); Potassium 5.7 mmol/L (3.5-5.1)
[2024-11-02] MEDS: SODIUM ZIRCONIUM CYCLOSILICATE 10 GM PACKET PO STA (05:30)
--- NOTE | 2024-11-02 06:25 | XRay Report ---
EXAM: XR chest 1V portable CLINICAL HISTORY: Worsening hypoxemia, tachypnea TECHNIQUE: Radiograph of chest was acquired. COMPARISON: 10/31/2024 15:47:00 SWING TENDER FINDINGS: Interval increase of bilateral ill defined haziness with increased density in bilateral lower zones- could be pulmonary congestion Obliteration of bilateral costophrenic angles - could represent pleural effusion or pleural thickening. Apparent cardiomegaly Increased soft tissue density with mediastinal widening - interval increase compared to prior study. Rest of the cardiomediastinal silhouette is within normal limits. No acute osseous abnormality. Multiple wires are seen overlying the chest wall IMPRESSION: 1. Interval increase of bilateral ill defined haziness with increased density in bilateral lower zones- could be pulmonary congestion, however, infective etiology is also - suggested CT correlation 2. Obliteration of bilateral costophrenic angles - could represent pleural effusion or pleural thickening.- unchanged 3. Apparent cardiomegaly- unchanged 4. Increased soft tissue density with mediastinal widening - interval increase compared to prior study. Electronically signed by Ricardo Garcia 11-02-2024 06:25 AM
[2024-11-02] MEDS: ALBUT/IPRATROP 3MG/0.5MG NEB 3 ML VIAL INH PRN (07:49)
--- NOTE | 2024-11-02 07:53 | Hospitalist Progress Note ---
Date of Service November 02, 2024 Assessment & Plan (1) Acute hyponatremia: (2) Complete heart block: (3) Acute kidney injury superimposed on CKD: (4) Hypothyroidism: (5) COPD (chronic obstructive pulmonary disease): Plan 74-year-old woman with severe COPD history of hyponatremia hypothyroidism which is undertreated and depression on several medications who was admitted with severe hyponatremia and third-degree heart block with bradycardia # severe hyponatremiacritical level of 111 at admission, treated with several 100 mL boluses 3% saline sodium 122 this AM and remained 122 throughout the day -serial Na checks q8 -urine sodium low at <10 not consistent with SIADH -held venlafaxine and aripiprazole -reviewed nephrology recs # third degree heart block with bradycardia and evidence of hypoperfusion - lethargy, hypotension, poor peripheral perfusion # minimal troponin elevation related to myocardial demand ischemia from hypotension and heart block. Troponin 30-50 # prolonged QT -initially dopamine then transvenous pacer evening of 10/[address] Shah. -correct electrolyte disturbances. Hyperkalemia - 5.7 this am - resolved after lasix 40 IV -discussed with Dr. Boswell turning TVP down/off see how she maintains, possibly pulling tomorrow #Acute hypoxic and hypercarbic respiratory failure #Severe underlying COPD #Possible CAP -reviewed CXR film today - increasing pulmonary edema and bibasilar consolidations and/or effusions. -Bipap/High flow as needed -continue ceftriaxone and doxycycline. Legionella Ag pending -IV lasix -currently on steroids -continue bronchodilators #WAYNE with hyperkalemia -ARB held -hyperkalemia treated see above -Cr stable at 1.57 with adequate UOP, improved to 1.2 in afternoon # hypothyroidism - has had increasing doses of levothyroxine as outpatient currently 100 mcg however TSH remains 45, T4 not improved low at 0.4 on admission possible myxedema -continue IV levothyroxine and prednisone # acute metabolic encephalopathy - due to hypotension/hypoperfusion and severe hyponatremia, possible myxedema coma -monitor mental status - seems normal today -held hydroxyzine, gabapentin history of eosinophilia, clonal eosinophil population has been followed by Dr. 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 discussed intubation. in room. remains full code Updated her at bedside 11/02 Remains critically ill in ICU Discussed POC with bedside nurse, Admission and Anticipated Discharge Date Admission Date: October 31, 2024 Subjective worsening respiratory status on high flow / bipap overnight met with her and pall care also at bedside she does not feel very short of breath no chest pain throat sore Physical Exam 2 Physical Exam: PHYSICAL EXAMINATION Last 24h vital signs reviewed, see documentation in flowsheet General: sitting up in bed on high flow O2 HEENT: Normocephalic, atraumatic, pupils round and equal, moist mucous membranes Lungs: increased work of breathing coarse breath sounds and crackles post bilaterally Heart: regular obscured. sinus on monitor Abdomen: Soft, nontender, nondistended. Extremities: warm/wp, some dependent edema Neuro: awake and alert oriented x4, face is asymmetric but that is baseline noted on previous admission, moves 4 extremities spontaneously Psych: calm, normal behavior Results & Data Results & Data Vital Signs (Past 12 Hours) Vital Signs Temp Pulse Pulse Resp BP Pulse Ox O2 Del Method 11/02/24 07:05 36.5 C 11/02/24 07:00 90 18 159/77 H 97 BiPAP 11/02/24 07:00 BiPAP 11/02/24 05:30 161/75 H 11/02/24 05:28 79 28 H 89 L High Flow Nasal Cannula 11/02/24 05:26 76 25 H 96 11/02/24 05:21 36.2 C L 94 H 33 H 93 11/02/24 05:00 178/91 H 11/02/24 05:00 36.3 C L 97 H 21 93 11/02/24 04:33 36.4 C L 99 H 27 H 68 L 11/02/24 04:30 36.4 C L 95 H 20 74 L 11/02/24 04:18 36.4 C L 79 18 97 11/02/24 04:00 114/74 11/02/24 03:51 36.4 C L 82 17 99 11/02/24 03:33 36.4 C L 79 17 99 11/02/24 03:30 113/57 L 11/02/24 03:29 79 16 100 High Flow Nasal Cannula 11/02/24 03:00 126/65 11/02/24 03:00 36.4 C L 78 12 98 11/02/24 02:33 36.4 C L 82 16 100 11/02/24 02:30 110/58 L 11/02/24 02:03 36.4 C L 92 H 27 H 99 11/02/24 02:00 160/72 H 11/02/24 01:48 36.4 C L 86 33 H 100 11/02/24 01:30 36.5 C 92 H 31 H 94 11/02/24 01:30 166/76 H 11/02/24 01:00 36.1 C L 93 H 34 H 96 11/02/24 01:00 160/83 H 11/02/24 00:33 36.0 C L 89 32 H 95 11/02/24 00:30 163/90 H 11/02/24 00:03 36.2 C L 89 33 H 95 11/02/24 00:00 92 H 11/02/24 00:00 136/81 11/01/24 23:39 90 26 H 92 High Flow Nasal Cannula 11/01/24 23:30 36.6 C 90 26 H 94 11/01/24 23:30 160/86 H 11/01/24 23:06 36.6 C 89 30 H 95 11/01/24 23:00 161/81 H 11/01/24 22:09 36.3 C L 89 29 H 93 11/01/24 22:01 162/78 H 11/01/24 21:48 36.3 C L 90 30 H 95 11/01/24 21:03 36.6 C 90 27 H 93 11/01/24 21:00 159/83 H 11/01/24 20:30 156/84 H 11/01/24 20:30 85 23 97 11/01/24 20:06 87 30 H 98 11/01/24 20:00 168/78 H O2 Flow Rate FiO2 11/02/24 07:05 11/02/24 07:00 70 11/02/24 07:00 70 11/02/24 05:30 11/02/24 05:28 55 100 11/02/24 05:26 70 11/02/24 05:21 55 100 11/02/24 05:00 05/16/25 05:00 55 100 11/02/24 04:33 11/02/24 04:30 11/02/24 04:18 11/02/24 04:00 11/02/24 03:51 11/02/24 03:33 11/02/24 03:30 11/02/24 03:29 50 60 11/02/24 03:00 11/02/24 03:00 11/02/24 02:33 11/02/24 02:30 11/02/24 02:03 11/02/24 02:00 11/02/24 01:48 11/02/24 01:30 11/02/24 01:30 11/02/24 01:00 50 70 11/02/24 01:00 11/02/24 00:33 11/02/24 00:30 11/02/24 00:03 50 70 11/02/24 00:00 11/02/24 00:00 11/01/24 23:39 50 70 11/01/24 23:30 11/01/24 23:30 11/01/24 23:06 50 70 11/01/24 23:00 11/01/24 22:09 50 70 11/01/24 22:01 11/01/24 21:48 11/01/24 21:03 50 70 11/01/24 21:00 11/01/24 20:30 11/01/24 20:30 11/01/24 20:06 50 70 11/01/24 20:00 Laboratory Results 11/02/24 04:30 11/02/24 04:30 PG Care Time/CCT Total # of Minutes Spent Total Time Spent with Patient: Total time spent is greater than 50% in coordination of care (as documented) at patient's floor/unit and/or counseling patient: Coding Level of Care Code 18479 SUB INP/OBS CARE 3/50MIN Diagnoses Acute hyponatremia E87.1 Complete heart block I44.2 Acute kidney injury superimposed on CKD N17.9; N18.9 Hypothyroidism E03.9 Hypothyroidism type: unspecified COPD (chronic obstructive pulmonary disease) J44.9 (4) Hypothyroidism Hypothyroidism type: unspecified Qualified Code(s): E03.9 - Hypothyroidism, unspecified
--- NOTE | 2024-11-02 08:22 | Critical Care Progress Note ---
Date of Service November 02, 2024 Assessment & Plan (1) Symptomatic bradycardia: (2) Complete heart block: (3) Hypothyroidism: (4) Acute kidney injury superimposed on CKD: (5) Acute hyponatremia: (6) COPD (chronic obstructive pulmonary disease): Plan Reason Critically Ill: Severe hyponatremia in setting of symptomatic bradycardia complicated by severe hyponatremia, elevated TSH, and end stage COPD. Neuro - Encephalopathy-resolved Hx: Anxiety/Depression Cardiac - Symptomatic bradycardia- CHB, Shock- multifactorial (cardiogenic vs. distributive or combination), - Patient with symptomatic bradycardia: Appears to be resolved - Electrolyte disturbances- hyponatremia: Improving, Hyperkalemia: Resolved- - Myxedema Coma/Decompensated Hypothyroidism-continue Synthroid 100 mcg daily - Status post transvenous pacer currently tolerating negative normal sinus rhythm Respiratory - Hypoxic respiratory failure acute on chronic, end stage COPD - While not overtly compensating for respiratory acidosis prior lab values when more stable bicarb ranges 31-32, patient does not tolerate significant acidosis given baseline kidney disease - Improved hemodynamics when oxygen saturations 92-96 - On 3 L nasal cannula at baseline - Attempt to wean high flow as able, fairly high requirements at this time. - Continue her FERN, LABA/LAMA - 2-week taper of prednisone ordered for COPD exacerbation GI -stools fecal occult blood positive - Continue Pepcid will recommend GI follow-up - Not transitioning back to PPI as this can be associated with hyponatremia and patient has had now multiple episodes of hyponatremia of unclear etiology Diet: Full liquids then advance diet as tolerated RENAL/LYTES - Metabolic Acidosis, Severe Hyponatremia, GRIS II on CKD III - Metabolic acidosis resolved - Hypoosmolar hyponatremia-improving - Patient appears to be auto correcting Acute kidney failure on chronic kidney disease stage III: Improving - Hyperkalemia-resolved - No acute needs - Continue andrews catheter at this time ENDO - Decompensated hypothyroidism, DMII, - Synthroid 100 mcg daily - ICU hyperglycemic protocol 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 histocytosis ID -persistently hypothermic, will continue IV anti-infectives - No growth to date -Rocephin empiric for probable COPD exacerbation x 10 days - BioFire panel negative -Empiric treatment with doxycycline load 200 mg then 100 twice daily for 10 days or until Legionella antigen negative LINES/IV ACCESS - PIV, Andrews, RIGHT IJ cordis with TVP - Defer discontinuation of transvenous pacemaker to cardiology, when this is removed central venous access could be removed as well DVT PROPHYLAXIS - SCDS, Heparin 5000 units subq q12 CODE STATUS: Full; patient may benefit from advanced care planning discussions with primary care team given significant end-stage COPD and now multiple hospital readmissions. DISPO: ICU while transvenous pacemaker in place Admission and Anticipated Discharge Date Admission Date: October 31, 2024 Supervising Physician Co-Signing Physician Notes I have personally spent 40 minutes of critical care time in the direct management of this patient. This is a life/limb threatening event. This includes time spent evaluating patient, direct bedside care, chart review, placing orders, interpretation of diagnostic studies, discussion with consultants, patient, and/or family members regarding treatment decisions, as well as other required patient management activities. This time is exclusive of all separately billable procedures, and teaching time and separate from and in addition to any other critical care service time. Subjective Overnight patient had 2 brief episodes of bradycardia since that time there has been successful capture or negative sinus rhythm. Patient does not really have any memory of previous 2 days, significant improvement in mental status reports that she is feeling okay and would like to be discharged home. Discussed that she needs to still recover in the hospital and is not ready for discharge. Physical Exam Physical Exam: General: Alert. Oriented x 3 Skin: Warm, dry Head: Atraumatic Ears, nose, mouth and throat: airway patent Neck: Right IJ transvenous pacer present, normal sinus rhythm manzanita beat on bedside monitor with heart rate 92 Cardiovascular: Normal peripheral perfusion Respiratory: Improved respiratory mechanics compared to yesterday no respiratory distress, no pursed lip breathing Gastrointestinal: Non distended Musculoskeletal: No deformity Results & Data Results & Data Vital Signs (Past 12 Hours) Vital Signs Temp Pulse Pulse Resp BP Pulse Ox O2 Del Method 11/02/24 07:49 94 H 26 H 93 High Flow Nasal Cannula 11/02/24 07:05 36.5 C 11/02/24 07:00 90 18 159/77 H 97 BiPAP 11/02/24 07:00 BiPAP 11/02/24 05:30 161/75 H 11/02/24 05:28 79 28 H 89 L High Flow Nasal Cannula 11/02/24 05:26 76 25 H 96 11/02/24 05:21 36.2 C L 94 H 33 H 93 11/02/24 05:00 178/91 H 11/02/24 05:00 36.3 C L 97 H 21 93 11/02/24 04:33 36.4 C L 99 H 27 H 68 L 11/02/24 04:30 36.4 C L 95 H 20 74 L 11/02/24 04:18 36.4 C L 79 18 97 11/02/24 04:00 114/74 11/02/24 03:51 36.4 C L 82 17 99 11/02/24 03:33 36.4 C L 79 17 99 11/02/24 03:30 113/57 L 11/02/24 03:29 79 16 100 High Flow Nasal Cannula 11/02/24 03:00 126/65 11/02/24 03:00 36.4 C L 78 12 98 11/02/24 02:33 36.4 C L 82 16 100 11/02/24 02:30 110/58 L 11/02/24 02:03 36.4 C L 92 H 27 H 99 11/02/24 02:00 160/72 H 11/02/24 01:48 36.4 C L 86 33 H 100 11/02/24 01:30 36.5 C 92 H 31 H 94 11/02/24 01:30 166/76 H 11/02/24 01:00 36.1 C L 93 H 34 H 96 11/02/24 01:00 160/83 H 11/02/24 00:33 36.0 C L 89 32 H 95 11/02/24 00:30 163/90 H 11/02/24 00:03 36.2 C L 89 33 H 95 11/02/24 00:00 92 H 11/02/24 00:00 136/81 11/01/24 23:39 90 26 H 92 High Flow Nasal Cannula 11/01/24 23:30 36.6 C 90 26 H 94 11/01/24 23:30 160/86 H 11/01/24 23:06 36.6 C 89 30 H 95 11/01/24 23:00 161/81 H 11/01/24 22:09 36.3 C L 89 29 H 93 11/01/24 22:01 162/78 H 11/01/24 21:48 36.3 C L 90 30 H 95 11/01/24 21:03 36.6 C 90 27 H 93 11/01/24 21:00 159/83 H 11/01/24 20:30 156/84 H 11/01/24 20:30 85 23 97 O2 Flow Rate FiO2 11/02/24 07:49 60 80 11/02/24 07:05 11/02/24 07:00 70 11/02/24 07:00 70 11/02/24 05:30 11/02/24 05:28 55 100 11/02/24 05:26 70 11/02/24 05:21 55 100 11/02/24 05:00 11/02/24 05:00 55 100 11/02/24 04:33 11/02/24 04:30 11/02/24 04:18 11/02/24 04:00 11/02/24 03:51 11/02/24 03:33 11/02/24 03:30 11/02/24 03:29 50 60 11/02/24 03:00 11/02/24 03:00 11/02/24 02:33 11/02/24 02:30 11/02/24 02:03 11/02/24 02:00 11/02/24 01:48 11/02/24 01:30 11/02/24 01:30 11/02/24 01:00 50 70 11/02/24 01:00 11/02/24 00:33 11/02/24 00:30 11/02/24 00:03 50 70 11/02/24 00:00 11/02/24 00:00 11/01/24 23:39 50 70 11/01/24 23:30 11/01/24 23:30 11/01/24 23:06 50 70 11/01/24 23:00 11/01/24 22:09 50 70 11/01/24 22:01 11/01/24 21:48 11/01/24 21:03 50 70 11/01/24 21:00 11/01/24 20:30 11/01/24 20:30 Critical Care Results & Data Vital Signs (Past 12 Hours) Vital Signs Temp Pulse Pulse Resp BP Pulse Ox O2 Del Method 11/02/24 08:00 36.5 C 89 21 154/75 H 92 High Flow Nasal Cannula 11/02/24 08:00 High Flow Nasal Cannula 11/02/24 07:49 94 H 26 H 93 High Flow Nasal Cannula 11/02/24 07:05 36.5 C 11/02/24 07:00 90 18 159/77 H 97 BiPAP 11/02/24 07:00 BiPAP 11/02/24 05:30 161/75 H 11/02/24 05:28 79 28 H 89 L High Flow Nasal Cannula 11/02/24 05:26 76 25 H 96 11/02/24 05:21 36.2 C L 94 H 33 H 93 11/02/24 05:00 178/91 H 11/02/24 05:00 36.3 C L 97 H 21 93 11/02/24 04:33 36.4 C L 99 H 27 H 68 L 11/02/24 04:30 36.4 C L 95 H 20 74 L 11/02/24 04:18 36.4 C L 79 18 97 11/02/24 04:00 114/74 11/02/24 03:51 36.4 C L 82 17 99 11/02/24 03:33 36.4 C L 79 17 99 11/02/24 03:30 113/57 L 11/02/24 03:29 79 16 100 High Flow Nasal Cannula 11/02/24 03:00 126/65 11/02/24 03:00 36.4 C L 78 12 98 11/02/24 02:33 36.4 C L 82 16 100 11/02/24 02:30 110/58 L 11/02/24 02:03 36.4 C L 92 H 27 H 99 11/02/24 02:00 160/72 H 11/02/24 01:48 36.4 C L 86 33 H 100 11/02/24 01:30 36.5 C 92 H 31 H 94 11/02/24 01:30 166/76 H 11/02/24 01:00 36.1 C L 93 H 34 H 96 11/02/24 01:00 160/83 H 11/02/24 00:33 36.0 C L 89 32 H 95 11/02/24 00:30 163/90 H 11/02/24 00:03 36.2 C L 89 33 H 95 11/02/24 00:00 92 H 11/02/24 00:00 136/81 11/01/24 23:39 90 26 H 92 High Flow Nasal Cannula 11/01/24 23:30 36.6 C 90 26 H 94 11/01/24 23:30 160/86 H 11/01/24 23:06 36.6 C 89 30 H 95 11/01/24 23:00 161/81 H 11/01/24 22:09 36.3 C L 89 29 H 93 11/01/24 22:01 162/78 H 11/01/24 21:48 36.3 C L 90 30 H 95 11/01/24 21:03 36.6 C 90 27 H 93 11/01/24 21:00 159/83 H O2 Flow Rate FiO2 11/02/24 08:00 60 80 11/02/24 08:00 80 11/02/24 07:49 60 80 11/02/24 07:05 11/02/24 07:00 70 11/02/24 07:00 70 11/02/24 05:30 11/02/24 05:28 55 100 11/02/24 05:26 70 11/02/24 05:21 55 100 11/02/24 05:00 11/02/24 05:00 55 100 11/02/24 04:33 11/02/24 04:30 11/02/24 04:18 11/02/24 04:00 11/02/24 03:51 11/02/24 03:33 11/02/24 03:30 11/02/24 03:29 50 60 11/02/24 03:00 11/02/24 03:00 11/02/24 02:33 11/02/24 02:30 11/02/24 02:03 11/02/24 02:00 11/02/24 01:48 11/02/24 01:30 11/02/24 01:30 11/02/24 01:00 50 70 11/02/24 01:00 11/02/24 00:33 11/02/24 00:30 11/02/24 00:03 50 70 11/02/24 00:00 11/02/24 00:00 11/01/24 23:39 50 70 11/01/24 23:30 11/01/24 23:30 11/01/24 23:06 50 70 11/01/24 23:00 11/01/24 22:09 50 70 11/01/24 22:01 11/01/24 21:48 11/01/24 21:03 50 70 11/01/24 21:00 Lab & Micro Results (Past 24 Hours) RBC 2.98 M/uL (4.20-5.40) L 11/02/24 WBC 16.95 K/ul (4.8-10.8) H 11/02/24 Hgb 10.0 g/dl (12.0-16.0) L 11/02/24 Hct 28.0 % (37.0-47.0) L 11/02/24 MCV 94.0 fL (80.0-100.0) 11/02/24 MCH 33.6 pg (25.0-34.0) 11/02/24 MCHC 35.7 g/dL (32.0-36.0) 11/02/24 RDW Standard Deviation 52.0 fL (36.4-46.3) H 11/02/24 RDW Coefficient of Variation 15.2 % (11.5-14.5) H 11/02/24 Plt Count 230 K/uL (130-400) 11/02/24 MPV 10.2 fL (9.4-12.4) 11/02/24 Na 122 mmol/L (136-145) L 11/02/24 K 4.3 mmol/L (3.5-5.1) 11/02/24 Cl 83 mmol/L (98-107) L 11/02/24 CO2 29 mmol/L (21-32) 11/02/24 Anion Gap 10 (3-11) 11/02/24 BUN 30 mg/dl (6-23) H 11/02/24 Creatinine 1.27 mg/dl (0.6-1.2) H 11/02/24 BUN/Creatinine Ratio 23.6 (10-20) H 11/02/24 Glu 147 mg/dl (70-99(Fasting)) H 11/02/24 Ca 8.9 mg/dl (8.6-10.3) 11/02/24 Phosphorus Level 5.6 mg/dl (2.5-4.9) H 11/02/24 Mg 2.3 mg/dl (1.7-2.4) 11/02/24 04:30 Calcium Level 8.9 mg/dl (8.6-10.3) 11/02/24 11:58 Microbiology 10/31/24 22:20 Aerobic Blood Culture - Preliminary Blood No growth in Aerobic bottle after 24 hours. Anaerobic Blood Culture - Final 10/31/24 22:38 Aerobic Blood Culture - Preliminary Blood No growth in Aerobic bottle after 24 hours. Anaerobic Blood Culture - Final Diagnostic Findings (Past 24 Hours) Chest X-Ray 11/01/24 08:50 XR chest 1V portable CLINICAL HISTORY: lines COMPARISON STUDY: 10/31/2024 FINDINGS: There is an interval temporary pacer from a right IJ approach with the distal tip of the lead overlying the left ventricle superiorly. There is stable cardiomegaly with pulmonary vascular congestion. There is increased patchy opacity throughout the right lung and at the left lung base. Stable blunting of the costophrenic angles. No pneumothorax. IMPRESSION: 1. No pneumothorax. 2. CHF. 3. Increased pulmonary opacities could represent asymmetric pulmonary edema or pneumonia. 4. Stable small pleural effusions. ACT 112: Negative or not required by law. Electronically signed by: Ruiz Vidales M.D. 11/01/2024 9:28 AM Chest X-Ray 11/02/24 05:06 EXAM: XR chest 1V portable CLINICAL HISTORY: Worsening hypoxemia, tachypnea TECHNIQUE: Radiograph of chest was acquired. COMPARISON: 10/31/2024 15:47:00 PROGRAM SERVICES ASSISTANT FINDINGS: Interval increase of bilateral ill defined haziness with increased density in bilateral lower zones- could be pulmonary congestion Obliteration of bilateral costophrenic angles - could represent pleural effusion or pleural thickening. Apparent cardiomegaly Increased soft tissue density with mediastinal widening - interval increase compared to prior study. Rest of the cardiomediastinal silhouette is within normal limits. No acute osseous abnormality. Multiple wires are seen overlying the chest wall IMPRESSION: 1. Interval increase of bilateral ill defined haziness with increased density in bilateral lower zones- could be pulmonary congestion, however, infective etiology is also - suggested CT correlation 2. Obliteration of bilateral costophrenic angles - could represent pleural effusion or pleural thickening.- unchanged 3. Apparent cardiomegaly- unchanged 4. Increased soft tissue density with mediastinal widening - interval increase compared to prior study. Electronically signed by Ricardo Garcia 11-02-2024 06:25 AM I & O Totals 24 Hours 11/01/24 11/02/24 11/03/24 06:59 06:59 06:59 Intake Total 1310.017 / 0186.337 1877.833 / 1303.833 Output Total 650 / 650 1365 / 1365 Balance 660.017 / 660.017 -61.167 / -61.167 Cumulative 10/31/24 15:34 thru 11/02/24 07:25 Intake Total 2613.850 Output Total 2014 Balance 598.850 RT Ventilator Mngmt (Last Documented) Ventilator Ordered Settings Respiratory Rate 21 11/02/24 08:00 Fraction of Inspired Oxygen 80 11/02/24 08:00 Ventilator - PT Measurements Respiratory Rate 21 End-Tidal CO2 27 Coding Level of Care Code 13000 CRITICAL CARE 1ST 30-74M Diagnoses Symptomatic bradycardia R00.1 Complete heart block I44.2 Hypothyroidism E03.9 Hypothyroidism type: unspecified Acute kidney injury superimposed on CKD N17.9; N18.9 Acute hyponatremia E87.1 COPD (chronic obstructive pulmonary disease) J44.9 (3) Hypothyroidism Hypothyroidism type: unspecified Qualified Code(s): E03.9 - Hypothyroidism, unspecified
[2024-11-02 08:35] LABS: BUN Creatinine Ratio 22.3 (10-20); Calcium 8.9 mg/dl (8.6-10.3); Potassium 4.5 mmol/L (3.5-5.1)
[2024-11-02] MEDS: predniSONE 10 MG TABLET PO SCH (08:42)
[2024-11-02] MEDS: FAMOTIDINE 20MG IV PUSH 20 MG/5 ML SYR IV SCH (08:48)
[2024-11-02] MEDS: FAMOTIDINE 40 MG TABLET PO SCH (09:06)
--- NOTE | 2024-11-02 10:03 | Palliative Care Consultation ---
Date of Consultation November 02, 2024 Assessment & Plan (1) Palliative care by specialist: Assessed pt at bedside, spouse was present. Discussed ACP/goals of care/advanced directive from 09:40 - 10:15 Introduced Palliative Medicine and explained our role in advanced care planning, symptom management and navigation through the progression of life limiting disease. Patient and/or family were receptive to palliative services for goals of care discussions. Reviewed we are different from hospice, a home health nurse visiting service. Palliative care will continue to follow for ongoing ACP discussions. (2) Advance directive declined by patient: Patient currently lacks decisional capacity based on the inability to convey understanding of personal PMHx, current medical condition, treatment options, the risks / benefits/ potential outcomes of accepting/declining those options, and inability to make decisions based on such knowledge. Hospital does not have written documentation of patient wishes concerning her chosen proxy for medical decisions. Per PA [id number], in absence of written documentation of patient wishes, pt's proxy for medical decisions would be her spouse. As pt's cognitive status has been improving and is expected to return to baseline, we discussed the importance of formulating an advanced directive to establish and document patient chosen MDM proxy as well as goals of care. Discussed the importance of selecting a proxy for medical decisions that is reasonably available for medical updates and questions and that will readily share the patient's wishes in event she lacks decisional capacity. Patient and her spouse politely declined offer of blank form to review. Pt does currently require a proxy for medical decisions. (3) Counseling regarding goals of care: Discussed at length the patient's comorbidities and in particular the progressively debilitating nature of COPD. Helped the patient and her spouse understand that she remains critically ill and requires high amounts of assistance in form of HFNC. Pt's spouse shared belief that the pt's respiratory symptoms are driven by COVID not COPD and that he expects her to improve with time. He shared that she is not short of breath and when she is it is because of the extra weight / fluid retention from steroids. Neither the pt nor her spouse have a good grasp of disease process nor her medications. He shared that no one has given them education on what medications she should be taking, but he also feels she is taking medications as prescribed. We discussed pt's admission course and difficulty managing respiratory failure iso renal insufficiency and heart block. He shared belief that her electrolyte disturbances are caused by her poor water intake and "not enough water to flush her kidneys". He shared that he tries to encourage her to drink more water at home. Attempted to help him understand the correlation of sodium and volume status. Given the patient's current oxygen demand and obvious work of breathing, we discussed code status and helped spouse understand that CPR is only done after a person has and involves uncomfortable and invasive procedures that, if successful. 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 CPR survival: Only about 10% of patients who have [id number] sudden cardiac arrest survive to hospital discharge, with many survivors having neurologic impairment. This rate is even lower among patients with serious coexisting conditions, ie chance of survival to hospital discharge for in- hospital CPR in older people is low to moderate (15%) and decreases with age, comorbidities, performance status and frailty: for pts > 70 yo, more than half of the patients who initially survived resuscitation in the hospital before hospital discharge. The pooled survival to discharge after in-hospital CPR was 18% for patients between 70 and 79 years old, 15% for patients between 80 and 89 years old and 11% for patients of 90 years and older. (Jim WASHINGTONY, Alexys LJ, Jacqueline F, et al. Trends in short- and long-term survival among [id number] cardiac arrest patients alive at hospital arrival. Circulation 2014;130:1883- 1890. AND Isevonne C, Richard T, Rasgaudencioh R, et al. Performance of clinical risk scores to predict mortality and neurological outcome in cardiac arrest patients. Resuscitation 2019;136:21-29.) Spouse again shared that the pt's need for oxygen is due to COVID, and is improving. Continue full code at this time. This pt/family will benefit from clear and consistent messaging and frequent reinforcement of expected progression of disease in layman terms. Suggestion of [facility] nursing services to assist with medications and pt assessment was briskly declined by both pt and her . Close follow up with primary care provider and pulmonology for ongoing symptom management, education on disease progression and ACP discussions, should be encouraged on discharge. Plan Continue current level of care, full code. History of Present Illness Reason for Consultation: goals of care Requesting Physician: Chris Trujillo DO Attending Physician: Ewa Acosta MD History of Present Illness Ms Lenz is a 74y female with PMHx including Hypothyroidism, COPD, depression, GERD, DJD, Anemia, CKD, and hepatic steatosis who was brought to the hospital by her after suffering a syncopal episode at home. She experienced atraumatic syncope while her spouse was assisting her to ambulate to bathroom, was caught and lowered to ground by her spouse. She was found to be severely bradycardic with complete AV block. She was mildly hypotensive and started on pressor support. Laboratory abnormalities included hyperkalemia, severe hyponatremia and hypothyroidism. The patient's respiratory status and hemodynamics declined and she underwent placement of a transvenous pacemaker for rate support. Of note, she also has recent admission for symptomatic hyponatremia, hypothyroidism and COPD. Allergies Allergy/AdvReac Type Severity Reaction Status Date / Time Penicillins Allergy Severe Swelling Verified 10/31/24 17:40 of Lip/Tongue/Throat hydrochlorothiazide AdvReac Intermediate hyponatremia Verified 10/31/24 17:40 sodium 120 Home Medications Medication Instructions Recorded Confirmed Type montelukast 10 mg tablet 10 mg PO QAM 02/12/19 10/31/24 History pantoprazole 40 mg tablet,delayed 40 mg PO QAM 02/12/19 10/31/24 History release (Protonix) aripiprazole 2 mg tablet (Abilify) 1 mg PO QAM 11/27/21 10/31/24 History atorvastatin 20 mg tablet 20 mg PO HS 01/07/22 10/31/24 History mirtazapine 15 mg tablet 15 mg PO QPM 03/19/22 10/31/24 History albuterol sulfate 2.5 mg/3 mL 2.5 mg inhalation DIRECTED PRN 09/05/24 10/31/24 History (0.083 %) solution for nebulization Wheezing/SOB amlodipine 10 mg tablet 10 mg PO QAM 09/05/24 10/31/24 History ammonium lactate 12 % topical cream 1 applic topical BID 09/05/24 10/31/24 History fluticasone furoate 200 1 inh inhalation QAM 09/05/24 10/31/24 History mcg-vilanterol 25 mcg/dose inhalation powder (Breo Ellipta) gabapentin 300 mg capsule 300 mg PO BID 09/05/24 10/31/24 History hydroxyzine HCl 25 mg tablet 25 mg PO HS PRN Itching 09/05/24 10/31/24 History latanoprost 0.005 % eye drops 1 drp OPB HS 09/05/24 10/31/24 History losartan 100 mg tablet 100 mg PO QAM 09/05/24 10/31/24 History magnesium oxide 400 mg (241.3 mg 400 mg PO BID 09/05/24 10/31/24 History magnesium) tablet tiotropium bromide 18 mcg capsule 1 cap inhalation QAM 09/05/24 10/31/24 History with inhalation device (Spiriva with HandiHaler) venlafaxine 150 mg 150 mg PO QAM 09/05/24 10/31/24 History capsule,extended release 24 hr levothyroxine 100 mcg tablet 100 mcg PO DAILYBB 10/31/24 10/31/24 History ropinirole 0.25 mg tablet 0.25 mg PO HS 10/31/24 10/31/24 History Patient History Medical History Abdominal pain Glaucoma Mood disorder Herniated cervical disc Osteoarthritis Hiatal hernia History of colon polyps History of colitis 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 Deaf Left Asthma uses PRN neb daily; rarely uses PRN inh Lower back pain Surgical History History of cataract surgery History of tonsillectomy History of total abdominal hysterectomy and bilateral salpingo-oophorectomy Status post proximal row carpectomy of wrist Rt History of repair of left rotator cuff History of esophagogastroduodenoscopy (EGD) History of colonoscopy History of sinus surgery balloon sinuplasty Family History Sister Sinusitis Cancer Hypertension Father Cancer Aunt Diabetes Brother Coronary heart disease Allergies Sinusitis Stroke Diabetes Other No family history of adverse response to anesthesia Social History Smoking Status: Former smoker Tobacco Type: Cigarettes Age Started Using Tobacco: 16; Cigarettes Per Day: 40; Smoking End Date: 2006; Second Hand Exposure: No; Do You Dip or Chew Tobacco: No; Hx Alcohol Use: Yes Alcohol type: wine Hx Substance Use: No Preferred Language: Montserratian Communication Ability: Unable Communication Ability Comment: pt is deaf in left ear, hearing aid in right Critical Power Technician Required: No Beliefs That Will Affect Care: None Current Living Situation: Spouse current occupational status: retired 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 [employer] Other Information That Helps Us Care for You: No Feels Safe at Home: Yes Safety Concerns: Feels Safe At This Time Assistive Devices: Oxygen - Continuous and Walker Review of Systems Review of Systems: All systems reviewed & are unremarkable except as noted in HPI & below Physical Exam Constitutional: WD/WN, vitals as above no acute distress Eyes: + anicteric sclerae Neck: trachea midline, no thyromegaly Respiratory: + respiratory distress, + uses accessory muscles and + prolonged expiratory phase Auscultation: + diminished lung sounds on HFNC 60L 80% FiO2 Cardiovascular: Rate/Rhythm: regular rate and regular rhythm Heart Sounds: normal S1 and normal S2 Extremities: no edema Musculoskeletal: Extremities: extremities normal to inspection Skin: no rashes, warm and dry Neurologic: no focal motor deficits Psychiatric: Orientation: alert and oriented x 3 Affect: euthymic affect Results & Data Vital Signs (Past 12 Hours) Vital Signs Temp Pulse Pulse Resp BP Pulse Ox O2 Del Method 11/02/24 09:06 36.5 C 94 H 26 H 154/94 H 94 High Flow Nasal Cannula 11/02/24 08:00 36.5 C 89 21 154/75 H 92 High Flow Nasal Cannula 11/02/24 08:00 High Flow Nasal Cannula 11/02/24 07:49 94 H 26 H 93 High Flow Nasal Cannula 11/02/24 07:05 36.5 C 11/02/24 07:00 90 18 159/77 H 97 BiPAP 11/02/24 07:00 BiPAP 11/02/24 05:30 161/75 H 11/02/24 05:28 79 28 H 89 L High Flow Nasal Cannula 11/02/24 05:26 76 25 H 96 11/02/24 05:21 36.2 C L 94 H 33 H 93 11/02/24 05:00 178/91 H 11/02/24 05:00 36.3 C L 97 H 21 93 11/02/24 04:33 36.4 C L 99 H 27 H 68 L 11/02/24 04:30 36.4 C L 95 H 20 74 L 11/02/24 04:18 36.4 C L 79 18 97 11/02/24 04:00 114/74 11/02/24 03:51 36.4 C L 82 17 99 11/02/24 03:33 36.4 C L 79 17 99 11/02/24 03:30 113/57 L 11/02/24 03:29 79 16 100 High Flow Nasal Cannula 11/02/24 03:00 126/65 11/02/24 03:00 36.4 C L 78 12 98 11/02/24 02:33 36.4 C L 82 16 100 11/02/24 02:30 110/58 L 11/02/24 02:03 36.4 C L 92 H 27 H 99 11/02/24 02:00 160/72 H 11/02/24 01:48 36.4 C L 86 33 H 100 11/02/24 01:30 36.5 C 92 H 31 H 94 11/02/24 01:30 166/76 H 11/02/24 01:00 36.1 C L 93 H 34 H 96 11/02/24 01:00 160/83 H 11/02/24 00:33 36.0 C L 89 32 H 95 11/02/24 00:30 163/90 H 11/02/24 00:03 36.2 C L 89 33 H 95 11/02/24 00:00 92 H 11/02/24 00:00 136/81 11/01/24 23:39 90 26 H 92 High Flow Nasal Cannula 11/01/24 23:30 36.6 C 90 26 H 94 11/01/24 23:30 160/86 H 11/01/24 23:06 36.6 C 89 30 H 95 11/01/24 23:00 161/81 H 11/01/24 22:09 36.3 C L 89 29 H 93 O2 Flow Rate FiO2 11/02/24 09:06 60 80 11/02/24 08:00 60 80 11/02/24 08:00 80 11/02/24 07:49 60 80 11/02/24 07:05 11/02/24 07:00 70 11/02/24 07:00 70 11/02/24 05:30 11/02/24 05:28 55 100 11/02/24 05:26 70 05/16/25 05:21 55 100 11/02/24 05:00 11/02/24 05:00 55 100 11/02/24 04:33 11/02/24 04:30 11/02/24 04:18 11/02/24 04:00 11/02/24 03:51 11/02/24 03:33 11/02/24 03:30 11/02/24 03:29 50 60 11/02/24 03:00 11/02/24 03:00 11/02/24 02:33 11/02/24 02:30 11/02/24 02:03 11/02/24 02:00 11/02/24 01:48 11/02/24 01:30 11/02/24 01:30 11/02/24 01:00 50 70 11/02/24 01:00 11/02/24 00:33 11/02/24 00:30 11/02/24 00:03 50 70 11/02/24 00:00 11/02/24 00:00 11/01/24 23:39 50 70 11/01/24 23:30 11/01/24 23:30 11/01/24 23:06 50 70 11/01/24 23:00 11/01/24 22:09 50 70 Laboratory Results Abnormal lab results 11/01/24 11/01/24 11/01/24 Range/Units 14:06 14:53 16:30 WBC (4.8-10.8) K/ul RBC (4.20-5.40) M/uL Hgb (12.0-16.0) g/dl Hct (37.0-47.0) % RDW Std Deviation (36.4-46.3) fL RDW Coeff of Demler (11.5-14.5) % Sodium 118 L* (136-145) mmol/L Potassium (3.5-5.1) mmol/L Chloride 82 L (98-107) mmol/L Anion Gap (3-11) BUN 27 H (6-23) mg/dl Creatinine 1.57 H (0.6-1.2) mg/dl BUN/Creatinine Ratio (10-20) Glucose 116 H (70-99(Fasting)) mg/dl POC Glucose 135 H (70-99) mg/dl Phosphorus (2.5-4.9) mg/dl Troponin I High Sens (0-14) pg/ml Stool Occult Bld Scrn Positive A (Negative) 11/01/24 11/01/24 11/02/24 Range/Units 18:12 19:55 00:23 WBC (4.8-10.8) K/ul RBC (4.20-5.40) M/uL Hgb (12.0-16.0) g/dl Hct (37.0-47.0) % RDW Std Deviation (36.4-46.3) fL RDW Coeff of Delmer (11.5-14.5) % Sodium 119 L* (136-145) mmol/L Potassium (3.5-5.1) mmol/L Chloride 83 L (98-107) mmol/L Anion Gap (3-11) BUN 27 H (6-23) mg/dl Creatinine 1.53 H (0.6-1.2) mg/dl BUN/Creatinine Ratio (10-20) Glucose 119 H (70-99(Fasting)) mg/dl POC Glucose 135 H 142 H (70-99) mg/dl Phosphorus (2.5-4.9) mg/dl Troponin I High Sens 38.2 H D (0-14) pg/ml Stool Occult Bld Scrn (Negative) 11/02/24 11/02/24 11/02/24 Range/Units 00:35 04:30 07:56 WBC 16.95 H (4.8-10.8) K/ul RBC 2.98 L (4.20-5.40) M/uL Hgb 10.0 L (12.0-16.0) g/dl Hct 28.0 L (37.0-47.0) % RDW Std Deviation 52.0 H (36.4-46.3) fL RDW Coeff of Delmer 15.2 H (11.5-14.5) % Sodium 119 L* 122 L 122 L (136-145) mmol/L Potassium 5.7 H (3.5-5.1) mmol/L Chloride 81 L 83 L 83 L (98-107) mmol/L Anion Gap 12 H (3-11) BUN 30 H 31 H 31 H (6-23) mg/dl Creatinine 1.54 H 1.57 H 1.39 H (0.6-1.2) mg/dl BUN/Creatinine Ratio 22.3 H (10-20) Glucose 137 H 123 H 115 H (70-99(Fasting)) mg/dl POC Glucose (70-99) mg/dl Phosphorus 5.6 H (2.5-4.9) mg/dl Troponin I High Sens (0-14) pg/ml Stool Occult Bld Scrn (Negative) 11/02/24 11/02/24 Range/Units 11:29 11:58 WBC (4.8-10.8) K/ul RBC (4.20-5.40) M/uL Hgb (12.0-16.0) g/dl Hct (37.0-47.0) % RDW Std Deviation (36.4-46.3) fL RDW Coeff of Delmer (11.5-14.5) % Sodium 122 L (136-145) mmol/L Potassium (3.5-5.1) mmol/L Chloride 83 L (98-107) mmol/L Anion Gap (3-11) BUN 30 H (6-23) mg/dl Creatinine 1.27 H (0.6-1.2) mg/dl BUN/Creatinine Ratio 23.6 H (10-20) Glucose 147 H (70-99(Fasting)) mg/dl POC Glucose 165 H (70-99) mg/dl Phosphorus (2.5-4.9) mg/dl Troponin I High Sens (0-14) pg/ml Stool Occult Bld Scrn (Negative) Diagnostic Findings Chest X-Ray 11/02/24 05:06 EXAM: XR chest 1V portable CLINICAL HISTORY: Worsening hypoxemia, tachypnea TECHNIQUE: Radiograph of chest was acquired. COMPARISON: 10/31/2024 15:47:00 PHYS THERAPIST FINDINGS: Interval increase of bilateral ill defined haziness with increased density in bilateral lower zones- could be pulmonary congestion Obliteration of bilateral costophrenic angles - could represent pleural effusion or pleural thickening. Apparent cardiomegaly Increased soft tissue density with mediastinal widening - interval increase compared to prior study. Rest of the cardiomediastinal silhouette is within normal limits. No acute osseous abnormality. Multiple wires are seen overlying the chest wall IMPRESSION: 1. Interval increase of bilateral ill defined haziness with increased density in bilateral lower zones- could be pulmonary congestion, however, infective etiology is also - suggested CT correlation 2. Obliteration of bilateral costophrenic angles - could represent pleural effusion or pleural thickening.- unchanged 3. Apparent cardiomegaly- unchanged 4. Increased soft tissue density with mediastinal widening - interval increase compared to prior study. Electronically signed by Ricardo Garcia 11-02-2024 06:25 AM Medications Administered Current Inpatient Medications Albuterol (Albut/Ipratrop 3mg/0.5mg Neb 3 Ml Vial) 3 ml INH Q4H PRN PRN Reason: Dyspnea Stop: 11/30/24 19:51 Last Admin: 11/02/24 07:49 Dose: 3 ml Famotidine (Famotidine 20 Mg Tab) 20 mg PO QAM THOM Stop: 12/03/24 08:59 Fluticasone/Vilanterol (Fluticasone/Vilanterol 200/25mcg 14 Puffs/Inhaler) 1 puffs INH QAM THOM Stop: 12/01/24 08:59 Last Admin: 11/02/24 08:40 Dose: 1 puffs Heparin Sodium (Porcine) (Heparin Sod 5,000 Unit/0.5 Ml Vial) 5,000 units SQ Q12 THOM Stop: 11/30/24 20:59 Last Admin: 11/02/24 08:57 Dose: 5,000 units Ceftriaxone Sodium (Rocephin) 2,000 mg in 50 mls @ 100 mls/hr IV Q24H [facility]; Protocol Stop: 11/09/24 20:29 Last Infusion: 11/01/24 21:15 Dose: Infused Levothyroxine Sodium 100 mcg/ (Syringe) 5 mls @ 2 mls/min IV DAILY@0900 [facility]; Protocol Stop: 11/02/24 14:00 Last Admin: 11/02/24 09:33 Dose: 2 mls/min Doxycycline Hyclate 100 mg/ (Dextrose) 100 mls @ 50 mls/hr IV Q12H [facility] Stop: 11/10/24 22:59 Last Infusion: 11/02/24 10:40 Dose: Infused Lactic Acid (Ammonium Lactate 12% Lotion 225 Gm Btl) 1 gm EXT BID THOM Stop: 12/01/24 08:59 Last Admin: 11/02/24 08:39 Dose: Not Given Latanoprost (Latanoprost 0.005% Op Soln 2.5 Ml Btl) 1 drops OPB HS [facility] Stop: 11/30/24 20:59 Last Admin: 11/01/24 20:33 Dose: 1 drops Levothyroxine Sodium (Levothyroxine Sodium 100 Mcg Tablet) 100 mcg PO DAILYBB [facility] Stop: 12/03/24 06:29 Miscellaneous (Icu Protocol For Hyperglycemia) 1 each N/A Q6 [facility] Stop: 11/03/24 11:59 Last Admin: 11/02/24 11:30 Dose: Not Given Prednisone (Prednisone 10 Mg Tablet) 50 mg PO DAILY [facility]; Taper Stop: 11/15/24 08:59 Last Admin: 11/02/24 08:42 Dose: 50 mg Ropinirole HCl (Ropinirole Hcl 0.25 Mg Tablet) 0.25 mg PO HS [facility] Stop: 12/01/24 21:14 Last Admin: 11/01/24 21:30 Dose: 0.25 mg Umeclidinium Achille (Umeclidinium Achille 62.5mcg/Blister 7 Puffs/Inhaler) 1 puffs INH QAM [facility] Stop: 12/01/24 08:59 Last Admin: 11/02/24 08:40 Dose: 1 puffs PG Care Time/CCT Total # of Minutes Spent Total Time Spent with Patient: Total time spent is greater than 50% in coordination of care (as documented) at patient's floor/unit and/or counseling patient: Advanced Care Planning 79136 Advanced Care Planning 30 [place] [address] IN/OBS CONSULT LVL 4,60M Patient Type New History Expanded Problem Focused Exam Expanded Problem Focused Medical Decision Making Moderate Complexity Diagnoses Palliative care by specialist Z51.5 Advance directive declined by patient Z78.9 Counseling regarding goals of care Z71.89 Additional Codes Advanced Care Planning - 00132 Advanced Care Planning 30 Min: 05915 Advanced Care Planning 30 Min ([id number])
--- NOTE | 2024-11-02 10:13 | Nephrology Progress Note ---
Date of Service November 02, 2024 Assessment & Plan (1) Acute hyponatremia: (2) Symptomatic bradycardia: Plan 74-year-old female with baseline decent kidney function, baseline creatinine 1.0-1.1 mg/dl with prior repeated history of WAYNE, admitted after an episode of syncope and found to have symptomatic bradycardia, heart rate 37, WAYNE critical electrolyte abnormality and hypothyroidism. Creatinine was 1.6 mg/dl on admission, sodium 111 slowly improved 115 this morning after multiple doses of hypertonic saline. Potassium was 5.7 which worsened to 6.4 this morning. Had temporary pacemaker placed yesterday, heart rate improved. Kidney function staying relatively stable this morning. Had Temporary pacemaker placed yesterday. Kidney function started to improve, creatinine down to 1.4, electrolyte abnormality improving, potassium normalized, sodium improving slowly, up to 122 this morning, asymptomatic. Decent urine output, net negative. --continue to monitor serum sodium every 8 hours, expect sodium to continue to improve slowly. --Encourage p.o. intake. Admission and Anticipated Discharge Date Admission Date: October 31, 2024 Trevor Silva was seen and evaluated this morning. She reports overall feeling well denies any specific symptoms, awake and alert and sitting up eating breakfast. Kidney function slightly improved, creatinine down to 1.4. Potassium normalized. Sodium slowly improving , up to 122 this morning. Decent urine output. Blood pressure stable. Had brief episodes of bradycardia overnight but resolved. Review of Systems Review of Systems: Detailed review of system was done and pertinent positives and negatives are mentioned above. Physical Exam Constitutional: WD/WN, vitals as above no acute distress Eyes: + anicteric sclerae Respiratory: no respiratory distress Auscultation: + diminished lung sounds Cardiovascular: Rate/Rhythm: regular rate and regular rhythm Heart Sounds: normal S1 and normal S2 Extremities: no edema Musculoskeletal: Extremities: extremities normal to inspection Skin: no rashes, warm and dry Neurologic: no focal motor deficits Psychiatric: Orientation: alert and oriented x 3 Affect: euthymic affect Results & Data Vital Signs (Past 12 Hours) Vital Signs Temp Pulse Pulse Resp BP Pulse Ox O2 Del Method 11/02/24 09:06 36.5 C 94 H 26 H 154/94 H 94 High Flow Nasal Cannula 11/02/24 08:00 36.5 C 89 21 154/75 H 92 High Flow Nasal Cannula 11/02/24 08:00 High Flow Nasal Cannula 11/02/24 07:49 94 H 26 H 93 High Flow Nasal Cannula 11/02/24 07:05 36.5 C 11/02/24 07:00 90 18 159/77 H 97 BiPAP 11/02/24 07:00 BiPAP 11/02/24 05:30 161/75 H 11/02/24 05:28 79 28 H 89 L High Flow Nasal Cannula 11/02/24 05:26 76 25 H 96 11/02/24 05:21 36.2 C L 94 H 33 H 93 11/02/24 05:00 178/91 H 11/02/24 05:00 36.3 C L 97 H 21 93 11/02/24 04:33 36.4 C L 99 H 27 H 68 L 11/02/24 04:30 36.4 C L 95 H 20 74 L 11/02/24 04:18 36.4 C L 79 18 97 11/02/24 04:00 114/74 11/02/24 03:51 36.4 C L 82 17 99 11/02/24 03:33 36.4 C L 79 17 99 11/02/24 03:30 113/57 L 11/02/24 03:29 79 16 100 High Flow Nasal Cannula 11/02/24 03:00 126/65 11/02/24 03:00 36.4 C L 78 12 98 11/02/24 02:33 36.4 C L 82 16 100 11/02/24 02:30 110/58 L 11/02/24 02:03 36.4 C L 92 H 27 H 99 11/02/24 02:00 160/72 H 11/02/24 01:48 36.4 C L 86 33 H 100 11/02/24 01:30 36.5 C 92 H 31 H 94 11/02/24 01:30 166/76 H 11/02/24 01:00 36.1 C L 93 H 34 H 96 11/02/24 01:00 160/83 H 11/02/24 00:33 36.0 C L 89 32 H 95 11/02/24 00:30 163/90 H 11/02/24 00:03 36.2 C L 89 33 H 95 11/02/24 00:00 92 H 11/02/24 00:00 136/81 11/01/24 23:39 90 26 H 92 High Flow Nasal Cannula 11/01/24 23:30 36.6 C 90 26 H 94 11/01/24 23:30 160/86 H 11/01/24 23:06 36.6 C 89 30 H 95 11/01/24 23:00 161/81 H O2 Flow Rate FiO2 11/02/24 09:06 60 80 11/02/24 08:00 60 80 11/02/24 08:00 80 11/02/24 07:49 60 80 11/02/24 07:05 11/02/24 07:00 70 11/02/24 07:00 70 11/02/24 05:30 11/02/24 05:28 55 100 11/02/24 05:26 70 11/02/24 05:21 55 100 11/02/24 05:00 11/02/24 05:00 55 100 11/02/24 04:33 11/02/24 04:30 11/02/24 04:18 11/02/24 04:00 11/02/24 03:51 11/02/24 03:33 11/02/24 03:30 11/02/24 03:29 50 60 11/02/24 03:00 11/02/24 03:00 11/02/24 02:33 11/02/24 02:30 11/02/24 02:03 11/02/24 02:00 11/02/24 01:48 11/02/24 01:30 11/02/24 01:30 11/02/24 01:00 50 70 11/02/24 01:00 11/02/24 00:33 11/02/24 00:30 11/02/24 00:03 50 70 11/02/24 00:00 11/02/24 00:00 11/01/24 23:39 50 70 11/01/24 23:30 11/01/24 23:30 11/01/24 23:06 50 70 11/01/24 23:00 PG Care Time/CCT Total # of Minutes Spent Total Time Spent with Patient: Total time spent is greater than 50% in coordination of care (as documented) at patient's floor/unit and/or counseling patient: Coding Level of Care Code 01196 SUB INP/OBS CARE 2/35MIN Diagnoses Acute hyponatremia E87.1 Symptomatic bradycardia R00.1
--- NOTE | 2024-11-02 10:52 | Electrocardiogram Report ---
Test Reason : Blood Pressure : */* mmHG Vent. Rate : 87 BPM Atrial Rate : 87 BPM P-R Int : 220 ms QRS Dur : 74 ms QT Int : 374 ms P-R-T Axes : 68 51 37 degrees QTcB Int : 450 ms Sinus rhythm with 1st degree A-V block Otherwise normal ECG When compared with ECG of 01-Nov-2024 08:51, Sinus rhythm has replaced Electronic ventricular pacemaker Confirmed by Artemio Boswell ([id number]) on 11/02/2024 10:51:49 AM Referred By: REFERRED SELF Confirmed By: Artemio Boswell
[2024-11-02 12:32] LABS: BUN Creatinine Ratio 23.6 (10-20); Calcium 8.9 mg/dl (8.6-10.3); Creatinine Clr Calc Pharmacy 40.5 ml/min; Potassium 4.3 mmol/L (3.5-5.1)
--- NOTE | 2024-11-02 12:46 | Cardiology Progress Note ---
Date of Service November 02, 2024 Assessment & Plan (1) Symptomatic bradycardia: (2) Complete heart block: Plan 1. Complete heart block and associated symptomatic bradycardia: Related to her metabolic abnormalities, most specifically high potassium. This improved yesterday. There was some ventricular pacing overnight, but this was in the stock checker hours and likely related to intrinsic bradycardia. I turned her temporary pacemaker down today and she has been maintaining heart rates in the 90s with good conduction and narrow complex QRS. I think we can discontinue the temporary transvenous pacemaker. At this point cardiology will sign off. Please do not hesitate to contact the on-call [facility] manager transportation for additional questions or concerns. Admission and Anticipated Discharge Date Admission Date: October 31, 2024 Subjective This morning the patient claims be feeling better overall. Minimal appetite but tolerating some liquids. She feels her breathing is improved and she is more comfortable overall. Review of Systems Review of Systems: Per HPI Physical Exam Physical Exam: She is alert and oriented to person and place. She answered all questions appropriately. Still using high flow nasal cannula. HEENT: Sclerae are anicteric. Pupils are equal and reactive to light and accommodation. Extraocular movements were intact. Neuro: Cranial nerves intact Neck: Transvenous pacemaker in the right internal jugular vein. Lungs: Tachypnea. Crackles in the bases bilaterally. Bronchial breath sounds without wheezing. Cardiac: The rhythm was regular. S1 and S2 were normal. There are no murmurs on examination. The PMI was not markedly displaced on palpation. Extremities: Patient has bilateral radial pulses that are equal in intensity. There is no evidence cyanosis or clubbing. There was no evidence of significant peripheral edema bilaterally. Skin: There are no rashes noted on examination today. Results & Data Vital Signs (Past 12 Hours) Vital Signs Temp Pulse Pulse Resp BP Pulse Ox O2 Del Method 11/02/24 11:00 36.9 C 99 H 27 H 174/93 H 90 High Flow Nasal Cannula 11/02/24 10:05 96 H 22 91 High Flow Nasal Cannula 11/02/24 10:00 36.9 C 94 H 26 H 164/75 H 95 High Flow Nasal Cannula 11/02/24 09:06 36.5 C 94 H 26 H 154/94 H 94 High Flow Nasal Cannula 11/02/24 08:00 36.5 C 89 21 154/75 H 92 High Flow Nasal Cannula 11/02/24 08:00 High Flow Nasal Cannula 11/02/24 07:49 94 H 26 H 93 High Flow Nasal Cannula 11/02/24 07:05 36.5 C 11/02/24 07:00 90 18 159/77 H 97 BiPAP 11/02/24 07:00 BiPAP 11/02/24 05:30 161/75 H 11/02/24 05:28 79 28 H 89 L High Flow Nasal Cannula 11/02/24 05:26 76 25 H 96 11/02/24 05:21 36.2 C L 94 H 33 H 93 11/02/24 05:00 178/91 H 11/02/24 05:00 36.3 C L 97 H 21 93 11/02/24 04:33 36.4 C L 99 H 27 H 68 L 11/02/24 04:30 36.4 C L 95 H 20 74 L 11/02/24 04:18 36.4 C L 79 18 97 11/02/24 04:00 114/74 11/02/24 03:51 36.4 C L 82 17 99 11/02/24 03:33 36.4 C L 79 17 99 11/02/24 03:30 113/57 L 11/02/24 03:29 79 16 100 High Flow Nasal Cannula 11/02/24 03:00 126/65 11/02/24 03:00 36.4 C L 78 12 98 11/02/24 02:33 36.4 C L 82 16 100 11/02/24 02:30 110/58 L 11/02/24 02:03 36.4 C L 92 H 27 H 99 11/02/24 02:00 160/72 H 11/02/24 01:48 36.4 C L 86 33 H 100 11/02/24 01:30 36.5 C 92 H 31 H 94 11/02/24 01:30 166/76 H 11/02/24 01:00 36.1 C L 93 H 34 H 96 11/02/24 01:00 160/83 H O2 Flow Rate FiO2 11/02/24 11:00 60 80 11/02/24 10:05 60 80 11/02/24 10:00 60 80 11/02/24 09:06 60 80 11/02/24 08:00 60 80 11/02/24 08:00 80 05/16/25 07:49 60 80 11/02/24 07:05 11/02/24 07:00 70 11/02/24 07:00 70 11/02/24 05:30 11/02/24 05:28 55 100 11/02/24 05:26 70 11/02/24 05:21 55 100 11/02/24 05:00 11/02/24 05:00 55 100 11/02/24 04:33 11/02/24 04:30 11/02/24 04:18 11/02/24 04:00 11/02/24 03:51 11/02/24 03:33 11/02/24 03:30 11/02/24 03:29 50 60 11/02/24 03:00 11/02/24 03:00 11/02/24 02:33 11/02/24 02:30 11/02/24 02:03 11/02/24 02:00 11/02/24 01:48 11/02/24 01:30 11/02/24 01:30 11/02/24 01:00 50 70 11/02/24 01:00 Laboratory Results Abnormal Lab Results 11/01/24 11/01/24 11/01/24 12:45 14:06 14:53 WBC RBC Hgb Hct MCV MCH MCHC RDW Std Deviation RDW Coeff of Delmer Plt Count MPV Sodium 118 L* Potassium 5.0 Chloride 82 L Carbon Dioxide 27 Anion Gap 9 BUN 27 H Creatinine 1.57 H Est Cr Clr Drug Dosing 32.8 eGFR 34.41 BUN/Creatinine Ratio 17.2 Glucose 116 H POC Glucose 152 H 135 H Calcium 8.9 Phosphorus Magnesium Troponin I High Sens Stool Occult Bld Scrn 11/01/24 11/01/24 11/01/24 16:30 18:12 19:55 WBC RBC Hgb Hct MCV MCH MCHC RDW Std Deviation RDW Coeff of Delmer Plt Count MPV Sodium 119 L* Potassium 5.0 Chloride 83 L Carbon Dioxide 27 Anion Gap 9 BUN 27 H Creatinine 1.53 H Est Cr Clr Drug Dosing 33.7 eGFR 35.49 BUN/Creatinine Ratio 17.6 Glucose 119 H POC Glucose 135 H Calcium 8.6 Phosphorus Magnesium Troponin I High Sens 38.2 H D Stool Occult Bld Scrn Positive A 11/02/24 11/02/2411/02/25 00:23 00:35 04:30 WBC 16.95 H RBC 2.98 L Hgb 10.0 L Hct 28.0 L MCV 94.0 MCH 33.6 MCHC 35.7 RDW Std Deviation 52.0 H RDW Coeff of Delmer 15.2 H Plt Count 230 MPV 10.2 Sodium 119 L* 122 L Potassium 5.0 5.7 H Chloride 81 L 83 L Carbon Dioxide 26 28 Anion Gap 12 H 11 BUN 30 H 31 H Creatinine 1.54 H 1.57 H Est Cr Clr Drug Dosing 33.5 32.8 eGFR 35.21 34.41 BUN/Creatinine Ratio 19.5 19.7 Glucose 137 H 123 H POC Glucose 142 H Calcium 9.1 9.2 Phosphorus 5.6 H Magnesium 2.3 Troponin I High Sens Stool Occult Bld Scrn 11/02/24 11/02/24 11/02/24 07:56 11:29 11:58 WBC RBC Hgb Hct MCV MCH MCHC RDW Std Deviation RDW Coeff of Delmer Plt Count MPV Sodium 122 L 122 L Potassium 4.5 D 4.3 Chloride 83 L 83 L Carbon Dioxide 30 29 Anion Gap 9 10 BUN 31 H 30 H Creatinine 1.39 H 1.27 H Est Cr Clr Drug Dosing 37.0 40.5 eGFR 39.82 44.38 BUN/Creatinine Ratio 22.3 H 23.6 H Glucose 115 H 147 H POC Glucose 165 H Calcium 8.9 8.9 Phosphorus Magnesium Troponin I High Sens Stool Occult Bld Scrn PG Care Time/CCT Total # of Minutes Spent Total Time Spent with Patient: Total time spent is greater than 50% in coordination of care (as documented) at patient's floor/unit and/or counseling patient: Coding Level of Care Code 19501 SUB INP/OBS CARE 2/35MIN Diagnoses Symptomatic bradycardia R00.1 Complete heart block I44.2
[2024-11-02] MEDS: FUROSEMIDE 40 MG/4 ML VIAL IV ONE (13:40)
--- NOTE | 2024-11-02 15:20 | Communication Note ---
Date of Service: November 02, 2024 Patient's right internal jugular sheath and temporary transvenous pacemaker removed and direct pressure applied for 10 minutes. No hemostasis noted. Sterile dressing applied. No immediate complications.
[2024-11-02 20:14] LABS: BUN Creatinine Ratio 23.1 (10-20); Calcium 8.9 mg/dl (8.6-10.3); Creatinine Clr Calc Pharmacy 39.5 ml/min; Potassium 4.2 mmol/L (3.5-5.1)
[2024-11-02 22:23] LABS: Appearance Urine Clear (Clear); Bacteria Urine Automated None Seen (None Seen); Bilirubin Urine Negative (Negative); Blood Urine 3+ (Negative); Color Urine Yellow; Glucose Urine UA Negative (Negative); Ketones Urine Negative (Negative); Leukocyte Esterase Urine Trace (Negative); Nitrite Urine Negative (Negative); Protein Urine 2+ (Negative); RBC Urine Automated >20 /hpf (0-2); Specific Gravity Urine 1.014 (1.000-1.030); Urobilinogen Urine Negative (Negative); WBC Urine Automated >50 /hpf (0-5); pH Urine 5.5 (4.5-7.5)
[2024-11-03 05:04] LABS: Hematocrit (blood only) 25.3 % (37.0-47.0); Mean Corpuscular Hemoglobin 33.6 pg (25.0-34.0); Mean Corpuscular Hgb Conc 35.6 g/dL (32.0-36.0); Mean Corpuscular Volume 94.4 fL (80.0-100.0); Mean Platelet Volume 10.5 fL (9.4-12.4); Platelet Count 263 K/uL (130-400); RDW Coefficient of Variation 15.6 % (11.5-14.5); RDW Standard Deviation 53.1 fL (36.4-46.3); Red Blood Count 2.68 M/uL (4.20-5.40); White Blood Count 18.99 K/ul (4.8-10.8)
[2024-11-03 05:19] LABS: BUN Creatinine Ratio 25.6 (10-20); Calcium 8.9 mg/dl (8.6-10.3); Creatinine Clr Calc Pharmacy 43.9 ml/min; Magnesium 1.9 mg/dl (1.7-2.4); Phosphorus 4.8 mg/dl (2.5-4.9); Potassium 4.2 mmol/L (3.5-5.1)
[2024-11-03] MEDS: LEVOTHYROXINE SODIUM 100 MCG TABLET PO SCH (06:12)
[2024-11-03] MEDS: FUROSEMIDE 40 MG/4 ML VIAL IV ONE (07:26)
--- NOTE | 2024-11-03 08:06 | XRay Report ---
EXAM: XR chest 1V portable CLINICAL HISTORY: Respiratory distress TECHNIQUE: Radiograph of chest was acquired. 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 FINDINGS: There is blunting of bilateral costo-phrenic angles with haziness in bilateral middle and lower zones. RIght hilum is prominent. Bronchovascular markings are prominent. Mild cardiomegaly is seen. No acute osseous abnormality. IMPRESSION: 1. Bilateral pleural effusion with opacities in peripheral middle/lower zones. 2. Prominent right hilum. 3. Mild cardiomegaly. 4. No significant interval change. Electronically signed by Ricardo Garcia 11-03-2024 08:06 AM
[2024-11-03] MEDS: FAMOTIDINE 20 MG TAB PO SCH (08:53)
[2024-11-03] MEDS: COUGH DROP (SUGAR FREE) LOZ 24 LOZ/1 BOX BUCCAL PRN (10:31)
[2024-11-03] MEDS: COUGH DROP (SUGAR FREE) LOZ 24 LOZ/1 BOX BUCCAL ONE (10:32)
--- NOTE | 2024-11-03 11:15 | Critical Care Progress Note ---
Date of Service November 03, 2024 Assessment & Plan (1) Symptomatic bradycardia: (2) Complete heart block: (3) Hypothyroidism: (4) Acute kidney injury superimposed on CKD: (5) Acute hyponatremia: (6) COPD (chronic obstructive pulmonary disease): Plan Reason Critically Ill: Severe hyponatremia in setting of symptomatic bradycardia complicated by severe hyponatremia, elevated TSH, and end stage COPD. Neuro - Encephalopathy-resolved Hx: Anxiety/Depression Cardiac - Symptomatic bradycardia- CHB, Shock- multifactorial resolved - Appeared to be largely result of electrolyte disturbances and hypoxia -Possible contribution of hypothyroidism as patient was not taking thyroid consistently nor at consistent time of day - Status post transvenous pacer with subsequent removal - Reviewed echocardiogram Tachycardia and hypertension - Both appear to be associated with work of breathing and hypoxia when on high flow nasal cannula both improved with noninvasive mechanical ventilation Respiratory - Hypoxic respiratory failure acute on chronic, end stage COPD - While not overtly compensating for respiratory acidosis prior lab values when more stable bicarb ranges 31-32, patient does not tolerate significant acidosis given baseline kidney disease - Improved hemodynamics when oxygen saturations 92-96 - On 3 L nasal cannula at baseline - Appears to have clinically stalled or worsened -Was limited in diuretics given significant electrolyte disturbances -Continue gentle diuresis given limitations of electrolyte abnormalities - Continue her FERN, LABA/LAMA - 2-week taper of prednisone ordered for COPD exacerbation Hemoptysis - Patient not having kelvin mopped assist but sputum is blood-tinged, this is somewhat to be expected being on positive pressure and significant oxygen requirements GI -stools fecal occult blood positive - Continue Pepcid will recommend GI follow-up - Not transitioning back to PPI as this can be associated with hyponatremia and patient has had now multiple episodes of hyponatremia of unclear etiology Diet: Written for heart healthy diet RENAL/LYTES - Metabolic Acidosis, Severe Hyponatremia, GRIS II on CKD III - Metabolic acidosis resolved - Hypoosmolar hyponatremia-improving - 40 mg Lasix today Acute kidney failure on chronic kidney disease stage III: Improving - Hyperkalemia-resolved Reviewed nephrology documentation - No acute needs - Continue andrews catheter at this time ENDO - Decompensated hypothyroidism, DMII, - Synthroid 100 mcg daily - ICU hyperglycemic protocol 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 histocytosis ID -persistently hypothermic, will continue IV anti-infectives - No growth to date -Rocephin empiric for probable COPD exacerbation x 10 days - BioFire panel negative -Empiric treatment with doxycycline load 200 mg then 100 twice daily for 10 days or until Legionella antigen negative LINES/IV ACCESS - PIV, Andrews, DVT PROPHYLAXIS - SCDS, Heparin 5000 units subq q12 CODE STATUS: Full; patient may benefit from advanced care planning discussions with primary care team given significant end-stage COPD and now multiple hospital readmissions. DISPO: ICU I am concerned given the slow clinical backside of the patient's respiratory status. If she were to be intubated I am doubtful she would be able to be liberated from the ventilator. She has been on empiric treatment with antibiotics, consideration given to bronchoscopy but given oxygen requirements I feel this would only be achievable after intubation and again I feel she would be highly unlikely to liberate from mechanical ventilation. Admission and Anticipated Discharge Date Admission Date: October 31, 2024 Supervising Physician Co-Signing Physician Notes I have personally spent 45 minutes of critical care time in the direct management of this patient. This is a life/limb threatening event. This includes time spent evaluating patient, direct bedside care, chart review, placing orders, interpretation of diagnostic studies, discussion with consultants, patient, and/or family members regarding treatment decisions, as well as other required patient management activities. This time is exclusive of all separately billable procedures, and teaching time and separate from and in addition to any other critical care service time. Subjective Patient has had increasing oxygen requirements and decreasing ability to tolerate high flow nasal cannula with increasing dependency on BiPAP Physical Exam Physical Exam: General: Alert. Oriented x 3 Skin: Warm, dry Head: Atraumatic Ears, nose, mouth and throat: airway patent Neck: Dressing in place Cardiovascular: Normal peripheral perfusion Respiratory: BiPAP mask in place Gastrointestinal: Non distended Musculoskeletal: No deformity Results & Data Results & Data Vital Signs (Past 12 Hours) Vital Signs Temp Pulse Pulse Resp BP Pulse Ox O2 Del Method 11/03/24 10:00 37.2 C 108 H 13 170/78 H 89 L High Flow Nasal Cannula 11/03/24 09:06 37.1 C 106 H 23 175/97 H 91 High Flow Nasal Cannula 11/03/24 08:00 37.0 C 92 H 22 153/74 H 91 BiPAP 11/03/24 07:00 37.1 C 101 H 26 H 162/84 H 98 BiPAP 11/03/24 07:00 BiPAP 11/03/24 06:46 151/84 H 11/03/24 06:36 37.1 C 99 H 19 99 11/03/24 06:04 107 H 28 H 96 11/03/24 06:04 107 H 28 H 95 BiPAP 11/03/24 05:03 37.1 C 104 H 23 93 High Flow Nasal Cannula 11/03/24 05:01 173/73 H 11/03/24 04:12 37.1 C 103 H 28 H 99 BiPAP 11/03/24 04:02 128/104 H 11/03/24 03:51 36.9 C 95 H 19 100 11/03/24 03:30 36.8 C 98 H 21 100 11/03/24 03:06 160/101 H 11/03/24 02:51 36.9 C 108 H 24 98 BiPAP 11/03/24 02:42 37.0 C 112 H 30 H 99 BiPAP 11/03/24 02:30 37.0 C 112 H 27 H 94 BiPAP 11/03/24 02:20 148/116 H 11/03/24 02:01 172/102 H BiPAP 11/03/24 02:00 111 H 28 H 94 11/03/24 01:45 37.0 C 102 H 26 H 89 L BiPAP 11/03/24 01:24 36.8 C 105 H 31 H 91 11/03/24 01:01 158/74 H 11/03/24 00:39 36.7 C 98 H 18 93 11/03/24 00:04 166/87 H 11/03/24 00:04 166/87 H 11/03/24 00:00 36.7 C 99 H 20 91 11/03/24 00:00 95 H 11/02/24 23:15 36.7 C 101 H 30 H 89 L O2 Flow Rate FiO2 11/03/24 10:00 50 80 11/03/24 09:06 50 80 11/03/24 08:00 70 11/03/24 07:00 80 11/03/24 07:00 100 11/03/24 06:46 11/03/24 06:36 11/03/24 06:04 100 11/03/24 06:04 100 11/03/24 05:03 50 100 11/03/24 05:01 11/03/24 04:12 50 11/03/24 04:02 11/03/24 03:51 11/03/24 03:30 11/03/24 03:06 11/03/24 02:51 50 11/03/24 02:42 50 11/03/24 02:30 50 11/03/24 02:20 11/03/24 02:01 50 11/03/24 02:00 90 11/03/24 01:45 50 11/03/24 01:24 40 70 11/03/24 01:01 11/03/24 00:39 40 70 11/03/24 00:04 11/03/24 00:04 11/03/24 00:00 11/03/24 00:00 11/02/24 23:15 Critical Care Results & Data Vital Signs (Past 12 Hours) Vital Signs Temp Pulse Pulse Resp BP Pulse Ox O2 Del Method 11/03/24 10:00 37.2 C 108 H 13 170/78 H 89 L High Flow Nasal Cannula 11/03/24 09:06 37.1 C 106 H 23 175/97 H 91 High Flow Nasal Cannula 11/03/24 08:00 37.0 C 92 H 22 153/74 H 91 BiPAP 11/03/24 07:00 37.1 C 101 H 26 H 162/84 H 98 BiPAP 11/03/24 07:00 BiPAP 11/03/24 06:46 151/84 H 11/03/24 06:36 37.1 C 99 H 19 99 11/03/24 06:04 107 H 28 H 96 11/03/24 06:04 107 H 28 H 95 BiPAP 11/03/24 05:03 37.1 C 104 H 23 93 High Flow Nasal Cannula 11/03/24 05:01 173/73 H 11/03/24 04:12 37.1 C 103 H 28 H 99 BiPAP 11/03/24 04:02 128/104 H 11/03/24 03:51 36.9 C 95 H 19 100 11/03/24 03:30 36.8 C 98 H 21 100 11/03/24 03:06 160/101 H 11/03/24 02:51 36.9 C 108 H 24 98 BiPAP 11/03/24 02:42 37.0 C 112 H 30 H 99 BiPAP 11/03/24 02:30 37.0 C 112 H 27 H 94 BiPAP 11/03/24 02:20 148/116 H 11/03/24 02:01 172/102 H BiPAP 11/03/24 02:00 111 H 28 H 94 11/03/24 01:45 37.0 C 102 H 26 H 89 L BiPAP 11/03/24 01:24 36.8 C 105 H 31 H 91 11/03/24 01:01 158/74 H 11/03/24 00:39 36.7 C 98 H 18 93 11/03/24 00:04 166/87 H 11/03/24 00:04 166/87 H 11/03/24 00:00 36.7 C 99 H 20 91 11/03/24 00:00 95 H O2 Flow Rate FiO2 11/03/24 10:00 50 80 11/03/24 09:06 50 80 11/03/24 08:00 70 11/03/24 07:00 80 11/03/24 07:00 100 11/03/24 06:46 11/03/24 06:36 11/03/24 06:04 100 11/03/24 06:04 100 11/03/24 05:03 50 100 11/03/24 05:01 11/03/24 04:12 50 11/03/24 04:02 11/03/24 03:51 11/03/24 03:30 11/03/24 03:06 11/03/24 02:51 50 11/03/24 02:42 50 11/03/24 02:30 50 11/03/24 02:20 11/03/24 02:01 50 11/03/24 02:00 90 11/03/24 01:45 50 11/03/24 01:24 40 70 11/03/24 01:01 11/03/24 00:39 40 70 11/03/24 00:04 11/03/24 00:04 11/03/24 00:00 11/03/24 00:00 Lab & Micro Results (Past 24 Hours) RBC 2.68 M/uL (4.20-5.40) L 11/03/24 WBC 18.99 K/ul (4.8-10.8) H 11/03/24 Hgb 9.0 g/dl (12.0-16.0) L 11/03/24 Hct 25.3 % (37.0-47.0) L 11/03/24 MCV 94.4 fL (80.0-100.0) 11/03/24 MCH 33.6 pg (25.0-34.0) 11/03/24 MCHC 35.6 g/dL (32.0-36.0) 11/03/24 RDW Standard Deviation 53.1 fL (36.4-46.3) H 11/03/24 RDW Coefficient of Variation 15.6 % (11.5-14.5) H 11/03/24 Plt Count 263 K/uL (130-400) 11/03/24 MPV 10.5 fL (9.4-12.4) 11/03/24 Na 126 mmol/L (136-145) L 11/03/24 K 4.2 mmol/L (3.5-5.1) 11/03/24 Cl 85 mmol/L (98-107) L 11/03/24 CO2 30 mmol/L (21-32) 11/03/24 Anion Gap 11 (3-11) 11/03/24 BUN 30 mg/dl (6-23) H 11/03/24 Creatinine 1.17 mg/dl (0.6-1.2) 11/03/24 BUN/Creatinine Ratio 25.6 (10-20) H 11/03/24 Glu 108 mg/dl (70-99(Fasting)) H 11/03/24 Ca 8.9 mg/dl (8.6-10.3) 11/03/24 Phosphorus Level 4.8 mg/dl (2.5-4.9) 11/03/24 Mg 1.9 mg/dl (1.7-2.4) 11/03/24 04:25 Calcium Level 8.9 mg/dl (8.6-10.3) 11/03/24 04:25 Microbiology 11/01/24 10:29 Urine Culture - Final Urine,Indwelling Cath No growth - less than 1,000 colonies/mL. 10/31/24 22:20 Aerobic Blood Culture - Preliminary Blood No growth in Aerobic bottle after 48 hours. Anaerobic Blood Culture - Final 10/31/24 22:38 Aerobic Blood Culture - Preliminary Blood No growth in Aerobic bottle after 48 hours. Anaerobic Blood Culture - Final Diagnostic Findings (Past 24 Hours) Chest X-Ray 11/03/24 06:00 EXAM: XR chest 1V portable CLINICAL HISTORY: Respiratory distress TECHNIQUE: Radiograph of chest was acquired. 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 FINDINGS: There is blunting of bilateral costo-phrenic angles with haziness in bilateral middle and lower zones. RIght hilum is prominent. Bronchovascular markings are prominent. Mild cardiomegaly is seen. No acute osseous abnormality. IMPRESSION: 1. Bilateral pleural effusion with opacities in peripheral middle/lower zones. 2. Prominent right hilum. 3. Mild cardiomegaly. 4. No significant interval change. Electronically signed by Ricardo Garcia 11-03-2024 08:06 AM I & O Totals 24 Hours 11/02/24 11/03/24 11/04/24 06:59 06:59 06:59 Intake Total 1303.833 / 1303.833 650 / 650 100 / 100 Output Total 1365 / 1365 1905 / 1905 1250 / 1250 Balance -61.167 / -61.167 -1255 / -1255 -1150 / -1150 Cumulative 10/31/24 15:34 thru 11/03/24 10:56 Intake Total 3363.850 Output Total 5170 Balance -1806.150 RT Ventilator Mngmt (Last Documented) Ventilator Ordered Settings Respiratory Rate 13 11/03/24 10:00 Fraction of Inspired Oxygen 80 11/03/24 10:00 Ventilator - PT Measurements Respiratory Rate 13 End-Tidal CO2 27 Coding Level of Care Code 34123 CRITICAL CARE 1ST 30-74M Diagnoses Symptomatic bradycardia R00.1 Complete heart block I44.2 Hypothyroidism E03.9 Hypothyroidism type: unspecified Acute kidney injury superimposed on CKD N17.9; N18.9 Acute hyponatremia E87.1 COPD (chronic obstructive pulmonary disease) J44.9 (3) Hypothyroidism Hypothyroidism type: unspecified Qualified Code(s): E03.9 - Hypothyroidism, unspecified
--- NOTE | 2024-11-03 12:35 | Nephrology Progress Note ---
Date of Service November 03, 2024 Assessment & Plan (1) Acute hyponatremia: Plan: Chronic. Asymptomatic. Severe --> sodium improving. Shira is correcting on her own. She has not required additional hypertonic saline in the past 24+ hours. Volume status remains slightly hypervolemic. Continue diuretics to encourage negative fluid balance. Remains on liquid diet with poor oral solute intake. (2) Acute kidney injury superimposed on CKD: Plan: Hemodynamically mediated. Creatinine has returned to normal. Medications are appropriate for kidney function. Document strict I/O's. Repeat metabolic profile tomorrow AM. (3) Acute hypoxemic respiratory failure: Plan: Advanced underlying COPD. Management per technical support director. Tolerating BIPAP. Admission and Anticipated Discharge Date Admission Date: October 31, 2024 Subjective Shira was seen and evaluated in the ICU. She is resting comfortably in bed on BIPAP. Unfortunately, she continues to struggle with breathing difficulty and hypoxia. She denies chest pains or palpitations. She denies any lightheadedness, dizziness, or presyncope. No fevers or chills. Shira is non-oliguric. She has had a good response to IV furosemide 40 mg provided this AM. Review of Systems Review of Systems: All systems reviewed & are unremarkable except as noted in HPI & below Physical Exam Constitutional: + frail appearing; no acute distress Eyes: + anicteric sclerae ENMT: Ears: + hearing impairment BIPAP mask Neck: normal visual inspection, trachea midline and + thick neck Respiratory: + tachypneic; no respiratory distress an d does not use accessory muscles Auscultation: + rhonchi Cardiovascular: Rate/Rhythm: + tachycardic Heart Sounds: normal S1 and normal S2 Extremities: + edema Musculoskeletal: Extremities: no cyanosis and no clubbing Skin: no jaundice Psychiatric: Orientation: alert and oriented x 3 Results & Data Vital Signs (Past 12 Hours) Vital Signs Temp Pulse Pulse Resp BP Pulse Ox O2 Del Method 11/03/24 11:50 36.9 C 109 H 25 H 185/104 H 94 BiPAP 11/03/24 11:31 110 H 24 95 11/03/24 11:06 36.9 C 115 H 26 H 89 L High Flow Nasal Cannula 11/03/24 11:01 178/111 H 11/03/24 10:00 37.2 C 108 H 13 170/78 H 89 L High Flow Nasal Cannula 11/03/24 09:06 37.1 C 106 H 23 175/97 H 91 High Flow Nasal Cannula 11/03/24 08:00 37.0 C 92 H 22 153/74 H 91 BiPAP 11/03/24 07:00 37.1 C 101 H 26 H 162/84 H 98 BiPAP 11/03/24 07:00 BiPAP 11/03/24 06:46 151/84 H 11/03/24 06:36 37.1 C 99 H 19 99 11/03/24 06:04 107 H 28 H 96 11/03/24 06:04 107 H 28 H 95 BiPAP 11/03/24 05:03 37.1 C 104 H 23 93 High Flow Nasal Cannula 11/03/24 05:01 173/73 H 11/03/24 04:12 37.1 C 103 H 28 H 99 BiPAP 11/03/24 04:02 128/104 H 11/03/24 03:51 36.9 C 95 H 19 100 11/03/24 03:30 36.8 C 98 H 21 100 11/03/24 03:06 160/101 H 11/03/24 02:51 36.9 C 108 H 24 98 BiPAP 11/03/24 02:42 37.0 C 112 H 30 H 99 BiPAP 11/03/24 02:30 37.0 C 112 H 27 H 94 BiPAP 11/03/24 02:20 148/116 H 11/03/24 02:01 172/102 H BiPAP 11/03/24 02:00 111 H 28 H 94 11/03/24 01:45 37.0 C 102 H 26 H 89 L BiPAP 11/03/24 01:24 36.8 C 105 H 31 H 91 11/03/24 01:01 158/74 H 11/03/24 00:39 36.7 C 98 H 18 93 O2 Flow Rate FiO2 11/03/24 11:50 70 11/03/24 11:31 70 11/03/24 11:06 70 80 11/03/24 11:01 11/03/24 10:00 50 80 11/03/24 09:06 50 80 11/03/24 08:00 70 11/03/24 07:00 80 11/03/24 07:00 100 11/03/24 06:46 05/17/25 06:36 11/03/24 06:04 100 11/03/24 06:04 100 11/03/24 05:03 50 100 11/03/24 05:01 11/03/24 04:12 50 11/03/24 04:02 11/03/24 03:51 11/03/24 03:30 11/03/24 03:06 11/03/24 02:51 50 11/03/24 02:42 50 11/03/24 02:30 50 11/03/24 02:20 11/03/24 02:01 50 11/03/24 02:00 90 11/03/24 01:45 50 11/03/24 01:24 40 70 11/03/24 01:01 11/03/24 00:39 40 70 Laboratory Results Laboratory Results - last 24 hr 11/02/24 11/02/24 11/02/24 11:58 18:16 19:45 WBC RBC Hgb Hct MCV MCH MCHC RDW Std Deviation RDW Coeff of Delmer Plt Count MPV Sodium 122 L 123 L Potassium 4.3 4.2 Chloride 83 L 83 L Carbon Dioxide 29 28 Anion Gap 10 12 H BUN 30 H 30 H Creatinine 1.27 H 1.30 H Est Cr Clr Drug Dosing 40.5 39.5 eGFR 44.38 43.15 BUN/Creatinine Ratio 23.6 H 23.1 H Glucose 147 H 190 H POC Glucose 143 H Calcium 8.9 8.9 Phosphorus Magnesium Urine Color Urine Appearance Urine pH Ur Specific [place] Urine Protein Urine Glucose (UA) Urine Ketones Urine Blood Urine Nitrite Urine Bilirubin Urine Urobilinogen Ur Leukocyte Esterase Urine WBC (Auto) Urine RBC (Auto) U Hyaline Cast (Auto) U Epithel Cells (Auto) Urine Bacteria (Auto) Urine Comment 11/02/24 11/03/24 11/03/24 Unknown 00:00 04:25 WBC 18.99 H RBC 2.68 L Hgb 9.0 L Hct 25.3 L MCV 94.4 MCH 33.6 MCHC 35.6 RDW Std Deviation 53.1 H RDW Coeff of Delmer 15.6 H Plt Count 263 MPV 10.5 Sodium 126 L Potassium 4.2 Chloride 85 L Carbon Dioxide 30 Anion Gap 11 BUN 30 H Creatinine 1.17 Est Cr Clr Drug Dosing 43.9 eGFR 48.97 BUN/Creatinine Ratio 25.6 H Glucose 108 H POC Glucose 116 H Calcium 8.9 Phosphorus 4.8 Magnesium 1.9 Urine Color Yellow Urine Appearance Clear Urine pH 5.5 Ur Specific [place] 1.014 Urine Protein 2+ H Urine Glucose (UA) Negative Urine Ketones Negative Urine Blood 3+ H Urine Nitrite Negative Urine Bilirubin Negative Urine Urobilinogen Negative Ur Leukocyte Esterase Trace H Urine WBC (Auto) >50 H Urine RBC (Auto) >20 H U Hyaline Cast (Auto) 6-10 H U Epithel Cells (Auto) 3-5 H Urine Bacteria (Auto) None Seen Urine Comment PG Care Time/CCT Total # of Minutes Spent Total Time Spent with Patient: Total time spent is greater than 50% in coordination of care (as documented) at patient's floor/unit and/or counseling patient: Coding Level of Care Code 66106 SUB INP/OBS CARE 3/50MIN Diagnoses Acute hyponatremia E87.1 Acute kidney injury superimposed on CKD N17.9; N18.9 Acute hypoxemic respiratory failure J96.01
--- NOTE | 2024-11-03 13:08 | XCELERA ---
[id number]
[2024-11-03 15:45] LABS: iSTAT Allen Test Pass; iSTAT Art Bld Gas pCO2 Correct 43 mmHg (35-46); iSTAT Art Bld Gas pH Corrected 7.495 (7.35-7.45); iSTAT Arterial Blood Gas HCO3 34 meg/L (19-24); iSTAT Arterial Blood Gas pCO2 44 mmHg (35-46); iSTAT Arterial Blood Gas pH 7.49 (7.35-7.45); iSTAT Arterial Blood Gas pO2 61 mmHg (80-95); iSTAT Arterial Blood Gas pO2 C 59; iSTAT Carbon Dioxide 35 mmol/L (24-31); iSTAT FiO2 60 %; iSTAT Hematocrit 28 % (37-47); iSTAT Hemoglobin 9.5 g/dl (12.0-16.0); iSTAT Potassium 3.7 mmol/L (3.3-5.0); iSTAT Sample Type Arterial; iSTAT Site L Radial; iSTAT Sodium 124 mmol/L (135-144); iSTAT SpO2 92
--- NOTE | 2024-11-03 16:01 | Hospitalist Progress Note ---
Date of Service November 03, 2024 Assessment & Plan (1) Acute hyponatremia: (2) Complete heart block: (3) Acute kidney injury superimposed on CKD: (4) Hypothyroidism: (5) COPD (chronic obstructive pulmonary disease): Plan 74-year-old woman with severe COPD history of hyponatremia hypothyroidism which is undertreated and depression on several medications who was admitted with severe hyponatremia and third-degree heart block with bradycardia #Acute hypoxic and hypercarbic respiratory failure #Severe underlying COPD #Possible CAP -CXR - reviewed film - similar today - low lung volumes, pulmonary edema, bibasilar consolidations and/or effusions -Bipap/High flow as needed - overnight was on 100% FiO2 / 80 L. At serious risk of needing intubation, and high risk of not being able to come off vent -continue ceftriaxone and doxycycline. Legionella Ag pending -IV lasix - this am, remains volume overloaded - consider repeat dose later today -currently on steroids -continue bronchodilators # severe hyponatremiacritical level of 111 at admission, treated with several 100 mL boluses 3% saline. Improved sodium continues to correct appropriately - now autocorrecting and 126 -monitor sodium -urine sodium low at <10 not consistent with SIADH -held venlafaxine and aripiprazole -reviewed nephrology note today # third degree heart block with bradycardia and evidence of hypoperfusion - lethargy, hypotension, poor peripheral perfusion. Resolved # minimal troponin elevation related to myocardial demand ischemia from hypotension and heart block. Troponin 30-50 # prolonged QT -initially dopamine then transvenous pacer evening of 10/[address] Shah. Electrolytes corrected. TVP removed 11/02. #WAYNE with hyperkalemia -ARB held -hyperkalemia treated, resovled -Cr improved to 1.17 # hypothyroidism - has had increasing doses of levothyroxine as outpatient currently 100 mcg however TSH remains 45, T4 not improved low at 0.4 on admission possible myxedema -continue IV levothyroxine and prednisone -interestingly chronic severe itching has resolved this admission # acute metabolic encephalopathy - due to hypotension/hypoperfusion and severe hyponatremia, possible myxedema coma -monitor mental status - seems normal today -held hydroxyzine, gabapentin history of eosinophilia, clonal eosinophil population has been followed by Dr. 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 88 mcg and ?HCTZ (he said something that sounded more like hydroxyzine) bottles were set aside separately. I do have concern she was mixing up the HCTZ and hydroxyzine which she is on for itching. DVT ppx - SQ heparin Full code - code status discussion with felipe soriano, 11/02. He has poor understanding of her medical conditions. remains full code Updated her at bedside 11/02 Remains critically ill in ICU Discussed POC with: CHILLER TENDER, bulk system operator Admission and Anticipated Discharge Date Admission Date: October 31, 2024 Subjective Respiratory status has been deteriorating Comfortable on Bipap currently Physical Exam 2 Physical Exam: Last 24h vitals reviewed GEN: no acute distress, sitting in bed, on Bipap HEENT: pupils equal, sclerae anicteric, moist MM RESP: increased WOB, breath sounds fairly obscured CV: reg obscured ABD: soft/nt/nd +BT : verito urine in [place]rews Ext: moderate shadia LE edema, significant thigh edema. wwp SKIN: warm and dry, no generalized rashes NEURO: Alert and verbal. Hard to assess on bipap Face symmetric, moves 4 ext spontaneously and equally Results & Data Results & Data Vital Signs (Past 12 Hours) Vital Signs Temp Pulse Pulse Resp BP Pulse Ox O2 Del Method 11/03/24 15:42 104 H 26 H 96 11/03/24 14:00 36.9 C 95 H 23 153/74 H 96 BiPAP 11/03/24 13:00 36.9 C 108 H 20 165/116 H 90 BiPAP 11/03/24 12:00 36.8 C 116 H 41 H 94 BiPAP 11/03/24 11:50 36.9 C 109 H 25 H 185/104 H 94 BiPAP 11/03/24 11:31 110 H 24 95 11/03/24 11:06 36.9 C 115 H 26 H 89 L High Flow Nasal Cannula 11/03/24 11:01 178/111 H 11/03/24 10:00 37.2 C 108 H 13 170/78 H 89 L High Flow Nasal Cannula 11/03/24 09:06 37.1 C 106 H 23 175/97 H 91 High Flow Nasal Cannula 11/03/24 08:00 37.0 C 92 H 22 153/74 H 91 BiPAP 11/03/24 07:00 37.1 C 101 H 26 H 162/84 H 98 BiPAP 11/03/24 07:00 BiPAP 11/03/24 06:46 151/84 H 11/03/24 06:36 37.1 C 99 H 19 99 11/03/24 06:04 107 H 28 H 96 11/03/24 06:04 107 H 28 H 95 BiPAP 11/03/24 05:03 37.1 C 104 H 23 93 High Flow Nasal Cannula 11/03/24 05:01 173/73 H 11/03/24 04:12 37.1 C 103 H 28 H 99 BiPAP 11/03/24 04:02 128/104 H 11/03/24 03:51 36.9 C 95 H 19 100 O2 Flow Rate FiO2 11/03/24 15:42 70 11/03/24 14:00 80 11/03/24 13:00 80 11/03/24 12:00 80 11/03/24 11:50 70 11/03/24 11:31 70 11/03/24 11:06 70 80 11/03/24 11:01 11/03/24 10:00 50 80 11/03/24 09:06 50 80 11/03/24 08:00 70 11/03/24 07:00 80 11/03/24 07:00 100 11/03/24 06:46 11/03/24 06:36 11/03/24 06:04 100 11/03/24 06:04 100 11/03/24 05:03 50 100 11/03/24 05:01 11/03/24 04:12 50 11/03/24 04:02 11/03/24 03:51 Laboratory Results 11/03/24 04:25 11/03/24 04:25 PG Care Time/CCT Total # of Minutes Spent Total Time Spent with Patient: Total time spent is greater than 50% in coordination of care (as documented) at patient's floor/unit and/or counseling patient: Coding Level of Care Code 02530 SUB INP/OBS CARE 3/50MIN Diagnoses Acute hyponatremia E87.1 Complete heart block I44.2 Acute kidney injury superimposed on CKD N17.9; N18.9 Hypothyroidism E03.9 Hypothyroidism type: unspecified COPD (chronic obstructive pulmonary disease) J44.9 (4) Hypothyroidism Hypothyroidism type: unspecified Qualified Code(s): E03.9 - Hypothyroidism, unspecified
[2024-11-03] MEDS: POTASSIUM CHLORIDE CRTAB 20 MEQ TABCR PO STA (16:14)
[2024-11-03] MEDS: acetaZOLAMIDE 500 MG in SYRINGE 0 ML IV STA (16:32)
[2024-11-03] MEDS: amLODIPine BESYLATE 5 MG TAB PO SCH (17:56)
[2024-11-03 18:30] LABS: BUN Creatinine Ratio 27.7 (10-20); Calcium 9.1 mg/dl (8.6-10.3); Creatinine Clr Calc Pharmacy 49.6 ml/min; Potassium 3.7 mmol/L (3.5-5.1)
[2024-11-04 05:18] LABS: Hematocrit (blood only) 25.4 % (37.0-47.0); Hemoglobin 8.7 g/dl (12.0-16.0); Mean Corpuscular Hemoglobin 33.1 pg (25.0-34.0); Mean Corpuscular Hgb Conc 34.3 g/dL (32.0-36.0); Mean Corpuscular Volume 96.6 fL (80.0-100.0); Mean Platelet Volume 10.4 fL (9.4-12.4); Platelet Count 227 K/uL (130-400); RDW Coefficient of Variation 16.1 % (11.5-14.5); RDW Standard Deviation 56.7 fL (36.4-46.3); Red Blood Count 2.63 M/uL (4.20-5.40); White Blood Count 16.46 K/ul (4.8-10.8)
[2024-11-04 05:33] LABS: Albumin Level 3.1 gm/dl (3.4-5.0); BUN Creatinine Ratio 29.5 (10-20); Calcium 8.9 mg/dl (8.6-10.3); Creatinine Clr Calc Pharmacy 52.7 ml/min; Magnesium 1.8 mg/dl (1.7-2.4); Phosphorus 4.6 mg/dl (2.5-4.9); Potassium 3.7 mmol/L (3.5-5.1)
--- NOTE | 2024-11-04 07:55 | Critical Care Progress Note ---
Date of Service November 04, 2024 Assessment & Plan (1) Symptomatic bradycardia: (2) Complete heart block: (3) Hypothyroidism: (4) Acute kidney injury superimposed on CKD: (5) Acute hyponatremia: (6) COPD (chronic obstructive pulmonary disease): Plan Reason Critically Ill: Severe hyponatremia in setting of symptomatic bradycardia complicated by severe hyponatremia, elevated TSH, and end stage COPD. Neuro - Encephalopathy-resolved Hx: Anxiety/Depression: Resolved Cardiac - Symptomatic bradycardia- CHB, Shock- multifactorial resolved - Appeared to be largely result of electrolyte disturbances and hypoxia -Possible contribution of hypothyroidism as patient was not taking thyroid consistently nor at consistent time of day - Status post transvenous pacer with subsequent removal - Reviewed echocardiogram Tachycardia and hypertension: Worsened - Both appear to be associated with work of breathing and hypoxia when on high flow nasal cannula both improved with noninvasive mechanical ventilation - Initiated 5 mg amlodipine, creatinine improved and could consider NATASHA/ARB however they are associated with hyponatremia, will increase amlodipine to 10 mg and consider prazosin - Given significant respiratory disease will not utilize beta-blockade - If patient is intubated would need to consider IV antihypertensives versus transdermal clonidine Respiratory - Hypoxic respiratory failure acute on chronic, end stage COPD: Worsening - While not overtly compensating for respiratory acidosis prior lab values when more stable bicarb ranges 31-32, patient does not tolerate significant acidosis given baseline kidney disease - Improved hemodynamics when oxygen saturations 92-96 - On 3 L nasal cannula at baseline - Worsening today -Was limited in diuretics given significant electrolyte disturbances: Not withstanding patient's weight decreasing and globally volume down -Continue diuresis - Continue her FERN, LABA/LAMA - 2-week taper of prednisone ordered for COPD exacerbation Hemoptysis: Scant - Patient not having kelvin mopped assist but sputum is blood-tinged, this is somewhat to be expected being on positive pressure and significant oxygen requirements Pleural effusions bilaterally -Chest x-ray unchanged despite being nearly 3 L down, lung ultrasound demonstrates simple appearing fluid without adequate pleural distance to facilitate drainage Pulmonary edema: Continued diuresis type B profile bilateral lung ultrasound PF ratio 100: on antibiotics, steroids, attempting diuresis - Patient still desires aggressive treatment if intubated I do not feel that the patient would likely successfully liberate from the ventilator and would likely require tracheostomy for prolonged weaning if ever able to liberate from mechanical ventilation GI -stools fecal occult blood positive - Continue Pepcid will recommend GI follow-up - Not transitioning back to PPI as this can be associated with hyponatremia and patient has had now multiple episodes of hyponatremia of unclear etiology Diet: N.p.o., respiratory status so tenuous she is unable to eat without significant life-threatening desaturation -Will reevaluate tomorrow: Nutrition will be vitally important to any form of recovery RENAL/LYTES - - Severe Hyponatremia improved, GRIS II on CKD III - Metabolic acidosis resolved - Hypoosmolar hyponatremia-improving: Down 3 L Acute kidney failure on chronic kidney disease stage III: Improving - Hyperkalemia-resolved -Mild contraction alkalosis - Diamox 500 mg and Lasix 40 mg 30 minutes later twice today for continued diuresis - 40 mEq potassium chloride IV, repeat BMP at 1800 - No acute needs - Continue andrews catheter at this time ENDO - Decompensated hypothyroidism, DMII, - Synthroid 100 mcg daily - ICU hyperglycemic protocol 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 histocytosis ID -persistently hypothermic, will continue IV anti-infectives - No growth to date -Rocephin empiric for probable COPD exacerbation x 10 days - BioFire panel negative -Empiric treatment with doxycycline load 200 mg then 100 twice daily for 10 days or until Legionella antigen negative LINES/IV ACCESS - PIV, Andrews, DVT PROPHYLAXIS - SCDS, Heparin 5000 units subq q12 CODE STATUS: Full; patient may benefit from advanced care planning discussions with primary care team given significant end-stage COPD and now multiple hospital readmissions. DISPO: ICU Patient complexities are increasing. Continued slow backslide from respiratory standpoint. Now unable to eat given significant work of breathing. Given's significant likelihood for decompensation if intubated feel it is optimal to be n.p.o. for the next 24 to 48 hours versus intubation and facilitation of supplemental nutrition via artificial means. Reviewed palliative care notes, continued discussion with patient and . While the patient's electrolyte derangements have improved as well as her mental status I believe we have been slowly backsliding from a respiratory aspect and speaking in long-term morbidity and mortality I feel she has generally decompensated and worsening despite improvements in the aforementioned medical problems. At this point she still has been able to recover from significant desaturation however the duration and intensity of supplemental support has continued to increase in clinically is consistent with decreasing compensatory reserve, I am certainly concerned with continued decompensation despite aggressive medical intervention she will no longer be able to compensate will be at risk for respiratory arrest. Admission and Anticipated Discharge Date Admission Date: October 31, 2024 Supervising Physician Co-Signing Physician Notes I have personally spent 70 minutes of critical care time in the direct management of this patient. This is a life/limb threatening event. This includes time spent evaluating patient, direct bedside care, chart review, placing orders, interpretation of diagnostic studies, discussion with consultants, patient, and/or family members regarding treatment decisions, as well as other required patient management activities. This time is exclusive of all separately billable procedures, and teaching time and separate from and in addition to any other critical care service time. Subjective Patient utilized BiPAP while sleeping, desired to transition to high flow nasal cannula to eat breakfast during breakfast patient desaturated and was no longer able to adequately breathe and requested transition back to BiPAP. Physical Exam Physical Exam: General: Alert. Oriented x 3 Skin: Warm, dry Head: Atraumatic Ears, nose, mouth and throat: airway patent Neck: Dressing in place Cardiovascular: Normal peripheral perfusion Respiratory: BiPAP mask in place, while not in kelvin distress certainly increased respiratory mechanics and accessory muscle use Gastrointestinal: Non distended Musculoskeletal: No deformity Procedure Date: Noted above Critical Care Medicine Point of Care Bedside Ultrasound Procedure: Limited Bedside Lung Ultrasound Indication: Hypoxic respiratory failure Attending: Miladys Trujillo DO Resident/Physician Operating Room Technologist: Not applicable Organs Examined: Lung BLUE point (upper), BLUE point (lower), Phrenic Point (axillary), PLAPS point (posterior) A lines visualized: Absent, Hemithorax: Bilateral B lines visualized: Present, Hemithorax: Bilateral in all 4 point Lung Sliding: Present, Hemithorax: Bilateral Tissue-like Sign: Present, Hemithorax: Bilateral lower PLAPS point Shred Sign: Absent, Hemithorax: Bilateral Quad Sign: Present, Hemithorax: Bilateral lower plaps point Sinusoid Sign: Absent, Hemithorax: Bilateral Type of effusions: Simple, Hemithorax: Bilateral Interpleural distance: Less than 1 cm Impression: Small simple appearing bilateral pleural effusions with global type B lung ultrasound in all lung sun Results & Data Results & Data Vital Signs (Past 12 Hours) Vital Signs Temp Pulse Resp BP Pulse Ox O2 Del Method O2 Flow Rate 11/04/24 07:38 28 H 95 High Flow Nasal Cannula 60 11/04/24 07:37 BiPAP 11/04/24 06:00 36.6 C 102 H 23 170/84 H 94 BiPAP 11/04/24 05:00 36.7 C 89 21 157/67 H 95 BiPAP 11/04/24 04:25 157/67 H 11/04/24 04:25 157/67 H 11/04/24 04:25 157/67 H 11/04/24 04:00 36.6 C 104 H 22 157/67 H 94 BiPAP 11/04/24 03:00 36.7 C 103 H 28 H 172/93 H 94 BiPAP 11/04/24 02:04 109 H 33 H 92 11/04/24 00:03 36.6 C 75 18 147/74 H 96 BiPAP 11/04/24 00:00 75 11/03/24 23:00 36.8 C 85 18 139/70 96 BiPAP 11/03/24 22:15 97 H 18 95 11/03/24 22:02 36.5 C 92 H 23 148/93 H 94 BiPAP 11/03/24 21:30 103 H 28 H 94 BiPAP 11/03/24 21:05 36.5 C 110 H 27 H 168/88 H 91 BiPAP 11/03/24 21:03 BiPAP 11/03/24 20:00 36.6 C 94 H 23 140/85 93 BiPAP FiO2 11/04/24 07:38 90 11/04/24 07:37 60 11/04/24 06:00 11/04/24 05:00 11/04/24 04:25 11/04/24 04:25 11/04/24 04:25 11/04/24 04:00 11/04/24 03:00 11/04/24 02:04 60 11/04/24 00:03 11/04/24 00:00 11/03/24 23:00 11/03/24 22:15 60 11/03/24 22:02 11/03/24 21:30 60 11/03/24 21:05 11/03/24 21:03 60 11/03/24 20:00 Critical Care Results & Data Vital Signs (Past 12 Hours) Vital Signs Temp Pulse Resp BP Pulse Ox O2 Del Method O2 Flow Rate 11/04/24 08:02 36.5 C 114 H 34 H 192/125 H 90 BiPAP 11/04/24 07:38 28 H 95 High Flow Nasal Cannula 60 11/04/24 07:37 BiPAP 11/04/24 07:00 36.7 C 96 H 24 148/79 H 93 BiPAP 11/04/24 06:00 36.6 C 102 H 23 170/84 H 94 BiPAP 11/04/24 05:00 36.7 C 89 21 157/67 H 95 BiPAP 11/04/24 04:25 157/67 H 11/04/24 04:25 157/67 H 11/04/24 04:25 157/67 H 11/04/24 04:00 36.6 C 104 H 22 157/67 H 94 BiPAP 11/04/24 03:00 36.7 C 103 H 28 H 172/93 H 94 BiPAP 11/04/24 02:04 109 H 33 H 92 11/04/24 00:03 36.6 C 75 18 147/74 H 96 BiPAP 11/04/24 00:00 75 11/03/24 23:00 36.8 C 85 18 139/70 96 BiPAP 11/03/24 22:15 97 H 18 95 11/03/24 22:02 36.5 C 92 H 23 148/93 H 94 BiPAP 11/03/24 21:30 103 H 28 H 94 BiPAP 11/03/24 21:05 36.5 C 110 H 27 H 168/88 H 91 BiPAP 11/03/24 21:03 BiPAP FiO2 11/04/24 08:02 60 11/04/24 07:38 90 11/04/24 07:37 60 11/04/24 07:00 60 11/04/24 06:00 11/04/24 05:00 11/04/24 04:25 11/04/24 04:25 11/04/24 04:25 11/04/24 04:00 11/04/24 03:00 11/04/24 02:04 60 11/04/24 00:03 05/18/25 00:00 11/03/24 23:00 11/03/24 22:15 60 11/03/24 22:02 11/03/24 21:30 60 11/03/24 21:05 11/03/24 21:03 60 Lab & Micro Results (Past 24 Hours) RBC 2.63 M/uL (4.20-5.40) L 11/04/24 WBC 16.46 K/ul (4.8-10.8) H 11/04/24 Hgb 8.7 g/dl (12.0-16.0) L 11/04/24 Hct 25.4 % (37.0-47.0) L 11/04/24 MCV 96.6 fL (80.0-100.0) 11/04/24 MCH 33.1 pg (25.0-34.0) 11/04/24 MCHC 34.3 g/dL (32.0-36.0) 11/04/24 RDW Standard Deviation 56.7 fL (36.4-46.3) H 11/04/24 RDW Coefficient of Variation 16.1 % (11.5-14.5) H 11/04/24 Plt Count 227 K/uL (130-400) 11/04/24 MPV 10.4 fL (9.4-12.4) 11/04/24 Na 130 mmol/L (136-145) L 11/04/24 K 3.7 mmol/L (3.5-5.1) 11/04/24 Cl 89 mmol/L (98-107) L 11/04/24 CO2 32 mmol/L (21-32) 11/04/24 Anion Gap 9 (3-11) 11/04/24 BUN 28 mg/dl (6-23) H 11/04/24 Creatinine 0.95 mg/dl (0.6-1.2) 11/04/24 BUN/Creatinine Ratio 29.5 (10-20) H 11/04/24 Glu 111 mg/dl (70-99(Fasting)) H 11/04/24 Ca 8.9 mg/dl (8.6-10.3) 11/04/24 Phosphorus Level 4.6 mg/dl (2.5-4.9) 11/04/24 Albumin 3.1 gm/dl (3.4-5.0) L 11/04/24 Mg 1.8 mg/dl (1.7-2.4) 11/04/24 04:53 Calcium Level 8.9 mg/dl (8.6-10.3) 11/04/24 04:53 Jose Ramon Test Pass 11/03/24 15:30 Microbiology 11/03/24 11:15 Gram Stain - Final Sputum, Expectorated 11/01/24 10:29 Urine Culture - Final Urine,Indwelling Cath No growth - less than 1,000 colonies/mL. I & O Totals 24 Hours 11/03/24 11/04/24 11/05/24 06:59 06:59 06:59 Intake Total 650 / 650 350 / 350 Output Total 1905 / 1905 3285 / 3285 Balance -1255 / -1255 -2935 / -2935 Cumulative 10/31/24 15:34 thru 11/04/24 05:45 Intake Total 3613.850 Output Total 7205 Balance -3591.150 RT Ventilator Mngmt (Last Documented) Ventilator Ordered Settings Respiratory Rate 34 11/04/24 08:02 Fraction of Inspired Oxygen 60 11/04/24 08:02 Ventilator - PT Measurements Respiratory Rate 34 End-Tidal CO2 27 Coding Level of Care Code 09542 CRITICAL CARE 1ST 30-74M Diagnoses Symptomatic bradycardia R00.1 Complete heart block I44.2 Hypothyroidism E03.9 Hypothyroidism type: unspecified Acute kidney injury superimposed on CKD N17.9; N18.9 Acute hyponatremia E87.1 COPD (chronic obstructive pulmonary disease) J44.9 (3) Hypothyroidism Hypothyroidism type: unspecified Qualified Code(s): E03.9 - Hypothyroidism, unspecified
[2024-11-04] MEDS ORDERED: amLODIPine BESYLATE 5 MG TAB PO SCH (09:21)
[2024-11-04] MEDS: POTASSIUM CHLORIDE / WTR 10 MEQ/100 ML PLCT IV SCH (09:42)
[2024-11-04] MEDS: acetaZOLAMIDE 500 MG in SYRINGE 0 ML IV STA (09:49)
[2024-11-04] MEDS: FUROSEMIDE 40 MG/4 ML VIAL IV ONE ×2 (10:30→18:34)
--- NOTE | 2024-11-04 11:41 | Communication Note ---
Date of Service: November 04, 2024 Had discussion with patient's and patient at bedside. Discussed prognosis and probabilities of being able to liberate from ventilator in case of intubation. At this point patient opts to continue with full aggressive measures including intubation in event of respiratory failure. Discussed risks and benefits of tracheostomy should this occur as a feel to expedite her care would be to immediately proceed to tracheostomy upon intubation and she and her are in agreement with this. To facilitate communication attempted to remove BiPAP mask she only tolerated 30 seconds before significantly desaturating and was only able to speak in 2-3 word sentences. Coding Level of Care Code None
--- NOTE | 2024-11-04 12:28 | Hospitalist Progress Note ---
Date of Service November 04, 2024 Assessment & Plan (1) Acute hyponatremia: (2) Complete heart block: (3) Acute hypoxemic respiratory failure: (4) Acute kidney injury superimposed on CKD: (5) Hypothyroidism: Plan 74-year-old woman with severe COPD history of hyponatremia, hypothyroidism which is undertreated and depression on several medications who was admitted with severe hyponatremia and third-degree heart block with bradycardia #Acute hypoxic and hypercarbic respiratory failure - continues to worsen now BiPAP dependence on high FiO2 and impending intubation #Severe underlying COPD #Possible CAP - continues on BiPAP, likely to require intubation very soon, unlikely to be able to be extubated. Discussed with Dr. Trujillo and bedside ICU nurse Bruno. discussed with Isidra and her at bedside she wants to proceed with intubation if it is necessary even if that necessitates tracheostomy -continue ceftriaxone and doxycycline. Legionella Ag pending -continue diuresis, has been getting Lasix and Diamox - remains on steroids, currently prednisone 40 mg daily -continue bronchodilators # severe hyponatremiacritical level of 111 at admission, treated with several 100 mL boluses 3% saline. Improved sodium continues to correct appropriately - 130 today after diuresis, continue daily sodium check -urine sodium was low at <10 in ED not consistent with SIADH -held venlafaxine and aripiprazole - machine sander has been consulting # third degree heart block with bradycardia and evidence of hypoperfusion - lethargy, hypotension, poor peripheral perfusion. Resolved # minimal troponin elevation related to myocardial demand ischemia from hypotension and heart block. Troponin 30-50 # prolonged QT -initially dopamine then transvenous pacer evening of 10/[address] Shah. Electrolytes corrected. TVP removed 11/02. no further significant arrhythmia #WAYNE with hyperkalemia -ARB held -hyperkalemia treated, resovled -Cr improved to 0.95 # hypothyroidism - has had increasing doses of levothyroxine as outpatient currently 100 mcg however TSH remains 45, T4 not improved low at 0.4 on admission possible myxedema -continue IV levothyroxine and prednisone -interestingly chronic severe itching has resolved this admission # acute metabolic encephalopathy - due to hypotension/hypoperfusion and severe hyponatremia, possible myxedema coma -monitor mental status - again seems normal today -held hydroxyzine, gabapentin history of eosinophilia, clonal eosinophil population has been followed by Dr. Costello and career specialist, pulmonary disease specialist - obtain records from [facility] reviewed meds with her and ICU nurse 11/03 - 11/04. It seems that the 88 mcg levothyroxine bottle and the hydrochlorothiazide bottle were set aside separately because she was not taking them. DVT ppx - SQ heparin Full code - Remains full code and intubate if necessary Updated her at bedside 11/04 Remains critically ill in ICU Discussed POC with: EDGING CATCHER, hot tar roofer helper Admission and Anticipated Discharge Date Admission Date: October 31, 2024 Subjective acute respiratory failure is worsening, now BiPAP dependent and unable to even tolerate it being removed 4 minutes to talk to her to eat without significant desat good diuresis overnight -3.5 L, no significant pleural effusions on bedside ultrasound by hot tar roofer helper Remains alert, short of breath, denies pain, asks about blood pressure medicine Physical Exam 2 Physical Exam: Last 24h vitals reviewed GEN: ill-appearing sitting upright in bed wearing BiPAP HEENT: pupils equal, sclerae anicteric, dryMM RESP: labored, coarse sounds throughout bilaterally anteriorly and posteriorly CV: reg obscured ABD: soft/nt/nd +BT : verito urine in andrews Ext: no leg edema, thigh/buttock edema significantly improved, extremities are a little bit dusky and cool pulses intact SKIN: dry, no generalized rashes NEURO: Alert and mentation seems to be at her baseline, moves 4 ext spontaneously and equally Results & Data Results & Data Vital Signs (Past 12 Hours) Vital Signs Temp Pulse Resp BP Pulse Ox O2 Del Method O2 Flow Rate 11/04/24 12:00 36.6 C 94 H 26 H 105/88 96 BiPAP 11/04/24 11:00 36.5 C 103 H 30 H 162/105 H 99 BiPAP 11/04/24 10:09 36.7 C 100 H 28 H 171/88 H 97 BiPAP 11/04/24 09:06 36.7 C 106 H 23 156/92 H 93 BiPAP 11/04/24 08:35 36.7 C 106 H 27 H 147/93 H 97 BiPAP 11/04/24 08:24 111 H 30 H 94 11/04/24 08:02 36.5 C 114 H 34 H 192/125 H 90 BiPAP 11/04/24 07:38 28 H 95 High Flow Nasal Cannula 60 11/04/24 07:37 BiPAP 11/04/24 07:00 36.7 C 96 H 24 148/79 H 93 BiPAP 11/04/24 06:00 36.6 C 102 H 23 170/84 H 94 BiPAP 11/04/24 05:00 36.7 C 89 21 157/67 H 95 BiPAP 11/04/24 04:25 157/67 H 11/04/24 04:25 157/67 H 11/04/24 04:25 157/67 H 11/04/24 04:00 36.6 C 104 H 22 157/67 H 94 BiPAP 11/04/24 03:00 36.7 C 103 H 28 H 172/93 H 94 BiPAP 11/04/24 02:04 109 H 33 H 92 FiO2 11/04/24 12:00 70 11/04/24 11:00 70 11/04/24 10:09 70 11/04/24 09:06 70 11/04/24 08:35 70 11/04/24 08:24 70 11/04/24 08:02 60 11/04/24 07:38 90 11/04/24 07:37 60 11/04/24 07:00 60 11/04/24 06:00 11/04/24 05:00 11/04/24 04:25 11/04/24 04:25 11/04/24 04:25 11/04/24 04:00 11/04/24 03:00 11/04/24 02:04 60 Laboratory Results 11/04/24 04:53 11/04/24 04:53 updated ABG is pending PG Care Time/CCT Total # of Minutes Spent Total Time Spent with Patient: Total time spent is greater than 50% in coordination of care (as documented) at patient's floor/unit and/or counseling patient: Coding Level of Care Code 79468 SUB INP/OBS CARE 3/50MIN Diagnoses Acute hyponatremia E87.1 Complete heart block I44.2 Acute hypoxemic respiratory failure J96.01 Acute kidney injury superimposed on CKD N17.9; N18.9 Hypothyroidism E03.9 Hypothyroidism type: unspecified (5) Hypothyroidism Hypothyroidism type: unspecified Qualified Code(s): E03.9 - Hypothyroidism, unspecified
--- NOTE | 2024-11-04 14:51 | Nephrology Progress Note ---
Date of Service November 04, 2024 Assessment & Plan (1) Acute hyponatremia: Plan: Serum sodium continues to improve. Shira is correcting on her own. She has not required additional hypertonic saline in the past 48+ hours. Volume status remains slightly hypervolemic. Continue diuretics to encourage negative fluid balance. Diuretics are being managed by the ciso. Remains on liquid diet with poor oral solute intake. No additional nephrology recommendations at this time. I will follow labs peripherally but please call with questions or concerns otherwise. (2) Acute kidney injury superimposed on CKD: Plan: Hemodynamically mediated. Creatinine has returned to normal. Medications are appropriate for kidney function. Document strict I/O's. Repeat metabolic profile tomorrow AM. (3) Acute hypoxemic respiratory failure: Plan: Advanced underlying COPD. Management per ciso. Prognosis guarded. Admission and Anticipated Discharge Date Admission Date: October 31, 2024 Subjective Shria remains BIPAP dependent in the ICU. Unfortunately, her respiratory status appears worse today. She fatigues very quickly when taken off BIPAP. Shira states that she otherwise feels well. No fevers or chills. No fluid retention or edema. Review of Systems Review of Systems: All systems reviewed & are unremarkable except as noted in HPI & below Physical Exam Constitutional: + frail appearing; no acute distress Eyes: + anicteric sclerae ENMT: Ears: + hearing impairment Neck: normal visual inspection, trachea midline and + thick neck Respiratory: normal respiratory effort (BIPAP ) Auscultation: + rhonchi Cardiovascular: Rate/Rhythm: + tachycardic Heart Sounds: normal S1 and normal S2 Extremities: + edema Musculoskeletal: Extremities: no cyanosis and no clubbing Skin: no jaundice Psychiatric: Orientation: alert and oriented x 3 Results & Data Vital Signs (Past 12 Hours) Vital Signs Temp Pulse Resp BP Pulse Ox O2 Del Method O2 Flow Rate 11/04/24 13:18 116 H 32 H 95 11/04/24 13:00 36.5 C 104 H 28 H 178/109 H 96 BiPAP 11/04/24 12:00 36.6 C 94 H 26 H 105/88 96 BiPAP 11/04/24 11:00 36.5 C 103 H 30 H 162/105 H 99 BiPAP 11/04/24 10:09 36.7 C 100 H 28 H 171/88 H 97 BiPAP 11/04/24 09:06 36.7 C 106 H 23 156/92 H 93 BiPAP 11/04/24 08:35 36.7 C 106 H 27 H 147/93 H 97 BiPAP 11/04/24 08:24 111 H 30 H 94 11/04/24 08:02 36.5 C 114 H 34 H 192/125 H 90 BiPAP 11/04/24 07:38 28 H 95 High Flow Nasal Cannula 60 11/04/24 07:37 BiPAP 11/04/24 07:00 36.7 C 96 H 24 148/79 H 93 BiPAP 11/04/24 06:00 36.6 C 102 H 23 170/84 H 94 BiPAP 11/04/24 05:00 36.7 C 89 21 157/67 H 95 BiPAP 11/04/24 04:25 157/67 H 11/04/24 04:25 157/67 H 11/04/24 04:25 157/67 H 11/04/24 04:00 36.6 C 104 H 22 157/67 H 94 BiPAP 11/04/24 03:00 36.7 C 103 H 28 H 172/93 H 94 BiPAP FiO2 11/04/24 13:18 70 11/04/24 13:00 70 11/04/24 12:00 70 11/04/24 11:00 70 11/04/24 10:09 70 11/04/24 09:06 70 11/04/24 08:35 70 11/04/24 08:24 70 11/04/24 08:02 60 11/04/24 07:38 90 11/04/24 07:37 60 11/04/24 07:00 60 11/04/24 06:00 11/04/24 05:00 11/04/24 04:25 11/04/24 04:25 11/04/24 04:25 11/04/24 04:00 11/04/24 03:00 Laboratory Results Laboratory Results - last 24 hr 11/03/24 11/03/24 11/03/24 15:28 15:30 17:52 WBC RBC Hgb POC Hgb 9.5 L Hct POC Hct 28 L MCV MCH MCHC RDW Std Deviation RDW Coeff of Delmer Plt Count MPV Specimen Type Arterial Sample Site L Radial POC pH 7.49 H POC pCO2 44 POC pO2 61 L POC HCO3 34 H POC Total CO2 35 H POC Base Excess 10.0 H O2 Sat Pulse Oximetry 92 ABG pH (Temp Correct) 7.495 H ABG pCO2 (Temp Corrct 43 POC ABG pO2 at Pt Temp 59 POC ABG O2 Sat 93.0 Jose Ramon Test Pass O2 Delivery Device BIPAP POC FiO2 60 EPAP 8 IPAP 14 POC Sodium 124 L Sodium 128 L POC Potassium 3.7 Potassium 3.7 Chloride 84 L Carbon Dioxide 33 H Anion Gap 11 BUN 28 H Creatinine 1.01 Est Cr Clr Drug Dosing 49.6 eGFR 58.42 BUN/Creatinine Ratio 27.7 H Glucose 148 H Lactate 1.4 Calcium 9.1 Phosphorus Magnesium Albumin 11/04/24 04:53 WBC 16.46 H RBC 2.63 L Hgb 8.7 L POC Hgb Hct 25.4 L POC Hct MCV 96.6 MCH 33.1 MCHC 34.3 RDW Std Deviation 56.7 H RDW Coeff of Delmer 16.1 H Plt Count 227 MPV 10.4 Specimen Type Sample Site POC pH POC pCO2 POC pO2 POC HCO3 POC Total CO2 POC Base Excess O2 Sat Pulse Oximetry ABG pH (Temp Correct) ABG pCO2 (Temp Corrct POC ABG pO2 at Pt Temp POC ABG O2 Sat Jose Ramon Test O2 Delivery Device POC FiO2 EPAP IPAP POC Sodium Sodium 130 L POC Potassium Potassium 3.7 Chloride 89 L Carbon Dioxide 32 Anion Gap 9 BUN 28 H Creatinine 0.95 Est Cr Clr Drug Dosing 52.7 eGFR 62.87 BUN/Creatinine Ratio 29.5 H Glucose 111 H Lactate Calcium 8.9 Phosphorus 4.6 Magnesium 1.8 Albumin 3.1 L PG Care Time/CCT Total # of Minutes Spent Total Time Spent with Patient: Total time spent is greater than 50% in coordination of care (as documented) at patient's floor/unit and/or counseling patient: Coding Level of Care Code 21582 SUB INP/OBS CARE 3/50MIN Diagnoses Acute hyponatremia E87.1 Acute kidney injury superimposed on CKD N17.9; N18.9 Acute hypoxemic respiratory failure J96.01
[2024-11-04 15:24] LABS: iSTAT Art Bld Gas pCO2 Correct 45 mmHg (35-46); iSTAT Arterial Blood Gas HCO3 29 meg/L (19-24); iSTAT Arterial Blood Gas pCO2 46 mmHg (35-46); iSTAT Arterial Blood Gas pH 7.42 (7.35-7.45); iSTAT Arterial Blood Gas pO2 79 mmHg (80-95); iSTAT Arterial Blood Gas pO2 C 77; iSTAT Carbon Dioxide 31 mmol/L (24-31); iSTAT FiO2 70 %; iSTAT Hematocrit 29 % (37-47); iSTAT Hemoglobin 9.9 g/dl (12.0-16.0); iSTAT Potassium 3.4 mmol/L (3.3-5.0); iSTAT Sample Type Arterial; iSTAT Site R Femoral; iSTAT Sodium 127 mmol/L (135-144); iSTAT SpO2 98
[2024-11-04 17:45] LABS: iSTAT Art Bld Gas pCO2 Correct 48 mmHg (35-46); iSTAT Art Bld Gas pH Corrected 7.403 (7.35-7.45); iSTAT Arterial Blood Gas HCO3 30 meg/L (19-24); iSTAT Arterial Blood Gas pCO2 49 mmHg (35-46); iSTAT Arterial Blood Gas pO2 76 mmHg (80-95); iSTAT Arterial Blood Gas pO2 C 74; iSTAT Carbon Dioxide 32 mmol/L (24-31); iSTAT FiO2 70 %; iSTAT Hematocrit 26 % (37-47); iSTAT Hemoglobin 8.8 g/dl (12.0-16.0); iSTAT Potassium 3.6 mmol/L (3.3-5.0); iSTAT Sample Type Arterial; iSTAT Site L Radial; iSTAT Sodium 130 mmol/L (135-144); iSTAT SpO2 97
[2024-11-04] MEDS: acetaZOLAMIDE 500 MG in SYRINGE 0 ML IV ONE (17:56)
[2024-11-04 18:03] LABS: BUN Creatinine Ratio 31.2 (10-20); Calcium 9.1 mg/dl (8.6-10.3); Creatinine Clr Calc Pharmacy 53.6 ml/min; Potassium 3.7 mmol/L (3.5-5.1)
[2024-11-04 18:14] LABS: Base Excess VBG 6.5 mEq/L; HCO3 VBG 33 mmol/L; Oxygen Saturation VBG 79.2 %; PCO2 VBG 53 mmHg (38-50); PO2 VBG 48 mmHg
[2024-11-04] MEDS ORDERED: STAT IV Infusion **Titration per Protocol STA (19:02)
[2024-11-04] MEDS: MoRPHine SULFATE 2 MG/ML CARP IV STA (19:07)
[2024-11-04] MEDS: MoRPHine SULF 100 MG/100 ML BAG IV SCH (19:38)
--- NOTE | 2024-11-04 19:42 | Communication Note ---
Date of Service: November 04, 2024 Patient's encephalopathy worsened throughout the day, repeat ABG testing demonstrated worsening hypercapnia. I had a kelvin discussion with the patient's again regarding goals of care; at no point during the hospital admission has the patient ever exhibited decisional capacity with regards to adequate understanding and teach back; who reported he did not feel aggressive respiratory measures would be in line with patient's long-term goals. I emphasized if patient were to decompensate from a respiratory standpoint she is essentially met maximum therapy with noninvasive mechanical ventilation and intubation would be indicated. Correspondingly I feel immediate proceeding to tracheostomy would be best option/chance at recovery, proceeding with ventilatory weaning would likely revert to us still needing noninvasive mechanical ventilation which she is presently failed after multiple days. needed additional support from the patient's sister and [id number] all were in agreement that patient would not benefit from intubation and we are transitioning from full aggressive measures to DO NOT RESUSCITATE in event of cardiac arrest and initiating morphine focusing on comfort. Indicated that patient likely will become more hypercapnic and more encephalopathic and would anticipate her passing with in several hours if her respiratory status worsens. She has discontinued the BiPAP throughout the course of her stay and has not tolerated it, anticipate we will discontinue the BiPAP and transition to a morphine infusion based off of patient's comfort. I have personally spent 35 minutes of critical care time in the direct management of this patient. This is a life/limb threatening event. This includes time spent evaluating patient, direct bedside care, chart review, placing orders, interpretation of diagnostic studies, discussion with consultants, patient, and/or family members regarding treatment decisions, as well as other required patient management activities. This time is exclusive of all separately billable procedures, and teaching time and separate from and in addition to any other critical care service time. Coding Level of Care Code 92243 CRITICAL CARE EA ADD 30M
[2024-11-04] MEDS ORDERED: ONDANSETRON INJ 2 MG/ML 2 ML VIAL IV PRN (20:14)
[2024-11-04] MEDS ORDERED: GLYCOPYRROLATE 0.2 MG/ML VIAL IV PRN (20:14)
[2024-11-04] MEDS: LORazepam 2 MG/1 ML VIAL IV PRN (21:01)
[2024-11-04] MEDS: MoRPHine BOLUS from BAG IV PRN (22:15)
--- NOTE | 2024-11-05 00:02 | Communication Note ---
Date of Service: November 04, 2024 Patient transitioned to UNINDENTURED APPRENTICE after extensive discussion between Dr. Trujillo and patient's family. Comfort Care orders were placed. Ativan is available PRN, M orphine infusion ongoing with PRN. Symptoms are well-managed. Transitioned to NC oxygen. Remain off BIPAP. May eat/drink as cognitive status allows. Patient's Critical Care needs have resolved. She will be transitioned to med/surg status by primary team. We remain available for additional questions/concerns were they to arise. Coding Level of Care Code None
[2024-11-05] MEDS: LORazepam 2 MG/1 ML VIAL IV PRN (00:22)
[2024-11-05 05:22] VITALS: BP 150/91; PULSE 91; RESP 23; TEMP 97.5; O2SAT 89
[2024-11-05] MEDS ORDERED: ATROPINE SULFATE 1% OP SOLN 5 ML BTL OP PRN (07:43)
--- NOTE | 2024-11-05 18:15 | Hospitalist Progress Note ---
Date of Service November 05, 2024 Assessment & Plan (1) Acute hyponatremia: (2) Complete heart block: (3) Acute hypoxemic respiratory failure: (4) Acute kidney injury superimposed on CKD: (5) Hypothyroidism: Plan 74-year-old woman with severe COPD history of hyponatremia, hypothyroidism which is undertreated and depression on several medications who was admitted with severe hyponatremia and third-degree heart block with bradycardia. the hyponatremia was corrected at an appropriate rate and transvenous pacer was placed with a heart block, with improvement in her electrolytes over several days the temporary pacemaker was able to be removed and she remained in sinus rhythm. Unfortunately her respiratory progressed, despite treatment for possible pneumonia, COPD exacerbation with steroids, and diuresis. Because of her severe underlying COPD chances of liberation from the ventilator were extremely low and tracheostomy was planned in the event of intubation. She continued to worsen with worsening acute metabolic encephalopathy in the evening was no longer coherent, her elected to transition to comfort measures only. today Shira is comfortable, for palliation of her symptoms she is on continuous morphine infusion at 2.5 mg/h which is appropriate as well as as needed IV morphine and as needed IV lorazepam, atropine for secretion management based on her breathing pattern I anticipate that her prognosis is hours to a few days I updated her and sister at the bedside 11/05 Diagnoses treated this admission: # Severe hyponatremia # complete heart block causing cardiogenic shock and acute on chronic HFpEF # hyperkalemia # possible sepsis present on admission, essentially ruled out #Acute hypoxic and hypercarbic respiratory failure #Severe underlying COPD in acute exacerbation #Possible CAP # acute metabolic encephalopathy # myocardial demand ischemia # WAYNE with hyperkalemia # Hypothyroidism, possible myxedema Admission and Anticipated Discharge Date Admission Date: October 31, 2024 Subjective transition to comfort measures yesterday evening, yesterday began progressively more encephalopathic and respiratory failure worsened despite BiPAP has not been alert since yesterday evening according to her at the bedside, he feels that she is comfortable currently she is on a morphine infusion with as needed doses Physical Exam Physical Exam: Last 24h vitals reviewed GEN: not awake HEENT: pupils reactive, dry mucous membranes RESP: short shallow breaths, ineffective air movement, does not appear labored, secretions well-controlled CV: reg obscured ABD: nondistended : verito urine in andrews Ext: extremities are warm and well-perfused SKIN: dry, no generalized rashes NEURO: no longer arousable Results & Data Results & Data Vital Signs (Past 12 Hours) Vital Signs O2 Del Method O2 Flow Rate 11/05/24 09:45 Nasal Cannula 4 PG Care Time/CCT Total # of Minutes Spent Total Time Spent with Patient: Total time spent is greater than 50% in coordination of care (as documented) at patient's floor/unit and/or counseling patient: Coding Level of Care Code 46018 SUB INP/OBS CARE 2/35MIN Diagnoses Acute hyponatremia E87.1 Complete heart block I44.2 Acute hypoxemic respiratory failure J96.01 Acute kidney injury superimposed on CKD N17.9; N18.9 Hypothyroidism E03.9 Hypothyroidism type: unspecified (5) Hypothyroidism Hypothyroidism type: unspecified Qualified Code(s): E03.9 - Hypothyroidism, unspecified
--- NOTE | 2024-11-05 20:19 | Death Pronouncement Note ---
Date of Service November 05, 2024 Pronouncement Note Admission Date Admission Date: October 31, 2024 Contributing Factors (1) Acute hyponatremia: (2) Complete heart block: (3) Acute hypoxemic respiratory failure: (4) Acute kidney injury superimposed on CKD: (5) Hypothyroidism: Summary Additional details: I was called to pronounce the of Shira Lenz ( 1950) by nurse on 11/05/2024. Upon entering the room, patient was found to be in a terminal state. They were unresponsive to, and did not withdrawal from, verbal or tactile stimuli. They were unresponsive to corneal and pupillary reflexes. On cardiopulmonary exam, they were found to be without detectable radial pulses, and without spontaneous heart tones or respirations. Time of was pronounced by me on 11/05/2024 at 20:12. Attending physician was notified was notified. Next of kin not present at bedside, to be notified by nursing staff. Signed: Bettye Leary DO Additional Data Attending physician: Ewa Acosta MD Resident Activity Tracking Resident Involvement: Resident Care Provided Care Provided: Adult Hospital Medicine
--- NOTE | 2024-11-06 08:49 | Discharge Summary ---
Discharge Summary Date of Service November 05, 2024 Principal Dx & Hospital Course #1 = Principal Diagnosis (1) Acute hyponatremia: (2) Complete heart block: (3) Acute hypoxemic respiratory failure: (4) Acute kidney injury superimposed on CKD: (5) Hypothyroidism: Plan 74-year-old woman with severe COPD history of hyponatremia, hypothyroidism which is undertreated and depression on several medications who was admitted with severe hyponatremia and third-degree heart block with bradycardia. the hyponatremia was corrected at an appropriate rate and transvenous pacer was placed with a heart block, with improvement in her electrolytes over several days the temporary pacemaker was able to be removed and she remained in sinus rhythm. TSH was 45 despite being on oral replacement several months so she was started on IV levothyroxine and IV steroids at time of admission for possible myxedema. Unfortunately her respiratory progressed, despite treatment for possible pneumonia, COPD exacerbation with steroids, and diuresis. Because of her severe underlying COPD chances of liberation from the ventilator were extremely low and tracheostomy was planned in the event of intubation. She continued to worsen with worsening acute metabolic encephalopathy until she was no longer coherent, her elected to transition to comfort measures only. She was treated with morphine and lorazepam for comfort, and shortly after Diagnoses treated this admission: # Severe hyponatremia # complete heart block causing cardiogenic shock and acute on chronic HFpEF # hyperkalemia # possible sepsis present on admission, essentially ruled out #Acute hypoxic and hypercarbic respiratory failure #Severe underlying COPD in acute exacerbation #Possible CAP # acute metabolic encephalopathy # myocardial demand ischemia # WAYNE with hyperkalemia # Hypothyroidism, possible myxedema Admission HPI Per Admitting Provider 74-year-old woman who I know from admission 6 weeks ago for hyponatremia who was brought in after syncopal episode today. She is encephalopathic and unable to provide any history. Her at the bedside provides history. She was getting up to walk around today when she had a syncopal episode, he was able to catch her so she did not fall any later on the ground. She was awake fairly quickly but confused. On arrival to the ED she was found to be severely bradycardic with heart rate around 40 and third-degree heart block. sodium was 111. about a month and a half ago she was admitted with moderateSevere asymptomatic hyponatremia with sodium of 120. She had been taking hydrochlorothiazide and this was discontinued. After that sodium came up nicely over a few days to Low 130s. She was instructed to stop hydrochlorothiazide follow normal sodium diet, add protein supplement and not to over drink fluids, She had short-term follow-up with primary care to have a sodium recheck.. I did not check urine sodium at that time because she was already on a thiazide diuretic and it would have been inaccurate. She had been recently diagnosed with hypothyroidism, TSH was 45 however her thyroid dose had just been increased as an outpatient a few days before admission so that same dose was continued. She is on several psychiatric medications which could Affect her sodium including aripiprazole and venlafaxine. Her reports that she takes the medications she is supposed to take daily although he does not monitor them and does not seem to know any details. he says she has not had any medication changes other than she was seen in the ED late September and sent home with prednisone for COPD exacerbation, sodium was 133 on 10/16. CTA chest at that time was negative for PE or any pulmonary infiltrates. He thinks her breathing may have been slightly more labored than normal this week. She had not had any fevers she did not complain of chest pain she did not have any urinary symptoms like dysuria. Discharge Plan Discharge Items Patient Disposition: Other Date/Time: 11/05/24 20:12 Hospital Stay Data Consultations 10/31/24 17:46 Consult Manager Business Development Hospice Routine ED Decision to Admit Stat 10/31/24 19:52 Consult Manager Business Development Hospice Routine 11/01/24 08:21 Consult Cardiology Routine 11/01/24 09:17 Consult Nephrology Routine 11/02/24 09:49 Consult Palliative Care Routine Procedures Performed Operation Date: 10/31/24 21:00 Actual Procedures p Ins/RemTemporary Transvenous Pacer - Carlos Shah MD, PhD Diagnostic Imagining Performed 10/31/24 20:39 CL Cath Imgs for PACS use only Stat Total Time Total Time Spent Total Time Spent (In Minutes): I personally spent: 40 minutes on clinical care activities for discharge including: reviewing chart notes and vital signs examining the patient counseling the patient's family writing orders certificate documentation Coding Level of Care Code 93414 INP/OBS DISCH >30 MIN Diagnoses Acute hyponatremia E87.1 Complete heart block I44.2 Acute hypoxemic respiratory failure J96.01 Acute kidney injury superimposed on CKD N17.9; N18.9 Hypothyroidism E03.9 Hypothyroidism type: unspecified
== END 2024-11-05 21:00 | disposition expired | DRG 260 ==
LOC: ED 15:40 → 1E 18:35 → 3E 11-05 07:52
DX: E87.5 Hyperkalemia; E11.22 Type 2 diabetes mellitus with diabetic chronic kidney disease; R21 Rash and other nonspecific skin eruption; R57.0 Cardiogenic shock; I13.0 Hypertensive heart and chronic kidney disease with heart failure and stage 1 through stage 4 chronic kidney disease, or unspecified chronic kidney disease; Z79.890 Hormone replacement therapy; N18.30 Chronic kidney disease, stage 3 unspecified; I50.31 Acute diastolic (congestive) heart failure; Z66 Do not resuscitate; E03.9 Hypothyroidism, unspecified; N17.9 Acute kidney failure, unspecified; J44.0 Chronic obstructive pulmonary disease with (acute) lower respiratory infection; Z88.0 Allergy status to penicillin; Z51.5 Encounter for palliative care; E87.1 Hypo-osmolality and hyponatremia; J96.21 Acute and chronic respiratory failure with hypoxia; J45.909 Unspecified asthma, uncomplicated; K21.9 Gastro-esophageal reflux disease without esophagitis; Z87.891 Personal history of nicotine dependence; I24.89 Other forms of acute ischemic heart disease; G93.41 Metabolic encephalopathy; J18.9 Pneumonia, unspecified organism; I44.2 Atrioventricular block, complete; J81.0 Acute pulmonary edema; Z79.899 Other long term (current) drug therapy; Z88.8 Allergy status to other drugs, medicaments and biological substances; J96.22 Acute and chronic respiratory failure with hypercapnia; E87.20 Acidosis, unspecified; F32.A Depression, unspecified; T68.XXXA Hypothermia, initial encounter